=== PATIENT | female | born 1970 | race Caucasian/White ===

== ENCOUNTER 2016-08-03 05:19 | Inpatient (IN) | payer MEDICARE, OTHER ==
[2016-08-03] MEDS ORDERED: HYDROmorphone 1 MG/ML 1 ML SYRINGE IVP STA (06:11)
[2016-08-03] MEDS ORDERED: ONDANSETRON 4 MG/2 ML VIAL IVP STA (06:11)
--- NOTE | 2016-08-03 06:15 | ED ---
Abdominal Pain HPI - General Source: patient Mode of arrival: ambulatory - History of Present Illness Complaint: abdominal pain Onset/Timin -: hour(s) Location: epigastric Radiation: back Migration to: no migration Severity: moderate Quality: aching Consistency: constant Improves With: nothing Worsens With: nothing Associated Symptoms: nausea, vomiting <Ildefonso Templeton - Last Filed: 08/03/16 06:12> <Deyvi Alex - Last Filed: 08/03/16 09:44> - General Chief Complaint: Abdominal Pain Stated Complaint: Abdominal Pain Time Seen by Provider: 08/03/16 05:31 - Related Data Home Medications Medication Instructions Recorded Confirmed Atorvastatin [Lipitor] 20 mg PO HS 08/03/16 08/03/16 Ciprofloxacin HCl [Cipro] 500 mg PO Q12H 08/03/16 08/03/16 Multivitamins, Thera [Multivitamin 1 tab PO DAILY 08/03/16 08/03/16 (formulary)] Omeprazole 20 mg PO DAILY 08/03/16 08/03/16 Ondansetron [Zofran] 4 mg PO BID PRN 08/03/16 08/03/16 Orlistat 60 - 120 mg PO TID 08/03/16 08/03/16 Oxybutynin Chloride [Ditropan] 5 mg PO BID 08/03/16 08/03/16 Sucralfate [Carafate] 1 tab PO Q6HR PRN 08/03/16 08/03/16 clonazePAM [KlonoPIN] 0.5 mg PO BID PRN 08/03/16 08/03/16 metFORMIN HCL [Glucophage] 1,000 mg PO BID 08/03/16 08/03/16 Previous Rx's Medication Instructions Recorded Sertraline [Zoloft] 100 mg PO DAILY #30 tab 11/04/15 clonazePAM [KlonoPIN] 0.5 mg PO QID PRN #60 tab 11/04/15 traZODone HCL [Desyrel] 50 mg PO HS #90 tab 11/04/15 Allergies Allergy/AdvReac Type Severity Reaction Status Date / Time Penicillins Allergy Severe Anaphylaxis Verified 08/03/16 08:31 cephalexin monohydrate Allergy Anaphylaxis Verified 08/03/16 08:31 [From Keflex] iodine Allergy Unknown Verified 08/03/16 08:31 Mushroom AdvReac Unknown Verified 08/03/16 08:31 Review of Systems ROS Other: All systems not noted in ROS Statement are negative. Constitutional: Denies: fever, chills Respiratory: Denies: cough, dyspnea Cardiovascular: Denies: chest pain, palpitations, edema Gastrointestinal: Reports: abdominal pain, nausea, vomiting. Denies: diarrhea, constipation, melena, hematochezia Genitourinary: Denies: dysuria, hematuria Musculoskeletal: Denies: back pain Skin: Denies: rash Neurological: Denies: headache <Ildefonso Templeton - Last Filed: 08/03/16 06:12> ROS Other: All systems not noted in ROS Statement are negative. <Deyvi Alex - Last Filed: 08/03/16 09:44> ROS Statement: Those systems with pertinent positive or pertinent negative responses have been documented in the HPI. Past Medical History Past Medical History: Diabetes Mellitus, GERD/Reflux, Hyperlipidemia History of Any Multi-Drug Resistant Organisms: None Reported Past Surgical History: Adenoidectomy, Hysterectomy, Tonsillectomy Past Anesthesia/Blood Transfusion Reactions: No Reported Reaction Past Psychological History: Anxiety, Depression, Panic Disorder Smoking Status: Never smoker Past Alcohol Use History: None Reported Past Drug Use History: None Reported <Ildefonso Templeton - Last Filed: 08/03/16 06:12> General Exam General appearance: alert, in no apparent distress, obese Head exam: Present: atraumatic, normocephalic Eye exam: Present: normal appearance. Absent: scleral icterus, conjunctival injection Neck exam: Present: normal inspection, full ROM Respiratory exam: Present: normal lung sounds bilaterally. Absent: respiratory distress, wheezes, rales, rhonchi, stridor Cardiovascular Exam: Present: regular rate, normal rhythm, normal heart sounds. Absent: systolic murmur, diastolic murmur, rubs, gallop GI/Abdominal exam: Present: soft, tenderness (Mild right upper quadrant and epigastric tenderness), normal bowel sounds. Absent: distended, guarding, rebound, rigid, mass, pulsatile mass, hernia Extremities exam: Present: normal inspection, normal capillary refill. Absent: pedal edema, calf tenderness Back exam: Present: normal inspection. Absent: CVA tenderness (R), CVA tenderness (L) Neurological exam: Present: alert Skin exam: Present: warm, dry, intact, normal color. Absent: rash <Ildefonso Templeton - Last Filed: 08/03/16 06:12> Medical Decision Making <Ildefonso Templeton - Last Filed: 08/03/16 06:12> - Lab Data Result diagrams: 08/03/16 05:40 08/03/16 05:40 - Radiology Data Radiology results: report reviewed (Ultrasound report reveals thickening of the gallbladder wall multiple gallstones exam consistent with cholecystitis and cholelithiasis.), image reviewed <Deyvi Alex - Last Filed: 08/03/16 09:44> - Medical Decision Making The patient was endorsed to me by Dr. Templeton at our shift change. The patient was pending ultrasound and labs. Ultrasound does show evidence of cholelithiasis and cholecystitis. Reexamination patient reveals right upper quadrant tenderness palpation. I did discuss the case with the patient and with the surgeon on-call Dr. Mendez patient will be admitted for evaluation and cholecystectomy. The patient will be started on antibiotics. (Deyvi Alex) - Lab Data Lab Results 08/03/16 08/03/16 08/03/16 Range/Units 05:40 05:40 06:35 WBC 7.2 (3.8-10.6) k/uL RBC 4.06 (3.80-5.40) m/uL Hgb 10.1 L (11.4-16.0) gm/dL Hct 31.7 L (34.0-46.0) % MCV 78.1 L (80.0-100.0) fL MCH 24.8 L (25.0-35.0) pg MCHC 31.7 (31.0-37.0) g/dL RDW 15.6 H (11.5-15.5) % Plt Count 193 (150-450) k/uL Neutrophils % 72 % Lymphocytes % 21 % Monocytes % 4 % Eosinophils % 1 % Basophils % 0 % Neutrophils # 5.2 (1.3-7.7) k/uL Lymphocytes # 1.5 (1.0-4.8) k/uL Monocytes # 0.3 (0-1.0) k/uL Eosinophils # 0.1 (0-0.7) k/uL Basophils # 0.0 (0-0.2) k/uL Hypochromasia Slight Sodium 141 (137-145) mmol/L Potassium 3.3 L (3.5-5.1) mmol/L Chloride 107 (98-107) mmol/L Carbon Dioxide 20 L (22-30) mmol/L Anion Gap 14 mmol/L BUN 11 (7-17) mg/dL Creatinine 0.64 (0.52-1.04) mg/dL Est GFR (MDRD) Af Amer >60 (>60 ml/min/1.73 sqM) Est GFR (MDRD) Non-Af >60 (>60 ml/min/1.73 sqM) Glucose 128 H (74-99) mg/dL Calcium 9.2 (8.4-10.2) mg/dL Total Bilirubin 0.6 (0.2-1.3) mg/dL AST 17 (14-36) U/L ALT 24 (9-52) U/L Alkaline Phosphatase 108 (38-126) U/L Total Protein 6.7 (6.3-8.2) g/dL Albumin 4.0 (3.5-5.0) g/dL Amylase 55 (30-110) U/L Lipase 171 (23-300) U/L Urine Color Urine Appearance (Clear) Urine pH (5.0-8.0) Ur Specific [place] (1.001-1.035) Urine Protein (Negative) Urine Glucose (UA) (Negative) Urine Ketones (Negative) Urine Blood (Negative) Urine Nitrite (Negative) Urine Bilirubin (Negative) Urine Urobilinogen (<2.0) mg/dL Ur Leukocyte Esterase (Negative) Urine RBC (0-5) /hpf Urine WBC (0-5) /hpf Ur Squamous Epith Cells (0-4) /hpf Amorphous Sediment (None) /hpf Urine Bacteria (None) /hpf Hyaline Casts (0-2) /lpf Urine Mucus (None) /hpf Urine HCG, Qual Not Detected (Not Detectd) 08/03/16 Range/Units 06:35 WBC (3.8-10.6) k/uL RBC (3.80-5.40) m/uL Hgb (11.4-16.0) gm/dL Hct (34.0-46.0) % MCV (80.0-100.0) fL MCH (25.0-35.0) pg MCHC (31.0-37.0) g/dL RDW (11.5-15.5) % Plt Count (150-450) k/uL Neutrophils % % Lymphocytes % % Monocytes % % Eosinophils % % Basophils % % Neutrophils # (1.3-7.7) k/uL Lymphocytes # (1.0-4.8) k/uL Monocytes # (0-1.0) k/uL Eosinophils # (0-0.7) k/uL Basophils # (0-0.2) k/uL Hypochromasia Sodium (137-145) mmol/L Potassium (3.5-5.1) mmol/L Chloride (98-107) mmol/L Carbon Dioxide (22-30) mmol/L Anion Gap mmol/L BUN (7-17) mg/dL Creatinine (0.52-1.04) mg/dL Est GFR (MDRD) Af Amer (>60 ml/min/1.73 sqM) Est GFR (MDRD) Non-Af (>60 ml/min/1.73 sqM) Glucose (74-99) mg/dL Calcium (8.4-10.2) mg/dL Total Bilirubin (0.2-1.3) mg/dL AST (14-36) U/L ALT (9-52) U/L Alkaline Phosphatase (38-126) U/L Total Protein (6.3-8.2) g/dL Albumin (3.5-5.0) g/dL Amylase (30-110) U/L Lipase (23-300) U/L Urine Color Yellow Urine Appearance Cloudy H (Clear) Urine pH 6.5 (5.0-8.0) Ur Specific [place] 1.018 (1.001-1.035) Urine Protein Negative (Negative) Urine Glucose (UA) Negative (Negative) Urine Ketones Negative (Negative) Urine Blood Negative (Negative) Urine Nitrite Negative (Negative) Urine Bilirubin Negative (Negative) Urine Urobilinogen <2.0 (<2.0) mg/dL Ur Leukocyte Esterase Negative (Negative) Urine RBC <1 (0-5) /hpf Urine WBC 2 (0-5) /hpf Ur Squamous Epith Cells 3 (0-4) /hpf Amorphous Sediment Rare H (None) /hpf Urine Bacteria Rare H (None) /hpf Hyaline Casts 3 H (0-2) /lpf Urine Mucus Rare H (None) /hpf Urine HCG, Qual (Not Detectd) Disposition <Ildefonso Templeton - Last Filed: 08/03/16 06:12> <Deyvi Alex - Last Filed: 08/03/16 09:44> Clinical Impression: Cholecystitis with cholelithiasis, Abdominal pain Disposition: ADMITTED IP TO THIS [facility] Condition: Stable Referrals: Ponce Barnes MD [Primary Care Provider] - 1-2 days
[2016-08-03 06:20] LABS: Basophils % (A) 0 %; CH 24.7; CHCM 31.6; Eosinophils # (A) 0.1 k/uL (0-0.7); Eosinophils % (A) 1 %; HCT 31.7 % (34.0-46.0); HDW 3.13; HGB 10.1 gm/dL (11.4-16.0); Hypochromasia Slight; Luc % (Auto) 1; Lymphocytes # (A) 1.5 k/uL (1.0-4.8); Lymphocytes % (A) 21 %; MCH 24.8 pg (25.0-35.0); MCHC 31.7 g/dL (31.0-37.0); MCV 78.1 fL (80.0-100.0); Mean Platelet Volume 7.8; Monocytes # (A) 0.3 k/uL (0-1.0); Monocytes % (A) 4 %; Neutrophils # (A) 5.2 k/uL (1.3-7.7); Neutrophils % (A) 72 %; RBC 4.06 m/uL (3.80-5.40); RDW 15.6 % (11.5-15.5); WBC 7.2 k/uL (3.8-10.6); WBC (Perox) 7.11
[2016-08-03 06:37] LABS: ALT 24 U/L (9-52); AST 17 U/L (14-36); Alkaline Phosphatase 108 U/L (38-126); Amylase 55 U/L (30-110); Anion Gap 14 mmol/L; Blood Urea Nitrogen 11 mg/dL (7-17); Calcium 9.2 mg/dL (8.4-10.2); Carbon Dioxide 20 mmol/L (22-30); Chloride 107 mmol/L (98-107); Glucose 128 mg/dL (74-99); Non-African American GFR(MDRD) >60 (>60 ml/min/1.73 sqM); Potassium 3.3 mmol/L (3.5-5.1); Sodium 141 mmol/L (137-145); Total Bilirubin 0.6 mg/dL (0.2-1.3); Total Protein 6.7 g/dL (6.3-8.2)
[2016-08-03 06:47] LABS: Amorphous Sediment,Urine Rare /hpf; Appearance,Urine Cloudy (Clear); Bacteria,Urine Rare /hpf; Bilirubin,Urine Negative (Negative); Glucose,Urine (UA) Negative (Negative); Ketones,Urine Negative (Negative); Leukocyte Esterase,Urine Negative (Negative); Mucus,Urine Rare /hpf; Nitrite,Urine Negative (Negative); PH, Urine 6.5 (5.0-8.0); Particle Count 2256; Protein,Urine Negative (Negative); RBC,Urine <1 /hpf (0-5); Specific Gravity,Urine 1.018 (1.001-1.035); Squamous Epithelial Cell,Urine 3 /hpf (0-4); UA Billing (MACRO vs. MICRO) MICRO; Urobilinogen,Urine <2.0 mg/dL (<2.0); WBC,Urine 2 /hpf (0-5)
--- NOTE | 2016-08-03 08:26 | US ---
EXAMINATION TYPE: US abdomen limited DATE OF EXAM: 08/03/2016 COMPARISON: CT abdomen and pelvis from October 29, 2015 CLINICAL HISTORY: Pain, attention RUQ. Epigastric pain, nausea/vomiting/diarrhea EXAM MEASUREMENTS: Liver Length: 19.4 cm Gallbladder Wall: 0.6 cm CBD: 0.4 cm Right Kidney: 13.6 x 6.7 x 5.6 cm Pancreas: visualized portions appear wnl Liver: enlarged Gallbladder: multiple stones, thickened edematous wall Evidence for sonographic Desai's sign: patient on pain medication CBD: appears wnl Right Kidney: enlarged with dense echogenic area with no shadowing lower pole IMPRESSION: Multiple small shadowing mobile gallstones with abnormal gallbladder wall thickening in p atient with epigastric and right upper quadrant pain and symptoms of nausea and vomiting, all raise c oncern for acute cholecystitis.
[2016-08-03] MEDS ORDERED: HEPARIN SODIUM,PORCINE 5,000 UNIT/ML 1 ML VIAL SQ ONE (09:41)
[2016-08-03] MEDS ORDERED: LEVOFLOXACIN 750MG-D5W PMX 750 MG in DEXTROSE/WATER 1 150ML.BAG IVPB STA (09:42)
[2016-08-03] MEDS ORDERED: NALOXONE 0.4 MG/ML 1 ML VIAL IV PRN (09:44)
[2016-08-03] MEDS ORDERED: metroNIDAZOLE-NS PMX 500 MG in SALINE 1 100ML.BAG IVPB STA (09:49)
[2016-08-03] MEDS: SODIUM CHLORIDE 0.9% 1,000 ML IV SCH ×2 (10:31→21:00)
[2016-08-03 11:38] LABS: Glucose,Whole Blood 107 mg/dL (75-99)
--- NOTE | 2016-08-03 13:19 | P.GSHP ---
History of Present Illness H&P Date: 08/03/16 Chief Complaint: Epigastric and RUQ pain 45 years old female presents with acute onset of right upper quadrant and epigastric pain starting 3 AM this morning. She prior episodes of similar abdominal pain but not requiring hospital admission. She has some nausea and no vomiting. No fever, chills or rigors. Patient has known factor V Leiden deficiency, she is diabetic. No history of extensive blood loss during menstruation. No rectal bleeding. - Review of Systems Comment: All negative except stated in history of present illness Past Medical History Past Medical History: Diabetes Mellitus, GERD/Reflux, Hyperlipidemia Additional Past Medical History / Comment(s): NIDDM type II, current UTI on ABX , dyslexia. History of Any Multi-Drug Resistant Organisms: None Reported Past Surgical History: Adenoidectomy, Section, Tonsillectomy Additional Past Surgical History / Comment(s): Nasal surgery Past Anesthesia/Blood Transfusion Reactions: Postoperative Nausea & Vomiting ( PONV) Additional Past Anesthesia/Blood Transfusion Reaction / Comment(s): Pt states she has never received blood. Past Psychological History: Anxiety, Depression, Panic Disorder Additional Psychological History / Comment(s): Pt resides with spouse. She is independent. She has dyslexia. She states she has mild comprehension problem. Smoking Status: Never smoker Past Alcohol Use History: None Reported Past Drug Use History: None Reported - Past Family History Mother Family Medical History: Cancer Additional Family Medical History / Comment(s): Mother has lymphoma. Father History Unknown: Yes Additional Family Medical History / Comment(s): Father left when pt was 2 months old. Medications and Allergies Home Medications Medication Instructions Recorded Confirmed Type Atorvastatin [Lipitor] 20 mg PO HS 08/03/16 08/03/16 History Ciprofloxacin HCl [Cipro] 500 mg PO Q12H 08/03/16 08/03/16 History Multivitamins, Thera [Multivitamin 1 tab PO DAILY 08/03/16 08/03/16 History (formulary)] Omeprazole 20 mg PO DAILY 08/03/16 08/03/16 History Ondansetron [Zofran] 4 mg PO BID PRN 08/03/16 08/03/16 History Orlistat 60 - 120 mg PO TID 08/03/16 08/03/16 History Oxybutynin Chloride [Ditropan] 5 mg PO BID 08/03/16 08/03/16 History Sucralfate [Carafate] 1 tab PO Q6HR PRN 08/03/16 08/03/16 History clonazePAM [KlonoPIN] 0.5 mg PO BID PRN 08/03/16 08/03/16 History metFORMIN HCL [Glucophage] 1,000 mg PO BID 08/03/16 08/03/16 History Allergies Allergy/AdvReac Type Severity Reaction Status Date / Time Penicillins Allergy Severe Anaphylaxis Verified 08/03/16 08:31 cephalexin monohydrate Allergy Anaphylaxis Verified 08/03/16 08:31 [From Keflex] iodine Allergy Unknown Verified 08/03/16 08:31 Mushroom AdvReac Unknown Verified 08/03/16 08:31 Surgical - Exam Vital Signs Temp Pulse Resp BP Pulse Ox 98.7 F 58 L 18 158/83 100 08/03/16 05:33 08/03/16 05:33 08/03/16 05:33 08/03/16 05:33 08/03/16 05:33 General: Patient is alert and oriented to time, place and person and cooperative with exam. HEENT: No pallor, no icterus, no thyroid enlargemen Chest: Bilateral equal breath sounds present. No wheezes, no crackles. Cardiovascular: Regular rate and rhythm. Abdomen: Soft, tenderness along the right subcostal area Integumentary: No active ulcers or discharge. Neurologic: Cranial nerves II-XII intact. Strength upper and lower extremities 5/5. No focal neurologic deficits. Gait is normal. Psychiatric: No anxiety or psychosis. No suicidal thoughts. Results - Labs 08/03/16 05:40 08/03/16 05:40 Abnormal Lab Results - Last 24 Hours (Table) 08/03/16 08/03/16 08/03/16 Range/Units 05:40 05:40 06:35 Hgb 10.1 L (11.4-16.0) gm/dL Hct 31.7 L (34.0-46.0) % MCV 78.1 L (80.0-100.0) fL MCH 24.8 L (25.0-35.0) pg RDW 15.6 H (11.5-15.5) % Potassium 3.3 L (3.5-5.1) mmol/L Carbon Dioxide 20 L (22-30) mmol/L Glucose 128 H (74-99) mg/dL POC Glucose (mg/dL) (75-99) mg/dL Urine Appearance Cloudy H (Clear) Amorphous Sediment Rare H (None) /hpf Urine Bacteria Rare H (None) /hpf Hyaline Casts 3 H (0-2) /lpf Urine Mucus Rare H (None) /hpf 08/03/16 Range/Units 11:34 Hgb (11.4-16.0) gm/dL Hct (34.0-46.0) % MCV (80.0-100.0) fL MCH (25.0-35.0) pg RDW (11.5-15.5) % Potassium (3.5-5.1) mmol/L Carbon Dioxide (22-30) mmol/L Glucose (74-99) mg/dL POC Glucose (mg/dL) 107 H (75-99) mg/dL Urine Appearance (Clear) Amorphous Sediment (None) /hpf Urine Bacteria (None) /hpf Hyaline Casts (0-2) /lpf Urine Mucus (None) /hpf Diabetes panel 08/03/16 Range/Units 05:40 Sodium 141 (137-145) mmol/L Potassium 3.3 L (3.5-5.1) mmol/L Chloride 107 (98-107) mmol/L Carbon Dioxide 20 L (22-30) mmol/L BUN 11 (7-17) mg/dL Creatinine 0.64 (0.52-1.04) mg/dL Glucose 128 H (74-99) mg/dL Calcium 9.2 (8.4-10.2) mg/dL AST 17 (14-36) U/L ALT 24 (9-52) U/L Alkaline Phosphatase 108 (38-126) U/L Total Protein 6.7 (6.3-8.2) g/dL Albumin 4.0 (3.5-5.0) g/dL Calcium panel 08/03/16 Range/Units 05:40 Calcium 9.2 (8.4-10.2) mg/dL Albumin 4.0 (3.5-5.0) g/dL Pituitary panel 08/03/16 Range/Units 05:40 Sodium 141 (137-145) mmol/L Potassium 3.3 L (3.5-5.1) mmol/L Chloride 107 (98-107) mmol/L Carbon Dioxide 20 L (22-30) mmol/L BUN 11 (7-17) mg/dL Creatinine 0.64 (0.52-1.04) mg/dL Glucose 128 H (74-99) mg/dL Calcium 9.2 (8.4-10.2) mg/dL Adrenal panel 08/03/16 Range/Units 05:40 Sodium 141 (137-145) mmol/L Potassium 3.3 L (3.5-5.1) mmol/L Chloride 107 (98-107) mmol/L Carbon Dioxide 20 L (22-30) mmol/L BUN 11 (7-17) mg/dL Creatinine 0.64 (0.52-1.04) mg/dL Glucose 128 H (74-99) mg/dL Calcium 9.2 (8.4-10.2) mg/dL Total Bilirubin 0.6 (0.2-1.3) mg/dL AST 17 (14-36) U/L ALT 24 (9-52) U/L Alkaline Phosphatase 108 (38-126) U/L Total Protein 6.7 (6.3-8.2) g/dL Albumin 4.0 (3.5-5.0) g/dL - Imaging US - abdomen: other (Gallstones and gallbladder wall thickening suggestive of acute cholecystitis) Assessment and Plan (1) Chronic anemia Status: Acute (2) Cholecystitis with cholelithiasis Status: Acute Plan: 1. Laparoscopic cholecystectomy possible open. The risks, benefits and potential complications discussed included bleeding, infection, inadvertent bile duct injury and possibility of converting to open. 2. Hypokalemia at presentation. Potassium chloride 40 mEq IV piggyback times one 3. Known factor V Leiden deficiency. No documented episodes of DVTs. Preop heparin and bilateral SCDs. Encourage early ambulation Continue DVT prophylaxis in the postoperative period 4. Anemia at presentation hemoglobin 10. Etiology unknown. Check iron profile in a.m. 5. Diabetes mellitus. Check hemoglobin A1c 6. Preoperative antibiotics including IV Flagyl and Levaquin
[2016-08-03] MEDS: POTASSIUM CHLORIDE 20 MEQ in WATER FOR INJECTION 1 100ML.BAG IVPB SCH ×2 (13:51→18:23)
[2016-08-03] MEDS ORDERED: IV FLUID CONTINUATION 900 ML IV ONE (14:02)
[2016-08-03] MEDS ORDERED: fentaNYL (PF) 50 MCG/ML 2 ML AMP ONE (15:37)
[2016-08-03] MEDS ORDERED: NEOSTIGMINE 1 MG/ML 10 ML VIAL ONE (15:37)
[2016-08-03] MEDS ORDERED: MIDAZOLAM 2 MG/2 ML VIAL ONE (15:37)
[2016-08-03] MEDS ORDERED: PHENYLEPHRINE-0.9% NACL SYG 1 MG/10 ML SYRINGE ONE (15:37)
[2016-08-03] MEDS ORDERED: GLYCOPYRROLATE 0.2 MG/ML 2 ML VIAL ONE (15:37)
[2016-08-03] MEDS ORDERED: ROCURONIUM BROMIDE 10 MG/ML 10 ML VIAL IV ONE (15:37)
[2016-08-03] MEDS ORDERED: LACTATED RINGERS 1,000 ML IV ONE (15:37)
[2016-08-03] MEDS ORDERED: PROPOFOL 10 MG/ML 20 ML VIAL IV ONE (15:37)
[2016-08-03] MEDS ORDERED: LIDOCAINE 1% INJ 10MG/ML (20 ML MDV) ONE (15:37)
[2016-08-03] MEDS ORDERED: KETOROLAC 30 MG/ML 1 ML VIAL ONE (15:37)
[2016-08-03] MEDS ORDERED: SUCCINYLCHOLINE CHLORIDE 100 MG/5 ML SYR IV ONE (15:37)
[2016-08-03] MEDS ORDERED: BUPIVACAIN-EPI 0.25%-1:200,000 30 ML VIAL SQ ONE ×2 (15:49→15:59)
[2016-08-03] MEDS ORDERED: HYDROcodone/APAP 5-325MG 1 EACH TAB PO PRN (17:15)
[2016-08-03] MEDS ORDERED: ONDANSETRON 4 MG/2 ML VIAL IVP ONE (17:16)
--- NOTE | 2016-08-03 17:17 | P.OP ---
Date of Procedure: 08/03/16 Preoperative Diagnosis: Acute calculus cholecystitis Chronic anemia Factor V Leiden deficiency Postoperative Diagnosis: Same Procedure(s) Performed: Laparoscopic cholecystectomy Implants: NA Anesthesia: ZAHRAA, local Surgeon: Noemí Mendez Estimated Blood Loss (ml): 75 Pathology: other Condition: stable Disposition: PACU Indications for Procedure: 45 years old female presents with acute onset of epigastric and right upper quadrant pain. Ultrasound showed acute acalculous cholecystitis. Informed consent obtained and patient elected to undergo laparoscopic cholecystectomy possible open. The risks, benefits and potential complications were explained including bleeding, infection, inadvertent bile duct injury and possibility of converting to open. Patient demonstrated understanding and agreed to proceed with surgery. Operative Findings: Acute calculus cholecystitis with edematous gallbladder wall. The cystic artery was bifurcated had a smaller posterior branch which also clipped. Description of Procedure: The patient was brought to the operating room and placed in supine position with both arms out. General anesthesia with endotracheal intubation was performed as per anesthesia team. Chlorhexidine was used to prep the abdomen followed by application of sterile drapes. A timeout was performed to verify correct patient and correct procedure. Patient was confirmed to receive perioperative IV antibiotics , heparin 5000 units subcutaneous injection and bilateral SCDs were placed. A 5 mm skin incision was made below the left costal margin at the anterior axillary line. A Veress needle was inserted and pneumoperitoneum was established to a pressure of 15 mmHg. A 5 mm Optiview trocar was loaded on a 5 mm 30 laparoscope and the peritoneal cavity was entered under direct vision using the Optiview technique. Additional 5 mm trocar was placed in the supraumbilical location and two 5 mm trocars along the right subcostal margin. The left 5 mm trocar was upsized to 10mm. The patient was placed in reverse Trendelenburg with right side up. The fundus of the gallbladder was grasped with an atraumatic grasper and was retracted over the dome of the liver. The gallbladder was distended with stones and had edematous wall. The gallbladder contents were aspirated using a laparoscopic needle aspirator. The infundibulum was grasped with an atraumatic grasper and retracted towards the pelvis to expose the Calot's triangle. Lateral and medial peritoneal attachment of the gallbladder bladder was dissected. Circumferential dissection was carried out around the cystic artery and the cystic duct to obtain adequate length for clip application. All the surrounding fibrofatty tissue were removed. Critical view was obtained with cystic duct and cystic artery as the only two structures entering the gallbladder. Two clips were applied on the patient's side and one on the specimen side on the cystic duct first followed by the cystic artery. Endoshears were used to divide the cystic duct and the cystic artery. There was brisk bleeding noted from the posterior branch of the cystic artery. This was controlled using pressure and finally 2 clips were applied on this cystic artery stump to control the bleeding. The gallbladder was taken off the liver bed using a L-hook. It was placed in an endocatch specimen bag and removed through the 10mm port. The gallbladder was passed off as a specimen. The abdominal cavity was inspected. The clips on the cystic duct and cystic artery stump were intact and no bleeding noted from the liver bed. All the trocar sites were examined and no evidence of bleeding. The 10mm port site was closed with two transfascial sutures of 0 Vicryl using a Stone Ilsa device. The pneumoperitoneum was evacuated and all the trocars were removed. Local anesthetic was infiltrated along the trocar sites and incisions were closed using 4-0 Monocryl followed by application of Dermabond skin glue. The sponge, instrument and needle count were correct x2. Patient was extubated and taken to post anesthesia care unit in stable condition.
[2016-08-03 17:27] LABS: Glucose,Whole Blood 154 mg/dL (75-99)
[2016-08-03] MEDS ORDERED: METOCLOPRAMIDE 5 MG/ML 2 ML VIAL IVP ONE (17:41)
[2016-08-03 17:49] VITALS: RESP 16
[2016-08-03 18:20] LABS: Glucose,Whole Blood 127 mg/dL (75-99)
[2016-08-03 18:49] LABS: CH 24.4; CHCM 31.2; HCT 30.2 % (34.0-46.0); HDW 3.03; HGB 9.7 gm/dL (11.4-16.0); Hypochromasia Moderate; MCH 25.1 pg (25.0-35.0); MCV 78.3 fL (80.0-100.0); Mean Platelet Volume 8.1; RBC 3.86 m/uL (3.80-5.40); RDW 15.5 % (11.5-15.5); WBC 7.5 k/uL (3.8-10.6)
[2016-08-03 18:52] LABS: Potassium 3.6 mmol/L (3.5-5.1)
[2016-08-04 01:47] LABS: Glucose,Whole Blood 105 mg/dL (75-99)
[2016-08-04] MEDS: SODIUM CHLORIDE 0.9% 1,000 ML IV SCH ×2 (05:37→08:40)
[2016-08-04 05:50] LABS: Glucose,Whole Blood 108 mg/dL (75-99)
[2016-08-04 07:04] LABS: Glucose,Whole Blood 109 mg/dL (75-99)
[2016-08-04 07:45] VITALS: BP 102/65; PULSE 68; TEMP 97.8
[2016-08-04 11:24] LABS: Glucose,Whole Blood 115 mg/dL (75-99)
[2016-08-04 11:27] LABS: % Iron Saturation 14.8 % (20-50)
[2016-08-04 13:25] LABS: Hemoglobin A1C 5.8 % (4.2-6.1)
--- NOTE | 2016-08-04 13:31 | P.DS ---
Providers Date of admission: 08/03/16 09:46 Expected date of discharge: 08/04/16 Attending physician: Noemí Rodriguez Primary care physician: Ponce Barnes [facility] Course: 45-year-old female presented with acute onset of epigastric and right upper quadrant abdominal pain. Ultrasound did show acute acalculous cholecystitis patient elected to proceed with a Laparoscopic cholecystectomy for Acute calculus cholecystitis. Which was done on August 03 Patient does have a history of chronic anemia with factor V leiden deficiency iron studies were drawn on August 04 iron 49, TIBC 331, and the iron sat 14.8 hemoglobin on the 9.7. The admitting hemoglobin 10.1. Patient was placed on iron supplements patient was able to be ambulatory with adequate pain controlled Patient was felt to be clinically stable and appropriate proceed with a discharge to home Impression discharge diagnosis Status post laparoscopic cholecystectomy for Acute calculus cholecystitis done on August 03 Present on admission acute onset epigastric and right upper quadrant abdominal pain suspect due to an acutea calculous cholecystitis. History of Factor V Leiden deficiency Chronic anemia A recent treatment of a UTI in the outpatient setting started on Cipro by the PCP The above dictated assessment and findings were discussed with dr garcía Impression and the plan of care have been dictated as directed. Shaye Howard nurse practitioner acting as a scribe for dr rodriguez Patient Condition at Discharge: Stable Plan - Discharge Summary New Discharge Prescriptions: New Docusate [Colace] 100 mg PO BID #30 capsule Hydrocodone/Acetaminophen [[place] 5-325] 1 each PO Q6HR PRN #20 tab PRN Reason: Pain HYDROcodone/APAP 5-325MG [[place] 5-325] 1 each PO Q4HR PRN #20 tab PRN Reason: Moderate Pain Ferrous Sulfate [Iron (65 MG Elemental)] 325 mg PO BID #60 tab Continue Sertraline [Zoloft] 100 mg PO DAILY #30 tab traZODone HCL [Desyrel] 50 mg PO HS #90 tab clonazePAM [KlonoPIN] 0.5 mg PO QID PRN #60 tab PRN Reason: Agitation Or Acute Anxiety clonazePAM [KlonoPIN] 0.5 mg PO BID PRN PRN Reason: Anxiety Sucralfate [Carafate] 1 tab PO Q6HR PRN PRN Reason: stomach Oxybutynin Chloride [Ditropan] 5 mg PO BID Ondansetron [Zofran] 4 mg PO BID PRN PRN Reason: Nausea Omeprazole 20 mg PO DAILY Ciprofloxacin HCl [Cipro] 500 mg PO Q12H Atorvastatin [Lipitor] 20 mg PO HS Multivitamins, Thera [Multivitamin (formulary)] 1 tab PO DAILY metFORMIN HCL [Glucophage] 1,000 mg PO BID Orlistat 60 - 120 mg PO TID Discharge Medication List Sertraline [Zoloft] 100 mg PO DAILY #30 tab 11/04/15 [Rx] clonazePAM [KlonoPIN] 0.5 mg PO QID PRN #60 tab 11/04/15 [Rx] traZODone HCL [Desyrel] 50 mg PO HS #90 tab 11/04/15 [Rx] Atorvastatin [Lipitor] 20 mg PO HS 08/03/16 [History] Ciprofloxacin HCl [Cipro] 500 mg PO Q12H 08/03/16 [History] Docusate [Colace] 100 mg PO BID #30 capsule 08/03/16 [Rx] Hydrocodone/Acetaminophen [[place] 5-325] 1 each PO Q6HR PRN #20 tab 08/03/16 [Rx] Multivitamins, Thera [Multivitamin (formulary)] 1 tab PO DAILY 08/03/16 [History ] Omeprazole 20 mg PO DAILY 08/03/16 [History] Ondansetron [Zofran] 4 mg PO BID PRN 08/03/16 [History] Orlistat 60 - 120 mg PO TID 08/03/16 [History] Oxybutynin Chloride [Ditropan] 5 mg PO BID 08/03/16 [History] Sucralfate [Carafate] 1 tab PO Q6HR PRN 08/03/16 [History] clonazePAM [KlonoPIN] 0.5 mg PO BID PRN 08/03/16 [History] metFORMIN HCL [Glucophage] 1,000 mg PO BID 08/03/16 [History] Ferrous Sulfate [Iron (65 MG Elemental)] 325 mg PO BID #60 tab 08/04/16 [Rx] HYDROcodone/APAP 5-325MG [[place] 5-325] 1 each PO Q4HR PRN #20 tab 08/04/16 [Rx] Follow up Appointment(s)/Referral(s): Noemí Rodriguez MD [STAFF PHYSICIAN] - 08/09/16 11:00 am Ponce Barnes MD [Primary Care Provider] - 08/09/16 8:40 am Activity/Diet/Wound Care/Special Instructions: OK to shower . No soaking bath. Ambulating in hallways every 2 hours while awake No heavy lifting more than 10 lbs for 6 weeks post surgery. No driving while taking narcotics for pain. May use ice packs for local pain relief Take Motrin 600 mg po TID after meals if pain is not controlled Use incentive spirometry 10 times an hour while awake Discharge Disposition: HOME SELF-CARE
== END 2016-08-04 15:57 | disposition home or self-care (01) | DRG 418 ==
LOC: EC 05:19 → 3SUR 09:46
PROVIDERS: ADMIT Surgery; ATTEND Surgery
PROC: 0FT44ZZ Resection of Gallbladder, Percutaneous Endoscopic Approach (ICD-10-PCS; principal; 2016-08-03 12:30)
DX: K80.00 Calculus of gallbladder with acute cholecystitis without obstruction (principal); N39.0 Urinary tract infection, site not specified; D68.51 Activated protein C resistance; E11.9 Type 2 diabetes mellitus without complications; D64.9 Anemia, unspecified; E87.6 Hypokalemia; F41.9 Anxiety disorder, unspecified; F32.9 Major depressive disorder, single episode, unspecified; E78.5 Hyperlipidemia, unspecified; K21.9 Gastro-esophageal reflux disease without esophagitis; R48.0 Dyslexia and alexia; F41.0 Panic disorder [episodic paroxysmal anxiety]; Z79.899 Other long term (current) drug therapy; Z80.7 Family history of other malignant neoplasms of lymphoid, hematopoietic and related tissues; Z79.84 Long term (current) use of oral hypoglycemic drugs; Z88.1 Allergy status to other antibiotic agents; Z91.041 Radiographic dye allergy status; Z88.0 Allergy status to penicillin; Z91.018 Allergy to other foods; Z90.710 Acquired absence of both cervix and uterus
CPT/HCPCS: 36415; 76705; 80051; 80053; 81001; 81025; 82150; 83036; 83540; 83550; 83690; 85025; 85027; 87086; 88304; 96365; 96372; 96375; 99285

== ENCOUNTER → 2017-05-30 | Outpatient (CLI) | payer MEDICARE, OTHER ==
--- NOTE | 2017-06-08 10:16 | MM ---
Reason for exam: screening (asymptomatic). Last mammogram was performed 9 years and 3 months ago. Physical Findings: A clinical breast exam by your physician is recommended on an annual basis and results should be correlated with mammographic findings. MG Screening Mammo w CAD Bilateral CC and MLO view(s) were taken. Prior study comparison: March 11, 2008, mammogram, performed at [facility]. The breast tissue is heterogeneously dense. This may lower the sensitivity of mammography. There is no discrete abnormality. No significant changes when compared with prior studies. ASSESSMENT: Negative, BI-RAD 1 RECOMMENDATION: Routine screening mammogram of both breasts in 1 year.
== END | disposition home or self-care (01) ==
LOC: RADMAMWWP 11:08
PROVIDERS: ATTEND Family Medicine
DX: Z12.31 Encounter for screening mammogram for malignant neoplasm of breast (principal)
CPT/HCPCS: 77067

== ENCOUNTER 2018-09-15 21:37 | Emergency (ER) | payer MEDICARE, OTHER ==
[2018-09-15 23:05] LABS: Basophils % (A) 1 %; Eosinophils # (A) 0.1 k/uL (0-0.7); Eosinophils % (A) 2 %; HCT 38.3 % (34.0-46.0); HGB 12.4 gm/dL (11.4-16.0); Lymphocytes # (A) 2.3 k/uL (1.0-4.8); Lymphocytes % (A) 30 %; MCH 27.5 pg (25.0-35.0); MCHC 32.5 g/dL (31.0-37.0); MCV 84.5 fL (80.0-100.0); Mean Platelet Volume 8.4; Monocytes # (A) 0.3 k/uL (0-1.0); Monocytes % (A) 4 %; Neutrophils # (A) 4.6 k/uL (1.3-7.7); Neutrophils % (A) 61 %; Platelet Count 246 k/uL (150-450); RBC 4.53 m/uL (3.80-5.40); RDW 15.7 % (11.5-15.5); WBC 7.6 k/uL (3.8-10.6)
[2018-09-15 23:21] LABS: ALT 45 U/L (9-52); AST 34 U/L (14-36); African American GFR (CKD) >90 (>60 ml/min/1.73 sqM); Albumin 4.3 g/dL (3.5-5.0); Alkaline Phosphatase 69 U/L (38-126); Anion Gap 7 mmol/L; Blood Urea Nitrogen 12 mg/dL (7-17); Calcium 9.2 mg/dL (8.4-10.2); Carbon Dioxide 26 mmol/L (22-30); Chloride 107 mmol/L (98-107); Glucose 96 mg/dL (74-99); Magnesium 1.9 mg/dL (1.6-2.3); Potassium 4.5 mmol/L (3.5-5.1); Sodium 140 mmol/L (137-145); Total Bilirubin 0.5 mg/dL (0.2-1.3)
[2018-09-15 23:32] LABS: Appearance,Urine Cloudy (Clear); Bacteria,Urine Few /hpf; Bilirubin,Urine Negative (Negative); Blood,Urine Negative (Negative); Color,Urine Yellow; Glucose,Urine (UA) Negative (Negative); Ketones,Urine Negative (Negative); Leukocyte Esterase,Urine Negative (Negative); Mucus,Urine Rare /hpf; Nitrite,Urine Negative (Negative); Protein,Urine Trace (Negative); RBC,Urine 1 /hpf (0-5); Specific Gravity,Urine 1.026 (1.001-1.035); Squamous Epithelial Cell,Urine 13 /hpf (0-4); Urobilinogen,Urine <2.0 mg/dL (<2.0); WBC,Urine 9 /hpf (0-5)
[2018-09-15 23:33] LABS: HCG,Qualitative Serum Not Detected
--- NOTE | 2018-09-16 00:21 | ED ---
General Adult HPI - General Chief complaint: Dizziness Stated complaint: Dizziness Time Seen by Provider: 09/15/18 21:58 Source: patient, RN notes reviewed, old records reviewed Mode of arrival: ambulatory Limitations: no limitations - History of Present Illness Initial comments: 47-year-old female patient with past history of type 2 diabetes, hyperlipidemia proceeded chief complaint of 2 weeks of waxing and waning malaise. Patient also reports some waxing and waning paresthesias in the tips and toes. Patient also reports some waxing and waning dizziness. Patient is currently asymptomatic, has been asymptomatic all day. Patient also reports that she is being treated for a STD at this time. Denies any pain. Denies any other complaints. Systemic: Pt denies fatigue, fever/chills, rash. Pt denies weakness, night sweats, weight loss. Neuro: Pt denies headache, visual disturbances, syncope or pre-syncope. HEENT: Pt denies ocular discharge or irritation, otalgia, rhinorrhea, pharyngitis or notable lymphadenopathy. Cardiopulmonary: Pt denies chest pain, SOB, heart palpitations, dyspnea on exertion. Abdominal/GI: Pt denies abdominal pain, n/v/d. : Pt denies dysuria, burning w/ urination, frequency/urgency. Denies new onset urinary or bowel incontinence. MSK: Pt denies myalgia, loss of strength or function in extremities. Neuro: Pt denies new onset weakness. - Related Data Home Medications Medication Instructions Recorded Confirmed Atorvastatin [Lipitor] 20 mg PO HS 08/03/16 08/03/16 Ciprofloxacin HCl [Cipro] 500 mg PO Q12H 08/03/16 08/03/16 Multivitamins, Thera [Multivitamin 1 tab PO DAILY 08/03/16 08/03/16 (formulary)] Omeprazole 20 mg PO DAILY 08/03/16 08/03/16 Ondansetron [Zofran] 4 mg PO BID PRN 08/03/16 08/03/16 Orlistat 60 - 120 mg PO TID 08/03/16 08/03/16 Oxybutynin Chloride [Ditropan] 5 mg PO BID 08/03/16 08/03/16 Sucralfate [Carafate] 1 tab PO Q6HR PRN 06/14/17 06/14/17 clonazePAM [KlonoPIN] 0.5 mg PO BID PRN 08/03/16 08/03/16 metFORMIN HCL [Glucophage] 1,000 mg PO BID 08/03/16 08/03/16 Previous Rx's Medication Instructions Recorded Sertraline [Zoloft] 100 mg PO DAILY #30 tab 11/04/15 clonazePAM [KlonoPIN] 0.5 mg PO QID PRN #60 tab 11/04/15 traZODone HCL [Desyrel] 50 mg PO HS #90 tab 11/04/15 Docusate [Colace] 100 mg PO BID #30 capsule 08/03/16 Hydrocodone/Acetaminophen [[place] 1 each PO Q6HR PRN #20 tab 08/03/16 5-325] Ferrous Sulfate [Iron (65 MG 325 mg PO BID #60 tab 08/04/16 Elemental)] HYDROcodone/APAP 5-325MG [[place] 1 each PO Q4HR PRN #20 tab 08/04/16 5-325] Allergies Allergy/AdvReac Type Severity Reaction Status Date / Time Penicillins Allergy Severe Anaphylaxis Verified 09/15/18 21:48 cephalexin monohydrate Allergy Anaphylaxis Verified 09/15/18 21:48 [From Keflex] iodine Allergy Unknown Verified 09/15/18 21:48 Mushroom AdvReac Unknown Verified 09/15/18 21:48 Review of Systems ROS Statement: Those systems with pertinent positive or pertinent negative responses have been documented in the HPI. ROS Other: All systems not noted in ROS Statement are negative. Past Medical History Past Medical History: Diabetes Mellitus, GERD/Reflux, Hyperlipidemia Additional Past Medical History / Comment(s): NIDDM type II, current UTI on ABX, dyslexia. History of Any Multi-Drug Resistant Organisms: None Reported Past Surgical History: Adenoidectomy, Section, Tonsillectomy Additional Past Surgical History / Comment(s): Nasal surgery Past Anesthesia/Blood Transfusion Reactions: Postoperative Nausea & Vomiting (PONV) Additional Past Anesthesia/Blood Transfusion Reaction / Comment(s): Pt states she has never received blood. Past Psychological History: Anxiety, Depression, Panic Disorder Smoking Status: Never smoker Past Alcohol Use History: None Reported Past Drug Use History: None Reported - Past Family History Mother Family Medical History: Cancer Additional Family Medical History / Comment(s): Mother has lymphoma. Father History Unknown: Yes Additional Family Medical History / Comment(s): Father left when pt was 2 months old. General Exam - General Exam Comments Initial Comments: Constitutional: NAD, AOX3, Pt has pleasant affect. HEENT: NC/AT, trachea midline, neck supple, no lymphadenopathy. Posterior pharynx non erythematous, without exudates. External ears appear normal, without discharge. Mucous membranes moist. Eyes PERRLA, EOM intact. There is no scleral icterus. No pallor noted. Cardiopulmonary: RRR, no murmurs, rubs or gallops, no JVD noted. Lungs CTAB in anterior and posterior wharton. No peripheral edema. Abdominal exam: Abdomen soft and non-distended. Abdomen non-tender to palpation in all 4 quadrants. Bowel sounds active in LLQ. No hepatosplenomegaly. No ecchymosis Neuro: CN II-XII intact. No nuchal rigidity. No raccon eyes, no martinez sign, no hemotympanum. No cervical spinal tenderness. NIH 0. MSK: No posterior calf tenderness bilaterally, homans sign negative bilaterally. Posterior tibialis and radial pulse +2 bilaterally. Sensation intact in upper and lower extremities. Full active ROM in upper and lower extremities, 5/5 stregnth. Limitations: no limitations Course Vital Signs 09/15/18 21:46 Temperature 98.2 F Pulse Rate 75 Respiratory 18 Rate Blood Pressure 119/71 O2 Sat by Pulse 99 Oximetry Medical Decision Making - Medical Decision Making 47-year-old female patient with past history of type 2 diabetes, hyperlipidemia proceeded chief complaint of 2 weeks of waxing and waning malaise. Patient also reports some waxing and waning paresthesias in the tips and toes. Patient also reports some waxing and waning dizziness. Patient is currently asymptomatic, has been asymptomatic all day. Patient also reports that she is being treated for a STD at this time. Denies any pain. Denies any other complaints. Patient vital signs stable, afebrile. Physical exam did not display acute pathology. Laboratory investigations noncompressive. General be cultured. EKG not concerning for acute ischemia. Patient discharge, follow up with primary care provider, return to ER condition worsens. - Lab Data Result diagrams: 09/15/18 22:37 09/15/18 22:37 Lab Results 07/27/19 07/27/19 07/27/19 Range/Units 22:37 22:37 22:37 WBC 7.6 (3.8-10.6) k/uL RBC 4.53 (3.80-5.40) m/uL Hgb 12.4 (11.4-16.0) gm/dL Hct 38.3 (34.0-46.0) % MCV 84.5 (80.0-100.0) fL MCH 27.5 (25.0-35.0) pg MCHC 32.5 (31.0-37.0) g/dL RDW 15.7 H (11.5-15.5) % Plt Count 246 (150-450) k/uL Neutrophils % 61 % Lymphocytes % 30 % Monocytes % 4 % Eosinophils % 2 % Basophils % 1 % Neutrophils # 4.6 (1.3-7.7) k/uL Lymphocytes # 2.3 (1.0-4.8) k/uL Monocytes # 0.3 (0-1.0) k/uL Eosinophils # 0.1 (0-0.7) k/uL Basophils # 0.0 (0-0.2) k/uL Sodium 140 (137-145) mmol/L Potassium 4.5 (3.5-5.1) mmol/L Chloride 107 (98-107) mmol/L Carbon Dioxide 26 (22-30) mmol/L Anion Gap 7 mmol/L BUN 12 (7-17) mg/dL Creatinine 0.56 (0.52-1.04) mg/dL Est GFR (CKD-EPI)AfAm >90 (>60 ml/min/1.73 sqM) Est GFR (CKD-EPI)NonAf >90 (>60 ml/min/1.73 sqM) Glucose 96 (74-99) mg/dL Calcium 9.2 (8.4-10.2) mg/dL Magnesium 1.9 (1.6-2.3) mg/dL Total Bilirubin 0.5 (0.2-1.3) mg/dL AST 34 (14-36) U/L ALT 45 (9-52) U/L Alkaline Phosphatase 69 (38-126) U/L Total Protein 7.0 (6.3-8.2) g/dL Albumin 4.3 (3.5-5.0) g/dL HCG, Qual Not Detected Urine Color Yellow Urine Appearance Cloudy H (Clear) Urine pH 6.0 (5.0-8.0) Ur Specific [place] 1.026 (1.001-1.035) Urine Protein Trace H (Negative) Urine Glucose (UA) Negative (Negative) Urine Ketones Negative (Negative) Urine Blood Negative (Negative) Urine Nitrite Negative (Negative) Urine Bilirubin Negative (Negative) Urine Urobilinogen <2.0 (<2.0) mg/dL Ur Leukocyte Esterase Negative (Negative) Urine RBC 1 (0-5) /hpf Urine WBC 9 H (0-5) /hpf Ur Squamous Epith Cells 13 H (0-4) /hpf Urine Bacteria Few H (None) /hpf Urine Mucus Rare H (None) /hpf - EKG Data -: EKG Interpreted by Me (and Dr. Teran) EKG Comments: Ventricular rate 67, plan: 72, care assigned to, QT/QTc 464/490. No sinus rhythm, but that is deviation, anterior infarct age undetermined. No concern for acute ischemia at this time. Disposition Clinical Impression: Paresthesia Disposition: HOME SELF-CARE Condition: Stable Instructions (If sedation given, give patient instructions): Paresthesia (ED) Additional Instructions: Patient to adhere to previously discussed treatment plan and will take medication(s) as directed. Patient to follow up with PCP in 1-2 days. Patient to return to ED if symptoms do not improve. Follow-up with primary care provider tomorrow. Return to ER if condition worsens. Is patient prescribed a controlled substance at d/c from ED?: No Referrals: Ponce Barnes MD [Primary Care Provider] - 1-2 days
[2018-09-16 00:35] VITALS: BP 109/76; PULSE 58; RESP 16; TEMP 97.9
== END 2018-09-16 00:55 | disposition home or self-care (01) ==
LOC: EC 21:37
DX: R20.2 Paresthesia of skin (principal); R53.81 Other malaise; R42 Dizziness and giddiness; E11.9 Type 2 diabetes mellitus without complications; E78.5 Hyperlipidemia, unspecified; K21.9 Gastro-esophageal reflux disease without esophagitis; F32.9 Major depressive disorder, single episode, unspecified; F41.0 Panic disorder [episodic paroxysmal anxiety]; Z79.84 Long term (current) use of oral hypoglycemic drugs; Z79.899 Other long term (current) drug therapy; Z88.0 Allergy status to penicillin; Z88.1 Allergy status to other antibiotic agents; Z88.8 Allergy status to other drugs, medicaments and biological substances; Z91.018 Allergy to other foods
CPT/HCPCS: 36415; 80053; 81001; 83735; 84703; 85025; 93005; 99284

== ENCOUNTER 2020-03-19 06:01 | Day surgery (SDC) | payer MEDICARE, OTHER ==
[2020-03-17 10:04] VITALS: BMI 32.8
--- NOTE | 2020-03-18 06:57 | P.GSHP ---
History of Present Illness H&P Date: 03/15/20 Chief Complaint: Left ureteral calculus The patient is a 49-year-old white female admitted to [facility] 02/22/2020 with acute left pyelonephritis complicated by a 3 mm calculus at the left ureterovesical junction. The CT scan also showed a 3 mm nonobstructing right renal calculus. Her symptoms included left flank pain, headache, and chills. Cultures grew E. coli and enterococcus. She underwent left ureteral stent insertion 02/23/2020. She now comes for removal of her stent and calculus. - Constitutional Constitutional: Denies chills, Denies fever - Genitourinary (Female) Genitourinary: Denies dysuria, Denies flank pain Past Medical History Past Medical History: Diabetes Mellitus, GERD/Reflux, Hyperlipidemia Additional Past Medical History / Comment(s): NIDDM type II, current UTI on ABX, dyslexia. History of Any Multi-Drug Resistant Organisms: None Reported Past Surgical History: Adenoidectomy, Section, Tonsillectomy Additional Past Surgical History / Comment(s): Nasal surgery Past Anesthesia/Blood Transfusion Reactions: Postoperative Nausea & Vomiting (PONV) Additional Past Anesthesia/Blood Transfusion Reaction / Comment(s): Pt states she has never received blood. Past Psychological History: Anxiety, Depression, Panic Disorder Past Alcohol Use History: None Reported Past Drug Use History: None Reported - Past Family History Mother Family Medical History: Cancer Additional Family Medical History / Comment(s): Mother has lymphoma. Father History Unknown: Yes Additional Family Medical History / Comment(s): Father left when pt was 2 months old. Medications and Allergies Home Medications Medication Instructions Recorded Confirmed Type Sertraline [Zoloft] 100 mg PO DAILY #30 tab 11/04/15 03/17/20 Rx Omeprazole 40 mg PO DAILY 08/03/16 03/17/20 History Oxybutynin Chloride [Ditropan] 5 mg PO BID 08/03/16 03/17/20 History metFORMIN HCL [Glucophage] 1,000 mg PO BID 08/03/16 03/17/20 History Ezetimibe [Zetia] 10 mg PO DAILY 03/17/20 03/17/20 History Fenofibrate [Lofibra] 54 mg PO DAILY 03/17/20 03/17/20 History Multivitamin/Iron/Folic Acid 1 each PO DAILY 03/17/20 03/17/20 History [Centrum Adults Tablet] Nitrofurantoin Monohyd/M-Cryst 100 mg PO Q12HR 03/17/20 03/17/20 History [Macrobid] Pravastatin Sodium [Pravachol] 40 mg PO DAILY 03/17/20 03/17/20 History Allergies Allergy/AdvReac Type Severity Reaction Status Date / Time Penicillins Allergy Severe Anaphylaxis Verified 03/17/20 09:41 cephalexin monohydrate Allergy Anaphylaxis Verified 03/17/20 09:41 [From Keflex] iodine Allergy Unknown Verified 03/17/20 09:41 Mushroom AdvReac Unknown Verified 03/17/20 09:41 Surgical - Exam - General well developed, well nourished, no distress - Respiratory normal respiratory effort - Abdomen Abdomen: soft, non tender, no guarding, no rigid, no rebound - Genitourinary normal external genitalia - Psychiatric oriented to time, oriented to person, oriented to place, speech is normal, memory intact Results - Imaging CT scan - abdomen: report reviewed, image reviewed Assessment and Plan (1) Calculus of ureter Status: Acute Code(s): N20.1 - CALCULUS OF URETER SNOMED Code(s): 54132494 Plan: Cystoscopy, left ureteral stent removal, left ureteroscopy with Holmium laser lithotripsy and/or stone basketing. The procedure has been reviewed in detail with the patient. She understands potential risks to include anesthesia, bleeding, infection, and ureteral injury.
[~2020-03-19 06:01] MED LIST: LEVOFLOXACIN 500MG-D5W PMX 500 MG in DEXTROSE/WATER 1 100ML.BAG IVPB PRN
[2020-03-19] MEDS ORDERED: LACTATED RINGERS 1,000 ML IV SCH (06:33)
[2020-03-19] MEDS ORDERED: DEXAMETHASONE SOD PHOSPHATE 4 MG/ML 1 ML VIAL IV ONE (06:33)
[2020-03-19] MEDS ORDERED: ONDANSETRON 4 MG/2 ML VIAL IVP ONE (06:33)
[2020-03-19] MEDS ORDERED: LIDOCAINE 1% (10MG/ML) FOR IV START INTRADERMA PRN (06:33)
[2020-03-19] MEDS ORDERED: SCOPOLAMINE 1.5MG/72HR PATCH TRANSDERM ONE (06:33)
[2020-03-19] MEDS ORDERED: HYDROmorphone 0.5 MG/0.5 ML SYRINGE IVP PRN (07:00)
[2020-03-19 07:24] LABS: Glucose,Whole Blood 134 mg/dL (75-99)
[2020-03-19] MEDS ORDERED: PROPOFOL 10 MG/ML 20 ML VIAL IV ONE (07:31)
[2020-03-19] MEDS ORDERED: fentaNYL (PF) 50 MCG/ML 2 ML AMP ONE (07:31)
[2020-03-19] MEDS ORDERED: LIDOCAINE 1% INJ 10MG/ML (20 ML MDV) ONE (07:31)
[2020-03-19] MEDS ORDERED: ROCURONIUM 10 MG/ML (10 ML VIAL) IV ONE (07:31)
[2020-03-19] MEDS ORDERED: SUCCINYLCHOLINE CHLORIDE 100 MG/5 ML SYR IV ONE (07:31)
[2020-03-19] MEDS ORDERED: NEOSTIGMINE 1 MG/ML 10 ML VIAL ONE (07:31)
[2020-03-19] MEDS ORDERED: GLYCOPYRROLATE 0.2 MG/ML 2 ML VIAL ONE (07:31)
[2020-03-19] MEDS ORDERED: MIDAZOLAM 2 MG/2 ML VIAL ONE (07:31)
--- NOTE | 2020-03-19 08:19 | P.OP ---
Date of Procedure: 03/19/20 Preoperative Diagnosis: Left ureteral calculus Postoperative Diagnosis: Same Procedure(s) Performed: Cystoscopy, left ureteral stent removal, left ureteroscopy Anesthesia: ZAHRAA Surgeon: Sang Lozano Estimated Blood Loss (ml): 0 IV fluids (ml): 300 Pathology: none sent Condition: stable Disposition: PACU Indications for Procedure: The patient is a 49-year-old white female admitted to [facility] 02/22/2020 with acute left pyelonephritis complicated by a 3 mm calculus at the left ureterovesical junction. The CT scan also showed a 3 mm nonobstructing right renal calculus. Her symptoms included left flank pain, headache, and chills. Cultures grew E. coli and enterococcus. She underwent left ureteral stent insertion 02/23/2020. She now comes for removal of her stent and calculus. Operative Findings: No calculus seen. Description of Procedure: The patient was taken to the operating room and placed in the dorsolithotomy position, with legs supported in Ki stirrups. The external genitalia was prepped and draped sterilely. The 30 lens was used to introduce the 21-[place] cystoscopic sheath through the urethra and into the bladder under direct vision. The bladder was examined in its entirety. No tumors or foreign bodies were seen. Mild edema surrounded the left ureteral orifice. Grasping forceps were used to grasp the distal end of the left ureteral stent, which was removed along with the cystoscope. The [place] semirigid ureteroscope was advanced into the bladder, and the left ureteral orifice was cannulated. The ureteroscope was slowly advanced up to the left ureteral pelvic junction. No calculi were seen. The ureteroscope was slowly withdrawn under direct vision. Some edema was noted within the distal ureter, but again no calculi were seen. It is best presumed that the calculus passed. The ureteroscope was withdrawn and the procedure was terminated. The patient tolerated the procedure well and was taken to the recovery room in stable condition.
[2020-03-19 08:25] VITALS: TEMP 97.6
[2020-03-19 08:27] VITALS: RESP 16
[2020-03-19 08:33] LABS: Glucose,Whole Blood 146 mg/dL (75-99)
[2020-03-19] MEDS ORDERED: diphenhydrAMINE 50 MG/ML 1 ML VIAL IVP ONE (08:41)
[2020-03-19] MEDS ORDERED: SODIUM CHLORIDE 0.9% 1,000 ML IV ONE ×2 (08:49)
--- NOTE | 2020-03-19 09:52 | XR ---
KUB HISTORY: Preop right kidney stone Frontal KUB submitted on 2 images and correlated prior exam 10/29/2015 There is a left-sided double-J stent in place. Probable phleboliths present in the right hemipelvis. Bone mineralization is maintained. Surgical clips present right upper quadrant. Bowel gas may obscure underlying detail. IMPRESSION: Indwelling left double-J ureteral stent.
[2020-03-19 09:53] VITALS: BP 124/78; PULSE 76
== END 2020-03-19 10:19 | disposition home or self-care (01) ==
LOC: OR 06:01
PROVIDERS: ATTEND Urology
DX: Z46.6 Encounter for fitting and adjustment of urinary device (principal); E11.9 Type 2 diabetes mellitus without complications; F41.9 Anxiety disorder, unspecified; K21.9 Gastro-esophageal reflux disease without esophagitis; K76.0 Fatty (change of) liver, not elsewhere classified; F41.0 Panic disorder [episodic paroxysmal anxiety]; F32.9 Major depressive disorder, single episode, unspecified; Z88.0 Allergy status to penicillin; Z88.1 Allergy status to other antibiotic agents; Z91.041 Radiographic dye allergy status; Z91.018 Allergy to other foods; Z87.442 Personal history of urinary calculi; Z79.899 Other long term (current) drug therapy; Z79.84 Long term (current) use of oral hypoglycemic drugs; Z98.891 History of uterine scar from previous surgery; Z90.89 Acquired absence of other organs; Z98.890 Other specified postprocedural states; Z80.8 Family history of malignant neoplasm of other organs or systems
CPT/HCPCS: 81025; 74018; 52310; J2250; J1200; J1100; J2710; J2405; J1956; J2001; J3010; J0330; J2704

== ENCOUNTER 2021-01-26 08:14 | Observation (INO) | payer MEDICARE, OTHER ==
--- NOTE | 2021-01-26 08:52 | ED ---
General Adult HPI - General Chief complaint: Skin/Abscess/Foreign Body Stated complaint: abscess in neck Time Seen by Provider: 01/26/21 08:20 Source: patient Mode of arrival: ambulatory Limitations: no limitations - History of Present Illness Initial comments: 50-year-old female presents emergency department with reported swelling to the neck. States it has been going on for the past 2 weeks and was getting progressively worse. She feels fullness to the right side of her neck which has made it difficult to breathe and swallow. [facility] and was evaluated for the symptoms. They told her to take a ALLERGY pill and discharged her home. They called her later that night and informed her that she possibly had an abscess and told her that she going to the hospital. Reports that she did not show up right away as she was attempting to find care for her kids. Admits to hoarseness to her voice. Has not attempted to take any medications for her symptoms. No fevers. No tongue swelling. No other alleviating, precipitating or modifying factors - Related Data Home Medications Medication Instructions Recorded Confirmed metFORMIN HCL [Glucophage] 1,000 mg PO BID 08/03/16 01/26/21 Ezetimibe [Zetia] 10 mg PO DAILY 03/17/20 01/26/21 Fenofibrate [Lofibra] 54 mg PO DAILY 03/17/20 01/26/21 Albuterol Inhaler [Ventolin Hfa 2 puff INHALATION RT-Q4H PRN 01/26/21 01/26/21 Inhaler] Allergy Relief 1 tab PO DAILY 01/26/21 01/26/21 Fesoterodine Fumarate [Toviaz] 4 mg PO DAILY 01/26/21 01/26/21 Insulin Aspart [NovoLOG Flexpen] 10 units SQ AC-TID 01/26/21 01/26/21 Linagliptin [Tradjenta] 5 mg PO DAILY 01/26/21 01/26/21 Losartan [Cozaar] 25 mg PO DAILY 01/26/21 01/26/21 Naproxen 500 mg PO DAILY 01/26/21 01/26/21 Omeprazole 40 mg PO DAILY 01/26/21 01/26/21 Sertraline [Zoloft] 50 mg PO DAILY 01/26/21 01/26/21 Allergies Allergy/AdvReac Type Severity Reaction Status Date / Time Penicillins Allergy Severe Anaphylaxis Verified 01/26/21 09:13 cephalexin monohydrate Allergy Anaphylaxis Verified 01/26/21 09:13 [From Keflex] iodine Allergy Unknown Verified 01/26/21 09:13 Mushroom AdvReac Unknown Verified 01/26/21 09:13 Review of Systems ROS Statement: Those systems with pertinent positive or pertinent negative responses have been documented in the HPI. ROS Other: All systems not noted in ROS Statement are negative. Past Medical History Past Medical History: Diabetes Mellitus, GERD/Reflux, Hyperlipidemia Additional Past Medical History / Comment(s): NIDDM type II, current UTI on ABX, dyslexia. History of Any Multi-Drug Resistant Organisms: None Reported Past Surgical History: Adenoidectomy, Section, Tonsillectomy Additional Past Surgical History / Comment(s): Nasal surgery Past Anesthesia/Blood Transfusion Reactions: Postoperative Nausea & Vomiting (PONV) Additional Past Anesthesia/Blood Transfusion Reaction / Comment(s): Pt states she has never received blood. Past Psychological History: Anxiety, Depression, Panic Disorder Smoking Status: Never smoker Past Alcohol Use History: None Reported Past Drug Use History: None Reported - Past Family History Mother Family Medical History: Cancer Additional Family Medical History / Comment(s): Mother has lymphoma. Father History Unknown: Yes Additional Family Medical History / Comment(s): Father left when pt was 2 months old. General Exam Limitations: no limitations Course Vital Signs 01/26/21 08:20 Temperature 98.2 F Pulse Rate 107 H Respiratory 20 Rate Blood Pressure 137/76 O2 Sat by Pulse 96 Oximetry - Reevaluation(s) Reevaluation #1: CT unable to identify source of infection. Informed patient that contrast for which she agrees to. Pretreatment given. 01/26/21 11:59 Medical Decision Making - Medical Decision Making The patient is placed into room 30. A thorough history and physical exam was performed. IV is established and laboratory studies were conducted. ESR is 97. C-reactive protein 17.1. Blood cultures obtained and patient is initiated on clindamycin. Originally the patient was refusing contrast. Informed her that if we performed the CT we may have inadequate results. Patient is aware of this and states that she does not want pretreatment or contrast. CT of the neck is done which demonstrates mild superficial inflammatory changes with reactive right neck adenopathy. No identifiable abscess. Blurring of the fat and answers appeared mediastinum raising concern for mediastinitis. Patient is inf ormed that the CT findings are incomplete due to lack of contrast. She has agreed to have repeat imaging performed with contrast to better evaluate her findings. It does demonstrate scattered enlarged right cervical adenopathy extending to the supraclavicular region. No discrete abscess. This is discussed with the patient. Did recommend admission due to elevated enzymes and abnormal CT findings were patient did agree to. Will place ENT consult. Patient agreed to the treatment plan and is awaiting a bed on the floor - Lab Data Result diagrams: 01/26/21 09:10 01/26/21 09:10 Lab Results 01/26/21 01/26/21 01/26/21 Range/Units 09:10 09:10 09:10 WBC 10.0 (3.8-10.6) k/uL RBC 4.34 (3.80-5.40) m/uL Hgb 12.8 (11.4-16.0) gm/dL Hct 36.6 (34.0-46.0) % MCV 84.4 (80.0-100.0) fL MCH 29.4 (25.0-35.0) pg MCHC 34.9 (31.0-37.0) g/dL RDW 13.1 (11.5-15.5) % Plt Count 350 (150-450) k/uL MPV 8.0 Neutrophils % 70 % Lymphocytes % 22 % Monocytes % 4 % Eosinophils % 2 % Basophils % 0 % Neutrophils # 7.0 (1.3-7.7) k/uL Lymphocytes # 2.1 (1.0-4.8) k/uL Monocytes # 0.4 (0-1.0) k/uL Eosinophils # 0.2 (0-0.7) k/uL Basophils # 0.0 (0-0.2) k/uL ESR 97 H (0-20) mm/hr Sodium 139 (137-145) mmol/L Potassium 3.9 (3.5-5.1) mmol/L Chloride 101 (98-107) mmol/L Carbon Dioxide 25 (22-30) mmol/L Anion Gap 13 mmol/L BUN 11 (7-17) mg/dL Creatinine 0.55 (0.52-1.04) mg/dL Est GFR (CKD-EPI)AfAm >90 (>60 ml/min/1.73 sqM) Est GFR (CKD-EPI)NonAf >90 (>60 ml/min/1.73 sqM) Glucose 242 H (74-99) mg/dL Plasma Lactic Acid Jono 1.5 (0.7-2.0) mmol/L Calcium 9.7 (8.4-10.2) mg/dL Total Bilirubin 0.6 (0.2-1.3) mg/dL AST 62 H (14-36) U/L ALT 60 H (4-34) U/L Alkaline Phosphatase 173 H (38-126) U/L C-Reactive Protein 17.1 H (<1.0) mg/dL Total Protein 7.9 (6.3-8.2) g/dL Albumin 4.1 (3.5-5.0) g/dL Disposition Clinical Impression: Neck swelling, Cervical adenopathy Disposition: ADMITTED IP TO THIS [facility] Condition: Stable Is patient prescribed a controlled substance at d/c from ED?: No Referrals: Nelly Maldonado MD [Primary Care Provider] - 1-2 days Decision to Admit Reason: Admit from EC Decision Date: 01/26/21 Decision Time: 13:29
[2021-01-26] MEDS ORDERED: SODIUM CHLORIDE 0.9% 1,000 ML IV ONE (08:53)
[2021-01-26 09:51] LABS: ALT 60 U/L (4-34); AST 62 U/L (14-36); African American GFR (CKD) >90 (>60 ml/min/1.73 sqM); Albumin 4.1 g/dL (3.5-5.0); Alkaline Phosphatase 173 U/L (38-126); Anion Gap 13 mmol/L; Blood Urea Nitrogen 11 mg/dL (7-17); Calcium 9.7 mg/dL (8.4-10.2); Carbon Dioxide 25 mmol/L (22-30); Chloride 101 mmol/L (98-107); Glucose 242 mg/dL (74-99); Non-African American GFR(CKD) >90 (>60 ml/min/1.73 sqM); Potassium 3.9 mmol/L (3.5-5.1); Sodium 139 mmol/L (137-145); Total Bilirubin 0.6 mg/dL (0.2-1.3); Total Protein 7.9 g/dL (6.3-8.2)
[2021-01-26 10:04] LABS: C Reactive Protein 17.1 mg/dL (<1.0)
[2021-01-26 10:08] LABS: Basophils % (A) 0 %; Eosinophils # (A) 0.2 k/uL (0-0.7); Eosinophils % (A) 2 %; HCT 36.6 % (34.0-46.0); HGB 12.8 gm/dL (11.4-16.0); Lymphocytes # (A) 2.1 k/uL (1.0-4.8); Lymphocytes % (A) 22 %; MCH 29.4 pg (25.0-35.0); MCHC 34.9 g/dL (31.0-37.0); MCV 84.4 fL (80.0-100.0); Monocytes # (A) 0.4 k/uL (0-1.0); Monocytes % (A) 4 %; Neutrophils % (A) 70 %; Platelet Count 350 k/uL (150-450); RBC 4.34 m/uL (3.80-5.40); RDW 13.1 % (11.5-15.5)
--- NOTE | 2021-01-26 10:51 | CT ---
EXAMINATION TYPE: CT soft tissue neck wo con DATE OF EXAM: 01/26/2021 HISTORY: Abscess in neck; worsening right neck swelling and erythema near COMPARISON: NONE CT DLP: 410 mGycm. Automated Exposure Control for Dose Reduction was Utilized. TECHNIQUE: CT scan of the neck is performed without IV contrast, axial images are obtained, coronal and sagittal reformatted images are reviewed. FINDINGS: Lack of IV contrast is noted to Limited evaluation for mucosal lesions along with neck gilson opathy. Airway: No gross abnormality seen. Parotid/submandibular glands: No gross abnormality seen. Osseous Structures: Moderate disc space narrowing and spurring C5-C6 level. Mild to moderate spurring with mild disc space narrowing C6-C7 level. Other: There are asymmetric prominent but subcentimeter right neck lymph nodes anteriorly and posteri cassius from submandibular region extending past higher bone and vocal cords to the supraclavicular leve l. . For reference there is 1.2 x 0.9 cm lymph node inferior to right thyroid gland axial image 66 at supraclavicular level. There is some blurring of fat in the anterior superior mediastinum raising co ncern for mediastinitis. Slight prominence of the esophagus just below thoracic inlet axial image 80 is noted. Bovine type arch is seen which is normal variant. Mild fat stranding anteriorly lower neck at level of the thyroid gland axial image 58. This extends i nferiorly to level of the clavicles. No well-formed fluid collection or abscess seen. IMPRESSION: Suboptimal study without IV contrast. Mild superficial inflammatory change. Reactive righ t neck adenopathy. Inflammatory change extends into the mediastinum only partially imaged. Patent air way. No well-formed fluid collection or abscess identified.
[2021-01-26] MEDS ORDERED: methylPREDNISolone SOD SUCCI 125 MG/2 ML VIAL IV STA (11:51)
[2021-01-26] MEDS ORDERED: diphenhydrAMINE 50 MG/ML 1 ML VIAL IVP STA (11:51)
[2021-01-26] MEDS ORDERED: FAMOTIDINE 20 MG/2 ML VIAL IV STA (11:51)
[2021-01-26] MEDS ORDERED: RX INFO: IV CONTRAST WAS GIVEN 1 EACH MISC MISCELLANE PRN (11:52)
[2021-01-26] MEDS ORDERED: CLINDAMYCIN 600 MG in DEXTROSE 5% IN WATER 50 ML IVPB STA ×2 (12:09)
[2021-01-26 13:00] LABS: Erythrocyte Sedimentation Rate 97 mm/hr (0-20)
--- NOTE | 2021-01-26 13:13 | CT ---
EXAMINATION TYPE: CT neck chest w con DATE OF EXAM: 01/26/2021 COMPARISON: 01/26/2021 HISTORY: Neck Abscess CT DLP: 944.6 mGycm CONTRAST: Patient injected with 100 mL of Isovue 300. TECHNIQUE: Axial images at 3 mm thick sections. Reconstructed images in the coronal plane and sagitt al plane are reviewed. FINDINGS: Limited CT sections are obtained the lung apices. The lung apices appear clear. CT neck: The torus tubarius and fossa of Rosenmuller are normal. Lead Investigator spaces are normal. Para nasal sinuses and mastoid air cells are clear. Parotid glands appear normal and symmetrical. Submandibular glands, are normal. Parapharyngeal spac es are normal. No suspicious adenopathy is evident. The hypopharynx appears within normal limits. Vocal cord level appear symmetrical. Thyroid as visualized is normal. There is a 1.5 x 0.9 cm right supraclavicular lymph node. This is larger than comparison. Shotty lymp hadenopathy is present within the bilateral neck. Slightly greater on the right than the left. Some e nlarged inferior right neck enlarged adenopathy is present with a transverse dimension of 1.0 cm. The re is a prominent jugulodigastric node on the right measuring 1.5 cm. Normal 1.0 cm. No abscess formation is identified. Osseous structures are normal. IMPRESSIONS: 1. Scattered enlarged right cervical adenopathy extending to the supraclavicular region. Largest node s include a 1.5 cm jugulodigastric node and a 1.0 cm right supraclavicular lymph node. 2. No discrete abscess formation identified. EXAMINATION TYPE: CT neck chest w con DATE OF EXAM: 01/26/2021 COMPARISON: None HISTORY: Neck Abscess CT DLP: 944.6 mGycm, Automated exposure control for dose reduction was used. CONTRAST: Performed injected with 100 mL of Isovue 300. TECHNIQUE: Axial images were obtained at 5 mm thick sections. Reconstructed images are reviewed on av[employer]enta computer in the coronal plane. FINDINGS: Portion of the thyroid visualized is normal. No suspicious lung nodules or focal infiltrates are present. No enlarged mediastinal or hilar adenopathy is evident. The ascending aorta diameter at the level o f the main pulmonary artery is 3.2 cm. The main pulmonary artery diameter at the bifurcation is 2. c m. Limited CT sections are obtained through the upper abdomen. There is moderate fatty infiltration to t he liver. No discrete masses are evident. Renal glands are normal. There may be some splenomegaly. IMPRESSIONS: 1. No acute pulmonary process. 2. Moderate fatty infiltration within the visualized liver. 3. There may be some mild splenomegaly present.
[2021-01-26] MEDS ORDERED: NALOXONE 0.4 MG/ML 1 ML VIAL IV PRN (13:29)
[2021-01-26] MEDS ORDERED: ALBUTEROL NEBULIZED 2.5 MG/3 ML INHALATION PRN (14:32)
[2021-01-26] MEDS: LEVOFLOXACIN 750MG-D5W PMX 750 MG in DEXTROSE/WATER 1 150ML.BAG IVPB SCH (15:04)
[2021-01-26] MEDS: PANTOPRAZOLE 40 MG TABLET PO SCH (15:04)
[2021-01-26 16:12] LABS: Glucose,Whole Blood 271 mg/dL (75-99)
[2021-01-26] MEDS: CLINDAMYCIN 600 MG in DEXTROSE 5% IN WATER 50 ML IVPB SCH ×4 (18:15→22:54)
[2021-01-26] MEDS: INSULIN ASPART (NovoLOG) 100 UNIT/ML VIAL SQ SCH ×2 (18:16→21:27)
[2021-01-26 21:09] LABS: Glucose,Whole Blood 308 mg/dL (75-99)
[2021-01-26] MEDS: SODIUM CHLORIDE 0.9% 1,000 ML IV SCH (21:29)
[2021-01-26] MEDS: HEPARIN SODIUM,PORCINE/PF 5,000 UNIT/0.5 ML SYRINGE SQ SCH (21:29)
[2021-01-27 04:21] LABS: Appearance,Urine Clear (Clear); Bilirubin,Urine Negative (Negative); Blood,Urine Negative (Negative); Color,Urine Light Yellow; Glucose,Urine (UA) 3+ (Negative); Ketones,Urine Negative (Negative); Leukocyte Esterase,Urine Negative (Negative); Nitrite,Urine Negative (Negative); PH, Urine 6.5 (5.0-8.0); Protein,Urine 1+ (Negative); RBC,Urine <1 /hpf (0-5); Specific Gravity,Urine 1.006 (1.001-1.035); Squamous Epithelial Cell,Urine <1 /hpf (0-4); Urobilinogen,Urine <2.0 mg/dL (<2.0); WBC,Urine 1 /hpf (0-5)
[2021-01-27] MEDS: CLINDAMYCIN 600 MG in DEXTROSE 5% IN WATER 50 ML IVPB SCH ×8 (05:40→23:18)
[2021-01-27 07:55] LABS: Glucose,Whole Blood 233 mg/dL (75-99)
[2021-01-27] MEDS: LINAGLIPTIN 5 MG TABLET PO SCH (08:06)
[2021-01-27] MEDS: HEPARIN SODIUM,PORCINE/PF 5,000 UNIT/0.5 ML SYRINGE SQ SCH ×3 (08:06→23:19)
[2021-01-27] MEDS: SERTRALINE 50 MG TAB PO SCH (08:06)
[2021-01-27] MEDS: INSULIN ASPART (NovoLOG) 100 UNIT/ML VIAL SQ SCH ×6 (08:06→20:47)
[2021-01-27] MEDS: PANTOPRAZOLE 40 MG TABLET PO SCH (08:06)
[2021-01-27] MEDS: LOSARTAN 25 MG TAB PO SCH (08:06)
[2021-01-27 08:09] LABS: Hepatitis A Antibody IgM Nonreactive (Nonreactive); Hepatitis B Core IgM Nonreactive (Nonreactive); Hepatitis B Surface Antigen Nonreactive (Nonreactive); Hepatitis C IgG Antibody Nonreactive (Nonreactive)
[2021-01-27 11:00] LABS: Basophils # (A) 0.02 X 10*3/uL (0.00-0.10); Basophils % (A) 0.2 %; Eosinophils # (A) 0 X 10*3/uL (0.04-0.35); Eosinophils % (A) 0 %; HCT 31.8 % (37.2-46.3); HGB 10.2 g/dL (12.0-15.0); Lymphocytes # (A) 1.84 X 10*3/uL (0.90-5.00); Lymphocytes % (A) 20.2 %; MCHC 32.1 g/dL (32.0-37.0); MCV 87.4 fL (80.0-97.0); Mean Platelet Volume 10.4 fL (9.5-12.2); Monocytes # (A) 0.48 X 10*3/uL (0.20-1.00); Monocytes % (A) 5.3 %; Neutrophils # (A) 6.67 X 10*3/uL (1.80-7.70); Neutrophils % (A) 73.3 %; Platelet Count 322 X 10*3/uL (140-440); RBC 3.64 X 10*6/uL (4.10-5.20); RDW 12.7 % (11.5-14.5)
[2021-01-27 12:27] LABS: BUN/Creat Ratio 14.93 Ratio (12.00-20.00); Calcium 9.5 mg/dL (8.7-10.3); Carbon Dioxide 24.1 mmol/L (20.0-27.5); Chloride 103 mmol/L (96-109); Glucose 253 mg/dL (70-110); Non-African American GFR(CKD) 105.3 (60.0-200.0); Potassium 4.6 mmol/L (3.5-5.5); Sodium 140 mmol/L (135-145)
[2021-01-27 12:49] LABS: Glucose,Whole Blood 308 mg/dL (75-99)
[2021-01-27] MEDS: LEVOFLOXACIN 750MG-D5W PMX 750 MG in DEXTROSE/WATER 1 150ML.BAG IVPB SCH (15:59)
[2021-01-27] MEDS: SODIUM CHLORIDE 0.9% 1,000 ML IV SCH (16:02)
[2021-01-27 17:26] LABS: Glucose,Whole Blood 205 mg/dL (75-99)
[2021-01-27] MEDS ORDERED: ACETAMINOPHEN TAB 325 MG TAB PO PRN (20:10)
[2021-01-27 20:20] LABS: Glucose,Whole Blood 255 mg/dL (75-99)
[2021-01-27] MEDS: ONDANSETRON 4 MG/2 ML VIAL IVP PRN (20:46)
--- NOTE | 2021-01-27 21:27 | P.HPIM ---
History of Present Illness H&P Date: 01/26/21 Chief Complaint: Right-sided neck swelling Patient is a 50-year-old female with a known history of hyperlipidemia, diabetes type 2 insulin-dependent, history of UTIs, ADD/ADHD and anxiety/depression panic disorder presents to ER with complaints of swelling on the right side of the neck. Patient states that it developed like a small nodule on the right side of the neck about 2 weeks ago and progressively got worse. Patient felt fullness in the right side of the neck and was having difficulty breathing. Patient patient states that she felt like very hard indurated area below the mouth and was seen in the urgent care facility yesterday. At home patient was using honey and turmeric for the past 2 weeks. Patient was told she had allergic reaction and was recommended to go to ER. Patient went to [facility] urgent care facility last night and was told that she possibly had an abscess and told her to go to the hospital. Patient did not have daycare availability for her kids and patient came to ER today. Patient was also complaining of hoarseness to her voice. Denied any recent medication use. No fever no chills. No cough or sputum production. Currently denied any difficulty in swallowing. No chest pain or shortness of breath. No headache or dizziness or lightheadedness. CT of neck and chest was done with contrast in the ER showed scattered enlarged right cervical adenopathy extending to the supraclavicular region. Largest nodes include 1.5 cm jugulodigastric gastric node and 1.0 cm right supraclavicular lymph node. No discrete abscess formation identified. CT chest showed no acute pulmonary process. Moderate fatty infiltration within the visualized liver. There may be splenomegaly Laboratory data showed WBC 10.0 hemoglobin 12.8 and platelets 350 ESR 97 and CRP 17.1 Blood sugar 242, AST 562 ALT 16 alk phos 173 Review of Systems Constitutional: Patient denies any fever or chills . No generalized weakness or weight loss. Abdomen: Patient denied nausea vomiting and diarrhea and abdominal pain. Cardiovascular: Patient denies any chest pain or short of breath no palpitations. Respiratory: patient denied any cough or sputum production. No shortness of breath Neurologic: Patient denied any numbness or tingling headache. Musculoskeletal: Patient denies any complaints of joint swelling or deformity. Patient does complain of right-sided neck swelling. Skin: Negative Psychiatric: Negative Endocrine: No heat or cold intolerance. No recent weight gain. Genitourinary: No dysuria or hematuria. All other 14 point ROS negative except the above Past Medical History Past Medical History: Diabetes Mellitus, GERD/Reflux, Hyperlipidemia Additional Past Medical History / Comment(s): NIDDM type II, UTIs , dyslexia. History of Any Multi-Drug Resistant Organisms: None Reported Past Surgical History: Adenoidectomy, Section, Cholecystectomy, Tonsillectomy Additional Past Surgical History / Comment(s): Nasal surgery Past Anesthesia/Blood Transfusion Reactions: Postoperative Nausea & Vomiting (PONV) Additional Past Anesthesia/Blood Transfusion Reaction / Comment(s): Pt states she has never received blood. Past Psychological History: ADD/ADHD, Anxiety, Depression, Panic Disorder Additional Psychological History / Comment(s): She is independent. She has dyslexia. She states she has mild comprehension problem. Smoking Status: Never smoker Past Alcohol Use History: None Reported Past Drug Use History: None Reported - Past Family History Mother Family Medical History: Cancer Additional Family Medical History / Comment(s): Mother has lymphoma. Father History Unknown: Yes Additional Family Medical History / Comment(s): Father left when pt was 2 months old. Medications and Allergies Home Medications Medication Instructions Recorded Confirmed Type metFORMIN HCL [Glucophage] 1,000 mg PO BID 08/03/16 01/26/21 History Ezetimibe [Zetia] 10 mg PO DAILY 03/17/20 01/26/21 History Fenofibrate [Lofibra] 54 mg PO DAILY 03/17/20 01/26/21 History Albuterol Inhaler [Ventolin Hfa 2 puff INHALATION RT-Q4H PRN 01/26/21 01/26/21 History Inhaler] Allergy Relief 1 tab PO DAILY 01/26/21 01/26/21 History Fesoterodine Fumarate [Toviaz] 4 mg PO DAILY 01/26/21 01/26/21 History Insulin Aspart [NovoLOG Flexpen] 10 units SQ AC-TID 01/26/21 01/26/21 History Linagliptin [Tradjenta] 5 mg PO DAILY 01/26/21 01/26/21 History Losartan [Cozaar] 25 mg PO DAILY 01/26/21 01/26/21 History Naproxen 500 mg PO DAILY 01/26/21 01/26/21 History Omeprazole 40 mg PO DAILY 01/26/21 01/26/21 History Sertraline [Zoloft] 50 mg PO DAILY 01/26/21 01/26/21 History Allergies Allergy/AdvReac Type Severity Reaction Status Date / Time Penicillins Allergy Severe Anaphylaxis Verified 01/26/21 09:13 cephalexin monohydrate Allergy Anaphylaxis Verified 01/26/21 09:13 [From Keflex] iodine Allergy Unknown Verified 01/26/21 09:13 Mushroom AdvReac Unknown Verified 01/26/21 09:13 Physical Exam Vitals: Vital Signs Temp Pulse Pulse Resp BP BP Pulse Ox 01/26/21 19:32 18 01/26/21 16:18 102 H 18 01/26/21 15:45 98.0 F 102 H 18 152/89 96 01/26/21 15:06 99.0 F 92 16 114/79 95 01/26/21 08:20 98.2 F 107 H 20 137/76 96 Intake and Output 01/26/21 01/26/21 01/26/21 06:59 14:59 22:59 Other: Voiding Method Toilet Weight 97.522 kg 97.522 kg PHYSICAL EXAMINATION: Patient is lying in the bed comfortably, no acute distress, awake alert and oriented.. HEENT: Normocephalic. Neck is supple. Pupils reactive. Nostrils clear. Oral cavity is moist. Neck reveals no JVD, carotid bruits, or thyromegaly. Right-sided cervical mildly enlarged lymph nodes. No induration, redness or soft tissue swelling noted. CHEST EXAMINATION: Trachea is central. Symmetrical expansion. Lung wharton clear to auscultation and percussion. CARDIAC: Normal S1, S2 with no gallops. No murmurs ABDOMEN: Soft. Bowel sounds normal. No organomegaly. No abdominal bruits. Extremities: reveal no edema. No clubbing or cyanosis Neurologically awake, alert, oriented x3 with well-coordinated movements. No focal deficits noted Skin: No rash or skin lesions. Psychiatric: Cooperative. Nonsuicidal, anxious Musculoskeletal: No joint swelling or deformity. Normal range of motion. Results CBC & Chem 7: 01/26/21 09:10 01/26/21 09:10 Labs: Abnormal Lab Results - Last 24 Hours (Table) 01/26/21 01/26/2121 Range/Units 09:10 09:10 16:11 ESR 97 H (0-20) mm/hr Glucose 242 H (74-99) mg/dL POC Glucose (mg/dL) 271 H (75-99) mg/dL AST 62 H (14-36) U/L ALT 60 H (4-34) U/L Alkaline Phosphatase 173 H (38-126) U/L C-Reactive Protein 17.1 H (<1.0) mg/dL Thrombosis Risk Factor Assmnt - DVT/VTE Prophylaxis DVT/VTE Prophylaxis: Pharmacologic Prophylaxis ordered - Choose All That Apply Any of the Below Risk Factors Present?: Yes Each Factor Represents 1 point: Age 41-60 years, Obesity (BMI >25) Other Risk Factors: No Other congenital or acquired thrombophilia - If yes, enter type in comment: No Thrombosis Risk Factor Assessment Total Risk Factor Score: 2 Thrombosis Risk Factor Assessment Level: Low Risk Assessment and Plan Assessment: Right-sided neck swelling with cervical lymphadenopathy. Patient has been having symptoms for the past [address] neck and chest showed no evidence of abscess. Right-sided neck swelling with induration at the base of the mouth and submandibular region. Concerning for Yaneth's angina. Symptoms are resolving at this time. Started 2 weeks ago. Currently patient does not have any fever or chills. No leukocytosis. Currently swallowing is improving. Elevated ESR and CRP levels. Elevated liver enzymes. Fatty infiltration on CT/noted. Hold statins at this time. Hyperglycemia with uncontrolled diabetes type 2 Hyperlipidemia GERD Anxiety/depression panic disorder DVT prophylaxis Heparin subcu Plan: Patient will be continued on gentle IV hydration. CT of the neck and chest was showed cervical lymphadenopathy. ID will be consulted due to elevated ESR and CRP levels. Continue with empiric antibiotics at this time. Continue with home medications and insulin sliding scale. Follow-up A1c level. Follow-up liver enzymes. Hepatitis panel was ordered. Continue to follow closely. Time with Patient: Greater than 30
[2021-01-28] MEDS: CLINDAMYCIN 600 MG in DEXTROSE 5% IN WATER 50 ML IVPB SCH ×2 (05:19)
[2021-01-28 07:44] LABS: Glucose,Whole Blood 218 mg/dL (75-99)
[2021-01-28] MEDS: HEPARIN SODIUM,PORCINE/PF 5,000 UNIT/0.5 ML SYRINGE SQ SCH ×2 (08:00→16:30)
[2021-01-28] MEDS: LOSARTAN 25 MG TAB PO SCH (08:00)
[2021-01-28] MEDS: LINAGLIPTIN 5 MG TABLET PO SCH (08:00)
[2021-01-28] MEDS: ONDANSETRON 4 MG/2 ML VIAL IVP PRN (08:00)
[2021-01-28] MEDS: SERTRALINE 50 MG TAB PO SCH (08:00)
[2021-01-28] MEDS: PANTOPRAZOLE 40 MG TABLET PO SCH (08:00)
[2021-01-28] MEDS: INSULIN ASPART (NovoLOG) 100 UNIT/ML VIAL SQ SCH ×4 (08:00→13:05)
--- NOTE | 2021-01-28 09:01 | P.CONS ---
History of Present Illness - Reason for Consult Consult date: 01/27/21 right neck cellulitis Requesting physician: Denzel Amezquita - Chief Complaint right sided neck swelling x days - History of Present Illness History of present illness : Patient is 50-year-old female presenting to the ER yesterday morning for evaluation of swelling to the right side of the neck and this patient apparently symptom has been going on for 2 weeks and has been progressively getting worse noticed to have tenderness to the right side of the neck and apparently made of complaining of difficult to breathe and swallow patient was evaluated at the rheumatological care last night she was told she more likely has a allergy she was given antinausea medication subsequently patient was called and told to go to the hospital for possible abscess patient did not have any fever on presentation hospital and no fever afterwards patient did have a normal white count repeat is normal as well did have elevated sed rate though creatinine was normal patient did have a mild elevated liver enzymes and a CRP urine is negative orantes PCR was negative hepatitis profile is negative patient did have a CT of the soft tissue of the neck suboptimal study mild superficial inflammatory changes reactive right neck adenopathy inflammatory changes extend into the mediastinum partially imaged subsequently the patient did have a CT of the neck and the chest with evidence of 4 right- sided lymphadenopathy no abscess formation is seen no acute pulmonary process moderate fatty infiltration within the visualized liver mild splenomegaly present patient was started on clindamycin and Levaquin because of her penicillin and cephalexin allergy infectious disease was consulted for further management of antibiotic therapy, patient currently denies any problem with her teeth denies having a problem with the any URI symptoms did mention some discomfort to the right but no drainage or redness Review of system: CONSTITUTIONAL: Positive for weakness denies high-grade fever. EYES: No complaint. ENT: As per history of present illness. RESPIRATORY: No complaint. CARDIOVASCULAR: No complaint. GENITOURINARY: No complaint. GASTROINTESTINAL: No complaint. MUSCULOSKELETAL: No complaint. INTEGUMENTARY: No complaint. PSYCHOLOGIC: No complaint. ENDOCRINE: No complaint. NEUROLOGIC: No complaint. Past medical history : Reviewed, documented below Past surgical history : Reviewed, documented below Social history: Reviewed, documented below Medications: Reviewed, as documented below EXAMINATION: Vital sigans= Reviewed and documented below GENERAL DESCRIPTION: Middle-aged female lying in bed, no distress. No tachypnea or accessory muscle of respiration use. HEENT: Shows Pallor , no scleral icterus. Oral mucous membrane is dry. Mild right-sided lymphadenopathy, no abnormality of the teeth or the right tympanic membrane was noticed NECK: Trachea central, no thyromegaly. LUNGS: Unlabored breathing. Clear to auscultation anteriorly. No wheeze or crackle. HEART: S1, S2, regular rate and rhythm. ABDOMEN: Soft, no tenderness , guarding or rigidity EXTREMITIES: No edema of feet. SKIN: No rash, no masses palpable. NEUROLOGICAL: The patient is awake, alert, oriented x3, mood and affect normal. LABS AND RADIOLOGY: Reviewed results see below Assessment : 1-Patient presented to hospital with right-sided neck swelling in this patient did have evidence of lymphadenopathy more on the right side with discomfort accompanied on the left side of the neck as well on the CT mild infiltration of the liver and mild splenomegaly with mild elevated liver exam on corkscrews viral syndrome with a question of possible CMV versus EBV clinically not behaving as a bacterial infection with no evidence of any abscess 2-patient with multiple antibiotic allergies that would limit the number of antibiotics safe to use Plan: 1-we will obtain EBV and CMV serologies 2-May continue local home discontinue clindamycin We will follow on clinical condition and cultures to further adjust medication if needed Thank you for this consultation we will follow the patient along with you Past Medical History Past Medical History: Diabetes Mellitus, GERD/Reflux, Hyperlipidemia Additional Past Medical History / Comment(s): NIDDM type II, UTIs , dyslexia. History of Any Multi-Drug Resistant Organisms: None Reported Past Surgical History: Adenoidectomy, Section, Cholecystectomy, Tonsillectomy Additional Past Surgical History / Comment(s): Nasal surgery Past Anesthesia/Blood Transfusion Reactions: Postoperative Nausea & Vomiting (PONV) Additional Past Anesthesia/Blood Transfusion Reaction / Comm: Pt states she has never received blood. Past Psychological History: ADD/ADHD, Anxiety, Depression, Panic Disorder Additional Psychological History / Comment(s): She is independent. She has dyslexia. She states she has mild comprehension problem. Smoking Status: Never smoker Past Alcohol Use History: None Reported Past Drug Use History: None Reported - Past Family History Mother Family Medical History: Cancer Additional Family Medical History / Comment(s): Mother has lymphoma. Father History Unknown: Yes Additional Family Medical History / Comment(s): Father left when pt was 2 months old. Medications and Allergies Home Medications Medication Instructions Recorded Confirmed Type metFORMIN HCL [Glucophage] 1,000 mg PO BID 08/03/16 01/26/21 History Ezetimibe [Zetia] 10 mg PO DAILY 03/17/20 01/26/21 History Fenofibrate [Lofibra] 54 mg PO DAILY 03/17/20 01/26/21 History Albuterol Inhaler [Ventolin Hfa 2 puff INHALATION RT-Q4H PRN 01/26/21 01/26/21 History Inhaler] Allergy Relief 1 tab PO DAILY 01/26/21 01/26/21 History Fesoterodine Fumarate [Toviaz] 4 mg PO DAILY 01/26/21 01/26/21 History Insulin Aspart [NovoLOG Flexpen] 10 units SQ AC-TID 01/26/21 01/26/21 History Linagliptin [Tradjenta] 5 mg PO DAILY 01/26/21 01/26/21 History Losartan [Cozaar] 25 mg PO DAILY 01/26/21 01/26/21 History Naproxen 500 mg PO DAILY 01/26/21 01/26/21 History Omeprazole 40 mg PO DAILY 01/26/21 01/26/21 History Sertraline [Zoloft] 50 mg PO DAILY 01/26/21 01/26/21 History Allergies Allergy/AdvReac Type Severity Reaction Status Date / Time Penicillins Allergy Severe Anaphylaxis Verified 01/26/21 09:13 cephalexin monohydrate Allergy Anaphylaxis Verified 01/26/21 09:13 [From Keflex] iodine Allergy Unknown Verified 01/26/21 09:13 Mushroom AdvReac Unknown Verified 01/26/21 09:13 Physical Exam Vitals: Vital Signs Temp Pulse Pulse Resp BP BP Pulse Ox 01/27/21 07:01 97.5 F L 84 17 119/75 96 01/27/21 00:33 98.4 F 84 18 144/79 96 01/26/21 22:27 18 01/26/21 19:32 18 01/26/21 19:05 98.1 F 99 18 142/74 95 01/26/21 16:18 102 H 18 01/26/21 15:45 98.0 F 102 H 18 152/89 96 01/26/21 15:06 99.0 F 92 16 114/79 95 Intake and Output 01/26/21 01/27/21 01/27/21 22:59 06:59 14:59 Other: Voiding Method Toilet Toilet # Voids 2 3 Weight 97.522 kg Results CBC & Chem 7: 01/27/21 06:28 01/27/21 06:28 Labs: Abnormal Lab Results - Last 24 Hours (Table) 01/26/21 01/26/21 01/26/21 Range/Units 09:10 16:11 21:07 ESR 97 H (0-20) mm/hr POC Glucose (mg/dL) 271 H 308 H (75-99) mg/dL Urine Protein (Negative) Urine Glucose (UA) (Negative) 01/26/21 01/27/21 Range/Units 23:35 07:54 ESR (0-20) mm/hr POC Glucose (mg/dL) 233 H (75-99) mg/dL Urine Protein 1+ H (Negative) Urine Glucose (UA) 3+ H (Negative)
--- NOTE | 2021-01-28 11:09 | P.PN ---
Subjective Progress Note Date: 01/27/21 Patient is a 50-year-old female with a known history of hyperlipidemia, diabetes type 2 insulin-dependent, history of UTIs, ADD/ADHD and anxiety/depression panic disorder presents to ER with complaints of swelling on the right side of the neck. Patient states that it developed like a small nodule on the right side of the neck about 2 weeks ago and progressively got worse. Patient felt fullness in the right side of the neck and was having difficulty breathing. Patient patient states that she felt like very hard indurated area below the mouth and was seen in the urgent care facility yesterday. At home patient was using honey and turmeric for the past 2 weeks. Patient was told she had allergic reaction and was recommended to go to ER. Patient went to [facility] urgent care facility last night and was told that she possibly had an abscess and told her to go to the hospital. Patient did not have daycare availability for her kids and patient came to ER today. Patient was also complaining of hoarseness to her voice. Denied any recent medication use. No fever no chills. No cough or sput um production. Currently denied any difficulty in swallowing. No chest pain or shortness of breath. No headache or dizziness or lightheadedness. CT of neck and chest was done with contrast in the ER showed scattered enlarged right cervical adenopathy extending to the supraclavicular region. Largest nodes include 1.5 cm jugulodigastric gastric node and 1.0 cm right supraclavicular lymph node. No discrete abscess formation identified. CT chest showed no acute pulmonary process. Moderate fatty infiltration within the visualized liver. There may be splenomegaly Laboratory data showed WBC 10.0 hemoglobin 12.8 and platelets 350 ESR 97 and CRP 17.1 Blood sugar 242, AST 562 ALT 16 alk phos 173 01/27/2021 Patient is currently requesting that comfortably. Awake alert and oriented 3. States that her left-sided neck swelling is much improved now. Able to tolerate oral diet. Patient has been afebrile. No nausea vomiting or abdominal pain or diarrhea. No complaints of chest pain or shortness of breath. Due to splenomegaly possibility of viral infection is being considered. ID is on board. Clindamycin has been discontinued. Continue with Levaquin at this time. Current medications reviewed. Objective - Vital Signs Vital signs: Vital Signs Temp 97.2 F L 12/08/21 20:00 Pulse 87 01/27/21 20:00 Resp 16 01/27/21 20:00 BP 122/77 01/27/21 20:00 Pulse Ox 96 01/27/21 20:00 Intake & Output 01/27/21 01/27/21 01/28/21 06:59 18:59 06:59 Other: Voiding Method Toilet Toilet # Voids 3 3 - Exam PHYSICAL EXAMINATION: Patient is lying in the bed comfortably, no acute distress, awake alert and oriented.. HEENT: Normocephalic. Neck is supple. Pupils reactive. Nostrils clear. Oral cavity is moist. Neck reveals no JVD, carotid bruits, or thyromegaly. CHEST EXAMINATION: Trachea is central. Symmetrical expansion. Lung wharton clear to auscultation and percussion. CARDIAC: Normal S1, S2 with no gallops. No murmurs ABDOMEN: Soft. Bowel sounds normal. No organomegaly. No abdominal bruits. Extremities: reveal no edema. No clubbing or cyanosis Neurologically awake, alert, oriented x3 with well-coordinated movements. No focal deficits noted Skin: No rash or skin lesions. Psychiatric: Coperative. Nonsuicidal, anxious. Musculoskeletal: No joint swelling or deformity. Normal range of motion. - Labs CBC & Chem 7: 01/27/21 06:28 01/27/21 06:28 Labs: Abnormal Lab Results - Last 24 Hours (Table) 01/26/21 01/27/21 01/27/21 Range/Units 23:35 06:28 06:28 RBC 3.64 L (4.10-5.20) X 10*6/uL Hgb 10.2 L (12.0-15.0) g/dL Hct 31.8 L (37.2-46.3) % Immature Gran # 0.09 H (0.00-0.04) X 10*3/uL Eosinophils # 0 L (0.04-0.35) X 10*3/uL Glucose 253 H (70-110) mg/dL POC Glucose (mg/dL) (75-99) mg/dL Hemoglobin A1c (4.0-6.0) % Urine Protein 1+ H (Negative) Urine Glucose (UA) 3+ H (Negative) 01/27/21 01/27/21 01/27/21 Range/Units 06:28 07:54 12:48 RBC (4.10-5.20) X 10*6/uL Hgb (12.0-15.0) g/dL Hct (37.2-46.3) % Immature Gran # (0.00-0.04) X 10*3/uL Eosinophils # (0.04-0.35) X 10*3/uL Glucose (70-110) mg/dL POC Glucose (mg/dL) 233 H 308 H (75-99) mg/dL Hemoglobin A1c 7.8 H (4.0-6.0) % Urine Protein (Negative) Urine Glucose (UA) (Negative) 01/27/21 01/27/21 Range/Units 17:21 20:18 RBC (4.10-5.20) X 10*6/uL Hgb (12.0-15.0) g/dL Hct (37.2-46.3) % Immature Gran # (0.00-0.04) X 10*3/uL Eosinophils # (0.04-0.35) X 10*3/uL Glucose (70-110) mg/dL POC Glucose (mg/dL) 205 H 255 H (75-99) mg/dL Hemoglobin A1c (4.0-6.0) % Urine Protein (Negative) Urine Glucose (UA) (Negative) Microbiology - Last 24 Hours (Table) 01/26/21 13:16 Blood Culture - Preliminary Blood No Growth after 24 hours Assessment and Plan Assessment: Right-sided neck swelling with cervical lymphadenopathy. Patient has been having symptoms for the past [address] neck and chest showed no evidence of abscess. Possible viral infection is being considered. Right-sided neck swelling with induration at the base of the mouth and submandibular region. Concerning for Yaneth's angina. Symptoms are resolving at this time. Started 2 weeks ago. Currently patient does not have any fever or chills. No leukocytosis. Patient is tolerating oral diet. Elevated ESR and CRP levels. Elevated liver enzymes, splenomegaly. Fatty infiltration on CT/noted. Hold statins at this time. Hyperglycemia with uncontrolled diabetes type 2 Hyperlipidemia GERD Anxiety/depression panic disorder DVT prophylaxis Heparin subcu Plan: Patient will be continued on gentle IV hydration. CT of the neck and chest was showed cervical lymphadenopathy. ID will be consulted due to elevated ESR and CRP levels. EBV and CMV viral titers ordered. Continue with empiric antibiotics at this time. Clindamycin has been discontinued. Continue with home medications and insulin sliding scale. A1c level 7.8 Follo w-up liver enzymes. Hepatitis panel was ordered. Continue to follow closely.
[2021-01-28 11:14] LABS: Basophils # (A) 0.05 X 10*3/uL (0.00-0.10); Basophils % (A) 0.8 %; Eosinophils # (A) 0.06 X 10*3/uL (0.04-0.35); Eosinophils % (A) 0.9 %; HCT 34.9 % (37.2-46.3); HGB 10.9 g/dL (12.0-15.0); Lymphocytes # (A) 2.23 X 10*3/uL (0.90-5.00); Lymphocytes % (A) 34.6 %; MCH 27.8 pg (27.0-32.0); MCHC 31.2 g/dL (32.0-37.0); Mean Platelet Volume 10.2 fL (9.5-12.2); Monocytes # (A) 0.33 X 10*3/uL (0.20-1.00); Monocytes % (A) 5.1 %; Neutrophils # (A) 3.65 X 10*3/uL (1.80-7.70); Neutrophils % (A) 56.7 %; Platelet Count 344 X 10*3/uL (140-440); RBC 3.92 X 10*6/uL (4.10-5.20); RDW 12.9 % (11.5-14.5); WBC 6.44 X 10*3/uL (4.50-10.00)
[2021-01-28 12:24] LABS: African American GFR (CKD) 117.5 (60.0-200.0); Anion Gap 13.2 mmol/L (10.00-18.00); BUN/Creat Ratio 16.96 Ratio (12.00-20.00); Blood Urea Nitrogen 11.5 mg/dL (9.0-27.0); Carbon Dioxide 25.5 mmol/L (20.0-27.5); Non-African American GFR(CKD) 101.4 (60.0-200.0); Potassium 3.9 mmol/L (3.5-5.5)
--- NOTE | 2021-01-28 14:51 | PN ---
PROGRESS NOTE DATE OF SERVICE: 01/28/2021. REASON FOR FOLLOW UP: Cervical with possible viral syndrome. INTERVAL HISTORY: Patient is afebrile. The patient is feeling much better. The patient's right-sided redness and swelling has improved to resolve. She is able to swallow and breathe without difficulty. Denies any chest pain, shortness of breath or cough. No abdominal pain. No diarrhea. EXAMINATION: Blood pressure 126/77, pulse 78, temperature 97.6. She is 93% on room air. General description is a middle-aged female up in the bed in no distress. HEENT examination: No swelling. No redness. Lungs unlabored breathing. Clear to auscultation anteriorly. Heart S1, S2. Regular rate and rhythm. Abdomen soft, no tenderness. LABS: Hemoglobin is 10 with white count 6.44, creatinine 0.7. DIAGNOSTIC IMPRESSION AND PLAN: Patient with right-sided in this patient did have a mild hepatosplenomegaly with concern for possible viral syndrome with concern for either EBV or CMV. bacterial infection. Serology has been requested. The patient has shown overall improvement. May consider a short course of oral Levaquin and close outpatient followup. MMODL / IJN: [id number] /
[2021-01-28 15:03] VITALS: BP 113/65; PULSE 83; RESP 16; TEMP 98
[2021-01-28] MEDS: SODIUM CHLORIDE 0.9% 1,000 ML IV SCH (15:50)
[2021-01-28] MEDS: LEVOFLOXACIN 750MG-D5W PMX 750 MG in DEXTROSE/WATER 1 150ML.BAG IVPB SCH (16:28)
[2021-01-29 00:54] LABS: EBV-EA (IgG) <0.2 AI; EBV-EBNA(IgG) >8.0 AI; EBV-VCA (IgG) 6.2 AI; EBV-VCA (IgM) <0.2 AI
== END 2021-01-28 18:10 | disposition home or self-care (01) ==
LOC: EC 08:14 → 6NMEDSUR 13:30
PROVIDERS: ADMIT Internal Medicine; ATTEND Internal Medicine
DX: R59.0 Localized enlarged lymph nodes (principal); E11.65 Type 2 diabetes mellitus with hyperglycemia; N39.0 Urinary tract infection, site not specified; R70.0 Elevated erythrocyte sedimentation rate; R79.82 Elevated C-reactive protein (CRP); R16.2 Hepatomegaly with splenomegaly, not elsewhere classified; R49.0 Dysphonia; K76.0 Fatty (change of) liver, not elsewhere classified; K21.9 Gastro-esophageal reflux disease without esophagitis; E78.5 Hyperlipidemia, unspecified; R48.0 Dyslexia and alexia; F32.A Depression, unspecified; F90.9 Attention-deficit hyperactivity disorder, unspecified type; F41.0 Panic disorder [episodic paroxysmal anxiety]; E66.9 Obesity, unspecified; Z68.33 Body mass index [BMI] 33.0-33.9, adult; Z20.822 Contact with and (suspected) exposure to COVID-19; Z79.84 Long term (current) use of oral hypoglycemic drugs; Z79.4 Long term (current) use of insulin; Z79.899 Other long term (current) drug therapy; Z79.1 Long term (current) use of non-steroidal anti-inflammatories (NSAID); Z88.0 Allergy status to penicillin; Z88.1 Allergy status to other antibiotic agents; Z91.018 Allergy to other foods; Z91.048 Other nonmedicinal substance allergy status; Z87.440 Personal history of urinary (tract) infections; Z98.891 History of uterine scar from previous surgery; Z90.49 Acquired absence of other specified parts of digestive tract; Z98.890 Other specified postprocedural states; Z80.7 Family history of other malignant neoplasms of lymphoid, hematopoietic and related tissues
CPT/HCPCS: 96376; 96366; 96372 ×3; 96375 ×2; 96361; 96365; 96367; 99284; 36415; 86665 ×2; 80053; 80048 ×2; 80074; 85652; 86663; 84443; 83605; 85025 ×3; 86140 ×2; 86308; 81001; 87040; 86664; 86644; 86645; 83036; 87635; 70490; 70491; 71260; G0378 ×3; J1200; J2930; J2405 ×2; J1956 ×3; Q9967; J1644 ×3

== ENCOUNTER → 2021-03-02 | Outpatient (CLI) | payer MEDICARE, OTHER ==
--- NOTE | 2021-03-04 10:18 | MM ---
Reason for exam: screening (asymptomatic). Last mammogram was performed 3 years and 9 months ago. Physical Findings: A clinical breast exam by your physician is recommended on an annual basis and results should be correlated with mammographic findings. MG 3D Screening Mammo W/Cad Bilateral CC and MLO view(s) were taken. Prior study comparison: May 30, 2017, bilateral MG screening mammo w CAD. March 11, 2008, mammogram, performed at [facility]. There are scattered fibroglandular densities. Benign appearing bilateral calcifications. No significant changes when compared with prior studies. ASSESSMENT: Benign, BI-RAD 2 RECOMMENDATION: Routine screening mammogram of both breasts in 1 year.
== END | disposition home or self-care (01) ==
LOC: RADMAMWWP 09:48
PROVIDERS: ATTEND Family Medicine
DX: Z12.31 Encounter for screening mammogram for malignant neoplasm of breast (principal)
CPT/HCPCS: 77063; 77067

== ENCOUNTER → 2022-05-05 | Outpatient (CLI) | payer MEDICARE, OTHER ==
--- NOTE | 2022-05-05 09:51 | US ---
EXAMINATION TYPE: US groin LT DATE OF EXAM: 05/05/2022 COMPARISON: 10/29/2015 CLINICAL HISTORY: R10.30 LOWER ABD PAIN. Patient has palpable, painful area just above scar in LLQ, patient states area has been around for 8 years TECHNIQUE: Left Groin at palpable FINDINGS: In LLQ, above scar, there appears to be a fat containing hernia that does increa se in size with valsalva. Size is approximately 4.7 x 4.3 x 1.8cm IMPRESSION: Fat-containing hernia in the area of symptomology. This can be confirmed with CT if clini gregg warranted.
== END | disposition home or self-care (01) ==
LOC: RADUSWWP 08:53
PROVIDERS: ATTEND Family Medicine
DX: N20.0 Calculus of kidney (principal); K46.9 Unspecified abdominal hernia without obstruction or gangrene

== ENCOUNTER → 2022-05-05 | Outpatient (CLI) | payer MEDICARE, OTHER ==
--- NOTE | 2022-05-05 09:45 | XR ---
EXAMINATION TYPE: XR KUB DATE OF EXAM: 05/05/2022 COMPARISON: NONE HISTORY: Pain TECHNIQUE: One view abdominal series FINDINGS: The osseous structures are intact. The bowel gas pattern is nonspecific. Extensive retained fecal de bris throughout the colon. Surgical clips are in the right upper quadrant. No definite suspicious venessa cifications. Tiny punctate calcification the right pelvis to small to characterize but likely vascula r. IMPRESSION: 1. No definite suspicious calcifications. 2. Correlate for constipation.
== END | disposition home or self-care (01) ==
LOC: RADXRMAIN 09:23
PROVIDERS: ATTEND Urology
DX: N20.0 Calculus of kidney (principal)
CPT/HCPCS: 74018

== ENCOUNTER 2022-07-19 22:32 | Inpatient (IN) | payer MEDICARE, MEDICAID ==
[2022-07-19 22:58] LABS: Glucose,Whole Blood 337 mg/dL (70-110)
[2022-07-19 23:31] LABS: Basophils # (A) 0.1 k/uL (0-0.2); Basophils % (A) 1 %; Eosinophils # (A) 0.1 k/uL (0-0.7); Eosinophils % (A) 1 %; HCT 46.6 % (34.0-46.0); HGB 15.8 gm/dL (11.4-16.0); Lymphocytes # (A) 2.3 k/uL (1.0-4.8); Lymphocytes % (A) 25 %; MCH 29.1 pg (25.0-35.0); MCHC 33.9 g/dL (31.0-37.0); MCV 85.8 fL (80.0-100.0); Mean Platelet Volume 8.1; Monocytes # (A) 0.5 k/uL (0-1.0); Monocytes % (A) 5 %; Neutrophils # (A) 6.4 k/uL (1.3-7.7); Neutrophils % (A) 68 %; Platelet Count 359 k/uL (150-450); RBC 5.43 m/uL (3.80-5.40); RDW 13.2 % (11.5-15.5); WBC 9.4 k/uL (3.8-10.6)
--- NOTE | 2022-07-19 23:45 | XR ---
EXAMINATION TYPE: XR ankle complete RT DATE OF EXAM: 07/19/2022 COMPARISON: None HISTORY: Twisted ankle, fall, pain TECHNIQUE: 3 view right ankle FINDINGS: Ankle mortise is intact. No acute fracture or dislocation is evident. Soft tissues appear n ormal. Follow up exams can be performed 7-10 days from acute trauma for continued pain. IMPRESSION: 1. No acute osseous abnormality right ankle
[2022-07-19 23:50] LABS: AST 102 U/L (14-36); African American GFR (CKD) >90 (>60 ml/min/1.73 sqM); Albumin 4.8 g/dL (3.5-5.0); Alcohol <10 mg/dL; Alkaline Phosphatase 153 U/L (38-126); Anion Gap 18 mmol/L; Blood Urea Nitrogen 11 mg/dL (7-17); Calcium 10.6 mg/dL (8.4-10.2); Carbon Dioxide 20 mmol/L (22-30); Chloride 100 mmol/L (98-107); Glucose 365 mg/dL (74-99); Non-African American GFR(CKD) >90 (>60 ml/min/1.73 sqM); Potassium 4.1 mmol/L (3.5-5.1); Sodium 138 mmol/L (137-145); Total Bilirubin 0.9 mg/dL (0.2-1.3); Total Protein 7.9 g/dL (6.3-8.2)
[2022-07-19 23:59] LABS: ALT 95 U/L (4-34)
[2022-07-20] MEDS ORDERED: MAG HYDROX/AL HYDROX/SIMETH 30 ML CUP PO PRN (05:30)
[2022-07-20] MEDS ORDERED: hydrOXYzine HCL 50 MG/ML 1 ML VIAL IM PRN (05:30)
[2022-07-20] MEDS ORDERED: OLANZapine 10 MG VIAL IM PRN (05:30)
[2022-07-20] MEDS ORDERED: MAGNESIUM HYDROXIDE 2,400 MG/10 ML CUP PO PRN (05:30)
[2022-07-20] MEDS ORDERED: IBUPROFEN 600 MG TAB PO PRN (05:30)
--- NOTE | 2022-07-20 06:02 | ED ---
General Adult HPI - General Chief complaint: Psychiatric Symptoms Stated complaint: MENTAL HEALTH Time Seen by Provider: 07/20/22 03:10 Source: patient Mode of arrival: ambulatory Limitations: no limitations - History of Present Illness Initial comments: This is a 51-year-old female who presents emergency department for multiple different issues. The patient initially presented secondary to "I think my ankle just broke." The patient was yelling in the triage cruz and did have flight of ideas initially on arrival. The patient was convinced that she felt as though "my ankle just broke itself evaluate and do evening and turned purple." The patient was moving her ankle without any acute distress there is no deformity noted. On my evaluation, the patient had significant flight of ideas as well as fixations on multiple delusions involving her children and dreams. The patient was anxious and had multiple different ideas and concerns. The patient had difficulties answering questions appropriately however was awake and alert. The patient denied any suicidal or homicidal ideations at this time. - Related Data Home Medications Medication Instructions Recorded Confirmed metFORMIN HCL [Glucophage] 1,000 mg PO BID 08/03/16 01/26/21 Ezetimibe [Zetia] 10 mg PO DAILY 03/17/20 01/26/21 Fenofibrate [Lofibra] 54 mg PO DAILY 03/17/20 01/26/21 Albuterol Inhaler [Ventolin Hfa 2 puff INHALATION RT-Q4H PRN 01/26/21 01/26/21 Inhaler] Allergy Relief 1 tab PO DAILY 01/26/21 01/26/21 Fesoterodine Fumarate [Toviaz] 4 mg PO DAILY 01/26/21 01/26/21 Insulin Aspart [NovoLOG Flexpen] 10 units SQ AC-TID 01/26/21 01/26/21 Linagliptin [Tradjenta] 5 mg PO DAILY 01/26/21 01/26/21 Losartan [Cozaar] 25 mg PO DAILY 01/26/21 01/26/21 Naproxen 500 mg PO DAILY 01/26/21 01/26/21 Omeprazole 40 mg PO DAILY 01/26/21 01/26/21 Sertraline [Zoloft] 50 mg PO DAILY 01/26/21 01/26/21 Previous Rx's Medication Instructions Recorded levoFLOXacin [Levaquin] 750 mg PO DAILY 7 Days #7 tab 01/28/21 Allergies Allergy/AdvReac Type Severity Reaction Status Date / Time Penicillins Allergy Severe Anaphylaxis Verified 07/19/22 22:47 cephalexin monohydrate Allergy Anaphylaxis Verified 07/19/22 22:47 [From Keflex] iodine Allergy Unknown Verified 07/19/22 22:47 Mushroom AdvReac Unknown Verified 07/19/22 22:47 Review of Systems ROS Statement: Those systems with pertinent positive or pertinent negative responses have been documented in the HPI. ROS Other: All systems not noted in ROS Statement are negative. Past Medical History Past Medical History: Diabetes Mellitus, GERD/Reflux, Hyperlipidemia Additional Past Medical History / Comment(s): NIDDM type II, dyslexia. History of Any Multi-Drug Resistant Organisms: ESBL Date of last positivie culture/infection: 08/11/21-ESBL MDRO Source:: URINE Past Surgical History: Adenoidectomy, Section, Tonsillectomy Additional Past Surgical History / Comment(s): Nasal surgery Past Anesthesia/Blood Transfusion Reactions: Postoperative Nausea & Vomiting (PONV) Additional Past Anesthesia/Blood Transfusion Reaction / Comment(s): Pt states she has never received blood. Past Psychological History: Anxiety, Depression, Panic Disorder Smoking Status: Never smoker Past Alcohol Use History: None Reported Past Drug Use History: None Reported - Past Family History Mother Family Medical History: Cancer Additional Family Medical History / Comment(s): Mother has lymphoma. Father History Unknown: Yes Additional Family Medical History / Comment(s): Father left when pt was 2 months old. General Exam Limitations: no limitations General appearance: alert, in no apparent distress, anxious Head exam: Present: atraumatic, normocephalic, normal inspection Eye exam: Present: normal appearance, PERRL Pupils: Present: normal accommodation ENT exam: Present: normal exam, normal oropharynx, mucous membranes moist Neck exam: Present: normal inspection, full ROM Respiratory exam: Present: normal lung sounds bilaterally Cardiovascular Exam: Present: normal rhythm, tachycardia, normal heart sounds GI/Abdominal exam: Present: soft, normal bowel sounds Extremities exam: Present: normal inspection, full ROM Back exam: Present: normal inspection, full ROM Neurological exam: Present: alert, oriented X3, CN II-XII intact Psychiatric exam: Present: agitated, manic, other (Flight of ideas with fixations on multiple delusions) Skin exam: Present: warm, dry Course Vital Signs 07/19/22 07/20/22 07/20/22 22:48 02:32 03:26 Temperature 98.6 F Pulse Rate 133 H 121 H 117 H Respiratory 32 H 18 18 Rate Blood Pressure 172/98 122/83 O2 Sat by Pulse 98 99 Oximetry EKG Findings - EKG Comments: EKG Findings:: An EKG was obtained and was interpreted by myself showing a rate of 131, TN interval 133, QRS duration of 88 and QTC of 394. This EKG showed a sinus tachycardia without any ST segment elevation or depression noted. Medical Decision Making - Medical Decision Making Was pt. sent in by a medical professional or institution (, PA, ENGINEERING PROFESSOR, urgent care, hospital, or retirement...) When possible be specific @ -No Did you speak to anyone other than the patient for history (EMS, parent, family, police, friend...)? What history was obtained from this source @ -No Did you review nursing and triage notes (agree or disagree)? Why? @ -I reviewed and agree with nursing and triage notes Were old charts reviewed (outside hosp., previous admission, EMS record, old EKG, old radiological studies, urgent care reports/EKG's, retirement records)? Report findings @ -No old charts were reviewed Differential Diagnosis (chest pain, altered mental status, abdominal pain women, abdominal pain men, vaginal bleeding, weakness, fever, dyspnea, syncope, headache, dizziness, GI bleed, back pain, seizure, CVA, palpatations, mental health)? @ -Acute psychosis, delusions, hallucinations EKG interpreted by me (3pts min.). @ -As above X-rays interpreted by me (1pt min.). @ -X-ray of the right ankle was obtained and was interpreted by myself showing no acute process. CT interpreted by me (1pt min.). @ -None done U/S interpreted by me (1pt. min.). @ -None done What testing was considered but not performed or refused? (CT, X-rays, U/S, labs)? Why? @ -None What meds were considered but not given or refused? Why? @ -None Did you discuss the management of the patient with other professionals (professionals i.e. , PA, ENGINEERING PROFESSOR, lab, RT, psych nurse, oncology social worker, remanufacturing technician, teacher, engineering officer, case fitter)? Give summary @ -Yes, case was discussed with the EPS nurse who did agree to admit the patient Was smoking cessation discussed for >3mins.? @ -No Was critical care preformed (if so, how long)? @ -No Were there social determinants of health that impacted care today? How? (Homelessness, low income, unemployed, alcoholism, drug addiction, transportation, low edu. Level, literacy, decrease access to med. care, nursing home, rehab)? @ -No Was there de-escalation of care discussed even if they declined (Discuss DNR or withdrawal of care, Hospice)? DNR status @ -No What co-morbidities impacted this encounter? (DM, HTN, Smoking, COPD, CAD, Cancer, CVA, ARF, Chemo, Hep., AIDS, mental health diagnosis, sleep apnea, morbid obesity)? @ -None Was patient admitted / discharged? Hospital course, mention meds given and route, prescriptions, significant lab abnormalities, going to OR and other pertinent info. @ -The patient was seen and evaluated in emergency department. Initially, the patient was waiting in the waiting room for significant amount of time and due to the patient's initial complaints, laboratory workup as well as an x-ray was obtained. All laboratory workup as well as x-rays were within normal limits. On my evaluation, the patient continued to have flight of ideas and would perseverate on multiple delusions. The patient could not answer questions appropriately and stated "I just don't know and I can't tell you why." The patient was seen and evaluated by EPS after being medically cleared and EPS nurse did agree to admit the patient for further workup and treatment. The patient was agreeable to this and was admitted in stable condition. Undiagnosed new problem with uncertain prognosis? @ -No Drug Therapy requiring intensive monitoring for toxicity (Heparin, Nitro, Insulin, Cardizem)? @ -No Were any procedures done? @ -No Diagnosis/symptom? @ -Acute psychosis, hallucinations, delusions Acute, or Chronic, or Acute on Chronic? @ -Acute Uncomplicated (without systemic symptoms) or Complicated (systemic symptoms)? @ -Complicated Side effects of treatment? @ -No Exacerbation, Progression, or Severe Exacerbation? @ -No Poses a threat to life or bodily function? How? (Chest pain, [place], [place], pneumonia, PE, COPD, DKA, ARF, appy, cholecystitis, CVA, Diverticulitis, Homicidal, Suicidal, threat to staff... and all critical care pts) @ -No - Lab Data Result diagrams: 07/19/22 23:19 07/19/22 23:19 Lab Results 07/19/22 07/19/22 07/19/22 Range/Units 22:53 23:19 23:19 WBC 9.4 (3.8-10.6) k/uL RBC 5.43 H (3.80-5.40) m/uL Hgb 15.8 (11.4-16.0) gm/dL Hct 46.6 H (34.0-46.0) % MCV 85.8 (80.0-100.0) fL MCH 29.1 (25.0-35.0) pg MCHC 33.9 (31.0-37.0) g/dL RDW 13.2 (11.5-15.5) % Plt Count 359 (150-450) k/uL MPV 8.1 Neutrophils % 68 % Lymphocytes % 25 % Monocytes % 5 % Eosinophils % 1 % Basophils % 1 % Neutrophils # 6.4 (1.3-7.7) k/uL Lymphocytes # 2.3 (1.0-4.8) k/uL Monocytes # 0.5 (0-1.0) k/uL Eosinophils # 0.1 (0-0.7) k/uL Basophils # 0.1 (0-0.2) k/uL Sodium 138 (137-145) mmol/L Potassium 4.1 (3.5-5.1) mmol/L Chloride 100 (98-107) mmol/L Carbon Dioxide 20 L (22-30) mmol/L Anion Gap 18 mmol/L BUN 11 (7-17) mg/dL Creatinine 0.54 (0.52-1.04) mg/dL Est GFR (CKD-EPI)AfAm >90 (>60 ml/min/1.73 sqM) Est GFR (CKD-EPI)NonAf >90 (>60 ml/min/1.73 sqM) Glucose 365 H (74-99) mg/dL POC Glucose (mg/dL) 337 H (70-110) mg/dL POC Glu Repulping Supervisor ID Cedrick Lamas Calcium 10.6 H (8.4-10.2) mg/dL Total Bilirubin 0.9 (0.2-1.3) mg/dL AST 102 H (14-36) U/L ALT 95 H (4-34) U/L Alkaline Phosphatase 153 H (38-126) U/L Total Protein 7.9 (6.3-8.2) g/dL Albumin 4.8 (3.5-5.0) g/dL Serum Alcohol <10 mg/dL Disposition Clinical Impression: Acute psychosis Disposition: ADMITTED IP TO THIS [facility] Condition: Stable Is patient prescribed a controlled substance at d/c from ED?: No Time of Disposition: 05:45 Decision to Admit Reason: Admit from EC Decision Date: 07/20/22 Decision Time: 05:45
[2022-07-20 06:12] LABS: Appearance,Urine Cloudy (Clear); Bilirubin,Urine Negative (Negative); Blood,Urine Moderate (Negative); Calcium Oxalate Crystals,Urine Few /hpf; Color,Urine Yellow; Glucose,Urine (UA) 4+ (Negative); Hyaline Casts,Urine 8 /lpf (0-2); Ketones,Urine Trace (Negative); Leukocyte Esterase,Urine Moderate (Negative); Mucus,Urine Occasional /hpf; Nitrite,Urine Negative (Negative); Protein,Urine 3+ (Negative); RBC,Urine 8 /hpf (0-5); Specific Gravity,Urine 1.028 (1.001-1.035); Squamous Epithelial Cell,Urine 6 /hpf (0-4); Urobilinogen,Urine <2.0 mg/dL (<2.0); WBC,Urine 97 /hpf (0-5)
[2022-07-20 06:17] LABS: Amphetamine Screen,Urine Not Detected (NotDetected); Barbiturate Screen,Urine Not Detected (NotDetected); Benzodiazepines Screen,Urine Not Detected (NotDetected); Cocaine Screen,Urine Not Detected (NotDetected); Methadone Screen, Urine Not Detected (NotDetected); Opiate Screen,Urine Not Detected (NotDetected); Oxycodone Screen, Urine Not Detected (NotDetected); Phencyclidine Screen,Urine Not Detected (NotDetected); Tricyclic Antidepressant,Urine Not Detected (NotDetected); Urn Cannabinoid Scrn Not Detected (NotDetected)
[2022-07-20] MEDS ORDERED: SODIUM CHLORIDE 0.9% 1,000 ML IV ONE (06:30)
[2022-07-20 07:16] LABS: Glucose,Whole Blood 279 mg/dL (70-110)
[2022-07-20] MEDS: INSULIN ASPART (NovoLOG) 100 UNIT/ML VIAL SQ SCH ×3 (07:28→18:00)
[2022-07-20] MEDS ORDERED: LEVOFLOXACIN 750 MG TAB PO SCH (09:00)
[2022-07-20] MEDS ORDERED: SERTRALINE 50 MG TAB PO SCH (09:00)
[2022-07-20 10:27] LABS: Glucose,Whole Blood 278 mg/dL (70-110)
[2022-07-20] MEDS: NAPROXEN 250 MG TAB PO SCH (10:31)
[2022-07-20] MEDS: FENOFIBRATE 54 MG TAB PO SCH (10:31)
[2022-07-20] MEDS: TROSPIUM CHLORIDE 20 MG TABLET PO SCH (10:31)
[2022-07-20] MEDS: PANTOPRAZOLE 40 MG TABLET PO SCH (10:32)
[2022-07-20] MEDS: LINAGLIPTIN 5 MG TABLET PO SCH (10:32)
[2022-07-20] MEDS: metFORMIN 500 MG TAB PO SCH ×2 (10:32→20:15)
[2022-07-20] MEDS: LOSARTAN 25 MG TAB PO SCH (10:33)
[2022-07-20] MEDS: EZETIMIBE 10 MG TAB PO SCH (10:33)
[2022-07-20] MEDS ORDERED: risperiDONE 1 MG TAB PO STA (12:52)
--- NOTE | 2022-07-20 12:53 | P.MDCNMH ---
History of Present Illness H&P Date: 07/20/22 This is a pleasant 51-year-old female who presented to the emergency department with multiple racing thoughts and flight of ideas having delusions and came in with multiple issues thinking she just broke her ankle and patient reports increased stress and depression over the last few days and her medications were not helping. Patient denied suicidal ideation or thoughts of wanting to harm herself. Patient was evaluated in the emergency department and underwent ankle x-ray of the right ankle showing no acute osseous abnormality of the right ankle and soft tissue areas all appear to be normal. Patient was admitted for psychiatric evaluation on 3 W. voluntarily. Patient reports she follows with Dr. Maldonado in the outpatient setting with past medical history of diabetes mellitus, insulin-dependent, GERD, hyperlipidemia, anxiety/depression and panic disorder. Patient denies drug use or illicit drug use. Patient denies smoking and reports she was vaping with her daughter occasionally although hasn't recently. Looking back at her medication reconciliation which has not been verified patient was taking oral along with insulin diabetic agents and reports she has not been taking her medications very well lately. Labs in the ER were within normal limits other than blood sugar slightly elevated at 365 and urinalysis along with drug screen and Covid was negative. Patient has been s tarted on Accu-Cheks before meals and at bedtime along with sliding scale and home medications reviewed and resumed. Patient with a mildly elevated heart rate in the 1 teens an EKG shows sinus tachycardia. Review Of Systems: Constitutional: No fever, no chills, no night sweats. No weight change. No weakness, fatigue or lethargy. No daytime sleepiness. EENT: No headache. No blurred vision or double vision, no loss of vision. No loss of Hearing, no ringing in the ears, no dizziness. No nasal drainage or congestion. No epistaxis. No sore throat. Lungs: No shortness of breath, cough, no sputum production. No wheezing. Cardiovascular: No chest pain, no lower extremity edema. No palpitations. No paroxysmal nocturnal dyspnea. No orthopnea. No lightheadedness or dizziness. No syncopal episodes. Abdominal: No abdominal pain. No nausea, vomiting. No diarrhea. No constipation. No bloody or tarry stools.. No loss of appetite. Genitourinary: No dysuria, increased frequency, urgency. No urinary retention. Musculoskeletal: No myalgias. No muscle weakness, no gait dysfunction, no frequent falls. No back pain. No neck pain. Integumentary: No wounds, no lesions. No rash or pruritus. No unusual bruising. No change in hair or nails. Neurologic: No aphasia. No facial droop. No change in mentation. No head injury. No headache. No paralysis. No paresthesia. Psychiatric:Reports increased anxiety and depression. Reports flight of thoughts and racing thoughts unable to control and denies any suicidal ideation or thoughts of wanting to harm herself or others Endocrine: No abnormal blood sugars. No weight change. No excessive sweating or thirst. No cold intolerance. PHYSICAL EXAMINATION: GENERAL: The patient is alert and oriented x4, somewhat anxious on exam, Well developed, well nourished. Obese HEENT: Pupils are round and equally reacting to light. EOMI. no scleral icterus. No conjunctival pallor. Normocephalic, atraumatic. No pharyngeal erythema. No thyromegaly. CARDIOVASCULAR: S1 and S2 muffled, sinus tachycardia PULMONARY: diminished breath sounds bilaterally with no wheezing or rhonchi noted. ABDOMEN: soft. Nontender on exam. obese. non-distended, normoactive bowel sounds. No palpable organomegaly. MUSCULOSKELETAL: No joint swelling or deformity. EXTREMITIES: No cyanosis, clubbing, or pedal edema. Right ankle and lower extremity with no redness swelling or pain on palpation NEUROLOGICAL: Gross neurological examination did not reveal any focal deficits. SKIN: No rashes. Assessment: Acute psychosis History of anxiety/depression Obesity with a BMI of 33.8 Right ankle pain, negative for acute fracture or dislocation Type 2 diabetes, insulin-dependent, uncontrolled with hyperglycemia Elevated LFTs Gastroesophageal reflux disease Hyperlipidemia Full code Plan: Recommend to continue with current medications and management per psychiatric services. Patient was voluntarily admitted to the psychiatric unit for further evaluation as patient was having multiple flights of ideas and thoughts racing unable to control and reports increasing depression and anxiety over the last few days. Home medications need to be verified and resumed appropriately as patient has not been taking her medications as prescribed and reports she has not followed up with her primary care provider in a few months Patient denies chest pain or shortness of breath on exam and encouraged the patient to follow diabetic diet and continue with Accu-Cheks before meals and at bedtime and use sliding scale along with resuming home medications Patient did have some ankle pain and x-ray revealed no acute fracture. Discussed with the patient about elevating right ankle while at rest Thank you kindly for this consultation. The impression and plan of care has been dictated by Katharina Sorensen, nurse practitioner as directed. Dr. Alexandr MD I have performed a history and examination and MDM of this patient, discussed the same with the dictator, and agree with the dictator's assessment and plan as written ,documented as a scribe. Based on total visit time, I have performed more than 50% of the visit. Any additional findings or plans will be noted. Past Medical History Past Medical History: Diabetes Mellitus, GERD/Reflux, Hyperlipidemia Additional Past Medical History / Comment(s): NIDDM type II, dyslexia. History of Any Multi-Drug Resistant Organisms: ESBL Date of last positivie culture/infection: 08/11/21-ESBL MDRO Source:: URINE Past Surgical History: Adenoidectomy, Section, Tonsillectomy Additional Past Surgical History / Comment(s): Nasal surgery Past Anesthesia/Blood Transfusion Reactions: Postoperative Nausea & Vomiting (PONV) Additional Past Anesthesia/Blood Transfusion Reaction / Comment(s): Pt states she has never received blood. Past Psychological History: Anxiety, Depression, Panic Disorder Smoking Status: Never smoker Past Alcohol Use History: None Reported Past Drug Use History: None Reported - Past Family History Mother Family Medical History: Cancer Additional Family Medical History / Comment(s): Mother has lymphoma. Father History Unknown: Yes Additional Family Medical History / Comment(s): Father left when pt was 2 months old. Medications and Allergies Home Medications Medication Instructions Recorded Confirmed Type metFORMIN HCL [Glucophage] 1,000 mg PO BID 08/03/16 01/26/21 History Ezetimibe [Zetia] 10 mg PO DAILY 03/17/20 01/26/21 History Fenofibrate [Lofibra] 54 mg PO DAILY 03/17/20 01/26/21 History Albuterol Inhaler [Ventolin Hfa 2 puff INHALATION RT-Q4H PRN 01/26/21 01/26/21 History Inhaler] Allergy Relief 1 tab PO DAILY 01/26/21 01/26/21 History Fesoterodine Fumarate [Toviaz] 4 mg PO DAILY 01/26/21 01/26/21 History Insulin Aspart [NovoLOG Flexpen] 10 units SQ AC-TID 01/26/21 01/26/21 History Linagliptin [Tradjenta] 5 mg PO DAILY 01/26/21 01/26/21 History Losartan [Cozaar] 25 mg PO DAILY 01/26/21 01/26/21 History Naproxen 500 mg PO DAILY 01/26/21 01/26/21 History Omeprazole 40 mg PO DAILY 01/26/21 01/26/21 History Sertraline [Zoloft] 50 mg PO DAILY 01/26/21 01/26/21 History levoFLOXacin [Levaquin] 750 mg PO DAILY 7 Days #7 tab 01/28/21 Rx Allergies Allergy/AdvReac Type Severity Reaction Status Date / Time Penicillins Allergy Severe Anaphylaxis Verified 07/20/22 11:55 cephalexin monohydrate Allergy Anaphylaxis Verified 07/20/22 11:55 [From Keflex] iodine Allergy Unknown Verified 07/20/22 11:55 Mushroom AdvReac Unknown Verified 07/20/22 11:55 Physical Exam Vitals: Vital Signs Temp Pulse Resp BP Pulse Ox 07/20/22 08:45 113 H 20 124/80 97 07/20/22 06:12 127 H 17 98 07/20/22 03:26 117 H 18 07/20/22 02:32 121 H 18 122/83 99 07/19/22 22:48 98.6 F 133 H 32 H 172/98 98 Intake and Output 07/19/22 07/20/22 07/20/22 22:59 06:59 14:59 Other: Weight 72.575 kg Cranial Nerve Examination - Cranial Nerves Cranial Nerve I- Olfactory: Intact Cranial Nerve II- Optic: Intact Cranial Nerve III- Oculomotor: Intact Cranial Nerve IV- Trochlear: Intact Cranial Nerve V- Trigeminal: Intact Cranial Nerve - Abducens: Intact Cranial Nerve VII- Facial: Intact Cranial Nerve VIII- Auditory: Intact Cranial Nerve IX- Glossopharyngeal: Intact Cranial Nerve X- Vagus: Intact Cranial Nerve XI- Accessory: Intact Cranial Nerve XII- Hypoglossal: Intact Results CBC & Chem 7: 07/19/22 23:19 07/19/22 23:19 Labs: Abnormal Lab Results - Last 24 Hours (Table) 07/19/22 07/19/22 07/19/22 Range/Units 22:53 23:19 23:19 RBC 5.43 H (3.80-5.40) m/uL Hct 46.6 H (34.0-46.0) % Carbon Dioxide 20 L (22-30) mmol/L Glucose 365 H (74-99) mg/dL POC Glucose (mg/dL) 337 H (70-110) mg/dL Calcium 10.6 H (8.4-10.2) mg/dL AST 102 H (14-36) U/L ALT 95 H (4-34) U/L Alkaline Phosphatase 153 H (38-126) U/L Urine Appearance (Clear) Urine Protein (Negative) Urine Glucose (UA) (Negative) Urine Ketones (Negative) Urine Blood (Negative) Ur Leukocyte Esterase (Negative) Urine RBC (0-5) /hpf Urine WBC (0-5) /hpf Ur Squamous Epith Cells (0-4) /hpf Calcium Oxalate Crystal (None) /hpf Hyaline Casts (0-2) /lpf Urine Mucus (None) /hpf 07/20/22 07/20/22 Range/Units 03:55 07:15 RBC (3.80-5.40) m/uL Hct (34.0-46.0) % Carbon Dioxide (22-30) mmol/L Glucose (74-99) mg/dL POC Glucose (mg/dL) 279 H (70-110) mg/dL Calcium (8.4-10.2) mg/dL AST (14-36) U/L ALT (4-34) U/L Alkaline Phosphatase (38-126) U/L Urine Appearance Cloudy H (Clear) Urine Protein 3+ H (Negative) Urine Glucose (UA) 4+ H (Negative) Urine Ketones Trace H (Negative) Urine Blood Moderate H (Negative) Ur Leukocyte Esterase Moderate H (Negative) Urine RBC 8 H (0-5) /hpf Urine WBC 97 H (0-5) /hpf Ur Squamous Epith Cells 6 H (0-4) /hpf Calcium Oxalate Crystal Few H (None) /hpf Hyaline Casts 8 H (0-2) /lpf Urine Mucus Occasional H (None) /hpf Assessment and Plan Time with Patient: Less than 30
[2022-07-20 13:08] LABS: Glucose,Whole Blood 226 mg/dL (70-110)
--- NOTE | 2022-07-20 13:11 | P.HP ---
Psychiatric H&P - . H&P Date: 07/20/22 History & Physical: Allergies Allergy/AdvReac Type Severity Reaction Status Date / Time Penicillins Allergy Severe Anaphylaxis Verified 07/20/22 11:55 cephalexin monohydrate Allergy Anaphylaxis Verified 07/20/22 11:55 [From Keflex] iodine Allergy Unknown Verified 07/20/22 11:55 Mushroom AdvReac Unknown Verified 07/20/22 11:55 Vital Signs Temp 96.9 F L 07/20/22 08:00 Pulse 113 H 07/20/22 08:45 Resp 20 07/20/22 08:45 BP 124/80 07/20/22 08:45 Pulse Ox 97 07/20/22 08:45 FiO2 Intake & Output 07/19/22 07/20/22 07/20/22 18:59 06:59 18:59 Weight 94.886 kg 94.886 kg Laboratory Last Values WBC 9.4 k/uL (3.8-10.6) 07/19/22 23:19 RBC 5.43 m/uL (3.80-5.40) H 07/19/22 23:19 Hgb 15.8 gm/dL (11.4-16.0) 07/19/22 23:19 Hct 46.6 % (34.0-46.0) H 07/19/22 23:19 MCV 85.8 fL (80.0-100.0) 07/19/22 23:19 MCH 29.1 pg (25.0-35.0) 07/19/22 23:19 MCHC 33.9 g/dL (31.0-37.0) 07/19/22 23:19 RDW 13.2 % (11.5-15.5) 07/19/22 23:19 Plt Count 359 k/uL (150-450) 07/19/22 23:19 MPV 8.1 07/19/22 23:19 Neutrophils % 68 % 07/19/22 23:19 Lymphocytes % 25 % 07/19/22 23:19 Monocytes % 5 % 07/19/22 23:19 Eosinophils % 1 % 07/19/22 23:19 Basophils % 1 % 07/19/22 23:19 Neutrophils # 6.4 k/uL (1.3-7.7) 07/19/22 23:19 Lymphocytes # 2.3 k/uL (1.0-4.8) 07/19/22 23:19 Monocytes # 0.5 k/uL (0-1.0) 07/19/22 23:19 Eosinophils # 0.1 k/uL (0-0.7) 07/19/22 23:19 Basophils # 0.1 k/uL (0-0.2) 07/19/22 23:19 Sodium 138 mmol/L (137-145) 07/19/22 23:19 Potassium 4.1 mmol/L (3.5-5.1) 07/19/22 23:19 Chloride 100 mmol/L (98-107) 07/19/22 23:19 Carbon Dioxide 20 mmol/L (22-30) L 07/19/22 23:19 Anion Gap 18 mmol/L 07/19/22 23:19 BUN 11 mg/dL (7-17) 07/19/22 23:19 Creatinine 0.54 mg/dL (0.52-1.04) 07/19/22 23:19 Est GFR (CKD-EPI)AfAm >90 (>60 ml/min/1.73 sqM) 07/19/22 23:19 Est GFR (CKD-EPI)NonAf >90 (>60 ml/min/1.73 sqM) 07/19/22 23:19 Glucose 365 mg/dL (74-99) H 07/19/22 23:19 POC Glucose (mg/dL) 226 mg/dL (70-110) H 07/20/22 13:06 POC Glu [employer] RICARDO Nay Johnson 07/20/22 13:06 Calcium 10.6 mg/dL (8.4-10.2) H 07/19/22 23:19 Total Bilirubin 0.9 mg/dL (0.2-1.3) 07/19/22 23:19 AST 102 U/L (14-36) H 07/19/22 23:19 ALT 95 U/L (4-34) H 07/19/22 23:19 Alkaline Phosphatase 153 U/L (38-126) H 07/19/22 23:19 Total Protein 7.9 g/dL (6.3-8.2) 07/19/22 23:19 Albumin 4.8 g/dL (3.5-5.0) 07/19/22 23:19 Urine Color Yellow 07/20/22 03:55 Urine Appearance Cloudy (Clear) H 07/20/22 03:55 Urine pH 6.0 (5.0-8.0) 07/20/22 03:55 Ur Specific [place] 1.028 (1.001-1.035) 07/20/22 03:55 Urine Protein 3+ (Negative) H 07/20/22 03:55 Urine Glucose (UA) 4+ (Negative) H 07/20/22 03:55 Urine Ketones Trace (Negative) H 07/20/22 03:55 Urine Blood Moderate (Negative) H 07/20/22 03:55 Urine Nitrite Negative (Negative) 07/20/22 03:55 Urine Bilirubin Negative (Negative) 07/20/22 03:55 Urine Urobilinogen <2.0 mg/dL (<2.0) 07/20/22 03:55 Ur Leukocyte Esterase Moderate (Negative) H 07/20/22 03:55 Urine RBC 8 /hpf (0-5) H 07/20/22 03:55 Urine WBC 97 /hpf (0-5) H 07/20/22 03:55 Ur Squamous Epith Cells 6 /hpf (0-4) H 07/20/22 03:55 Calcium Oxalate Crystal Few /hpf (None) H 07/20/22 03:55 Hyaline Casts 8 /lpf (0-2) H 07/20/22 03:55 Urine Mucus Occasional /hpf (None) H 07/20/22 03:55 Urine HCG, Qual Not Detected (Not Detectd) 07/20/22 03:55 Urine Opiates Screen Not Detected (NotDetected) 07/20/22 03:55 Ur Oxycodone Screen Not Detected (NotDetected) 07/20/22 03:55 Urine Methadone Screen Not Detected (NotDetected) 07/20/22 03:55 Ur Propoxyphene Screen Not Detected (NotDetected) 07/20/22 03:55 Ur Barbiturates Screen Not Detected (NotDetected) 07/20/22 03:55 U Tricyclic Antidepress Not Detected (NotDetected) 07/20/22 03:55 Ur Phencyclidine Scrn Not Detected (NotDetected) 07/20/22 03:55 Ur Amphetamines Screen Not Detected (NotDetected) 07/20/22 03:55 U Methamphetamines Scrn Not Detected (NotDetected) 07/20/22 03:55 U Benzodiazepines Scrn Not Detected (NotDetected) 07/20/22 03:55 Urine Cocaine Screen Not Detected (NotDetected) 07/20/22 03:55 U Marijuana (THC) Screen Not Detected (NotDetected) 07/20/22 03:55 Serum Alcohol <10 mg/dL 07/19/22 23:19 Coronavirus (PCR) Not Detected (Not Detectd) 07/20/22 05:50 07/20/22 13:10 IDENTIFYING DATA: Patient is a 51-year-old , unemployed, female with significant history of depression with psychotic features who presents to our hospital on 07/20/2022 for acute psychosis. HPI: Patient presented to the hospital on 07/20/2022, presenting to the hospital for initial complaints of ankle pain. However, the patient was noted in the emergency department to be yelling, displaying flight of ideas, and endorsing psychotic symptoms. As per EPS report, the patient displayed gross d isorganization, bizarre delusions, paranoia, and to flight of ideas. She was a poor and limited historian and unable to provide the events leading up to the hospitalization. She was subsequently admitted onto the psychiatric unit. On evaluation on the psychiatric unit, the patient continues to be grossly psychotic. The patient reports "I have been thinking about things that took place. I know what I think I saw. I hope somebody took a picture what it was. I saw old lady with an odd eye work for [employer]. Then there was another edmond with also an odd high who was working on an ultra modern hot tub and a computer." The patient reports that she was staying at home and then her foot began to hurt. She reports that she was screaming loudly and police came to check in on her. They informed her to go to the hospital. She states that the police told her that her children will be taken care of. The patient states that for the last 3 days she has not slept until she presente d herself to the hospital. She is currently denying any suicidal or homicidal ideation, intention, and/or plan. She is denying any overt auditory hallucinations however endorses visual hallucinations of bizarre people and bizarre eyes. The patient endorses numerous bizarre delusions and is unable to keep a linear conversation with this provider. She is however agreeable to sign herself voluntarily onto the psychiatric unit in taking medications. Review of the patient's previous inpatient psychiatric admissions reveals that the patient has previously had an episode of depressive disorder with psychotic features. Back in September 2015, the patient endorsed significant delusions and concerns for the safety of her children. At the time, she had a 13-year-old daughter who was removed from the home after a CPS investigation. History is limited by the patient due to her psychosis. PAST PSYCHIATRIC HISTORY: Patient has previous diagnoses of depression, depression with psychotic features, and anxiety. As per chart review, she has been previously prescribed Zoloft, Invega, and Klonopin. The patient's last inpatient psychiatric hospitalization was in 10/2015 on their psychiatric unit. Unable to determine if there were other inpatient psychiatric admissions since then. The patient denies any outpatient psychiatric follow-up. Patient denies any prior attempts at suicide. PMH: Past Medical History: Diabetes Mellitus, GERD/Reflux, Hyperlipidemia Additional Past Medical History / Comment(s): NIDDM type II, dyslexia. History of Any Multi-Drug Resistant Organisms: ESBL Date of last positivie culture/infection: 08/11/21-ESBL MDRO Source:: URINE Past Surgical History: Adenoidectomy, Section, Tonsillectomy Additional Past Surgical History / Comment(s): Nasal surgery Past Anesthesia/Blood Transfusion Reactions: Postoperative Nausea & Vomiting (PONV) Additional Past Anesthesia/Blood Transfusion Reaction / Comment(s): Pt states she has never received blood. Past Psychological History: Anxiety, Depression, Panic Disorder Smoking Status: Never smoker Past Alcohol Use History: None Reported Past Drug Use History: None Reported ALLERGIES: Allergies Allergy/AdvReac Type Severity Reaction Status Date / Time Penicillins Allergy Severe Anaphylaxis Verified 07/20/22 11:55 cephalexin monohydrate Allergy Anaphylaxis Verified 07/20/22 11:55 [From Keflex] iodine Allergy Unknown Verified 07/20/22 11:55 Mushroom AdvReac Unknown Verified 07/20/22 11:55 CHEMICAL DEPENDENCY HISTORY: The patient is denying any tobacco, alcohol, marijuana, or illicit drug use. FAMILY PSYCHIATRIC/SUBSTANCE USE HISTORY: Patient states that her mother has mental illness however is unable to provide any diagnosis. SOCIAL HISTORY: Patient was born and raised in [place]. She reports that she has a twin son and daughter named Munria and Thomas. She reports that police informed her that her children will be taken care of. As per chart review, the patient also has a 20-year-old daughter however this is not confirmed at this time. The patient is unable to identify if she has any gainful employment. MENTAL STATUS EXAM: General Appearance: Patient appears to be stated age is alert, directable, and attempts to cooperate. Patient appears to have disheveled hygiene and grooming. Behavior: Patient displayed psychomotor agitation. Speech: Patient's speech is pressured, hyperverbal, nonlinear. Mood/Affect: Patient reports their mood is "kind of worried," affect is congruent and fearful. Suicidality/Homicidality: Patient is denying any suicidal or homicidal ideation. Perceptions: Patient endorses visual hallucinations. She denies any auditory hallucinations. Though content/process: Patient is grossly paranoid and endorsing many bizarre delusions. She is nonlinear, nonlogical, and displays a flight of ideas. This associations and magical thinking. Memory and concentration: Grossly poor at this time Judgment and insight: Very poor STRENGTHS/WEAKNESSES: Unable to identify patient's strength. Weakness is that the patient is actively psychotic. INTELLECT: average IMPRESSIONS: Acute psychotic episode - rule out schizoaffective disorder, bipolar type versus bipolar 1 disorder with psychosis PLAN: -Patient is admitted under voluntary status to MHU for stabilization of psychiatric symptoms and safety. Patient signed adult voluntary form and medication consent and is placed in patient's chart. Consider petition and certification should the patient be nonadherent with prescribed treatment. -Medications : Will start patient on Risperdal 1 mg by mouth twice a day for psychosis Depakote ER 500 mg by mouth at bedtime for mood stabilization -Zyprexa and Vistaril PRN for agitation/aggression -Patient was counselled on substance abuse and desired to cut back on use -Patient was informed of the risks, benefits and side effects of the medication and patient verbally consented to taking the medications. Patient signed med consent form and was placed in chart. -Internal Medicine consult to perform medical evaluation and physical. -SW on board for discharge planning. Encourage patient to participate in groups to work on coping skills. 07/20/22 13:11
[2022-07-20 17:52] LABS: Glucose,Whole Blood 194 mg/dL (70-110)
[2022-07-20 20:04] LABS: Glucose,Whole Blood 181 mg/dL (70-110)
[2022-07-20] MEDS: risperiDONE 1 MG TAB PO SCH (20:16)
[2022-07-20] MEDS: DIVALPROEX ER 500 MG TAB.ER.24H PO SCH (20:16)
[2022-07-21 07:51] LABS: Glucose,Whole Blood 197 mg/dL (70-110)
[2022-07-21] MEDS: INSULIN ASPART (NovoLOG) 100 UNIT/ML VIAL SQ SCH ×3 (08:05→18:30)
[2022-07-21] MEDS: LOSARTAN 25 MG TAB PO SCH (08:49)
[2022-07-21] MEDS: PANTOPRAZOLE 40 MG TABLET PO SCH (08:49)
[2022-07-21] MEDS: metFORMIN 500 MG TAB PO SCH ×2 (08:49→20:57)
[2022-07-21] MEDS: risperiDONE 1 MG TAB PO SCH ×2 (08:49→20:57)
[2022-07-21] MEDS: LINAGLIPTIN 5 MG TABLET PO SCH (08:50)
[2022-07-21] MEDS: FENOFIBRATE 54 MG TAB PO SCH (08:50)
[2022-07-21] MEDS: NAPROXEN 250 MG TAB PO SCH (08:50)
[2022-07-21] MEDS: EZETIMIBE 10 MG TAB PO SCH (08:51)
[2022-07-21] MEDS: TROSPIUM CHLORIDE 20 MG TABLET PO SCH (08:51)
[2022-07-21 09:27] LABS: Basophils # (A) 0.1 k/uL (0-0.2); Basophils % (A) 1 %; Eosinophils # (A) 0.2 k/uL (0-0.7); Eosinophils % (A) 2 %; HCT 39.9 % (34.0-46.0); HGB 13.3 gm/dL (11.4-16.0); Lymphocytes # (A) 2.7 k/uL (1.0-4.8); Lymphocytes % (A) 29 %; MCH 29.4 pg (25.0-35.0); MCHC 33.3 g/dL (31.0-37.0); MCV 88.2 fL (80.0-100.0); Mean Platelet Volume 8.4; Monocytes # (A) 0.4 k/uL (0-1.0); Monocytes % (A) 4 %; Neutrophils # (A) 5.8 k/uL (1.3-7.7); Neutrophils % (A) 64 %; Platelet Count 261 k/uL (150-450); RBC 4.52 m/uL (3.80-5.40); RDW 13.1 % (11.5-15.5); WBC 9.2 k/uL (3.8-10.6)
[2022-07-21 09:54] LABS: ALT 70 U/L (4-34); AST 90 U/L (14-36); African American GFR (CKD) >90 (>60 ml/min/1.73 sqM); Albumin 3.9 g/dL (3.5-5.0); Alkaline Phosphatase 120 U/L (38-126); Anion Gap 16 mmol/L; Blood Urea Nitrogen 20 mg/dL (7-17); Calcium 8.7 mg/dL (8.4-10.2); Carbon Dioxide 18 mmol/L (22-30); Chloride 103 mmol/L (98-107); Glucose 242 mg/dL (74-99); Non-African American GFR(CKD) 80 (>60 ml/min/1.73 sqM); Potassium 3.9 mmol/L (3.5-5.1); Sodium 137 mmol/L (137-145); Total Bilirubin 1.1 mg/dL (0.2-1.3); Total Protein 6.5 g/dL (6.3-8.2)
[2022-07-21 13:08] LABS: Glucose,Whole Blood 165 mg/dL (70-110)
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
[2022-07-21 16:50] LABS: Chol/HDL Ratio 6.73 Ratio
[2022-07-21 18:29] LABS: Glucose,Whole Blood 211 mg/dL (70-110)
[2022-07-21 20:04] LABS: Glucose,Whole Blood 155 mg/dL (70-110)
[2022-07-21] MEDS: DIVALPROEX ER 500 MG TAB.ER.24H PO SCH (20:57)
[2022-07-22 07:39] LABS: Glucose,Whole Blood 203 mg/dL (70-110)
[2022-07-22] MEDS: INSULIN ASPART (NovoLOG) 100 UNIT/ML VIAL SQ SCH ×3 (07:48→17:44)
[2022-07-22] MEDS: PANTOPRAZOLE 40 MG TABLET PO SCH (07:51)
[2022-07-22] MEDS: NAPROXEN 250 MG TAB PO SCH (07:52)
[2022-07-22] MEDS: risperiDONE 1 MG TAB PO SCH ×2 (07:52→20:53)
[2022-07-22] MEDS: TROSPIUM CHLORIDE 20 MG TABLET PO SCH (07:54)
[2022-07-22] MEDS: FENOFIBRATE 54 MG TAB PO SCH (07:55)
[2022-07-22] MEDS: EZETIMIBE 10 MG TAB PO SCH (07:55)
[2022-07-22] MEDS: LINAGLIPTIN 5 MG TABLET PO SCH (07:55)
[2022-07-22] MEDS: DIVALPROEX ER 500 MG TAB.ER.24H PO SCH ×2 (07:55→20:53)
[2022-07-22] MEDS: LOSARTAN 25 MG TAB PO SCH (07:56)
[2022-07-22] MEDS: metFORMIN 500 MG TAB PO SCH ×2 (07:56→20:53)
[2022-07-22 13:06] LABS: Glucose,Whole Blood 156 mg/dL (70-110)
[2022-07-22 17:40] LABS: Glucose,Whole Blood 176 mg/dL (70-110)
--- NOTE | 2022-07-22 19:25 | P.PN ---
Subjective Progress Note Date: 07/22/22 Principal diagnosis: Progress note She was seen today in person to review her progress. She was quite pleased with her medication and was more open to elaborate on her abnormal peceptual experience. She relaged to sudden spams of her gastronemus (leg abvoe the ankle ) triggered her visual imageries of seeing inidentified peopleShe was unsurs whether she was hearing voices. She failed to identifiy any stressors. However, she may experoence cumulative stressor from joint custdy o rené twin 8-yr old : she did not further elaborate and stated she felt safe her teins are in theri biological fathers. MSE open spontaneous no longer guarded. affect. normal range, euthymic. No delusions or hallucinations No suicidal orhomicidal ideation. cog. oriented. . Diagnosis: Bipolar depressivie wigth psychosis in remission. SHewould be prpared to be discharged on Monday pending Dr. Cortez clinical reassessment Objective - Vital Signs Vital signs: Vital Signs Temp 97.3 F L 07/22/22 06:37 Pulse 131 H 07/22/22 06:37 Resp 16 07/22/22 06:37 BP 135/77 07/22/22 06:37 Pulse Ox 97 07/20/22 08:45 FiO2 - Labs CBC & Chem 7: 07/21/22 09:08 07/21/22 09:08 Labs: Abnormal Lab Results - Last 24 Hours (Table) 07/21/22 07/22/22 07/22/22 Range/Units 20:02 07:37 13:04 POC Glucose (mg/dL) 155 H 203 H 156 H (70-110) mg/dL 07/22/22 Range/Units 17:38 POC Glucose (mg/dL) 176 H (70-110) mg/dL
[2022-07-22] MEDS: ACETAMINOPHEN TAB 325 MG TAB PO PRN (20:55)
[2022-07-22] MEDS: OLANZapine 5 MG TAB PO PRN (22:55)
[2022-07-23 07:48] LABS: Glucose,Whole Blood 154 mg/dL (70-110)
[2022-07-23] MEDS: INSULIN ASPART (NovoLOG) 100 UNIT/ML VIAL SQ SCH ×3 (08:08→18:38)
[2022-07-23] MEDS: NAPROXEN 250 MG TAB PO SCH (08:38)
[2022-07-23] MEDS: TROSPIUM CHLORIDE 20 MG TABLET PO SCH (08:38)
[2022-07-23] MEDS: metFORMIN 500 MG TAB PO SCH ×2 (08:38→19:57)
[2022-07-23] MEDS: PANTOPRAZOLE 40 MG TABLET PO SCH (08:38)
[2022-07-23] MEDS: EZETIMIBE 10 MG TAB PO SCH (08:39)
[2022-07-23] MEDS: FENOFIBRATE 54 MG TAB PO SCH (08:39)
[2022-07-23] MEDS: risperiDONE 1 MG TAB PO SCH (08:39)
[2022-07-23] MEDS: LINAGLIPTIN 5 MG TABLET PO SCH (08:39)
[2022-07-23] MEDS: LOSARTAN 25 MG TAB PO SCH (08:39)
[2022-07-23] MEDS: DIVALPROEX ER 500 MG TAB.ER.24H PO SCH ×2 (08:40→19:56)
[2022-07-23] MEDS: OLANZapine 5 MG TAB PO PRN ×2 (10:14→19:56)
[2022-07-23 11:42] LABS: Glucose,Whole Blood 103 mg/dL (70-110)
[2022-07-23 12:55] LABS: Glucose,Whole Blood 115 mg/dL (70-110)
--- NOTE | 2022-07-23 15:08 | P.PN ---
Subjective Progress Note Date: 07/23/22 Principal diagnosis: IMPRESSIONS: Acute psychotic episode - rule out schizoaffective disorder, bipolar type versus bipolar 1 disorder with psychosis Subjective/objective data: The patient was seen for a follow-up Patient reports that she was pitching about her cat that had some evil in her eyes. She says that the eyes of the cat were glowing was completely as daily She also reports that she is concerned about 2 children and sending them to their father although later she stated that the police had sent them to their father Patient remains circumstantial and tangential and appears to be preoccupied a bizarre story about the feeling persecuted MENTAL STATUS EXAM: General Appearance: Patient appears to be stated age is alert, directable, and attempts to cooperate. Patient appears to have disheveled hygiene and grooming. Behavior: Patient displayed psychomotor agitation. Speech: Patient's speech is pressured, hyperverbal, nonlinear. Mood/Affect: Patient reports their mood is "kind of worried," affect is congruent and fearful. Suicidality/Homicidality: Patient is denying any suicidal or homicidal ideation. Perceptions: Patient endorses visual hallucinations. She denies any auditory hallucinations. Though content/process: Patient is grossly paranoid and endorsing many bizarre delusions. She is nonlinear, nonlogical, and displays a flight of ideas. This associations and magical thinking. Memory and concentration: Grossly poor at this time Judgment and insight: Very poor STRENGTHS/WEAKNESSES: Unable to identify patient's strength. Weakness is that the patient is actively psychotic. INTELLECT: average IMPRESSIONS: Acute psychotic episode - rule out schizoaffective disorder, bipolar type versus bipolar 1 disorder with psychosis PLAN: -Patient is admitted under voluntary status to MHU for stabilization of psychiatric symptoms and safety. Patient signed adult voluntary form and medication consent and is placed in patient's chart. Consider petition and certification should the patient be nonadherent with prescribed treatment. - Increase Risperdal to 2 mg by mouth twice a day for psychosis Depakote ER 500 mg by mouth at bedtime for mood stabilization -Zyprexa and Vistaril PRN for agitation/aggression -Patient was counselled on substance abuse and desired to cut back on use -Patient was informed of the risks, benefits and side effects of the medication and patient verbally consented to taking the medications. Patient signed med con sent form and was placed in chart. -Internal Medicine consult to perform medical evaluation and physical. -SW on board for discharge planning. Encourage patient to participate in groups to work on coping skills. Cristopher Valadez M.D. 07/23/2022 Objective - Vital Signs Vital signs: Vital Signs Temp 97.8 F 07/23/22 06:00 Pulse 89 07/23/22 06:00 Resp 17 07/23/22 06:00 BP 117/64 07/23/22 06:00 Pulse Ox 96 07/23/22 06:00 FiO2 - Labs CBC & Chem 7: 07/21/22 09:08 07/21/22 09:08 Labs: Abnormal Lab Results - Last 24 Hours (Table) 07/22/22 07/23/22 07/23/22 Range/Units 17:38 07:47 12:53 POC Glucose (mg/dL) 176 H 154 H 115 H (70-110) mg/dL
[2022-07-23 18:29] LABS: Glucose,Whole Blood 150 mg/dL (70-110)
[2022-07-23 19:54] LABS: Glucose,Whole Blood 167 mg/dL (70-110)
[2022-07-23] MEDS: hydrOXYzine HCL 25 MG TAB PO PRN (19:56)
[2022-07-23] MEDS: risperiDONE 2 MG TAB PO SCH (19:57)
[2022-07-24 08:01] LABS: Glucose,Whole Blood 169 mg/dL (70-110)
[2022-07-24] MEDS: NAPROXEN 250 MG TAB PO SCH (08:38)
[2022-07-24] MEDS: PANTOPRAZOLE 40 MG TABLET PO SCH (08:39)
[2022-07-24] MEDS: FENOFIBRATE 54 MG TAB PO SCH (08:39)
[2022-07-24] MEDS: metFORMIN 500 MG TAB PO SCH ×2 (08:39→20:33)
[2022-07-24] MEDS: EZETIMIBE 10 MG TAB PO SCH (08:39)
[2022-07-24] MEDS: DIVALPROEX ER 500 MG TAB.ER.24H PO SCH ×2 (08:40→20:33)
[2022-07-24] MEDS: LINAGLIPTIN 5 MG TABLET PO SCH (08:40)
[2022-07-24] MEDS: LOSARTAN 25 MG TAB PO SCH (08:40)
[2022-07-24] MEDS: TROSPIUM CHLORIDE 20 MG TABLET PO SCH (08:40)
[2022-07-24] MEDS: risperiDONE 2 MG TAB PO SCH ×2 (08:40→20:33)
[2022-07-24] MEDS: INSULIN ASPART (NovoLOG) 100 UNIT/ML VIAL SQ SCH ×3 (08:41→18:05)
[2022-07-24] MEDS: hydrOXYzine HCL 25 MG TAB PO PRN (10:14)
--- NOTE | 2022-07-24 11:52 | P.PN ---
Subjective Progress Note Date: 07/24/22 Principal diagnosis: IMPRESSIONS: Acute psychotic episode - rule out schizoaffective disorder, bipolar type versus bipolar 1 disorder with psychosis Subjective/objective data: The patient was seen for a follow-up The patient reports that she is concerned about her feelings and her safety Past about her fears about the cat patient reports that she still worries that the cat was possessed She states that her children are safe with her ex and that the cat will not be able to hurt them Patient remains circumstantial and tangential and appears to be preoccupied Patient remains paranoid and suspicious MENTAL STATUS EXAM: General Appearance: Patient appears to be stated age is alert, directable, and attempts to cooperate. Patient appears to have disheveled hygiene and grooming. Behavior: Patient displayed psychomotor agitation. Speech: Patient's speech is pressured, hyperverbal, nonlinear. Mood/Affect: Patient reports their mood is "kind of worried," affect is congr uent and fearful. Suicidality/Homicidality: Patient is denying any suicidal or homicidal ideation. Perceptions: Patient endorses visual hallucinations. She denies any auditory hallucinations. She remains paranoid and suspicious Though content/process: Patient is grossly paranoid and endorsing many bizarre delusions. She is nonlinear, nonlogical, and displays a flight of ideas. This associations and magical thinking. Memory and concentration: Grossly poor at this time Judgment and insight: Very poor STRENGTHS/WEAKNESSES: Unable to identify patient's strength. Weakness is that the patient is actively psychotic. INTELLECT: average IMPRESSIONS: Acute psychotic episode - rule out schizoaffective disorder, bipolar type versus bipolar 1 disorder with psychosis PLAN: -Patient is admitted under voluntary status to MHU for stabilization of psychiatric symptoms and safety. Patient signed adult voluntary form and medication consent and is placed in patient's chart. Consider petition and certification should the patient be nonadherent with prescribed treatment. - Have increased Risperdal to 2 mg by mouth twice a day for psychosis Depakote ER 500 mg by mouth at bedtime for mood stabilization -Zyprexa and Vistaril PRN for agitation/aggression -Patient was counselled on substance abuse and desired to cut back on use -Patient was informed of the risks, benefits and side effects of the medication and patient verbally consented to taking the medications. Patient signed med consent form and was placed in chart. -Internal Medicine consult to perform medical evaluation and physical. -SW on board for discharge planning. Encourage patient to participate in groups to work on coping skills. Cristopher Valadez M.D. 07/24/2022 Objective - Vital Signs Vital signs: Vital Signs Temp 97 F L 07/24/22 06:29 Pulse 135 H 07/24/22 08:40 Resp 14 07/24/22 06:29 BP 129/79 07/24/22 08:40 Pulse Ox 96 07/23/22 06:00 FiO2 Intake & Output 07/23/22 07/24/22 07/24/22 18:59 06:59 18:59 Weight 95.8 kg - Labs CBC & Chem 7: 07/21/22 09:08 07/21/22 09:08 Labs: Abnormal Lab Results - Last 24 Hours (Table) 07/23/22 07/23/22 07/23/22 Range/Units 12:53 18:26 19:53 POC Glucose (mg/dL) 115 H 150 H 167 H (70-110) mg/dL 07/24/22 Range/Units 07:59 POC Glucose (mg/dL) 169 H (70-110) mg/dL
[2022-07-24] MEDS: ALBUTEROL INHALER 60 PUFF/8 GM INHALER (MHU) INHALATION PRN ×2 (11:53→18:06)
[2022-07-24 12:45] LABS: Glucose,Whole Blood 88 mg/dL (70-110)
[2022-07-24 17:47] LABS: Glucose,Whole Blood 122 mg/dL (70-110)
[2022-07-24 20:03] LABS: Glucose,Whole Blood 195 mg/dL (70-110)
[2022-07-24] MEDS: OLANZapine 5 MG TAB PO PRN (20:37)
[2022-07-25 06:49] VITALS: RESP 20; TEMP 96.7
[2022-07-25 07:50] LABS: Glucose,Whole Blood 156 mg/dL (70-110)
[2022-07-25] MEDS: metFORMIN 500 MG TAB PO SCH (08:09)
[2022-07-25] MEDS: DIVALPROEX ER 500 MG TAB.ER.24H PO SCH (08:10)
[2022-07-25] MEDS: risperiDONE 2 MG TAB PO SCH (08:10)
[2022-07-25] MEDS: ACETAMINOPHEN TAB 325 MG TAB PO PRN (08:10)
[2022-07-25] MEDS: PANTOPRAZOLE 40 MG TABLET PO SCH (08:11)
[2022-07-25] MEDS: INSULIN ASPART (NovoLOG) 100 UNIT/ML VIAL SQ SCH (08:12)
[2022-07-25] MEDS: EZETIMIBE 10 MG TAB PO SCH (08:12)
[2022-07-25] MEDS: TROSPIUM CHLORIDE 20 MG TABLET PO SCH (08:12)
[2022-07-25] MEDS: FENOFIBRATE 54 MG TAB PO SCH (08:12)
[2022-07-25] MEDS: LOSARTAN 25 MG TAB PO SCH (08:13)
[2022-07-25] MEDS: NAPROXEN 250 MG TAB PO SCH (08:13)
[2022-07-25] MEDS: LINAGLIPTIN 5 MG TABLET PO SCH (08:13)
[2022-07-25] MEDS: ALBUTEROL INHALER 60 PUFF/8 GM INHALER (MHU) INHALATION PRN (08:59)
[2022-07-25 11:12] VITALS: BP 130/83; PULSE 151
--- NOTE | 2022-07-25 11:43 | P.DS ---
Providers Date of admission: 07/20/22 05:43 Expected date of discharge: 07/25/22 Attending physician: Isai Cortez MD Consults: 07/20/22 06:32 Consult Physician Routine Consulting Provider: Mirella Cook Consult Reason/Comments: h and p Do you want consulting provider notified?: Yes, Notify in am Primary care physician: Nelly Maldonado - Discharge Diagnosis(es) (1) Severe manic bipolar 1 disorder with psychotic behavior Current Visit: Yes Status: Acute Priority: High Hospital Course: Admission HPI: Patient is a 51-year-old , unemployed, female with significant history of depression with psychotic features who presents to our hospital on 07/20/2022 for acute psychosis. Patient presented to the hospital on 07/20/2022, presenting to the hospital for initial complaints of ankle pain. However, the patient was noted in the em ergency department to be yelling, displaying flight of ideas, and endorsing psychotic symptoms. As per EPS report, the patient displayed gross disorganization, bizarre delusions, paranoia, and to flight of ideas. She was a poor and limited historian and unable to provide the events leading up to the hospitalization. She was subsequently admitted onto the psychiatric unit. On evaluation on the psychiatric unit, the patient continues to be grossly psychotic. The patient reports "I have been thinking about things that took place. I know what I think I saw. I hope somebody took a picture what it was. I saw old lady with an odd eye work for [employer]. Then there was another edmond with also an odd high who was working on an ultra modern hot tub and a computer." The patient reports that she was staying at home and then her foot began to hurt. She reports that she was screaming loudly and police came to check in on her. They informed her to go to the hospital. She states that the police told her that her children will be taken care of. The patient states that for the last 3 days she has not slept until she presented herself to the hospital. She is currently denying any suicidal or homicidal ideation, intention, and/or plan. She is denying any overt auditory hallucinations however endorses visual hallucinations of bizarre people and bizarre eyes. The patient endorses numerous bizarre delusions and is unable to keep a linear conversation with this provider. She is however agreeable to sign herself voluntarily onto the psychiatric unit in taking medications. Review of the patient's previous inpatient psychiatric admissions reveals that the patient has previously had an episode of depressive disorder with psychotic features. Back in September 2015, the patient endorsed significant delusions and concerns for the safety of her children. At the time, she had a 13-year-old daughter who was removed from the home after a CPS investigation. History is limited by the patient due to her psychosis. Patient has previous diagnoses of depression, depression with psychotic features, and anxiety. As per chart review, she has been previously prescribed Zoloft, Invega, and Klonopin. The patient's last inpatient psychiatric hospitalization was in 10/2015 on their psychiatric unit. Unable to determine if there were other inpatient psychiatric admissions since then. The patient denies any outpatient psychiatric follow-up. Patient denies any prior attempts at suicide. Hospital course: Upon admission to the unit patient was initially presented taking as overtly psychotic, disorganized, and paranoid. Patient was however directable and agreeable to commence treatment. Patient got along well with other patients on the unit and followed unit protocol. Patient was compliant with the medications and denied any side effects throughout hospital course. Patient was started on Risperdal and Depakote for mood stabilization and psychosis. Patient spoke of h er stressors and engaged in therapy both group and individual. Patient was also seen by medical team for history and physical exam. Over the course of the hospitalization, her medications were gradually titrated and she tolerated the medications well. She displayed a significant improvement in regards her target symptoms of psychosis and mood stability. She began sleeping better and was much more grounded in reality. On the day of discharge, the patient is not reporting any suicidal or homicidal ideation, intention, and/or plan. He is not reporting any auditory or visual hallucinations. She denies any paranoia or other delusions. She denies any access to firearms or other weapons. She remains future and goal oriented with a strong desire to return to her family and be reunited with her children. She was counseled at length on her diagnosis and the importance of medication adherence and appropriate outpatient follow-up. Furthermore, patient was counseled on abstaining from all substances including alcohol, tobacco, marijuana, and all illicit drugs. The patient is not reporting any medical issues or concerns on the day of discharge and is denying any chest pain, shortness of breath, palpitations, akathisia, or any tardive dyskinesia. Prior to discharge, family meeting will be arranged by the social media marketing specialist to answer any questions and ensure safety. As the patient no longer met criteria for continued inpatient psychiatric hospitalization, she was subsequently discharged. Mental status exam: General Appearance: Patient appears to be stated age is alert, pleasant, and cooperative. Patient is in no acute distress and has fair hygiene and grooming Behavior: Patient is calmly seated without any agitated behavior. Speech: Patient's speech is fluent and nonpressured. Mood/Affect: Patient reports their mood is "doing good", affect is congruent and euthymic to bright. Suicidality/Homicidality: Patient denies having any suicidal or homicidal ideation intent or plan. Perceptions: Patient denies any auditory or visual hallucinations. Though content/process: There is no evidence of any delusional thought content and thought process is linear and goal-directed. Patient is more future and goal oriented. Memory and concentration: AOX3, grossly intact for the purposes of this session. Can spell "WORLD" backwards correctly. Judgment and insight: Improved with guarded prognosis Impression: Bipolar 1 disorder, manic episode with psychosis Plan: -Continue with discharge today as patient has improved and stabilized psychiatrically and is not currently an imminent threat to herself and/or others. Patient will remain at chronically elevated risk due to the severity of her mental illness. -Continue medications: Risperdal 2 mg by mouth twice a day for mood stabilization/psychosis Depakote ER 500 mg by mouth twice a day for mood stabilization -Patient was counseled on the need for medication compliance and appropriate follow-up at mental health and also primary care for medical issues. Patient verbalized understanding and agreed. -Social work to arrange for and conduct family meeting to ensure safety upon discharge and answer any questions/concerns. Social work also to arrange for patients follow up appointments with [facility] for psychiatric care along with follow up with primary care provider. -Patient counseled on abstaining from recreational drugs and marijuana and alcohol. Was informed/educated on the adverse effects on their physical and mental health. Patient verbally agreed and understood. -Patient was instructed to return to the hospital or seek immediate medical care if their psychiatric or medical symptoms do worsen or reoccur. -Psychoeducation and supportive therapy provided to patient. Risks and benefits of pharmacological treatment versus the risks and benefits of nontreatment weighed and discussed. Informed consent discussion held. Common side effects of psychotropics discussed such as, but not limited to headache, GI disturbance, sexual dysfunction, movement disorders, sedation, and orthostatic hypotension. Life threatening and blackbox warnings of prescribed medications also discussed. Potential risks of operating a vehicle or heavy machinery discussed with patient at length. Advised on importance of compliance and a reliable and responsible manner. Patient advised to review FDA consumer labeling of all medications prior to taking. Patient verbalized understanding of potential risks, and agrees with current treatment plan. Patient advised to medically contact physician/emergency personnel if any acute changes in condition occur. Vital Signs Temp 96.7 F L 07/25/22 06:48 Pulse 151 H 07/25/22 10:45 Resp 20 07/25/22 06:48 BP 130/83 07/25/22 10:45 Pulse Ox 96 07/25/22 06:48 FiO2 Intake & Output 07/24/22 07/25/22 07/25/22 18:59 06:59 18:59 Weight 95.8 kg Laboratory Results WBC 9.2 k/uL (3.8-10.6) 07/21/22 09:08 RBC 4.52 m/uL (3.80-5.40) 07/21/22 09:08 Hgb 13.3 gm/dL (11.4-16.0) 07/21/22 09:08 Hct 39.9 % (34.0-46.0) 07/21/22 09:08 MCV 88.2 fL (80.0-100.0) 07/21/22 09:08 MCH 29.4 pg (25.0-35.0) 07/21/22 09:08 MCHC 33.3 g/dL (31.0-37.0) 07/21/22 09:08 RDW 13.1 % (11.5-15.5) 07/21/22 09:08 Plt Count 261 k/uL (150-450) 07/21/22 09:08 MPV 8.4 07/21/22 09:08 Neutrophils % 64 % 07/21/22 09:08 Lymphocytes % 29 % 07/21/22 09:08 Monocytes % 4 % 07/21/22 09:08 Eosinophils % 2 % 07/21/22 09:08 Basophils % 1 % 07/21/22 09:08 Neutrophils # 5.8 k/uL (1.3-7.7) 07/21/22 09:08 Lymphocytes # 2.7 k/uL (1.0-4.8) 07/21/22 09:08 Monocytes # 0.4 k/uL (0-1.0) 07/21/22 09:08 Eosinophils # 0.2 k/uL (0-0.7) 07/21/22 09:08 Basophils # 0.1 k/uL (0-0.2) 07/21/22 09:08 Sodium 137 mmol/L (137-145) 07/21/22 09:08 Potassium 3.9 mmol/L (3.5-5.1) 07/21/22 09:08 Chloride 103 mmol/L (98-107) 07/21/22 09:08 Carbon Dioxide 18 mmol/L (22-30) L 07/21/22 09:08 Anion Gap 16 mmol/L 07/21/22 09:08 BUN 20 mg/dL (7-17) H 07/21/22 09:08 Creatinine 0.84 mg/dL (0.52-1.04) 07/21/22 09:08 Est GFR (CKD-EPI)AfAm >90 (>60 ml/min/1.73 sqM) 07/21/22 09:08 Est GFR (CKD-EPI)NonAf 80 (>60 ml/min/1.73 sqM) 07/21/22 09:08 Glucose 242 mg/dL (74-99) H 07/21/22 09:08 POC Glucose (mg/dL) 156 mg/dL (70-110) H 07/25/22 07:40 POC Glu Law Firm Administrator ID Celia Briscoe 07/25/22 07:[address] Glu mg/dL 197 07/21/22 09:08 Hemoglobin A1c 8.5 % (0.0-6.0) H 07/21/22 09:08 Calcium 8.7 mg/dL (8.4-10.2) 07/21/22 09:08 Total Bilirubin 1.1 mg/dL (0.2-1.3) 07/21/22 09:08 AST 90 U/L (14-36) H 07/21/22 09:08 ALT 70 U/L (4-34) H 07/21/22 09:08 Alkaline Phosphatase 120 U/L (38-126) 07/21/22 09:08 Total Protein 6.5 g/dL (6.3-8.2) 07/21/22 09:08 Albumin 3.9 g/dL (3.5-5.0) 07/21/22 09:08 Triglycerides 496.00 mg/dL (0.00-149.00) H 07/21/22 09:08 Cholesterol 220.00 mg/dL (0.00-200.00) H 07/21/22 09:08 LDL Cholesterol Direct 123.00 mg/dL (0.00-129.00) 07/21/22 09:08 LDL Cholesterol, Calc mg/dL (0.0-131.0) 07/21/22 09:08 VLDL Cholesterol, Calc mg/dL (5.00-40.00) 07/21/22 09:08 HDL Cholesterol 32.70 mg/dL (40.00-60.00) L 07/21/22 09:08 Cholesterol/HDL Ratio 6.73 Ratio 07/21/22 09:08 TSH 1.460 mIU/L (0.465-4.680) 07/21/22 09:08 Urine Color Yellow 07/20/22 03:55 Urine Appearance Cloudy (Clear) H 07/20/22 03:55 Urine pH 6.0 (5.0-8.0) 07/20/22 03:55 Ur Specific [place] 1.028 (1.001-1.035) 07/20/22 03:55 Urine Protein 3+ (Negative) H 07/20/22 03:55 Urine Glucose (UA) 4+ (Negative) H 07/20/22 03:55 Urine Ketones Trace (Negative) H 07/20/22 03:55 Urine Blood Moderate (Negative) H 07/20/22 03:55 Urine Nitrite Negative (Negative) 07/20/22 03:55 Urine Bilirubin Negative (Negative) 07/20/22 03:55 Urine Urobilinogen <2.0 mg/dL (<2.0) 07/20/22 03:55 Ur Leukocyte Esterase Moderate (Negative) H 07/20/22 03:55 Urine RBC 8 /hpf (0-5) H 07/20/22 03:55 Urine WBC 97 /hpf (0-5) H 07/20/22 03:55 Ur Squamous Epith Cells 6 /hpf (0-4) H 07/20/22 03:55 Calcium Oxalate Crystal Few /hpf (None) H 07/20/22 03:55 Hyaline Casts 8 /lpf (0-2) H 07/20/22 03:55 Urine Mucus Occasional /hpf (None) H 07/20/22 03:55 Urine HCG, Qual Not Detected (Not Detectd) 07/20/22 03:55 Urine Opiates Screen Not Detected (NotDetected) 07/20/22 03:55 Ur Oxycodone Screen Not Detected (NotDetected) 07/20/22 03:55 Urine Methadone Screen Not Detected (NotDetected) 07/20/22 03:55 Ur Propoxyphene Screen Not Detected (NotDetected) 07/20/22 03:55 Ur Barbiturates Screen Not Detected (NotDetected) 07/20/22 03:55 U Tricyclic Antidepress Not Detected (NotDetected) 07/20/22 03:55 Ur Phencyclidine Scrn Not Detected (NotDetected) 07/20/22 03:55 Ur Amphetamines Screen Not Detected (NotDetected) 07/20/22 03:55 U Methamphetamines Scrn Not Detected (NotDetected) 07/20/22 03:55 U Benzodiazepines Scrn Not Detected (NotDetected) 07/20/22 03:55 Urine Cocaine Screen Not Detected (NotDetected) 07/20/22 03:55 U Marijuana (THC) Screen Not Detected (NotDetected) 07/20/22 03:55 Serum Alcohol <10 mg/dL 07/19/22 23:19 Coronavirus (PCR) Not Detected (Not Detectd) 07/20/22 05:50 Allergies Allergy/AdvReac Type Severity Reaction Status Date / Time Penicillins Allergy Severe Anaphylaxis Verified 07/20/22 11:55 cephalexin monohydrate Allergy Anaphylaxis Verified 07/20/22 11:55 [From Keflex] iodine Allergy Unknown Verified 07/20/22 11:55 Mushroom AdvReac Unknown Verified 07/20/22 11:55 Patient Condition at Discharge: Stable Plan - Discharge Summary Discharge Rx Participant: No New Discharge Prescriptions: New Divalproex ER [Depakote ER] 500 mg PO BID 30 Days #60 tab risperiDONE [RisperDAL] 2 mg PO BID 30 Days #60 tab Continue metFORMIN HCL [Glucophage] 1,000 mg PO BID Fenofibrate [Lofibra] 54 mg PO DAILY Ezetimibe [Zetia] 10 mg PO DAILY Fesoterodine Fumarate [Toviaz] 4 mg PO DAILY Insulin Aspart [NovoLOG Flexpen] 10 units SQ AC-TID Losartan [Cozaar] 25 mg PO DAILY Albuterol Inhaler [Ventolin Hfa Inhaler] 2 puff INHALATION RT-Q4H PRN PRN Reason: Shortness Of Breath Allergy Relief 1 tab PO DAILY Linagliptin [Tradjenta] 5 mg PO DAILY Naproxen 500 mg PO DAILY Omeprazole 40 mg PO DAILY Discontinued Sertraline [Zoloft] 50 mg PO DAILY levoFLOXacin [Levaquin] 750 mg PO DAILY 7 Days #7 tab Discharge Medication List metFORMIN HCL [Glucophage] 1,000 mg PO BID 08/03/16 [History] Ezetimibe [Zetia] 10 mg PO DAILY 03/17/20 [History] Fenofibrate [Lofibra] 54 mg PO DAILY 03/17/20 [History] Albuterol Inhaler [Ventolin Hfa Inhaler] 2 puff INHALATION RT-Q4H PRN 01/26/21 [History] Allergy Relief 1 tab PO DAILY 01/26/21 [History] Fesoterodine Fumarate [Toviaz] 4 mg PO DAILY 01/26/21 [History] Insulin Aspart [NovoLOG Flexpen] 10 units SQ AC-TID 01/26/21 [History] Linagliptin [Tradjenta] 5 mg PO DAILY 01/26/21 [History] Losartan [Cozaar] 25 mg PO DAILY 01/26/21 [History] Naproxen 500 mg PO DAILY 01/26/21 [History] Omeprazole 40 mg PO DAILY 01/26/21 [History] Divalproex ER [Depakote ER] 500 mg PO BID 30 Days #60 tab 07/25/22 [Rx] risperiDONE [RisperDAL] 2 mg PO BID 30 Days #60 tab 07/25/22 [Rx] Follow up Appointment(s)/Referral(s): [facility] [Outside] - 1 Week Boutt,Nelly, MD [Primary Care Provider] - 1 Week Patient Instructions/Handouts: Depression (DC), Psychotic Disorder (DC) Activity/Diet/Wound Care/Special Instructions: Avoid the use of street drugs and alcohol. Take all medications as prescribed. When you are in need of refills on your medications, please contact your medical provider and/or outpatient psychiatrist to have this done. Please go to scheduled outpatient appointments for aftercare treatment. If symptoms return or become worse, call the crisis line at and/or go to the nearest emergency room for evaluation. Discharge Disposition: HOME SELF-CARE
== END 2022-07-25 12:51 | disposition home or self-care (01) | DRG 885 ==
LOC: EC 22:32 → 3MHU 07-20 05:43
PROVIDERS: ADMIT Psychiatry & Neurology Psychiatry; ATTEND Psychiatry & Neurology Psychiatry
DX: F31.2 Bipolar disorder, current episode manic severe with psychotic features (principal); F41.0 Panic disorder [episodic paroxysmal anxiety]; E11.65 Type 2 diabetes mellitus with hyperglycemia; Z79.4 Long term (current) use of insulin; Z79.84 Long term (current) use of oral hypoglycemic drugs; E78.5 Hyperlipidemia, unspecified; K21.9 Gastro-esophageal reflux disease without esophagitis; Z20.822 Contact with and (suspected) exposure to COVID-19; R45.1 Restlessness and agitation; Z56.0 Unemployment, unspecified; Z63.5 Disruption of family by separation and divorce; Z71.89 Other specified counseling; F17.290 Nicotine dependence, other tobacco product, uncomplicated; E66.9 Obesity, unspecified; Z68.33 Body mass index [BMI] 33.0-33.9, adult; Z28.311 Partially vaccinated for COVID-19; Z79.899 Other long term (current) drug therapy; Z88.1 Allergy status to other antibiotic agents; Z88.0 Allergy status to penicillin; Z88.8 Allergy status to other drugs, medicaments and biological substances; Z87.440 Personal history of urinary (tract) infections
CPT/HCPCS: 36415; 80053; 80061; 80306; 80320; 81001; 81025; 83036; 83721; 84443; 85025; 87635; 93005; 96360; 99285

== ENCOUNTER 2022-07-30 18:28 | Emergency (ER) | payer MEDICARE, MEDICAID ==
[2022-07-30 18:50] VITALS: BP 162/97; TEMP 98
[2022-07-30] MEDS ORDERED: HYDROcodone/APAP 7.5-325MG 1 EACH TAB PO ONE (19:24)
[2022-07-30] MEDS ORDERED: IBUPROFEN 800 MG TAB PO STA (19:24)
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
[2022-07-30 19:47] VITALS: PULSE 109; RESP 18
--- NOTE | 2022-07-30 20:17 | US ---
EXAMINATION TYPE: US venous doppler duplex LE RT DATE OF EXAM: 07/30/2022 7:25 PM COMPARISON: NONE CLINICAL INDICATION: Female, 51 years old with history of Right leg pain and swelling; Right leg pain , history of DVT SIDE PERFORMED: Right TECHNIQUE: The lower extremity deep venous system is examined utilizing real time linear array sonog lizzie with graded compression, doppler sonography and color-flow sonography. VESSELS IMAGED: Common Femoral Vein Deep Femoral Vein Greater Saphenous Vein * Femoral Vein Popliteal Vein Small Saphenous Vein * Proximal Calf Veins (* superficial vessels) Right Leg: Appears negative for DVT IMPRESSION: Grayscale, color doppler, spectral doppler imaging performed of the deep veins of the lo wer extremities. There is normal flow, compressibility, vascular waveforms.
[2022-07-30] MEDS ORDERED: IBUPROFEN 600 MG STARTER PACK 4 TAB BTL PO STA (20:48)
[2022-07-30] MEDS ORDERED: ACET/COD 300 MG/30 MG STARTER PACK 6 TAB BTL PO STA (20:48)
[2022-07-30] MEDS ORDERED: HYDROmorphone 0.5 MG/0.5 ML SYRINGE IM STA (20:49)
[2022-07-30] MEDS ORDERED: ONDANSETRON ODT 4 MG TAB PO STA (21:24)
== END 2022-07-30 21:39 | disposition home or self-care (01) ==
LOC: EC 18:28
DX: S89.91XA Unspecified injury of right lower leg, initial encounter (principal); I25.10 Atherosclerotic heart disease of native coronary artery without angina pectoris; I10 Essential (primary) hypertension; E78.5 Hyperlipidemia, unspecified; K21.9 Gastro-esophageal reflux disease without esophagitis; E11.9 Type 2 diabetes mellitus without complications; F41.9 Anxiety disorder, unspecified; F32.A Depression, unspecified; Z88.0 Allergy status to penicillin; Z88.1 Allergy status to other antibiotic agents; Z91.018 Allergy to other foods; Z88.8 Allergy status to other drugs, medicaments and biological substances; Z79.84 Long term (current) use of oral hypoglycemic drugs; Z79.4 Long term (current) use of insulin; Z79.899 Other long term (current) drug therapy; W50.0XXA Accidental hit or strike by another person, initial encounter
CPT/HCPCS: 93971; 99284; 96372; J1170

== ENCOUNTER 2022-08-04 16:06 | Inpatient (IN) | payer MEDICARE, MEDICAID ==
[2022-08-04 20:04] LABS: Amphetamine Screen,Urine Not Detected (NotDetected); Barbiturate Screen,Urine Not Detected (NotDetected); Benzodiazepines Screen,Urine Not Detected (NotDetected); Cocaine Screen,Urine Not Detected (NotDetected); Methadone Screen, Urine Not Detected (NotDetected); Opiate Screen,Urine Not Detected (NotDetected); Oxycodone Screen, Urine Not Detected (NotDetected); Phencyclidine Screen,Urine Not Detected (NotDetected); Tricyclic Antidepressant,Urine Not Detected (NotDetected); Urn Cannabinoid Scrn Not Detected (NotDetected)
[2022-08-04 20:10] LABS: Appearance,Urine Clear (Clear); Bilirubin,Urine Negative (Negative); Blood,Urine Negative (Negative); Color,Urine Light Yellow; Glucose,Urine (UA) Negative (Negative); Ketones,Urine Negative (Negative); Leukocyte Esterase,Urine Large (Negative); Nitrite,Urine Negative (Negative); PH, Urine 6.5 (5.0-8.0); Protein,Urine Trace (Negative); RBC,Urine 1 /hpf (0-5); Specific Gravity,Urine 1.005 (1.001-1.035); Squamous Epithelial Cell,Urine 2 /hpf (0-4); Urobilinogen,Urine <2.0 mg/dL (<2.0); WBC,Urine 94 /hpf (0-5)
[2022-08-04 20:20] LABS: Basophils % (A) 0 %; Eosinophils # (A) 0.1 k/uL (0-0.7); Eosinophils % (A) 1 %; HCT 43.3 % (34.0-46.0); HGB 14.6 gm/dL (11.4-16.0); Lymphocytes # (A) 2.8 k/uL (1.0-4.8); Lymphocytes % (A) 30 %; MCHC 33.8 g/dL (31.0-37.0); Monocytes # (A) 0.5 k/uL (0-1.0); Monocytes % (A) 6 %; Neutrophils % (A) 63 %; Platelet Count 360 k/uL (150-450); RBC 5.03 m/uL (3.80-5.40); RDW 12.9 % (11.5-15.5); WBC 9.6 k/uL (3.8-10.6)
--- NOTE | 2022-08-04 20:38 | ED ---
General Adult HPI - General Source: patient, RN notes reviewed, old records reviewed Mode of arrival: wheelchair Limitations: no limitations <Andrey Grissom - Last Filed: 08/04/22 20:38> <Rakesh Hoyos - Last Filed: 08/07/22 05:38> - General Chief complaint: Anxiety Stated complaint: panic attack Time Seen by Provider: 08/04/22 18:30 - History of Present Illness Initial comments: This a 51-year-old female presents to the emergency department stating she is very anxious and when I asked her why she is here she says she's having a difficult time coping with Jason kids in life and she is extremely tired like he was sleeping and she thinks she might need to be admitted but she's not sure. Patient states that she's not sure if anybody thereafter but she doesn't think so she doesn't want to hurt anybody that's why she is here but she doesn't think she hurt it without any help. Patient denies wanting to hurt herself. Patient is having a lot of tangential thinking and is difficult to follow and tried to determine the real reason she arrived here today. Patient complains of leg pain which she was here the other day for had an ultrasound showed no DVT. Patient states that she has not injured it recently. Patient denies any other complaints per patient denies any patient denies numbness weakness. Patient's chest pain difficult breathing shortness breath. She denies any recent fever chills or cough. (Andrey Grissom) - Related Data Home Medications Medication Instructions Recorded Confirmed metFORMIN HCL [Glucophage] 1,000 mg PO BID 08/03/16 08/05/22 Ezetimibe [Zetia] 10 mg PO DAILY 03/17/20 08/05/22 Fenofibrate [Lofibra] 54 mg PO DAILY 03/17/20 08/05/22 Albuterol Inhaler [Ventolin Hfa 2 puff INHALATION RT-Q4H PRN 01/26/21 08/05/22 Inhaler] Insulin Aspart [NovoLOG Flexpen] 10 units SQ AC-TID 01/26/21 08/05/22 Linagliptin [Tradjenta] 5 mg PO DAILY 01/26/21 08/05/22 Losartan [Cozaar] 25 mg PO DAILY 01/26/21 08/05/22 Omeprazole 40 mg PO DAILY 01/26/21 08/05/22 Celecoxib [CeleBREX] 100 mg PO DAILY 08/04/22 08/05/22 Cetirizine HCl [Zyrtec] 10 mg PO DAILY 08/04/22 08/05/22 Insulin Aspart [NovoLOG Flexpen] See Protocol SQ AC-TID PRN 08/04/22 08/05/22 Mirabegron [Myrbetriq] 50 mg PO DAILY 08/04/22 08/05/22 guanFACINE HCL [guanFACINE HCL ER] 3 mg PO DAILY 08/04/22 08/05/22 Previous Rx's Medication Instructions Recorded Divalproex ER [Depakote ER] 500 mg PO BID 30 Days #60 tab 07/25/22 risperiDONE [RisperDAL] 2 mg PO BID 30 Days #60 tab 07/25/22 Allergies Allergy/AdvReac Type Severity Reaction Status Date / Time Penicillins Allergy Severe Anaphylaxis Verified 08/05/22 09:46 cephalexin monohydrate Allergy Anaphylaxis Verified 08/05/22 09:46 [From Keflex] iodine Allergy Unknown Verified 08/05/22 09:46 Mushroom AdvReac Unknown Verified 08/05/22 09:46 Review of Systems ROS Other: All systems not noted in ROS Statement are negative. <Andrey Grissom - Last Filed: 08/04/22 20:38> ROS Other: All systems not noted in ROS Statement are negative. <Rakesh Hoyos - Last Filed: 08/07/22 05:38> ROS Statement: Those systems with pertinent positive or pertinent negative responses have been documented in the HPI. Past Medical History Past Medical History: Coronary Artery Disease (CAD), Diabetes Mellitus, GERD/Reflux, Hyperlipidemia, Hypertension Additional Past Medical History / Comment(s): NIDDM type II, dyslexia. History of Any Multi-Drug Resistant Organisms: ESBL Date of last positivie culture/infection: 08/11/21-ESBL MDRO Source:: URINE Past Surgical History: Adenoidectomy, Section, Tonsillectomy Additional Past Surgical History / Comment(s): Nasal surgery Past Anesthesia/Blood Transfusion Reactions: Postoperative Nausea & Vomiting (PONV) Additional Past Anesthesia/Blood Transfusion Reaction / Comment(s): Pt states she has never received blood. Past Psychological History: Anxiety, Depression, Panic Disorder Smoking Status: Never smoker Past Alcohol Use History: None Reported Past Drug Use History: None Reported - Past Family History Mother Family Medical History: Cancer Additional Family Medical History / Comment(s): Mother has lymphoma. Father History Unknown: Yes Additional Family Medical History / Comment(s): Father left when pt was 2 months old. <Andrey Grissom - Last Filed: 08/04/22 20:38> General Exam Limitations: no limitations <Andrey Grissom - Last Filed: 08/04/22 20:38> - General Exam Comments Initial Comments: GENERAL: Patient is well-developed and well-nourished. Patient is nontoxic and well- hydrated and is in mild distress. ENT: Neck is soft and supple. No significant lymphadenopathy is noted. Oropharynx is clear. Moist mucous membranes. Neck has full range of motion without eliciting any pain. EYES: The sclera were anicteric and conjunctiva were pink and moist. Extraocular movements were intact and pupils were equal round and reactive to light. Eyelids were unremarkable. PULMONARY: Unlabored respirations. Good breath sounds bilaterally. No audible rales rhonchi or wheezing was noted. CARDIOVASCULAR: Patient is tachycardic at 110 bpm ABDOMEN: Soft and nontender with normal bowel sounds. SKIN: Skin is clear with no lesions or rashes and otherwise unremarkable. NEUROLOGIC: Patient is alert and oriented x3. Cranial nerves II through XII are grossly intact. Motor and sensory are also intact. Normal speech, volume and content. Symmetrical smile. MUSCULOSKELETAL: Normal extremities with adequate strength and full range of motion. No lower extremity swelling or edema. No calf tenderness. LYMPHATICS: No significant lymphadenopathy is noted PSYCHIATRIC: Patient's not really making a lot of sense states she's anxious she's afraid that if she leaves she might hurt somebody even though she doesn't think she will and states that someone took all of her medicines for anxiety so she is not taking them correctly natural medicines are. Patient seems confused she's not sure if she does or does not have a guardian. Patient does appear to be very anxious (Andrey Grissom) Course Vital Signs 08/04/22 08/05/22 08/05/22 16:39 04:00 07:00 Temperature 97.5 F L 98.2 F Pulse Rate 116 H 88 73 Respiratory 20 16 17 Rate Blood Pressure 168/88 127/74 94/57 O2 Sat by Pulse 99 96 97 Oximetry Medical Decision Making - Lab Data Result diagrams: 08/04/22 20:10 <Andrey Grissom - Last Filed: 08/04/22 20:38> - Lab Data Result diagrams: 08/04/22 20:10 08/04/22 20:10 <Rakesh Hoyos - Last Filed: 08/07/22 05:38> - Medical Decision Making EKG was interpreted by myself. EKG shows a sinus tachycardia at 100 bpm DE interval is 148 QRS is 96 QT interval 360 QTC is 417. Patient's EKG shows no ST segment elevation or depression. Was pt. sent in by a medical professional or institution (JOSLYN Alvarez, STEAM SHOVEL OPERATOR, urgent care, hospital, or senior care...) When possible be specific @ -[No] Did you speak to anyone other than the patient for history (EMS, parent, family, police, friend...)? What history was obtained from this source @ -[No] Did you review nursing and triage notes (agree or disagree)? Why? @ -[I reviewed and agree with nursing and triage notes] Were old charts reviewed (outside hosp., previous admission, EMS record, old EKG, old radiological studies, urgent care reports/EKG's, senior care records)? Report findings @ -2 prior ultrasounds in prior charts on this patient Differential Diagnosis (chest pain, altered mental status, abdominal pain women, abdominal pain men, vaginal bleeding, weakness, fever, dyspnea, syncope, headache, dizziness, GI bleed, back pain, seizure, CVA, palpatations, mental health, musculoskeletal)? @ -Differential Mental Health Depression, anxiety, bipolar, psychosis, schizophrenia, borderline personality, situational depression, adjustment disorder, behavioral disorder, brain tumor, malingering, substance abuse, encephalopathy, medication reaction, dementia, hypothyroidism, degenerative neurologic disorder, lupus.... This is not meant to be all-inclusive list EKG interpreted by me (3pts min.). @ -[As above] X-rays interpreted by me (1pt min.). @ -[None done] CT interpreted by me (1pt min.). @ -[None done] U/S interpreted by me (1pt. min.). @ -[None done] What testing was considered but not performed or refused? (CT, X-rays, U/S, labs)? Why? @ -[None] What meds were considered but not given or refused? Why? @ -[None] Did you discuss the management of the patient with other professionals ( professionals i.e. Dr., PA, STEAM SHOVEL OPERATOR, lab, RT, psych nurse, executive secretary social welfare, millinery designer, teacher, aoc plans intelligence officer chief, field case manager)? Give summary @ -[No] Was smoking cessation discussed for >3mins.? @ -[No] Was critical care preformed (if so, how long)? @ -[No] Were there social determinants of health that impacted care today? How? (Homelessness, low income, unemployed, alcoholism, drug addiction, t ransportation, low edu. Level, literacy, decrease access to med. care, fpc, rehab)? @ -[No] Was there de-escalation of care discussed even if they declined (Discuss DNR or withdrawal of care, Hospice)? DNR status @ -[No] What co-morbidities impacted this encounter? (DM, HTN, Smoking, COPD, CAD, Cancer, CVA, ARF, Chemo, Hep., AIDS, mental health diagnosis, sleep apnea, morbid obesity)? @ -[None] Was patient admitted / discharged? Hospital course, mention meds given and route, prescriptions, significant lab abnormalities, going to OR and other pertinent info. @ -Patient was cooperative while in the emergency department still often not making sense when he speak with her and she is awaiting return of her lab work. Dr. Hoyos will take over the care of this patient at 9 PM (Andrey Grissom) I was notified by EPS that patient be admitted to mental health unit (Rakesh Hoyos) - Lab Data Lab Results 08/04/22 08/04/22 08/04/22 Range/Units 19:00 20:10 20:10 WBC 9.6 (3.8-10.6) k/uL RBC 5.03 (3.80-5.40) m/uL Hgb 14.6 (11.4-16.0) gm/dL Hct 43.3 (34.0-46.0) % MCV 86.0 (80.0-100.0) fL MCH 29.0 (25.0-35.0) pg MCHC 33.8 (31.0-37.0) g/dL RDW 12.9 (11.5-15.5) % Plt Count 360 (150-450) k/uL MPV 8.0 Neutrophils % 63 % Lymphocytes % 30 % Monocytes % 6 % Eosinophils % 1 % Basophils % 0 % Neutrophils # 6.0 (1.3-7.7) k/uL Lymphocytes # 2.8 (1.0-4.8) k/uL Monocytes # 0.5 (0-1.0) k/uL Eosinophils # 0.1 (0-0.7) k/uL Basophils # 0.0 (0-0.2) k/uL Sodium 140 (137-145) mmol/L Potassium 4.0 (3.5-5.1) mmol/L Chloride 104 (98-107) mmol/L Carbon Dioxide 20 L (22-30) mmol/L Anion Gap 16 mmol/L BUN 8 (7-17) mg/dL Creatinine 0.54 (0.52-1.04) mg/dL Est GFR (CKD-EPI)AfAm >90 (>60 ml/min/1.73 sqM) Est GFR (CKD-EPI)NonAf >90 (>60 ml/min/1.73 sqM) Glucose 176 H (74-99) mg/dL Estimated Ave Glu mg/dL mg/dL Hemoglobin A1c (<=6.0) % Calcium 10.9 H (8.4-10.2) mg/dL Magnesium 1.5 L (1.6-2.3) mg/dL Total Bilirubin 0.8 (0.2-1.3) mg/dL AST 47 H (14-36) U/L ALT 71 H (4-34) U/L Alkaline Phosphatase 119 (38-126) U/L Total Protein 7.9 (6.3-8.2) g/dL Albumin 4.9 (3.5-5.0) g/dL Urine Color Light Yellow Urine Appearance Clear (Clear) Urine pH 6.5 (5.0-8.0) Ur Specific Mckenna 1.005 (1.001-1.035) Urine Protein Trace H (Negative) Urine Glucose (UA) Negative (Negative) Urine Ketones Negative (Negative) Urine Blood Negative (Negative) Urine Nitrite Negative (Negative) Urine Bilirubin Negative (Negative) Urine Urobilinogen <2.0 (<2.0) mg/dL Ur Leukocyte Esterase Large H (Negative) Urine RBC 1 (0-5) /hpf Urine WBC 94 H (0-5) /hpf Ur Squamous Epith Cells 2 (0-4) /hpf Urine Opiates Screen Not Detected (NotDetected) Ur Oxycodone Screen Not Detected (NotDetected) Urine Methadone Screen Not Detected (NotDetected) Ur Propoxyphene Screen Not Detected (NotDetected) Ur Barbiturates Screen Not Detected (NotDetected) U Tricyclic Antidepress Not Detected (NotDetected) Ur Phencyclidine Scrn Not Detected (NotDetected) Ur Amphetamines Screen Not Detected (NotDetected) U Methamphetamines Scrn Not Detected (NotDetected) U Benzodiazepines Scrn Not Detected (NotDetected) Urine Cocaine Screen Not Detected (NotDetected) U Marijuana (THC) Screen Not Detected (NotDetected) Coronavirus (PCR) (Not Detectd) 08/04/22 08/05/22 Range/Units 20:10 06:13 WBC (3.8-10.6) k/uL RBC (3.80-5.40) m/uL Hgb (11.4-16.0) gm/dL Hct (34.0-46.0) % MCV (80.0-100.0) fL MCH (25.0-35.0) pg MCHC (31.0-37.0) g/dL RDW (11.5-15.5) % Plt Count (150-450) k/uL MPV Neutrophils % % Lymphocytes % % Monocytes % % Eosinophils % % Basophils % % Neutrophils # (1.3-7.7) k/uL Lymphocytes # (1.0-4.8) k/uL Monocytes # (0-1.0) k/uL Eosinophils # (0-0.7) k/uL Basophils # (0-0.2) k/uL Sodium (137-145) mmol/L Potassium (3.5-5.1) mmol/L Chloride (98-107) mmol/L Carbon Dioxide (22-30) mmol/L Anion Gap mmol/L BUN (7-17) mg/dL Creatinine (0.52-1.04) mg/dL Est GFR (CKD-EPI)AfAm (>60 ml/min/1.73 sqM) Est GFR (CKD-EPI)NonAf (>60 ml/min/1.73 sqM) Glucose (74-99) mg/dL Estimated Ave Glu mg/dL 194 mg/dL Hemoglobin A1c 8.4 H (<=6.0) % Calcium (8.4-10.2) mg/dL Magnesium (1.6-2.3) mg/dL Total Bilirubin (0.2-1.3) mg/dL AST (14-36) U/L ALT (4-34) U/L Alkaline Phosphatase (38-126) U/L Total Protein (6.3-8.2) g/dL Albumin (3.5-5.0) g/dL Urine Color Urine Appearance (Clear) Urine pH (5.0-8.0) Ur Specific Mckenna (1.001-1.035) Urine Protein (Negative) Urine Glucose (UA) (Negative) Urine Ketones (Negative) Urine Blood (Negative) Urine Nitrite (Negative) Urine Bilirubin (Negative) Urine Urobilinogen (<2.0) mg/dL Ur Leukocyte Esterase (Negative) Urine RBC (0-5) /hpf Urine WBC (0-5) /hpf Ur Squamous Epith Cells (0-4) /hpf Urine Opiates Screen (NotDetected) Ur Oxycodone Screen (NotDetected) Urine Methadone Screen (NotDetected) Ur Propoxyphene Screen (NotDetected) Ur Barbiturates Screen (NotDetected) U Tricyclic Antidepress (NotDetected) Ur Phencyclidine Scrn (NotDetected) Ur Amphetamines Screen (NotDetected) U Methamphetamines Scrn (NotDetected) U Benzodiazepines Scrn (NotDetected) Urine Cocaine Screen (NotDetected) U Marijuana (THC) Screen (NotDetected) Coronavirus (PCR) Not Detected (Not Detectd) Disposition <Andrey Grissom - Last Filed: 08/04/22 20:38> <Rakesh Hoyos - Last Filed: 08/07/22 05:38> Clinical Impression: Psychiatric care Disposition: ADMITTED IP TO THIS HOSP
[2022-08-04 20:52] LABS: ALT 71 U/L (4-34); AST 47 U/L (14-36); African American GFR (CKD) >90 (>60 ml/min/1.73 sqM); Albumin 4.9 g/dL (3.5-5.0); Alkaline Phosphatase 119 U/L (38-126); Anion Gap 16 mmol/L; Blood Urea Nitrogen 8 mg/dL (7-17); Calcium 10.9 mg/dL (8.4-10.2); Carbon Dioxide 20 mmol/L (22-30); Chloride 104 mmol/L (98-107); Glucose 176 mg/dL (74-99); Magnesium 1.5 mg/dL (1.6-2.3); Non-African American GFR(CKD) >90 (>60 ml/min/1.73 sqM); Sodium 140 mmol/L (137-145); Total Bilirubin 0.8 mg/dL (0.2-1.3); Total Protein 7.9 g/dL (6.3-8.2)
[2022-08-04] MEDS ORDERED: LEVOFLOXACIN 500MG-D5W PMX 500 MG in DEXTROSE/WATER 1 100ML.BAG IVPB STA (21:26)
[2022-08-04] MEDS ORDERED: SULFAMETHOX-TMP 800-160MG 1 EACH TAB PO STA (21:39)
[2022-08-04] MEDS ORDERED: ALPRAZolam 0.5 MG TAB PO STA (23:24)
[2022-08-05] MEDS ORDERED: MAGNESIUM HYDROXIDE 2,400 MG/10 ML CUP PO PRN (07:18)
[2022-08-05] MEDS ORDERED: hydrOXYzine HCL 50 MG/ML 1 ML VIAL IM PRN (07:22)
[2022-08-05] MEDS ORDERED: OLANZapine 5 MG TAB PO PRN (07:23)
[2022-08-05] MEDS ORDERED: OLANZapine 10 MG VIAL IM PRN (07:23)
[2022-08-05 08:54] LABS: Albumin 4.2 g/dL (3.5-5.0); Bilirubin, Delta 0.2 mg/dL (0.0-0.2); Bilirubin,Unconjugated 0.5 mg/dL (0.0-1.1); Total Bilirubin 0.7 mg/dL (0.2-1.3); Total Protein 6.7 g/dL (6.3-8.2)
[2022-08-05] MEDS: MAGNESIUM OXIDE 400 MG TAB PO STA ×2 (09:35→09:37)
[2022-08-05] MEDS: DIVALPROEX ER 500 MG TAB.ER.24H PO SCH ×3 (09:37→21:16)
[2022-08-05] MEDS: metFORMIN 500 MG TAB PO SCH ×2 (09:39→21:18)
[2022-08-05] MEDS: risperiDONE 2 MG TAB PO SCH ×2 (10:20→21:16)
[2022-08-05] MEDS: hydrOXYzine pamoate 25 MG CAP PO PRN ×2 (10:21→22:24)
--- NOTE | 2022-08-05 12:09 | P.HP ---
Psychiatric H&P - . H&P Date: 08/05/22 History & Physical: Allergies Allergy/AdvReac Type Severity Reaction Status Date / Time Penicillins Allergy Severe Anaphylaxis Verified 08/05/22 09:46 cephalexin monohydrate Allergy Anaphylaxis Verified 08/05/22 09:46 [From Keflex] iodine Allergy Unknown Verified 08/05/22 09:46 Mushroom AdvReac Unknown Verified 08/05/22 09:46 Vital Signs Temp 98.3 F 08/05/22 11:27 Pulse 85 08/05/22 11:27 Resp 17 08/05/22 11:27 BP 111/72 08/05/22 11:27 Pulse Ox 97 08/05/22 07:00 FiO2 Intake & Output 08/04/22 08/05/22 08/05/22 18:59 06:59 18:59 Weight 95.254 kg 95.254 kg Laboratory Last Values WBC 9.6 k/uL (3.8-10.6) 08/04/22 20:10 RBC 5.03 m/uL (3.80-5.40) 08/04/22 20:10 Hgb 14.6 gm/dL (11.4-16.0) 08/04/22 20:10 Hct 43.3 % (34.0-46.0) 08/04/22 20:10 MCV 86.0 fL (80.0-100.0) 08/04/22 20:10 MCH 29.0 pg (25.0-35.0) 08/04/22 20:10 MCHC 33.8 g/dL (31.0-37.0) 08/04/22 20:10 RDW 12.9 % (11.5-15.5) 08/04/22 20:10 Plt Count 360 k/uL (150-450) 08/04/22 20:10 MPV 8.0 08/04/22 20:10 Neutrophils % 63 % 08/04/22 20:10 Lymphocytes % 30 % 08/04/22 20:10 Monocytes % 6 % 08/04/22 20:10 Eosinophils % 1 % 08/04/22 20:10 Basophils % 0 % 08/04/22 20:10 Neutrophils # 6.0 k/uL (1.3-7.7) 08/04/22 20:10 Lymphocytes # 2.8 k/uL (1.0-4.8) 08/04/22 20:10 Monocytes # 0.5 k/uL (0-1.0) 08/04/22 20:10 Eosinophils # 0.1 k/uL (0-0.7) 08/04/22 20:10 Basophils # 0.0 k/uL (0-0.2) 08/04/22 20:10 Sodium 140 mmol/L (137-145) 08/04/22 20:10 Potassium 4.0 mmol/L (3.5-5.1) 08/04/22 20:10 Chloride 104 mmol/L (98-107) 08/04/22 20:10 Carbon Dioxide 20 mmol/L (22-30) L 08/04/22 20:10 Anion Gap 16 mmol/L 08/04/22 20:10 BUN 8 mg/dL (7-17) 08/04/22 20:10 Creatinine 0.54 mg/dL (0.52-1.04) 08/04/22 20:10 Est GFR (CKD-EPI)AfAm >90 (>60 ml/min/1.73 sqM) 08/04/22 20:10 Est GFR (CKD-EPI)NonAf >90 (>60 ml/min/1.73 sqM) 08/04/22 20:10 Glucose 176 mg/dL (74-99) H 08/04/22 20:10 Calcium 10.9 mg/dL (8.4-10.2) H 08/04/22 20:10 Magnesium 1.5 mg/dL (1.6-2.3) L 08/04/22 20:10 Total Bilirubin 0.7 mg/dL (0.2-1.3) 08/05/22 08:00 Conjugated Bilirubin 0.0 mg/dL (0.0-0.3) 08/05/22 08:00 Unconjugated Bilirubin 0.5 mg/dL (0.0-1.1) 08/05/22 08:00 Delta Bilirubin 0.2 mg/dL (0.0-0.2) 08/05/22 08:00 AST 47 U/L (14-36) H 08/05/22 08:00 ALT 66 U/L (4-34) H 08/05/22 08:00 Alkaline Phosphatase 94 U/L (38-126) 08/05/22 08:00 Total Protein 6.7 g/dL (6.3-8.2) 08/05/22 08:00 Albumin 4.2 g/dL (3.5-5.0) 08/05/22 08:00 TSH 2.630 mIU/L (0.465-4.680) 08/05/22 08:00 Urine Color Light Yellow 08/04/22 19:00 Urine Appearance Clear (Clear) 08/04/22 19:00 Urine pH 6.5 (5.0-8.0) 08/04/22 19:00 Ur Specific Mc[place]osh 1.005 (1.001-1.035) 08/04/22 19:00 Urine Protein Trace (Negative) H 08/04/22 19:00 Urine Glucose (UA) Negative (Negative) 08/04/22 19:00 Urine Ketones Negative (Negative) 08/04/22 19:00 Urine Blood Negative (Negative) 08/04/22 19:00 Urine Nitrite Negative (Negative) 08/04/22 19:00 Urine Bilirubin Negative (Negative) 08/04/22 19:00 Urine Urobilinogen <2.0 mg/dL (<2.0) 08/04/22 19:00 Ur Leukocyte Esterase Large (Negative) H 08/04/22 19:00 Urine RBC 1 /hpf (0-5) 08/04/22 19:00 Urine WBC 94 /hpf (0-5) H 08/04/22 19:00 Ur Squamous Epith Cells 2 /hpf (0-4) 08/04/22 19:00 Urine Opiates Screen Not Detected (NotDetected) 08/04/22 19:00 Ur Oxycodone Screen Not Detected (NotDetected) 08/04/22 19:00 Urine Methadone Screen Not Detected (NotDetected) 08/04/22 19:00 Ur Propoxyphene Screen Not Detected (NotDetected) 08/04/22 19:00 Ur Barbiturates Screen Not Detected (NotDetected) 08/04/22 19:00 Valproic Acid <10.0 ug/mL 08/05/22 08:00 U Tricyclic Antidepress Not Detected (NotDetected) 08/04/22 19:00 Ur Phencyclidine Scrn Not Detected (NotDetected) 08/04/22 19:00 Ur Amphetamines Screen Not Detected (NotDetected) 08/04/22 19:00 U Methamphetamines Scrn Not Detected (NotDetected) 08/04/22 19:00 U Benzodiazepines Scrn Not Detected (NotDetected) 08/04/22 19:00 Urine Cocaine Screen Not Detected (NotDetected) 08/04/22 19:00 U Marijuana (THC) Screen Not Detected (NotDetected) 08/04/22 19:00 Coronavirus (PCR) Not Detected (Not Detectd) 08/05/22 06:13 08/05/22 12:09 IDENTIFYING DATA: Patient is a 51-year-old , unemployed, female with significant history of bipolar 1 disorder with psychotic behavior who presented to our hospital on 08/05/2022 after experiencing a panic attack. HPI: Patient presented to the hospital on 08/05/2022 after experiencing a panic attack. However, upon evaluation the emergency department, the patient appeared to be grossly disorganized, responding to internal stimuli, and endorsing both auditory, visual, and tactile hallucinations. The patient reported that "sometimes a ghost and I can feel it." She was unable to clearly answer if she was suicidal. The patient was recently admitted onto our psychiatric unit from 07/20 - 07/25 however the patient did not follow-up with any of her outpatient appointments. The patient also reports this provider that she did not consistently take her medications. Her valproic acid level in the emergency department was 0. She was last discharged from our psychiatric unit on a regimen of Risperdal and Depakote. Upon evaluation on the psychiatric unit, the patient continues to be grossly disorganized. She is unable to provide a clear history of events leading up to this hospitalization however does admit nonadherence with treatment. The patient does report generalized paranoia and concerns for her safety. She states this provider that she is scared of "the burden my bathroom." Upon examination by this provider, there is a small doodle of a bird by her toilet. The patient also reports that she feels like someone is tapping her arm. The patient is agreeable to psychiatric admission and restarting her medications. She is agreeable to transitioning to a long-acting injectable Risperdal perseris or Invega Sustenna. PAST PSYCHIATRIC HISTORY: Patient has previous diagnoses of bipolar disorder with psychotic features and anxiety. She was last admitted onto our psychiatric unit from 07/20 - 07/25. She was discharged in a regimen of Risperdal and Dep akote. On that regimen, the patient displayed significant improvement became more linear and logical in conversation. The patient did not have any outpatient psychiatric follow-up. She reported nonadherence to treatment. She denies any prior attempts at suicide. PMH: Past Medical History: Coronary Artery Disease (CAD), Diabetes Mellitus, GERD/Reflux, Hyperlipidemia, Hypertension Additional Past Medical History / Comment(s): NIDDM type II, dyslexia. History of Any Multi-Drug Resistant Organisms: ESBL Date of last positivie culture/infection: 08/11/21-ESBL MDRO Source:: URINE Past Surgical History: Adenoidectomy, Section, Tonsillectomy Additional Past Surgical History / Comment(s): Nasal surgery Past Anesthesia/Blood Transfusion Reactions: Postoperative Nausea & Vomiting (PONV) Additional Past Anesthesia/Blood Transfusion Reaction / Comment(s): Pt states she has never received blood. Past Psychological History: Anxiety, Depression, Panic Disorder Smoking Status: Never smoker Past Alcohol Use History: None Reported Past Drug Use History: None Reported ALLERGIES: Allergies Allergy/AdvReac Type Severity Reaction Status Date / Time Penicillins Allergy Severe Anaphylaxis Verified 08/05/22 09:46 cephalexin monohydrate Allergy Anaphylaxis Verified 08/05/22 09:46 [From Keflex] iodine Allergy Unknown Verified 08/05/22 09:46 Mushroom AdvReac Unknown Verified 08/05/22 09:46 CHEMICAL DEPENDENCY HISTORY: The patient reports no tobacco, alcohol, marijuana, or illicit drug use. FAMILY PSYCHIATRIC/SUBSTANCE USE HISTORY: As per chart review, her mother has unspecified mental illness as per patient. SOCIAL HISTORY: Unable to clearly assess at this time the patient's acute psychosis. As per chart review: Patient was born and raised in [place]. She reports that she has a twin son and daughter named Munira and Thomas. She reports that police informed her that her children will be taken care of. The patient also has a 20-year-old daughter however this is not confirmed at this time. The patient is unable to identify if she has any gainful employment. MENTAL STATUS EXAM: General Appearance: Patient appears to be stated age is alert, difficult to di rect however cooperates. Patient appears to have fair hygiene and grooming. Behavior: Patient displays elevated psychomotor activity. Speech: Patient's speech is fluent but nonlinear, spontaneous, hyperverbal, slightly pressured. Mood/Affect: Patient reports their mood is "very scared," affect is congruent nervous. Expansive. Suicidality/Homicidality: Unable to clearly assess as the patient does not directly answer this question Perceptions: Patient appears to endorse auditory, visual, and tactile hallucinations. Though content/process: Patient appears to be grossly disorganized and paranoid. Memory and concentration: Grossly poor at this time Judgment and insight: Grossly poor at this time STRENGTHS/WEAKNESSES: Strength is that the patient is seeking help. Weakness that the patient is actively psychotic INTELLECT: average IMPRESSIONS: Bipolar 1 disorder, manic episode, with psychotic behavior PLAN: -Patient is admitted under voluntary status to MHU for stabilization of psychia tric symptoms and safety. Patient signed adult voluntary form and medication consent and is placed in patient's chart. -Medications : The patient stabilized on our psychiatric unit on a regimen of De pakote and Risperdal. We will restart her home medications and transition her to Risperdal perseris prior to discharge. Depakote 500 mg by mouth twice a day for mood stabilization Risperdal 2 mg by mouth twice a day for mood stabilization/psychosis -Zyprexa and Vistaril PRN for agitation/aggression -Patient was informed of the risks, benefits and side effects of the medication and patient verbally consented to taking the medications. -Internal Medicine consult to perform medical evaluation and physical. -SW on board for discharge planning. Encourage patient to participate in groups to work on coping skills. 08/05/22 12:09
[2022-08-05 12:59] LABS: Glucose,Whole Blood 175 mg/dL (70-110)
[2022-08-05] MEDS: INSULIN ASPART (NovoLOG) 100 UNIT/ML VIAL SQ SCH ×3 (13:05→21:19)
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
[2022-08-05] MEDS ORDERED: MAGNESIUM HYDROXIDE 2,400 MG/30 ML CUP PO PRN (15:49)
[2022-08-05 16:12] LABS: Chol/HDL Ratio 5.31 Ratio
[2022-08-05 17:41] LABS: Glucose,Whole Blood 143 mg/dL (70-110)
[2022-08-05 20:14] LABS: Glucose,Whole Blood 167 mg/dL (70-110)
[2022-08-05] MEDS ORDERED: clonazePAM 0.5 MG TAB PO STA (22:57)
[2022-08-06] MEDS: ALBUTEROL INHALER 60 PUFF/8 GM INHALER (MHU) INHALATION PRN ×3 (07:50→20:45)
[2022-08-06] MEDS: metFORMIN 500 MG TAB PO SCH ×2 (07:50→20:40)
[2022-08-06] MEDS: hydrOXYzine pamoate 25 MG CAP PO PRN ×3 (07:51→20:43)
[2022-08-06] MEDS: risperiDONE 2 MG TAB PO SCH ×2 (07:51→20:40)
[2022-08-06 08:01] LABS: Glucose,Whole Blood 180 mg/dL (70-110)
[2022-08-06] MEDS ORDERED: DIVALPROEX ER 250 MG TAB.ER.24H PO SCH (09:00)
--- NOTE | 2022-08-06 09:24 | P.PN ---
Progress Note - Text Progress Note Date: 08/06/22 Interval History: Patient was seen at the nursing window and was directable and agreeable to speak with magnetic tape typewriter operator in the office. Patient states that she is feeling "sick all over "ever since she took Depakote. She is convinced that Depakote must be the problem. Overnight, patient reported having anxiety and was given Klonopin 0.5 mg once. When asked to describe what specific concerns she has, she states that she is noticing "tongue swelling ", "itchiness ", and "pain". However, no rash/hives or angioedema is visualized on exam. She also states that she is not feeling well and repeatedly requests to be taken off of Depakote. She denies having experienced such a reaction in the past but says that she does not feel well on Depakote. She says that her mood is "not good "due to these concerns. Patient reports having slept fairly. She says "once I get on the right type of medication, I will know." When asked about medications she is tried in the past, she mentions that she likes medication for anxiety and Wellbutrin. Patient endorses passive suicidal ideation. At this time patient denies any active suicidal or homicidal ideations, intent or plan. Patient denies any auditory, visual hallucinations and denies any paranoia or delusions. Patient denies any side effects from the medications and has been compliant with meds. Mental Status Exam: General Appearance: Patient appears to be stated age is alert, difficult to direct however cooperates. Patient appears to have fair hygiene and grooming. Behavior: No psychomotor agitation. Speech: Patient's speech is fluent and not pressured Mood/Affect: Patient reports their mood is "anxious," affect is congruent nervous. Suicidality/Homicidality: Passive suicidal ideation. Denies active suicidal ideation and homicidal ideation. Perceptions: Denies perceptual disturbances currently Though content/process: Paranoid Memory and concentration: Fair Judgment and insight: Poor Assessment Bipolar 1 disorder, manic episode, with psychotic behavior R/o somatic symptom disorder Plan: -Patient is admitted under voluntary status to MHU for stabilization of psychiatric symptoms and safety. Patient signed adult voluntary form and medication consent and is placed in patient's chart. - Stable orthostatic vitals. EKG demonstrated sinus tachycardia. VSS except for elevated HR -Medications : Stop Depakote Start [place] 300 mg BID for mood stabilization Risperdal 2 mg by mouth twice a day for mood stabilization/psychosis. We will transition her to Risperdal perseris prior to discharge. -Zyprexa and Vistaril PRN for agitation/aggression -Patient was informed of the risks, benefits and side effects of the medication and patient verbally consented to taking the medications. -Internal Medicine consult to perform medical evaluation and physical. -SW on board for discharge planning. Encourage patient to participate in groups to work on coping skills.
[2022-08-06] MEDS ORDERED: diphenhydrAMINE 50 MG/ML 1 ML VIAL IM STA (09:41)
[2022-08-06] MEDS: INSULIN ASPART (NovoLOG) 100 UNIT/ML VIAL SQ SCH ×5 (09:58→20:40)
[2022-08-06 12:58] LABS: Glucose,Whole Blood 126 mg/dL (70-110)
[2022-08-06] MEDS ORDERED: diphenhydrAMINE 25 MG CAP PO STA (15:30)
[2022-08-06 16:08] LABS: Glucose,Whole Blood 140 mg/dL (70-110)
[2022-08-06 17:43] LABS: Glucose,Whole Blood 173 mg/dL (70-110)
[2022-08-06 20:29] LABS: Glucose,Whole Blood 168 mg/dL (70-110)
[2022-08-06] MEDS: LITHIUM CARBONATE 300 MG CAP PO SCH (20:40)
[2022-08-06] MEDS: MAG HYDROX/AL HYDROX/SIMETH 30 ML CUP PO PRN (20:43)
[2022-08-06] MEDS: BENZTROPINE MESYLATE 0.5 MG TAB PO SCH (23:58)
[2022-08-07 07:52] LABS: Glucose,Whole Blood 148 mg/dL (70-110)
[2022-08-07] MEDS: INSULIN ASPART (NovoLOG) 100 UNIT/ML VIAL SQ SCH ×4 (08:25→20:45)
[2022-08-07] MEDS: BENZTROPINE MESYLATE 0.5 MG TAB PO SCH ×2 (08:29→20:46)
[2022-08-07] MEDS: diphenhydrAMINE 25 MG CAP PO PRN ×3 (08:29→20:46)
[2022-08-07] MEDS: LITHIUM CARBONATE 300 MG CAP PO SCH ×2 (08:29→20:45)
[2022-08-07] MEDS: metFORMIN 500 MG TAB PO SCH ×2 (08:29→20:45)
[2022-08-07] MEDS: risperiDONE 2 MG TAB PO SCH ×2 (08:30→20:45)
[2022-08-07] MEDS: MAG HYDROX/AL HYDROX/SIMETH 30 ML CUP PO PRN ×2 (09:42→17:11)
[2022-08-07 12:39] LABS: Glucose,Whole Blood 110 mg/dL (70-110)
[2022-08-07] MEDS: hydrOXYzine pamoate 25 MG CAP PO PRN (14:45)
--- NOTE | 2022-08-07 16:20 | P.PN ---
Progress Note - Text Progress Note Date: 08/07/22 Interval History: Patient was agreeable to speak with this provider bedside. She states that her tongue is moving on its own but this is not visualized or consistent during exam. However, she was started on Cogentin and reported tolerating this well. She states that she has not experienced any tongue swelling since being taken off of Depakote. She reports tolerating lithium well and was agreeable with dose increased today. Patient reports that her mood is "fine "but appears to be anxious and somatically focused. Patient reports having slept fairly. She denies appetite problems. Patient endorses passive suicidal ideation. At this time patient denies any active suicidal or homicidal ideations, intent or plan. Patient denies any auditory, visual hallucinations and denies any paranoia or delusions. Patient denies any other side effects from the medications and has been compliant with meds. Mental Status Exam: General Appearance: Patient appears to be stated age is alert, difficult to direct however cooperates. Patient appears to have fair hygiene and grooming. No angioedema. No dyskinesia or akathisia Behavior: No psychomotor agitation. Speech: Patient's speech is fluent and not pressured Mood/Affect: Patient reports their mood is "fine," affect is congruent nervous. Suicidality/Homicidality: Passive suicidal ideation. Denies active suicidal ideation and homicidal ideation. Perceptions: Denies perceptual disturbances currently Though content/process: Paranoid, somatically focused Memory and concentration: Fair Judgment and insight: Poor AIMS = 0 Assessment Bipolar 1 disorder, manic episode, with psychotic behavior R/o somatic symptom disorder Plan: -Patient is admitted under voluntary status to MHU for stabilization of psychiatric symptoms and safety. Patient signed adult voluntary form and medication consent and is placed in patient's chart. - Stable orthostatic vitals. EKG demonstrated sinus tachycardia. VSS except for elevated HR -Medications : Stopped Depakote due subjective concern for angioedema although this was not visualized on exam Increase [place] to 300 mg daily and 600 mg qHS for mood stabilization Cogentin 0.5 mg BID for potential EPS Risperdal 2 mg by mouth twice a day for mood stabilization/psychosis. We will transition her to Risperdal perseris prior to discharge. -Zyprexa and Vistaril PRN for agitation/aggression -Patient was informed of the risks, benefits and side effects of the medication and patient verbally consented to taking the medications. -Internal Medicine consult to perform medical evaluation and physical. -SW on board for discharge planning. Encourage patient to participate in groups to work on coping skills.
[2022-08-07] MEDS: ACETAMINOPHEN TAB 325 MG TAB PO PRN (17:12)
[2022-08-07 17:37] LABS: Glucose,Whole Blood 139 mg/dL (70-110)
[2022-08-07 19:48] LABS: Glucose,Whole Blood 201 mg/dL (70-110)
[2022-08-08 07:56] LABS: Glucose,Whole Blood 182 mg/dL (70-110)
[2022-08-08] MEDS: MELOXICAM 7.5 MG TAB PO SCH (08:07)
[2022-08-08] MEDS: risperiDONE 2 MG TAB PO SCH ×2 (08:07→20:39)
[2022-08-08] MEDS: LITHIUM CARBONATE 300 MG CAP PO SCH ×2 (08:08→20:39)
[2022-08-08] MEDS: EZETIMIBE 10 MG TAB PO SCH (08:08)
[2022-08-08] MEDS: metFORMIN 500 MG TAB PO SCH ×2 (08:08→20:39)
[2022-08-08] MEDS: LOSARTAN 25 MG TAB PO SCH (08:09)
[2022-08-08] MEDS: FENOFIBRATE 54 MG TAB PO SCH (08:09)
[2022-08-08] MEDS: LINAGLIPTIN 5 MG TABLET PO SCH (08:09)
[2022-08-08] MEDS: INSULIN ASPART (NovoLOG) 100 UNIT/ML VIAL SQ SCH ×4 (08:10→20:39)
[2022-08-08] MEDS: hydrOXYzine pamoate 25 MG CAP PO PRN (08:11)
[2022-08-08] MEDS: BENZTROPINE MESYLATE 0.5 MG TAB PO SCH ×2 (08:11→20:39)
[2022-08-08] MEDS: MAG HYDROX/AL HYDROX/SIMETH 30 ML CUP PO PRN ×2 (10:10→20:41)
[2022-08-08 13:01] LABS: Glucose,Whole Blood 128 mg/dL (70-110)
--- NOTE | 2022-08-08 14:18 | P.PN ---
Progress Note - Text Progress Note Date: 08/08/22 Interval History: Patient was agreeable to speak with advertising copy writer today in the office as she was seen taking part in group today. Patient was doing activities today quietly. She claims that she was having severe anxiety episodes and also depression however states that medications have been helping her. She claims that she let wants to continue on same dose of medications at this time. She was asking about a potential discharge hopefully tomorrow. She claims that she is participating in groups much a scan. States that she is feeling more optimistic today. She was fairly concrete in her answers. She states that she slept fairly last night, denying any problems with appetite today. She is denying any active suicidal or homicidal ideations, intent or plan. Patient denies any auditory, visual hallucinations and denies any paranoia or delusions. Patient denies any other side effects from the medications and has been compliant with meds. Mental Status Exam: General Appearance: Patient appears to be stated age is alert, difficult to direct however cooperates. Patient appears to have fair hygiene and grooming. No angioedema. No dyskinesia or akathisia Behavior: No psychomotor agitation. Speech: Patient's speech is fluent and not pressured Mood/Affect: Patient reports their mood is "ok" affect is congruent Suicidality/Homicidality: Passive suicidal ideation. Denies active suicidal ideation and homicidal ideation. Perceptions: Denies perceptual disturbances currently Though content/process: less Paranoid, focused on discharge Memory and concentration: Fair Judgment and insight: improving mildly Assessment Bipolar 1 disorder, manic episode, with psychotic behavior R/o somatic symptom disorder Plan: -Patient is admitted under voluntary status to MHU for stabilization of psychiatric symptoms and safety. Patient signed adult voluntary form and medica tion consent and is placed in patient's chart. -Medications : [place] to 300 mg daily and 600 mg qHS for mood stabilization Cogentin 0.5 mg BID for potential EPS Risperdal 2 mg by mouth twice a day for mood stabilization/psychosis. We will transition her to Risperdal perseris prior to discharge. -Zyprexa and Vistaril PRN for agitation/aggression -SW on board for discharge planning. Encourage patient to participate in groups to work on coping skills. possible discharge tomorrow if patient gets transitioned onto [facility] to ensure compliance.
[2022-08-08 17:32] LABS: Glucose,Whole Blood 187 mg/dL (70-110)
[2022-08-08 20:15] LABS: Glucose,Whole Blood 181 mg/dL (70-110)
[2022-08-09] MEDS: INSULIN ASPART (NovoLOG) 100 UNIT/ML VIAL SQ SCH ×4 (07:44→20:42)
[2022-08-09 07:45] LABS: Glucose,Whole Blood 150 mg/dL (70-110)
[2022-08-09] MEDS: LOSARTAN 25 MG TAB PO SCH (08:11)
[2022-08-09] MEDS: LINAGLIPTIN 5 MG TABLET PO SCH (08:12)
[2022-08-09] MEDS: EZETIMIBE 10 MG TAB PO SCH (08:12)
[2022-08-09] MEDS: risperiDONE 2 MG TAB PO SCH (08:12)
[2022-08-09] MEDS: FENOFIBRATE 54 MG TAB PO SCH (08:12)
[2022-08-09] MEDS: MELOXICAM 7.5 MG TAB PO SCH (08:12)
[2022-08-09] MEDS: BENZTROPINE MESYLATE 0.5 MG TAB PO SCH ×2 (08:12→20:41)
[2022-08-09] MEDS: metFORMIN 500 MG TAB PO SCH ×2 (08:12→20:40)
[2022-08-09] MEDS: LITHIUM CARBONATE 300 MG CAP PO SCH ×2 (08:13→20:41)
[2022-08-09] MEDS ORDERED: risperiDONE 120 MG SYR (NO COST) PHARMACY STOCK SQ ONE (11:00)
--- NOTE | 2022-08-09 11:32 | P.PN ---
Progress Note - Text Progress Note Date: 08/09/22 Interval History: Patient was seen in her bedroom and was directable and agreeable to speak with check writer in her room. May, the patient is not reporting any suicidal or homicidal ideation, intention, and/or plan. She is alert and oriented in all spheres. She reports no auditory or visual hallucinations. She is denying any paranoia or other delusions. The patient has been adherent with her medication and is not endorsing any significant side effects at this time. She is agreeable to transitioning to the long-acting injection of Risperdal perseris today. The patient was strongly encouraged to follow-up with her outpatient appointments for mental health. She was also educated on the importance of medication adherence. Mental Status Exam: General Appearance: Patient appears to be stated age is alert, directable, and cooperative. Behavior: Patient is calmly seated without any agitated behavior. Speech: Patient's speech is fluent and nonpressured. Mood/Affect: Mood is improving mildly, affect is congruent and constricted. Suicidality/Homicidality: Patient denies having any suicidal or homicidal ideation intent or plan. Perceptions: Patient denies any visual hallucinations and denies any auditory hallucinations Though content/process: There is no evidence of any delusional thought content and thought process is linear and goal-directed. Memory and concentration: AOX3, grossly intact for the purposes of this session Judgment and insight: Improving mildly Vital Signs Temp 98.3 F 08/09/22 07:00 Pulse 88 08/09/22 07:00 Resp 16 08/09/22 07:00 BP 115/61 08/09/22 07:00 Pulse Ox 97 08/09/22 07:00 FiO2 Laboratory Results - Last 24 Hours 08/08/22 08/08/22 08/08/22 12:57 17:30 20:13 POC Glucose (mg/dL) 128 H 187 H 181 H POC Glu Sponge Diver ID Simi Welch Garrett Young, Nicole [place] 08/09/22 08/09/22 06:31 07:43 POC Glucose (mg/dL) 150 H POC Glu Sponge Diver ID Poncho Ho [place] 0.8 Assessment Bipolar 1 disorder, manic episode, with psychotic behavior Plan: -Patient continues to meet criteria for inpatient psychiatric admission for symptom stabilization and safety. Patient has signed adult voluntary form and medication consent and was placed in patient's chart. -Medications: Risperdal Perseris 120 mg SQ today. Next dose due on 09/06/2022. Cogentin 0.5 mg by mouth twice a day for potential EPS [place] 300 mg by mouth every morning and 600 mg by mouth daily at bedtime for mood stabilization -When necessary Zyprexa and Vistaril for agitation/aggression. -SW on board for discharge planning. Encouraged the patient to participate in milieu.
[2022-08-09 12:40] LABS: Glucose,Whole Blood 97 mg/dL (70-110)
[2022-08-09] MEDS: MAG HYDROX/AL HYDROX/SIMETH 30 ML CUP PO PRN ×2 (12:43→16:42)
[2022-08-09] MEDS ORDERED: CALCIUM CARBONATE 500 MG CHEWABLE PO PRN (14:27)
[2022-08-09] MEDS: ACETAMINOPHEN TAB 325 MG TAB PO PRN (16:43)
[2022-08-09 17:50] LABS: Glucose,Whole Blood 150 mg/dL (70-110)
[2022-08-09 19:54] LABS: Glucose,Whole Blood 159 mg/dL (70-110)
[2022-08-09] MEDS: diphenhydrAMINE 25 MG CAP PO PRN (20:42)
[2022-08-10] MEDS: ACETAMINOPHEN TAB 325 MG TAB PO PRN (06:36)
[2022-08-10 06:38] VITALS: BP 125/66; PULSE 113; RESP 15; TEMP 98
[2022-08-10] MEDS: INSULIN ASPART (NovoLOG) 100 UNIT/ML VIAL SQ SCH ×2 (07:58→12:47)
[2022-08-10 07:59] LABS: Glucose,Whole Blood 134 mg/dL (70-110)
[2022-08-10] MEDS: FENOFIBRATE 54 MG TAB PO SCH (08:22)
[2022-08-10] MEDS: LITHIUM CARBONATE 300 MG CAP PO SCH (08:22)
[2022-08-10] MEDS: LOSARTAN 25 MG TAB PO SCH (08:22)
[2022-08-10] MEDS: BENZTROPINE MESYLATE 0.5 MG TAB PO SCH (08:22)
[2022-08-10] MEDS: LINAGLIPTIN 5 MG TABLET PO SCH (08:22)
[2022-08-10] MEDS: EZETIMIBE 10 MG TAB PO SCH (08:22)
[2022-08-10] MEDS: metFORMIN 500 MG TAB PO SCH (08:23)
[2022-08-10] MEDS: MELOXICAM 7.5 MG TAB PO SCH (08:23)
[2022-08-10] MEDS: hydrOXYzine pamoate 25 MG CAP PO PRN (08:25)
[2022-08-10] MEDS: MAG HYDROX/AL HYDROX/SIMETH 30 ML CUP PO PRN (10:11)
--- NOTE | 2022-08-10 12:17 | P.DS ---
Providers Date of admission: 08/05/22 07:16 Expected date of discharge: 08/10/22 Attending physician: Isai Cortez MD Consults: 08/05/22 07:18 Consult Physician Routine Consulting Provider: Mirella Cook Consult Reason/Comments: For H & P for Medical Follow Up Do you want consulting provider notified?: Yes, Notify in am Primary care physician: Nelly Maldonado - Discharge Diagnosis(es) (1) Nonadherence to medical treatment Current Visit: Yes Status: Acute Priority: High (2) Severe manic bipolar 1 disorder with psychotic behavior Current Visit: Yes Status: Acute Priority: Medium Hospital Course: Admission HPI: Patient is a 51-year-old , unemployed, female with significant history of bipolar 1 disorder with psychotic behavior who presented to our hospital on 08/05/2022 after experiencing a panic attack. Patient presented to the hospital on 08/05/2022 after experiencing a panic attack. However, upon evaluation the emergency department, the patient appeared to be grossly disorganized, responding to internal stimuli, and endorsing both auditory, visual, and tactile hallucinations. The patient reported that "sometimes a ghost and I can feel it." She was unable to clearly answer if she was suicidal. The patient was recently admitted onto our psychiatric unit from 07/20 - 07/25 however the patient did not follow-up with any of her outpatient appointments. The patient also reports this provider that she did not consistently take her medications. Her valproic acid level in the emergency department was 0. She was last discharged from our psychiatric unit on a regimen of Risperdal and Depakote. Upon evaluation on the psychiatric unit, the patient continues to be grossly disorganized. She is unable to provide a clear history of events leading up to this hospitalization however does admit nonadherence with treatment. The patient does report generalized paranoia and concerns for her safety. She states this provider that she is scared of "the burden my bathroom." Upon examination by this provider, there is a small doodle of a bird by her toilet. The patient also reports that she feels like someone is tapping her arm. The patient is agreeable to psychiatric admission and restarting her medications. She is agreeable to transitioning to a long-acting injectable Risperdal perseris or Invega Sustenna. Patient has previous diagnoses of bipolar disorder with psychotic features and anxiety. She was last admitted onto our psychiatric unit from 07/20 - 07/25. She was discharged in a regimen of Risperdal and Depakote. On that regimen, the patient displayed significant improvement became more linear and logical in conversation. The patient did not have any outpatient psychiatric follow-up. She reported nonadherence to treatment. She denies any prior attempts at suicide. Hospital course: Upon admission to the unit patient was initially presenting as paranoid, disorganized, and experiencing tactile hallucinations. Patient was however directable and agreeable to commence treatment. Patient got along well with other patients on the unit and followed unit protocol. Patient was compliant with the medications and denied any side effects throughout hospital course. Patient was started on Depakote and Risperdal. Due to her inability to tolerate depakote, the patient was transitioned to lithium. Patient spoke of her stressors and engaged in therapy both group and individual. Patient was also seen by medical team for history and physical exam. The patient displayed improvement in regards to her target symptoms of psychosis and became more grounded in reality. She was monitored on her medications and tolerated them well. She was transitioned to risperdal perseris due to her history of nonadherence with treatment and follow-up. On the day of discharge patient denied any suicidal or homicidal ideation, intention, and/or plan. She reports no auditory or visual or tactile hallucinations. Patient endorsed wanting to live for her health and family. The patient denied any access to guns or weapons. Patient denied any paranoia and did not endorse any delusions. Patient does not have a significant history of substance abuse however was counseled on abstaining from all substances including tobacco, alcohol and marijuana. Patient was also counseled on the medications and need for regular compliance and was encouraged to follow-up with their outpatient appointment for mental health and also for primary care. Prior to discharge a family meeting will be arranged by social media marketer to answer any questions and ensure safety upon discharge. She reported no medical issues or concerns and denied any chest pain, SOB, palpitations, akasthisia or tardive dyskinesia. Mental status exam: General Appearance: Patient appears to be stated age is alert, pleasant, and cooperative. Patient is in no acute distress and has fair hygiene and grooming Behavior: Patient is calmly seated without any agitated behavior. Speech: Patient's speech is fluent and nonpressured. Mood/Affect: Patient reports their mood is "much better", affect is congruent and euthymic to bright. Suicidality/Homicidality: Patient denies having any suicidal or homicidal ideation intent or plan. Perceptions: Patient denies any auditory or visual hallucinations. Though content/process: There is no evidence of any delusional thought content and thought process is linear and goal-directed. Patient is future oriented. Memory and concentration: AOX3, grossly intact for the purposes of this session. Can spell "WORLD" backwards correctly. Judgment and insight: Improved with guarded prognosis Impression: Bipolar 1 disorder, manic episode, with psychotic behavior Plan: -Continue with discharge today as patient has improved and stabilized psychiatrically and is not currently an imminent threat to herself and/or others. Patient will remain at chronically elevated risk for harm to self and/or others due to her severity of mental illness and history of nonadherence. -Continue medications: Cogentin 0.5 mg twice a day for EPS [place] 300 mg in the morning and 600 mg at bedtime for mood stabilization Risperidone perseris 120 mg SQ qMONTHLY. next due on 07/07/2022 for psychosis/mood stabilization. -Patient was counseled on the need for medication compliance and appropriate follow-up at mental health and also primary care for medical issues. Patient verbalized understanding and agreed. -Social work to arrange for and conduct family meeting to ensure safety upon discharge and answer any questions/concerns. Social work also to arrange for patients follow up appointments with [facility] for psychiatric care along with follow up with primary care provider. -Patient counseled on abstaining from recreational drugs and marijuana and alcohol. Was informed/educated on the adverse effects on their physical and mental health. Patient verbally agreed and understood. -Patient was instructed to return to the hospital or seek immediate medical care if their psychiatric or medical symptoms do worsen or reoccur. -Psychoeducation and supportive therapy provided to patient. Risks and benefits of pharmacological treatment versus the risks and benefits of nontreatment weighed and discussed. Informed consent discussion held. Common side effects of psychotropics discussed such as, but not limited to headache, GI disturbance, sexual dysfunction, movement disorders, sedation, and orthostatic hypotension. Life threatening and blackbox warnings of prescribed medications also discussed. Potential risks of operating a vehicle or heavy machinery discussed with patient at length. Advised on importance of compliance and a reliable and responsible manner. Patient advised to review FDA consumer labeling of all medications prior to taking. Patient verbalized understanding of potential risks, and agrees with current treatment plan. Patient advised to medically contact physician/emergency personnel if any acute changes in condition occur. Vital Signs Temp 98.0 F 08/10/22 06:37 Pulse 113 H 08/10/22 06:37 Resp 15 08/10/22 06:37 BP 125/66 08/10/22 06:37 Pulse Ox 98 08/10/22 06:37 FiO2 Laboratory Results WBC 9.6 k/uL (3.8-10.6) 08/04/22 20:10 RBC 5.03 m/uL (3.80-5.40) 08/04/22 20:10 Hgb 14.6 gm/dL (11.4-16.0) 08/04/22 20:10 Hct 43.3 % (34.0-46.0) 08/04/22 20:10 MCV 86.0 fL (80.0-100.0) 08/04/22 20:10 MCH 29.0 pg (25.0-35.0) 08/04/22 20:10 MCHC 33.8 g/dL (31.0-37.0) 08/04/22 20:10 RDW 12.9 % (11.5-15.5) 08/04/22 20:10 Plt Count 360 k/uL (150-450) 08/04/22 20:10 MPV 8.0 08/04/22 20:10 Neutrophils % 63 % 08/04/22 20:10 Lymphocytes % 30 % 08/04/22 20:10 Monocytes % 6 % 08/04/22 20:10 Eosinophils % 1 % 08/04/22 20:10 Basophils % 0 % 08/04/22 20:10 Neutrophils # 6.0 k/uL (1.3-7.7) 08/04/22 20:10 Lymphocytes # 2.8 k/uL (1.0-4.8) 08/04/22 20:10 Monocytes # 0.5 k/uL (0-1.0) 08/04/22 20:10 Eosinophils # 0.1 k/uL (0-0.7) 08/04/22 20:10 Basophils # 0.0 k/uL (0-0.2) 08/04/22 20:10 Sodium 140 mmol/L (137-145) 08/04/22 20:10 Potassium 4.0 mmol/L (3.5-5.1) 08/04/22 20:10 Chloride 104 mmol/L (98-107) 08/04/22 20:10 Carbon Dioxide 20 mmol/L (22-30) L 08/04/22 20:10 Anion Gap 16 mmol/L 08/04/22 20:10 BUN 8 mg/dL (7-17) 08/04/22 20:10 Creatinine 0.54 mg/dL (0.52-1.04) 08/04/22 20:10 Est GFR (CKD-EPI)AfAm >90 (>60 ml/min/1.73 sqM) 08/04/22 20:10 Est GFR (CKD-EPI)NonAf >90 (>60 ml/min/1.73 sqM) 08/04/22 20:10 Glucose 176 mg/dL (74-99) H 08/04/22 20:10 POC Glucose (mg/dL) 134 mg/dL (70-110) H 08/10/22 07:57 POC Glu Patient Financial Services Manager Wen Stewart 08/10/22 07:[address] Glu mg/dL 194 mg/dL 08/04/22 20:10 Hemoglobin A1c 8.4 % (<=6.0) H 08/04/22 20:10 Calcium 10.9 mg/dL (8.4-10.2) H 08/04/22 20:10 Magnesium 1.9 mg/dL (1.6-2.3) 08/06/22 06:43 Total Bilirubin 0.7 mg/dL (0.2-1.3) 08/05/22 08:00 Conjugated Bilirubin 0.0 mg/dL (0.0-0.3) 08/05/22 08:00 Unconjugated Bilirubin 0.5 mg/dL (0.0-1.1) 08/05/22 08:00 Delta Bilirubin 0.2 mg/dL (0.0-0.2) 08/05/22 08:00 AST 47 U/L (14-36) H 08/05/22 08:00 ALT 66 U/L (4-34) H 08/05/22 08:00 Alkaline Phosphatase 94 U/L (38-126) 08/05/22 08:00 Total Protein 6.7 g/dL (6.3-8.2) 08/05/22 08:00 Albumin 4.2 g/dL (3.5-5.0) 08/05/22 08:00 Triglycerides 164.00 mg/dL (0.00-149.00) H 08/05/22 08:00 Cholesterol 256.00 mg/dL (0.00-200.00) H 08/05/22 08:00 LDL Cholesterol, Calc 175.0 mg/dL (0.0-131.0) H 08/05/22 08:00 VLDL Cholesterol, Calc 32.80 mg/dL (5.00-40.00) 08/05/22 08:00 HDL Cholesterol 48.20 mg/dL (40.00-60.00) 08/05/22 08:00 Cholesterol/HDL Ratio 5.31 Ratio 08/05/22 08:00 TSH 2.630 mIU/L (0.465-4.680) 08/05/22 08:00 Urine Color Light Yellow 08/04/22 19:00 Urine Appearance Clear (Clear) 08/04/22 19:00 Urine pH 6.5 (5.0-8.0) 08/04/22 19:00 Ur Specific [place] 1.005 (1.001-1.035) 08/04/22 19:00 Urine Protein Trace (Negative) H 08/04/22 19:00 Urine Glucose (UA) Negative (Negative) 08/04/22 19:00 Urine Ketones Negative (Negative) 08/04/22 19:00 Urine Blood Negative (Negative) 08/04/22 19:00 Urine Nitrite Negative (Negative) 08/04/22 19:00 Urine Bilirubin Negative (Negative) 08/04/22 19:00 Urine Urobilinogen <2.0 mg/dL (<2.0) 08/04/22 19:00 Ur Leukocyte Esterase Large (Negative) H 08/04/22 19:00 Urine RBC 1 /hpf (0-5) 08/04/22 19:00 Urine WBC 94 /hpf (0-5) H 08/04/22 19:00 Ur Squamous Epith Cells 2 /hpf (0-4) 08/04/22 19:00 Urine Opiates Screen Not Detected (NotDetected) 08/04/22 19:00 Ur Oxycodone Screen Not Detected (NotDetected) 08/04/22 19:00 Urine Methadone Screen Not Detected (NotDetected) 08/04/22 19:00 Ur Propoxyphene Screen Not Detected (NotDetected) 08/04/22 19:00 Ur Barbiturates Screen Not Detected (NotDetected) 08/04/22 19:00 Valproic Acid <10.0 ug/mL 08/05/22 08:00 U Tricyclic Antidepress Not Detected (NotDetected) 08/04/22 19:00 Ur Phencyclidine Scrn Not Detected (NotDetected) 08/04/22 19:00 Ur Amphetamines Screen Not Detected (NotDetected) 08/04/22 19:00 U Methamphetamines Scrn Not Detected (NotDetected) 08/04/22 19:00 U Benzodiazepines Scrn Not Detected (NotDetected) 08/04/22 19:00 [place] 0.8 mmol/L 08/09/22 06:31 Urine Cocaine Screen Not Detected (NotDetected) 08/04/22 19:00 U Marijuana (THC) Screen Not Detected (NotDetected) 08/04/22 19:00 Coronavirus (PCR) Not Detected (Not Detectd) 08/05/22 06:13 Allergies Allergy/AdvReac Type Severity Reaction Status Date / Time Penicillins Allergy Severe Anaphylaxis Verified 08/05/22 09:46 cephalexin monohydrate Allergy Anaphylaxis Verified 08/05/22 09:46 [From Keflex] iodine Allergy Unknown Verified 08/05/22 09:46 Mushroom AdvReac Unknown Verified 08/05/22 09:46 Patient Condition at Discharge: Stable Plan - Discharge Summary Discharge Rx Participant: No New Discharge Prescriptions: New Benztropine Mesylate [Cogentin] 0.5 mg PO BID 30 Days #60 tab [place] Carbonate 300 mg PO QAM 30 Days #30 cap [place] Carbonate 600 mg PO HS 30 Days #60 cap risperiDONE ER inj [Perseris] 120 mg SQ QMONTHLY #1 each Continue metFORMIN HCL [Glucophage] 1,000 mg PO BID Fenofibrate [Lofibra] 54 mg PO DAILY Ezetimibe [Zetia] 10 mg PO DAILY Insulin Aspart [NovoLOG Flexpen] 10 units SQ AC-TID Losartan [Cozaar] 25 mg PO DAILY Albuterol Inhaler [Ventolin Hfa Inhaler] 2 puff INHALATION RT-Q4H PRN PRN Reason: Shortness Of Breath Insulin Aspart [NovoLOG Flexpen] See Protocol SQ AC-TID PRN PRN Reason: high blood sugar Linagliptin [Tradjenta] 5 mg PO DAILY Omeprazole 40 mg PO DAILY Celecoxib [CeleBREX] 100 mg PO DAILY Mirabegron [Myrbetriq] 50 mg PO DAILY Cetirizine HCl [Zyrtec] 10 mg PO DAILY Discontinued Divalproex ER [Depakote ER] 500 mg PO BID 30 Days #60 tab risperiDONE [RisperDAL] 2 mg PO BID 30 Days #60 tab guanFACINE HCL [guanFACINE HCL ER] 3 mg PO DAILY Discharge Medication List metFORMIN HCL [Glucophage] 1,000 mg PO BID 08/03/16 [History] Ezetimibe [Zetia] 10 mg PO DAILY 03/17/20 [History] Fenofibrate [Lofibra] 54 mg PO DAILY 03/17/20 [History] Albuterol Inhaler [Ventolin Hfa Inhaler] 2 puff INHALATION RT-Q4H PRN 01/26/21 [History] Insulin Aspart [NovoLOG Flexpen] 10 units SQ AC-TID 01/26/21 [History] Linagliptin [Tradjenta] 5 mg PO DAILY 01/26/21 [History] Losartan [Cozaar] 25 mg PO DAILY 01/26/21 [History] Omeprazole 40 mg PO DAILY 01/26/21 [History] Celecoxib [CeleBREX] 100 mg PO DAILY 08/04/22 [History] Cetirizine HCl [Zyrtec] 10 mg PO DAILY 08/04/22 [History] Insulin Aspart [NovoLOG Flexpen] See Protocol SQ AC-TID PRN 08/04/22 [History] Mirabegron [Myrbetriq] 50 mg PO DAILY 08/04/22 [History] Benztropine Mesylate [Cogentin] 0.5 mg PO BID 30 Days #60 tab 08/10/22 [Rx] [place] Carbonate 300 mg PO QAM 30 Days #30 cap 08/10/22 [Rx] [place] Carbonate 600 mg PO HS 30 Days #60 cap 08/10/22 [Rx] risperiDONE ER inj [Perseris] 120 mg SQ QMONTHLY #1 each 08/10/22 [Rx] Follow up Appointment(s)/Referral(s): [facility] [Outside] - 08/10/22 12:00 pm (intake with [facility] on the unit) Nelly Maldonado MD [Primary Care Provider] - 1-2 days Patient Instructions/Handouts: Bipolar Disorder (DC), Generalized Anxiety Disorder (ED) Activity/Diet/Wound Care/Special Instructions: Avoid the use of street drugs and alcohol. Take all medications as prescribed. When you are in need of refills on your medications, please contact your medical provider and/or outpatient psychiatrist to have this done. Please go to scheduled outpatient appointments for aftercare treatment. If symptoms return or become worse, call the crisis line at and/or go to the nearest emergency room for evaluation. Discharge Disposition: HOME SELF-CARE
[2022-08-10 12:47] LABS: Glucose,Whole Blood 119 mg/dL (70-110)
== END 2022-08-10 14:03 | disposition home or self-care (01) | DRG 885 ==
LOC: EC 16:06 → 3MHU 08-05 07:16
PROVIDERS: ADMIT Psychiatry & Neurology Psychiatry; ATTEND Psychiatry & Neurology Psychiatry
DX: F31.2 Bipolar disorder, current episode manic severe with psychotic features (principal); R45.851 Suicidal ideations; E11.9 Type 2 diabetes mellitus without complications; E78.5 Hyperlipidemia, unspecified; I10 Essential (primary) hypertension; I25.10 Atherosclerotic heart disease of native coronary artery without angina pectoris; R48.0 Dyslexia and alexia; Z79.1 Long term (current) use of non-steroidal anti-inflammatories (NSAID); Z79.4 Long term (current) use of insulin; Z79.84 Long term (current) use of oral hypoglycemic drugs; Z79.899 Other long term (current) drug therapy; Z28.21 Immunization not carried out because of patient refusal; Z20.822 Contact with and (suspected) exposure to COVID-19; Z71.89 Other specified counseling; Z88.0 Allergy status to penicillin; Z88.8 Allergy status to other drugs, medicaments and biological substances
CPT/HCPCS: 36415; 80053; 80061; 80076; 80164; 80178; 80306; 81001; 82075; 83036; 83735; 84443; 85025; 87086; 87635; 93005; 99285

== ENCOUNTER 2022-08-15 20:38 | Inpatient (IN) | payer MEDICARE, MEDICAID ==
[2022-08-15] MEDS ORDERED: SODIUM CHLORIDE 0.9% 1,000 ML IV STA (20:50)
[2022-08-15] MEDS ORDERED: ONDANSETRON 4 MG/2 ML VIAL IVP STA (20:50)
[2022-08-15] MEDS ORDERED: NYSTATIN 100,000 UNIT/GM POWD 15 GM TOPICAL ONE (21:10)
[2022-08-15 21:39] LABS: Basophils % (A) 1 %; Eosinophils # (A) 0.2 k/uL (0-0.7); Eosinophils % (A) 3 %; HCT 38.3 % (34.0-46.0); HGB 12.8 gm/dL (11.4-16.0); Lymphocytes # (A) 1.6 k/uL (1.0-4.8); Lymphocytes % (A) 25 %; MCH 29.3 pg (25.0-35.0); MCHC 33.5 g/dL (31.0-37.0); MCV 87.5 fL (80.0-100.0); Mean Platelet Volume 8.7; Monocytes # (A) 0.3 k/uL (0-1.0); Monocytes % (A) 5 %; Neutrophils % (A) 65 %; Platelet Count 229 k/uL (150-450); RBC 4.37 m/uL (3.80-5.40); RDW 12.6 % (11.5-15.5); WBC 6.2 k/uL (3.8-10.6)
[2022-08-15 21:55] LABS: ALT 59 U/L (4-34); AST 50 U/L (14-36); African American GFR (CKD) >90 (>60 ml/min/1.73 sqM); Albumin 4.1 g/dL (3.5-5.0); Alkaline Phosphatase 131 U/L (38-126); Anion Gap 9 mmol/L; Blood Urea Nitrogen 8 mg/dL (7-17); Calcium 9.3 mg/dL (8.4-10.2); Carbon Dioxide 21 mmol/L (22-30); Chloride 108 mmol/L (98-107); Lithium 0.3 mmol/L; Non-African American GFR(CKD) >90 (>60 ml/min/1.73 sqM); Potassium 4.2 mmol/L (3.5-5.1); Sodium 138 mmol/L (137-145); Total Bilirubin 0.8 mg/dL (0.2-1.3); Total Protein 6.8 g/dL (6.3-8.2)
[2022-08-15] MEDS ORDERED: LORazepam 1 MG TAB PO STA (22:14)
[2022-08-15] MEDS ORDERED: ONDANSETRON ODT 4 MG TAB PO STA (22:14)
[2022-08-15 22:22] LABS: Glucose 176 mg/dL (74-99)
--- NOTE | 2022-08-15 22:31 | ED ---
Anxiety HPI - General Chief Complaint: Dizziness Stated Complaint: Mental health Time Seen by Provider: 08/15/22 20:40 Source: patient, EMS, RN notes reviewed Mode of arrival: EMS Limitations: no limitations - History of Present Illness Initial Comments: This is a 51-year-old female who presents to the emergency department for psychiatric evaluation. She was discharged from this facility about 5 days ago after being treated on the mental health floor. States that she was started on lithium. Since starting the lithium, she has had dizziness and nausea. Also believes that her anxiety is starting to worsen. She has had intermittent suicidal thoughts, but denies any plans. Also denies any homicidal ideations, auditory/visual hallucinations. Additionally, she is complaining of a rash under her abdominal fold. She's used [id number] A+D Ointment with some relief. States that she only noticed this rash last night. Denies any fevers, chills, sore throat, cough, dyspnea, chest pain, palpitations, abdominal pain, vomiting, diarrhea, back pain, or headaches. MD Complaint: anxiety - Related Data Home Medications: Home Medications Medication Instructions Recorded Confirmed metFORMIN HCL [Glucophage] 1,000 mg PO BID 08/03/16 08/16/22 Ezetimibe [Zetia] 10 mg PO DAILY 03/17/20 08/16/22 Fenofibrate [Lofibra] 54 mg PO DAILY 03/17/20 08/16/22 Albuterol Inhaler [Ventolin Hfa 2 puff INHALATION RT-Q4H PRN 01/26/21 08/16/22 Inhaler] Insulin Aspart [NovoLOG Flexpen] 10 units SQ AC-TID 01/26/21 08/16/22 Linagliptin [Tradjenta] 5 mg PO DAILY 01/26/21 08/16/22 Losartan [Cozaar] 25 mg PO DAILY 01/26/21 08/16/22 Omeprazole 40 mg PO DAILY 01/26/21 08/16/22 Celecoxib [CeleBREX] 100 mg PO DAILY 08/04/22 08/16/22 Cetirizine HCl [Zyrtec] 10 mg PO DAILY 08/04/22 08/16/22 Insulin Aspart [NovoLOG Flexpen] See Protocol SQ AC-TID PRN 08/04/22 08/16/22 Mirabegron [Myrbetriq] 50 mg PO DAILY 08/04/22 08/16/22 Previous Rx's Medication Instructions Recorded Benztropine Mesylate [Cogentin] 0.5 mg PO BID 30 Days #60 tab 08/10/22 S[place]y Carbonate 300 mg PO QAM 30 Days #30 cap 08/10/22 [place] Carbonate 600 mg PO HS 30 Days #60 cap 08/10/22 risperiDONE ER inj [Perseris] 120 mg SQ QMONTHLY #1 each 08/10/22 Allergies/Adverse Reactions: Allergies Allergy/AdvReac Type Severity Reaction Status Date / Time Penicillins Allergy Severe Anaphylaxis Verified 08/16/22 05:29 cephalexin monohydrate Allergy Anaphylaxis Verified 08/16/22 05:29 [From Keflex] iodine Allergy Unknown Verified 08/16/22 05:29 Mushroom AdvReac Unknown Verified 08/16/22 05:29 Review of Systems ROS Statement: Those systems with pertinent positive or pertinent negative responses have been documented in the HPI. ROS Other: All systems not noted in ROS Statement are negative. Past Medical History Past Medical History: Coronary Artery Disease (CAD), Diabetes Mellitus, GERD/Reflux, Hyperlipidemia, Hypertension Additional Past Medical History / Comment(s): NIDDM type II, dyslexia. History of Any Multi-Drug Resistant Organisms: ESBL Date of last positivie culture/infection: 08/11/21-ESBL MDRO Source:: URINE Past Surgical History: Adenoidectomy, Section, Tonsillectomy Additional Past Surgical History / Comment(s): Nasal surgery Past Anesthesia/Blood Transfusion Reactions: Postoperative Nausea & Vomiting (PONV) Additional Past Anesthesia/Blood Transfusion Reaction / Comment(s): Pt states she has never received blood. Past Psychological History: Anxiety, Depression, Panic Disorder Smoking Status: Never smoker Past Alcohol Use History: None Reported Past Drug Use History: None Reported - Past Family History Mother Family Medical History: Cancer Additional Family Medical History / Comment(s): Mother has lymphoma. Father History Unknown: Yes Additional Family Medical History / Comment(s): Father left when pt was 2 months old. General Exam Limitations: no limitations General appearance: alert, anxious Head exam: Present: atraumatic, normocephalic, normal inspection Respiratory exam: Present: normal lung sounds bilaterally. Absent: respiratory distress, wheezes, rales, rhonchi, stridor Cardiovascular Exam: Present: regular rate, normal rhythm, normal heart sounds. Absent: systolic murmur, diastolic murmur, rubs, gallop, clicks GI/Abdominal exam: Present: other (Erythematous satellite lesions in the abdominal pannus consistent with cutaneous candidiasis) Neurological exam: Present: alert, oriented X3, CN II-XII intact Psychiatric exam: Present: anxious Course Vital Signs 08/15/22 08/16/22 20:49 01:31 Temperature 97.5 F L Pulse Rate 82 Respiratory 15 16 Rate Blood Pressure 156/86 O2 Sat by Pulse 99 Oximetry Medical Decision Making - Medical Decision Making This is a 51-year-old female who presents to the emergency department for psychiatric evaluation. Was pt. sent in by a medical professional or institution? @ -No Did you speak to anyone other than the patient for history? @ -No Did you review nursing and triage notes? @ -Yes, and I agree, it is accurate with regards to the patient's symptoms. Were old charts reviewed? @ -No Differential Diagnosis? @ -Differential Mental Health: Depression, anxiety, bipolar, psychosis, schizophrenia, borderline personality, situational depression, adjustment disorder, behavioral disorder, brain tumor, m alingering, substance abuse, encephalopathy, medication reaction, dementia, hypothyroidism, degenerative neurologic disorder, lupus.... This is not meant to be all-inclusive list EKG interpreted by me (3pts min.)? @ -EKG interpreted by me demonstrating the following: Sinus rhythm. Ventricular rate 73 beats per minute, RI interval 194 ms, QRS duration 118 ms, QTC 441 ms. X-rays interpreted by me (1pt min.)? @ -Not obtained CT interpreted by me (1pt min.)? @ -Not obtained U/S interpreted by me (1pt. min.)? @ -Not obtained What testing was considered but not performed? (CT, X-rays, U/S, labs)? Why? @ -None What meds were considered but not given? Why? @ -None Did you discuss the management of the patient with other professionals? @ -Yes, EPS, who advised that the patient meets inpatient psychiatric admission criteria. Did you reconcile home meds? @ -No Was smoking cessation discussed for >3mins.? @ -No Was critical care preformed (if so, how long)? @ -No Were there social determinants of health that impacted care today? How? (Homelessness, low income, unemployed, alcoholism, drug addiction, transportation, low edu. Level, literacy, decrease access to med. care, correction, rehab)? @ -No Was there de-escalation of care discussed even if they declined? (Discuss DNR or withdrawal of care, Hospice)? @ -No What co-morbidities impacted this encounter? (DM, HTN, Smoking, COPD, CAD, Cancer, CVA, Hep., AIDS, mental health diagnosis, sleep apnea, morbid obesity)? @ -Bipolar disorder, anxiety Was patient admitted / discharged? @ -Admitted. Given her complaints of dizziness and nausea, we did obtain baseline blood work including cardiac workup, which was found to be negative. Sibley level is subtherapeutic. Physical examination of the rash in her abdominal pannus is consistent with cutaneous candidiasis. Nystatin powder was subsequently ordered. BAT and urine drug screen are negative. After the blood work had returned, she was cleared for EPS evaluation. EPS determined her to meet criteria for inpatient psychiatric management. Patient admitted to [facility] on a voluntary basis for further care. Undiagnosed new problem with uncertain prognosis? @ -None Drug Therapy requiring intensive monitoring for toxicity (Heparin, Nitro, Insulin, Cardizem)? @ -None Were any procedures done? @ -None Diagnosis/symptom? @ -Anxiety, Bipolar disorder Acute, or Chronic, or Acute on Chronic? @ -Acute on chronic Uncomplicated (without systemic symptoms) or Complicated (systemic symptoms)? @ -Complicated Side effects of treatment? @ -None Exacerbation, Progression, or Severe Exacerbation] @ -Severe exacerbation Poses a threat to life or bodily function? @ -Yes Diagnosis/symptom? @ -Suicidal ideations Acute, or Chronic, or Acute on Chronic? @ -Acute Uncomplicated (without systemic symptoms) or Complicated (systemic symptoms)? @ -Complicated Side effects of treatment? @ -None Exacerbation, Progression, or Severe Exacerbation] @ -Not applicable Poses a threat to life or bodily function? @ -Yes This case was discussed in detail with the attending ED physician, Dr. Teran. Presentation, findings, and treatment plan discussed in detail as well. - Lab Data Result diagrams: 08/15/22 21:23 08/15/22 21:23 Lab Results 08/15/22 08/15/22 08/15/22 Range/Units :23 21:23 21:23 WBC 6.2 (3.8-10.6) k/uL RBC 4.37 (3.80-5.40) m/uL Hgb 12.8 (11.4-16.0) gm/dL Hct 38.3 (34.0-46.0) % MCV 87.5 (80.0-100.0) fL MCH 29.3 (25.0-35.0) pg MCHC 33.5 (31.0-37.0) g/dL RDW 12.6 (11.5-15.5) % Plt Count 229 (150-450) k/uL MPV 8.7 Neutrophils % 65 % Lymphocytes % 25 % Monocytes % 5 % Eosinophils % 3 % Basophils % 1 % Neutrophils # 4.0 (1.3-7.7) k/uL Lymphocytes # 1.6 (1.0-4.8) k/uL Monocytes # 0.3 (0-1.0) k/uL Eosinophils # 0.2 (0-0.7) k/uL Basophils # 0.0 (0-0.2) k/uL Sodium 138 (137-145) mmol/L Potassium 4.2 (3.5-5.1) mmol/L Chloride 108 H (98-107) mmol/L Carbon Dioxide 21 L (22-30) mmol/L Anion Gap 9 mmol/L BUN 8 (7-17) mg/dL Creatinine 0.49 L (0.52-1.04) mg/dL Est GFR (CKD-EPI)AfAm >90 (>60 ml/min/1.73 sqM) Est GFR (CKD-EPI)NonAf >90 (>60 ml/min/1.73 sqM) Glucose 176 H (74-99) mg/dL Calcium 9.3 (8.4-10.2) mg/dL Total Bilirubin 0.8 (0.2-1.3) mg/dL AST 50 H (14-36) U/L ALT 59 H (4-34) U/L Alkaline Phosphatase 131 H (38-126) U/L Troponin I (0.000-0.034) ng/mL Total Protein 6.8 (6.3-8.2) g/dL Albumin 4.1 (3.5-5.0) g/dL Urine Opiates Screen Not Detected (NotDetected) Ur Oxycodone Screen Not Detected (NotDetected) Urine Methadone Screen Not Detected (NotDetected) Ur Propoxyphene Screen Not Detected (NotDetected) Ur Barbiturates Screen Not Detected (NotDetected) U Tricyclic Antidepress Not Detected (NotDetected) Ur Phencyclidine Scrn Not Detected (NotDetected) Ur Amphetamines Screen Not Detected (NotDetected) U Methamphetamines Scrn Not Detected (NotDetected) U Benzodiazepines Scrn Not Detected (NotDetected) [place] 0.3 mmol/L Urine Cocaine Screen Not Detected (NotDetected) U Marijuana (THC) Screen Not Detected (NotDetected) Coronavirus (PCR) (Not Detectd) 08/15/22 08/16/22 Range/Units 21:23 04:37 WBC (3.8-10.6) k/uL RBC (3.80-5.40) m/uL Hgb (11.4-16.0) gm/dL Hct (34.0-46.0) % MCV (80.0-100.0) fL MCH (25.0-35.0) pg MCHC (31.0-37.0) g/dL RDW (11.5-15.5) % Plt Count (150-450) k/uL MPV Neutrophils % % Lymphocytes % % Monocytes % % Eosinophils % % Basophils % % Neutrophils # (1.3-7.7) k/uL Lymphocytes # (1.0-4.8) k/uL Monocytes # (0-1.0) k/uL Eosinophils # (0-0.7) k/uL Basophils # (0-0.2) k/uL Sodium (137-145) mmol/L Potassium (3.5-5.1) mmol/L Chloride (98-107) mmol/L Carbon Dioxide (22-30) mmol/L Anion Gap mmol/L BUN (7-17) mg/dL Creatinine (0.52-1.04) mg/dL Est GFR (CKD-EPI)AfAm (>60 ml/min/1.73 sqM) Est GFR (CKD-EPI)NonAf (>60 ml/min/1.73 sqM) Glucose (74-99) mg/dL Calcium (8.4-10.2) mg/dL Total Bilirubin (0.2-1.3) mg/dL AST (14-36) U/L ALT (4-34) U/L Alkaline Phosphatase (38-126) U/L Troponin I <0.012 (0.000-0.034) ng/mL Total Protein (6.3-8.2) g/dL Albumin (3.5-5.0) g/dL Urine Opiates Screen (NotDetected) Ur Oxycodone Screen (NotDetected) Urine Methadone Screen (NotDetected) Ur Propoxyphene Screen (NotDetected) Ur Barbiturates Screen (NotDetected) U Tricyclic Antidepress (NotDetected) Ur Phencyclidine Scrn (NotDetected) Ur Amphetamines Screen (NotDetected) U Methamphetamines Scrn (NotDetected) U Benzodiazepines Scrn (NotDetected) [place] mmol/L Urine Cocaine Screen (NotDetected) U Marijuana (THC) Screen (NotDetected) Coronavirus (PCR) Not Detected (Not Detectd) Disposition Clinical Impression: Suicidal ideations, Anxiety, Bipolar 1 disorder Disposition: ADMITTED IP TO THIS HOSP
[2022-08-15 22:36] LABS: Amphetamine Screen,Urine Not Detected (NotDetected); Barbiturate Screen,Urine Not Detected (NotDetected); Benzodiazepines Screen,Urine Not Detected (NotDetected); Cocaine Screen,Urine Not Detected (NotDetected); Methadone Screen, Urine Not Detected (NotDetected); Opiate Screen,Urine Not Detected (NotDetected); Oxycodone Screen, Urine Not Detected (NotDetected); Phencyclidine Screen,Urine Not Detected (NotDetected); Tricyclic Antidepressant,Urine Not Detected (NotDetected); Urn Cannabinoid Scrn Not Detected (NotDetected)
[2022-08-16] MEDS ORDERED: hydrOXYzine pamoate 25 MG CAP PO STA (01:25)
[2022-08-16] MEDS ORDERED: MAGNESIUM HYDROXIDE 2,400 MG/30 ML CUP PO PRN (05:10)
[2022-08-16] MEDS ORDERED: ACETAMINOPHEN TAB 325 MG TAB PO PRN (05:10)
[2022-08-16] MEDS ORDERED: hydrOXYzine HCL 50 MG/ML 1 ML VIAL IM PRN (05:10)
[2022-08-16] MEDS ORDERED: ALBUTEROL INHALER 60 PUFF/8 GM INHALER (MHU) INHALATION PRN (05:14)
[2022-08-16 07:53] LABS: Glucose,Whole Blood 172 mg/dL (70-110)
[2022-08-16] MEDS: BENZTROPINE MESYLATE 0.5 MG TAB PO SCH ×2 (08:59→21:08)
[2022-08-16] MEDS ORDERED: LITHIUM CARBONATE 300 MG CAP PO SCH ×2 (09:00→21:00)
[2022-08-16] MEDS ORDERED: DEXTROSE 50% SYRINGE 50 ML IVP PRN ×2 (09:23)
[2022-08-16] MEDS: LINAGLIPTIN 5 MG TABLET PO SCH (09:28)
[2022-08-16] MEDS ORDERED: ESCITALOPRAM 10 MG TAB PO STA (09:54)
[2022-08-16] MEDS ORDERED: diphenhydrAMINE 25 MG CAP PO STA (09:55)
[2022-08-16] MEDS: NON FORMULARY DRUG (Mirabegron [Myrbetriq] 50 MG Tab.Er.24h) PO SCH (10:19)
--- NOTE | 2022-08-16 11:57 | P.HP ---
Psychiatric H&P - . H&P Date: 08/16/22 History & Physical: Allergies Allergy/AdvReac Type Severity Reaction Status Date / Time Penicillins Allergy Severe Anaphylaxis Verified 08/16/22 05:29 cephalexin monohydrate Allergy Anaphylaxis Verified 08/16/22 05:29 [From Keflex] iodine Allergy Unknown Verified 08/16/22 05:29 Mushroom AdvReac Unknown Verified 08/16/22 05:29 Vital Signs Temp 97.3 F L 08/16/22 05:50 Pulse 64 08/16/22 05:50 Resp 15 08/16/22 05:50 BP 131/77 08/16/22 05:50 Pulse Ox 97 08/16/22 05:50 FiO2 Intake & Output 08/15/22 08/16/22 08/16/22 18:59 06:59 18:59 Weight 94.035 kg Laboratory Last Values WBC 6.2 k/uL (3.8-10.6) 08/15/22 21: RBC 4.37 m/uL (3.80-5.40) 08/15/22 21: Hgb 12.8 gm/dL (11.4-16.0) 08/15/22 21: Hct 38.3 % (34.0-46.0) 08/15/22 21: MCV 87.5 fL (80.0-100.0) 08/15/22 21: MCH 29.3 pg (25.0-35.0) 08/15/22 21: MCHC 33.5 g/dL (31.0-37.0) 08/15/22 21: RDW 12.6 % (11.5-15.5) 08/15/22 21: Plt Count 229 k/uL (150-450) 08/15/22 21: MPV 8.7 08/15/22 21: Neutrophils % 65 % 08/15/22 21: Lymphocytes % 25 % 08/15/22 21: Monocytes % 5 % 08/15/22 21: Eosinophils % 3 % 08/15/22 21: Basophils % 1 % 08/15/22 21: Neutrophils # 4.0 k/uL (1.3-7.7) 08/15/22 21: Lymphocytes # 1.6 k/uL (1.0-4.8) 08/15/22 21: Monocytes # 0.3 k/uL (0-1.0) 08/15/22 21: Eosinophils # 0.2 k/uL (0-0.7) 08/15/22 21: Basophils # 0.0 k/uL (0-0.2) 08/15/22 21: Sodium 138 mmol/L (137-145) 08/15/22 21: Potassium 4.2 mmol/L (3.5-5.1) 08/15/22 21: Chloride 108 mmol/L (98-107) H 08/15/22 21: Carbon Dioxide 21 mmol/L (22-30) L 08/15/22 21: Anion Gap 9 mmol/L 08/15/22 21: BUN 8 mg/dL (7-17) 08/15/22 21: Creatinine 0.49 mg/dL (0.52-1.04) L 08/15/22 21: Est GFR (CKD-EPI)AfAm >90 (>60 ml/min/1.73 sqM) 08/15/22 21: Est GFR (CKD-EPI)NonAf >90 (>60 ml/min/1.73 sqM) 08/15/22 21: Glucose 176 mg/dL (74-99) H 08/15/22 21: POC Glucose (mg/dL) 172 mg/dL (70-110) H 08/16/22 07:51 POC Glu [employer] RICARDO Poncho Ho 08/16/22 07:51 Calcium 9.3 mg/dL (8.4-10.2) 08/15/22 21: Total Bilirubin 0.8 mg/dL (0.2-1.3) 08/15/22 21: AST 50 U/L (14-36) H 08/15/22 21: ALT 59 U/L (4-34) H 08/15/22 21: Alkaline Phosphatase 131 U/L (38-126) H 08/15/22 21: Troponin I <0.012 ng/mL (0.000-0.034) 08/15/22 21: Total Protein 6.8 g/dL (6.3-8.2) 08/15/22 21:23 Albumin 4.1 g/dL (3.5-5.0) 08/15/22 21:23 Urine Opiates Screen Not Detected (NotDetected) 08/15/22 21:23 Ur Oxycodone Screen Not Detected (NotDetected) 08/15/22 21:23 Urine Methadone Screen Not Detected (NotDetected) 08/15/22 21:23 Ur Propoxyphene Screen Not Detected (NotDetected) 08/15/22 21:23 Ur Barbiturates Screen Not Detected (NotDetected) 08/15/22 21:23 U Tricyclic Antidepress Not Detected (NotDetected) 08/15/22 21:23 Ur Phencyclidine Scrn Not Detected (NotDetected) 08/15/22 21:23 Ur Amphetamines Screen Not Detected (NotDetected) 08/15/22 21:23 U Methamphetamines Scrn Not Detected (NotDetected) 08/15/22 21:23 U Benzodiazepines Scrn Not Detected (NotDetected) 08/15/22 21:23 [place] 0.3 mmol/L 08/15/22 21:23 Urine Cocaine Screen Not Detected (NotDetected) 08/15/22 21:23 U Marijuana (THC) Screen Not Detected (NotDetected) 08/15/22 21:23 Coronavirus (PCR) Not Detected (Not Detectd) 08/16/22 04:37 08/16/22 11:57 IDENTIFYING DATA: Patient is a 51-year-old , unemployed, female with significant history of bipolar 1 disorder with psychotic behavior who presented to our hospital on 08/15/2022 for depression and suicidal ideation shortly after being discharged from our psychiatric unit on 08/10/2022. HPI: Patient presented to the hospital on 08/15/2022 with complaints of suicidal ideation. The patient was most recently discharged from our psychiatric unit on 08/15/2022. However, the patient reports that since coming home, she has been increasingly depressed. She reports that she has been having nonstop suicidal thoughts however is not reporting any plan and denies any attempts. The patient reports that as soon as she started feeling this way, she informed her rework machine operator Zhen to take her to the hospital. The patient was recently discharged from our psychiatric unit and maintains that she has been adherent with medications. She does report that the medications "are not working." She reports that she would prefer to take liquid Depakote than lithium. She states the lithium appears to be causing her to feel nauseous. During this admission, the patient is alert and oriented in all spheres compared to her previous admission less than 2 weeks ago when she wasn't overtly manic state. The patient is able to identify person, place, and time. The patient does have a significant history of bipolar disorder and most recently has had numerous psychiatric admissions after being nonadherent with her psychiatric medications last year. The patient did receive Risperidone perseris on 120 mg SQ qMonthly with her next door 09/06/2022. PAST PSYCHIATRIC HISTORY: Patient has previous diagnoses of bipolar disorder with psychotic features and anxiety. She was last admitted onto our psychiatric unit from 08/04/2022 - 08/10/2022 on a regimen of risperidone perseris and lithium. She also has previously trialed Depakote. She reports no prior attempts at suicide. She states that she has been adherent with her current medication regimen. PMH: Past Medical History: Coronary Artery Disease (CAD), Diabetes Mellitus, GERD/Reflux, Hyperlipidemia, Hypertension Additional Past Medical History / Comment(s): NIDDM type II, dyslexia. History of Any Multi-Drug Resistant Organisms: ESBL Date of last positivie culture/infection: 08/11/21-ESBL MDRO Source:: URINE Past Surgical History: Adenoidectomy, Section, Tonsillectomy Additional Past Surgical History / Comment(s): Nasal surgery Past Anesthesia/Blood Transfusion Reactions: Postoperative Nausea & Vomiting (PONV) Additional Past Anesthesia/Blood Transfusion Reaction / Comment(s): Pt states she has never received blood. Past Psychological History: Anxiety, Depression, Panic Disorder Smoking Status: Never smoker Past Alcohol Use History: None Reported Past Drug Use History: None Reported ALLERGIES: Allergies Allergy/AdvReac Type Severity Reaction Status Date / Time Penicillins Allergy Severe Anaphylaxis Verified 08/16/22 05:29 cephalexin monohydrate Allergy Anaphylaxis Verified 08/16/22 05:29 [From Keflex] iodine Allergy Unknown Verified 08/16/22 05:29 Mushroom AdvReac Unknown Verified 08/16/22 05:29 CHEMICAL DEPENDENCY HISTORY: The patient reports no tobacco, alcohol, marijuana, or illicit drug use. FAMILY PSYCHIATRIC/SUBSTANCE USE HISTORY: As per chart review, her mother has unspecified mental illness as per patient. SOCIAL HISTORY: Unable to clearly assess at this time the patient's acute psychosis. As per chart review: Patient was born and raised in [place]. She reports that she has a twin son and daughter named Munira and Thomas. She reports that police informed her that her children will be taken care of. The patient also has a 20-year-old daughter however this is not confirmed at this time. The patient is unable to identify if she has any gainful employment. MENTAL STATUS EXAM: General Appearance: Patient appears to be stated age is alert, directable, and attempts to cooperate. Patient appears to have fair hygiene and grooming. Patient is wearing makeup. Her nails are done. Behavior: Patient is seated without any agitated behavior. Eye contact is appro priate. Slightly elevated psychomotor activity. Speech: Patient's speech is fluent and nonpressured. Mood/Affect: Patient reports their mood is depressed, affect is nervous and anxious. Suicidality/Homicidality: Patient reports suicidal ideation. She denies any homicidal ideation. Perceptions: Patient reports vague shadow like visual hallucinations. She reports no auditory hallucinations. Though content/process: There is no evidence of any delusional thought content and thought process is linear and goal-directed. Memory and concentration: AOX3, grossly intact for the purposes of this session. Can spell "WORLD" backwards Judgment and insight: Fair STRENGTHS/WEAKNESSES: Strength is that the patient has a duty to her children and is future and goal oriented. Weakness is that the patient has severe treatment resistant mental illness. INTELLECT: average IMPRESSIONS: Bipolar 1 disorder, depressive episode, rapid cycling PLAN: -Patient is admitted under voluntary status to [facility] for stabilization of psychiatric symptoms and safety. Patient signed adult voluntary form and medication consent and is placed in patient's chart. -Medications : Will start patient on Lexapro 10 mg by mouth daily for bipolar depression Risperidone perseris 120 mg SQ is due on 09/06/2022. Discontinue lithium and start Depakote oral solution 500 mg by mouth twice a day for mood stabilization Continue Cogentin 0.5 mg by mouth twice a day for EPS side effects -Vistaril PRN for agitation/aggression -Patient was informed of the risks, benefits and side effects of the medication and patient verbally consented to taking the medications. -Internal Medicine consult to perform medical evaluation and physical. -SW on board for discharge planning. Encourage patient to participate in groups to work on coping skills. 08/16/22 11:57
[2022-08-16 12:49] LABS: Glucose,Whole Blood 151 mg/dL (70-110)
[2022-08-16] MEDS: INSULIN ASPART (NovoLOG) 100 UNIT/ML VIAL SQ SCH ×3 (12:50→21:10)
--- NOTE | 2022-08-16 15:20 | P.MDCNMH ---
History of Present Illness H&P Date: 08/16/22 History of present illness; patient is a 51-year-old lady with past medical history significant for coronary artery disease, diabetes mellitus, GERD, hyperlipidemia, hypertension, anxiety/depression, panic disorder who was recently discharged from inpatient psych after being treated for severe manic bipolar disorder with psychotic behavior, patient was discharged on lithium. Patient stated ever since she has been discharged from the hospital she has been feeling more anxious. Patient is having thoughts of hurting herself. Denies any auditory or visual hallucinations. Because her worsening anxiety and suicidal thoughts, patient came to the ER initial lab work in the ER showed WBC 6.2, hemoglobin 12.8, platelet count 229, sodium 138, potassium 4.2, BUN 8, creatinine 0.49 Urine drug screen negative. Patient admitted to inpatient psych REVIEW OF SYSTEMS: CONSTITUTIONAL: No fever, no malaise, no fatigue. HEENT: No recent visual problems or hearing problems. Denied any sore throat. CARDIOVASCULAR: No chest pain, orthopnea, PND, no palpitations, no syncope. PULMONARY: No shortness of breath, no cough, no hemoptysis. GASTROINTESTINAL: No diarrhea, no nausea, no vomiting, no abdominal pain. NEUROLOGICAL: No headaches, no weakness, no numbness. HEMATOLOGICAL: Denies any bleeding or petechiae. GENITOURINARY: Denies any burning micturition, frequency, or urgency. MUSCULOSKELETAL/RHEUMATOLOGICAL: Denies any joint pain, swelling, or any muscle pain. ENDOCRINE: Denies any polyuria or polydipsia. The rest of the 14-point review of systems is negative. PHYSICAL EXAMINATION: GENERAL: The patient is alert and oriented x3, not in any acute distress. Well developed, well nourished. HEENT: Pupils are round and equally reacting to light. EOMI. No scleral icterus. No conjunctival pallor. Normocephalic, atraumatic. No pharyngeal erythema. No thyromegaly. CARDIOVASCULAR: S1 and S2 present. No murmurs, rubs, or gallops. PULMONARY: Chest is clear to auscultation, no wheezing or crackles. ABDOMEN: Soft, nontender, nondistended, normoactive bowel sounds. No palpable organomegaly. MUSCULOSKELETAL: No joint swelling or deformity. EXTREMITIES: No cyanosis, clubbing, or pedal edema. NEUROLOGICAL: Gross neurological examination did not reveal any focal deficits. SKIN: rash under abdominal folds Assessment and plan Bipolar disorder Hypertension Insulin-dependent diabetes mellitus Cutaneous candidiasis Monitor vital signs Monitor CBC Monitor blood sugar levels Continue sliding scale insulin Resume Zetia and fenofibrate Resume losartan continue nystatin continue psych meds per psychiatry team DVT prophylaxis: Past Medical History Past Medical History: Coronary Artery Disease (CAD), Diabetes Mellitus, GERD/Reflux, Hyperlipidemia, Hypertension Additional Past Medical History / Comment(s): NIDDM type II, dyslexia. History of Any Multi-Drug Resistant Organisms: None Reported, ESBL Date of last positivie culture/infection: 08/11/21-ESBL MDRO Source:: URINE Past Surgical History: Adenoidectomy, Section, Tonsillectomy Additional Past Surgical History / Comment(s): Nasal surgery Past Anesthesia/Blood Transfusion Reactions: Postoperative Nausea & Vomiting (PONV) Additional Past Anesthesia/Blood Transfusion Reaction / Comment(s): Pt states she has never received blood. Past Psychological History: Anxiety, Depression, Panic Disorder Additional Psychological History / Comment(s): She is independent. She has dyslexia. She states she has mild comprehension problem. Smoking Status: Never smoker Past Alcohol Use History: None Reported Past Drug Use History: None Reported - Past Family History Mother Family Medical History: Cancer Additional Family Medical History / Comment(s): Mother has lymphoma. Father History Unknown: Yes Additional Family Medical History / Comment(s): Father left when pt was 2 months old. Medications and Allergies Home Medications Medication Instructions Recorded Confirmed Type metFORMIN HCL [Glucophage] 1,000 mg PO BID 08/03/16 08/16/22 History Ezetimibe [Zetia] 10 mg PO DAILY 03/17/20 08/16/22 History Fenofibrate [Lofibra] 54 mg PO DAILY 03/17/20 08/16/22 History Albuterol Inhaler [Ventolin Hfa 2 puff INHALATION RT-Q4H PRN 01/26/21 08/16/22 History Inhaler] Insulin Aspart [NovoLOG Flexpen] 10 units SQ AC-TID 01/26/21 08/16/22 History Linagliptin [Tradjenta] 5 mg PO DAILY 01/26/21 08/16/22 History Losartan [Cozaar] 25 mg PO DAILY 01/26/21 08/16/22 History Omeprazole 40 mg PO DAILY 01/26/21 08/16/22 History Celecoxib [CeleBREX] 100 mg PO DAILY 08/04/22 08/16/22 History Cetirizine HCl [Zyrtec] 10 mg PO DAILY 08/04/22 08/16/22 History Insulin Aspart [NovoLOG Flexpen] See Protocol SQ AC-TID PRN 08/04/22 08/16/22 History Mirabegron [Myrbetriq] 50 mg PO DAILY 08/04/22 08/16/22 History Benztropine Mesylate [Cogentin] 0.5 mg PO BID 30 Days #60 tab 08/10/22 08/16/22 Rx Ryan Carbonate 300 mg PO QAM 30 Days #30 cap 08/10/22 08/16/22 Rx Ryan Carbonate 600 mg PO HS 30 Days #60 cap 08/10/22 08/16/22 Rx risperiDONE ER inj [Perseris] 120 mg SQ QMONTHLY #1 each 08/10/22 08/16/22 Rx Allergies Allergy/AdvReac Type Severity Reaction Status Date / Time Penicillins Allergy Severe Anaphylaxis Verified 08/16/22 05:29 cephalexin monohydrate Allergy Anaphylaxis Verified 08/16/22 05:29 [From Keflex] iodine Allergy Unknown Verified 08/16/22 05:29 Mushroom AdvReac Unknown Verified 08/16/22 05:29 Physical Exam Vitals: Vital Signs Temp Pulse Pulse Resp BP BP Pulse Ox 08/16/22 05:50 97.3 F L 64 15 131/77 97 08/16/22 01:31 16 08/15/22 20:49 97.5 F L 82 15 156/86 99 Intake and Output 08/15/22 08/16/22 08/16/22 22:59 06:59 14:59 Other: Weight 95.254 kg 94.035 kg Cranial Nerve Examination - Cranial Nerves Cranial Nerve II- Optic: Intact (Cranial nerves II-12) Cranial Nerve III- Oculomotor: Intact Cranial Nerve IV- Trochlear: Intact Cranial Nerve V- Trigeminal: Intact Cranial Nerve - Abducens: Intact Cranial Nerve VII- Facial: Intact Cranial Nerve VIII- Auditory: Intact Cranial Nerve IX- Glossopharyngeal: Intact Cranial Nerve X- Vagus: Intact Cranial Nerve XI- Accessory: Intact Cranial Nerve XII- Hypoglossal: Intact Results CBC & Chem 7: 08/15/22 21:23 08/15/22 21:23 Labs: Abnormal Lab Results - Last 24 Hours (Table) 08/15/22 08/16/22 Range/Units 21:23 07:51 Chloride 108 H (98-107) mmol/L Carbon Dioxide 21 L (22-30) mmol/L Creatinine 0.49 L (0.52-1.04) mg/dL Glucose 176 H (74-99) mg/dL POC Glucose (mg/dL) 172 H (70-110) mg/dL AST 50 H (14-36) U/L ALT 59 H (4-34) U/L Alkaline Phosphatase 131 H (38-126) U/L
[2022-08-16 17:45] LABS: Glucose,Whole Blood 128 mg/dL (70-110)
[2022-08-16 20:09] LABS: Glucose,Whole Blood 156 mg/dL (70-110)
[2022-08-16] MEDS: VALPROIC ACID ORAL SOLN 250 MG/5 ML CUP PO SCH (21:08)
[2022-08-16] MEDS: hydrOXYzine HCL 25 MG TAB PO PRN (21:12)
[2022-08-17 07:50] LABS: Glucose,Whole Blood 136 mg/dL (70-110)
[2022-08-17] MEDS: INSULIN ASPART (NovoLOG) 100 UNIT/ML VIAL SQ SCH ×4 (08:06→20:41)
[2022-08-17] MEDS: LOSARTAN 25 MG TAB PO SCH (08:06)
[2022-08-17] MEDS: LINAGLIPTIN 5 MG TABLET PO SCH (08:06)
[2022-08-17] MEDS: EZETIMIBE 10 MG TAB PO SCH (08:07)
[2022-08-17] MEDS: FENOFIBRATE 54 MG TAB PO SCH (08:07)
[2022-08-17] MEDS: VALPROIC ACID ORAL SOLN 250 MG/5 ML CUP PO SCH ×2 (08:07→20:42)
[2022-08-17] MEDS: BENZTROPINE MESYLATE 0.5 MG TAB PO SCH (08:07)
[2022-08-17] MEDS: NON FORMULARY DRUG (Mirabegron [Myrbetriq] 50 MG Tab.Er.24h) PO SCH (08:09)
[2022-08-17] MEDS: hydrOXYzine HCL 25 MG TAB PO PRN ×2 (09:00→16:43)
[2022-08-17] MEDS ORDERED: ESCITALOPRAM 10 MG TAB PO SCH (09:00)
[2022-08-17 12:48] LABS: Glucose,Whole Blood 110 mg/dL (70-110)
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
[2022-08-17 17:39] LABS: Glucose,Whole Blood 130 mg/dL (70-110)
[2022-08-17 20:11] LABS: Glucose,Whole Blood 148 mg/dL (70-110)
[2022-08-18 07:48] LABS: Glucose,Whole Blood 149 mg/dL (70-110)
[2022-08-18] MEDS: VALPROIC ACID ORAL SOLN 250 MG/5 ML CUP PO SCH ×2 (08:25→20:05)
[2022-08-18] MEDS: FENOFIBRATE 54 MG TAB PO SCH (08:26)
[2022-08-18] MEDS: ESCITALOPRAM 20 MG TAB PO SCH (08:26)
[2022-08-18] MEDS: LINAGLIPTIN 5 MG TABLET PO SCH (08:26)
[2022-08-18] MEDS: LOSARTAN 25 MG TAB PO SCH (08:26)
[2022-08-18] MEDS: EZETIMIBE 10 MG TAB PO SCH (08:26)
[2022-08-18] MEDS: NON FORMULARY DRUG (Mirabegron [Myrbetriq] 50 MG Tab.Er.24h) PO SCH (08:26)
[2022-08-18] MEDS: INSULIN ASPART (NovoLOG) 100 UNIT/ML VIAL SQ SCH ×4 (08:28→20:53)
[2022-08-18] MEDS: MYRBETRIQ 50 MG PO SCH (10:22)
[2022-08-18] MEDS: hydrOXYzine HCL 25 MG TAB PO PRN ×2 (10:38→19:05)
[2022-08-18 12:27] LABS: Glucose,Whole Blood 130 mg/dL (70-110)
--- NOTE | 2022-08-18 13:37 | P.PN ---
Subjective Progress Note Date: 08/18/22 Principal diagnosis: progress note She was seen in person today and clinical progress was reviewed with the staff at team meeting. Her care was transfered to ct today and tomorrow. She appeared to be more stable and less anxious comapred to her admission presentation. She was aware that whever she was trapped in the panicky state, she would develop "thick tongue" as if she had pseuro-dysarthria. Today she was talking freening abotu her concerns over her children (8-yr twin children) under her joint care home care. She failed to understand how her custodya arrangment would be jeopardized if she continued to be severe in her mood symptoms: "feeling depressed" with start of feeling uable to cope any longer. I reviewed Her Rx: She was re-started on SSRI for managing her anxiety and depressive symptoms: citaloprim 20 mg in addition to her Depakote 750 mg po bi fo rher bipolar disorder complicated b her comorbid General anxiety disorder and Panic disorder. MSE: pleasant ciioeratuve highly lucid, non distractible. Affect; full range of affect. no irritability, moderatly anxious re: Rx help and readjustment. She was reminded that her Rx regimen was only started yesterday . Congruent with her thought content. Preoccupied with her access to her children ; however, no i ntrusive thoughts. No hallucinations or No delusions of guilt . slgiht paranoid ideas of reference. Cognition: oriented articulate with fair insight judgmene in her family dynamics and her oarental role. Management Plan: contnue on current Rx. discharge on Monday: pt commened she was going better and required no addtional inpatient days. Objective - Vital Signs Vital signs: Vital Signs Temp 97.6 F 08/18/22 06:42 Pulse 63 08/18/22 06:42 Resp 16 08/18/22 06:42 BP 101/50 08/18/22 06:42 Pulse Ox 97 08/16/22 05:50 FiO2 - Labs CBC & Chem 7: 08/15/22 21:23 08/15/22 21:23 Labs: Abnormal Lab Results - Last 24 Hours (Table) 08/17/22 08/17/22 08/18/22 Range/Units 17:37 20:10 07:45 POC Glucose (mg/dL) 130 H 148 H 149 H (70-110) mg/dL 08/18/22 Range/Units 12:24 POC Glucose (mg/dL) 130 H (70-110) mg/dL
[2022-08-18] MEDS: MAG HYDROX/AL HYDROX/SIMETH 30 ML CUP PO PRN (18:10)
[2022-08-18 20:04] LABS: Glucose,Whole Blood 151 mg/dL (70-110)
[2022-08-19 07:10] LABS: ALT 42 U/L (4-34); AST 23 U/L (14-36); African American GFR (CKD) >90 (>60 ml/min/1.73 sqM); Albumin 3.9 g/dL (3.5-5.0); Alkaline Phosphatase 98 U/L (38-126); Anion Gap 6 mmol/L; Blood Urea Nitrogen 10 mg/dL (7-17); Carbon Dioxide 25 mmol/L (22-30); Chloride 109 mmol/L (98-107); Glucose 144 mg/dL (74-99); Non-African American GFR(CKD) >90 (>60 ml/min/1.73 sqM); Potassium 4.2 mmol/L (3.5-5.1); Sodium 140 mmol/L (137-145); Total Bilirubin 0.5 mg/dL (0.2-1.3); Total Protein 6.4 g/dL (6.3-8.2)
[2022-08-19 07:15] LABS: Valproic Acid (Depakene) 81.7 ug/mL
[2022-08-19 07:49] LABS: Glucose,Whole Blood 164 mg/dL (70-110)
[2022-08-19] MEDS: VALPROIC ACID ORAL SOLN 250 MG/5 ML CUP PO SCH ×2 (08:24→20:27)
[2022-08-19] MEDS: LOSARTAN 25 MG TAB PO SCH (08:24)
[2022-08-19] MEDS: ESCITALOPRAM 20 MG TAB PO SCH (08:24)
[2022-08-19] MEDS: FENOFIBRATE 54 MG TAB PO SCH (08:25)
[2022-08-19] MEDS: MYRBETRIQ 50 MG PO SCH (08:25)
[2022-08-19] MEDS: LINAGLIPTIN 5 MG TABLET PO SCH (08:25)
[2022-08-19] MEDS: EZETIMIBE 10 MG TAB PO SCH (08:25)
[2022-08-19] MEDS: INSULIN ASPART (NovoLOG) 100 UNIT/ML VIAL SQ SCH ×4 (08:57→20:50)
[2022-08-19] MEDS: hydrOXYzine HCL 25 MG TAB PO PRN ×2 (09:30→17:06)
[2022-08-19 13:04] LABS: Glucose,Whole Blood 121 mg/dL (70-110)
[2022-08-19] MEDS: MAG HYDROX/AL HYDROX/SIMETH 30 ML CUP PO PRN (16:32)
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
[2022-08-19 17:32] LABS: Glucose,Whole Blood 161 mg/dL (70-110)
[2022-08-19 20:02] LABS: Glucose,Whole Blood 127 mg/dL (70-110)
[2022-08-20 07:51] LABS: Glucose,Whole Blood 161 mg/dL (70-110)
[2022-08-20] MEDS: INSULIN ASPART (NovoLOG) 100 UNIT/ML VIAL SQ SCH ×4 (08:00→20:24)
[2022-08-20] MEDS: ESCITALOPRAM 20 MG TAB PO SCH (08:01)
[2022-08-20] MEDS: EZETIMIBE 10 MG TAB PO SCH (08:01)
[2022-08-20] MEDS: FENOFIBRATE 54 MG TAB PO SCH (08:01)
[2022-08-20] MEDS: LOSARTAN 25 MG TAB PO SCH (08:01)
[2022-08-20] MEDS: LINAGLIPTIN 5 MG TABLET PO SCH (08:01)
[2022-08-20] MEDS: VALPROIC ACID ORAL SOLN 250 MG/5 ML CUP PO SCH ×2 (08:01→20:25)
[2022-08-20] MEDS: MYRBETRIQ 50 MG PO SCH (08:02)
[2022-08-20] MEDS: hydrOXYzine HCL 25 MG TAB PO PRN ×3 (09:02→19:23)
--- NOTE | 2022-08-20 12:28 | P.PN ---
Subjective Progress Note Date: 08/20/22 Principal diagnosis: PTSD, general anxiety disrode with panic eipsides, depressive disorder NOS. Subjective/objective data: The patient reports that she came to the hospital because she was having an anxiety attack She states that she had some home issues She did not elaborate on the home issues but states that she currently lives with her director safety council She says that she is currently on disability She states that she does get the panic attacks quite frequently She denies that she is hearing any voices or seeing things She denies any alcohol or substance use MENTAL STATUS EXAM: General Appearance: Patient appears to be her stated age Patient was sleeping in her room with loud snoring that was audible outside in the corridor Patient states that she was feeling somewhat anxious and had excused herself from the group Behavior: Patient is laying down without any agitated behavior. Speech: Patient's speech is [fluent and nonpressured.] Mood/Affect: Patient reports their mood is "okay", affect is congruent and constricted. Suicidality/Homicidality: Patient denies having any homicidal ideation intent or plan. [Denies any suicidal ideations intent or plan] Perceptions: Patient denies any visual hallucinations [and denies any auditory hallucinations] Though content/process: Goal-directed sequential Thinking is concrete Speech is into backing details Memory and concentration: AOX to, does not know today's current date. Concentration and attention span fair Judgment and insight: [poor] Diagnosis: Anxiety disorder with panic attacks Depressive disorder unspecified Rule out schizoaffective disorder management: She fulfilled the criteria of inpatient stay . 2. Explore couping strategies regarding PTSD preventive strategies; distracting, physical actvitiy , CBT outpatient therapeutic sessions. She may benefit from slgihtly increase dosage of escitaloprim 30 mg po for reducing her flashbacks of traumatic stress memories -Ativan and Haldol and Vistaril PRN for agitation/aggression -SW on board for discharge planning. Encourage patient to participate in groups to work on coping skills. likely discharge early next week monday vs monday if patient improves over the weekend back home. Cristopher Valadez M.D. 08/20/2022 Objective - Vital Signs Vital signs: Vital Signs Temp 98.3 F 08/20/22 07:00 Pulse 97 08/20/22 08:07 Resp 17 08/20/22 07:00 BP 120/69 08/20/22 08:07 Pulse Ox 97 08/20/22 07:00 FiO2 - Labs CBC & Chem 7: 08/15/22 21:23 08/19/22 06:35 Labs: Abnormal Lab Results - Last 24 Hours (Table) 08/19/22 08/19/22 08/19/22 Range/Units 13:02 17:28 20:00 POC Glucose (mg/dL) 121 H 161 H 127 H (70-110) mg/dL 08/20/22 Range/Units 07:50 POC Glucose (mg/dL) 161 H (70-110) mg/dL
[2022-08-20 12:41] LABS: Glucose,Whole Blood 158 mg/dL (70-110)
[2022-08-20] MEDS: MAG HYDROX/AL HYDROX/SIMETH 30 ML CUP PO PRN ×2 (15:03→19:23)
[2022-08-20 17:37] LABS: Glucose,Whole Blood 130 mg/dL (70-110)
[2022-08-20 19:57] LABS: Glucose,Whole Blood 170 mg/dL (70-110)
[2022-08-21 07:15] VITALS: RESP 14
[2022-08-21 07:47] LABS: Glucose,Whole Blood 130 mg/dL (70-110)
[2022-08-21] MEDS: INSULIN ASPART (NovoLOG) 100 UNIT/ML VIAL SQ SCH ×4 (08:47→20:45)
[2022-08-21] MEDS: VALPROIC ACID ORAL SOLN 250 MG/5 ML CUP PO SCH ×2 (08:49→20:46)
[2022-08-21] MEDS: ESCITALOPRAM 20 MG TAB PO SCH (08:49)
[2022-08-21] MEDS: EZETIMIBE 10 MG TAB PO SCH (08:50)
[2022-08-21] MEDS: FENOFIBRATE 54 MG TAB PO SCH (08:50)
[2022-08-21] MEDS: MYRBETRIQ 50 MG PO SCH (08:50)
[2022-08-21] MEDS: LINAGLIPTIN 5 MG TABLET PO SCH (08:50)
[2022-08-21] MEDS: LOSARTAN 25 MG TAB PO SCH (08:50)
[2022-08-21] MEDS: hydrOXYzine HCL 25 MG TAB PO PRN ×2 (10:16→16:48)
[2022-08-21] MEDS: MAG HYDROX/AL HYDROX/SIMETH 30 ML CUP PO PRN ×2 (10:16→14:50)
--- NOTE | 2022-08-21 10:52 | P.PN ---
Subjective Progress Note Date: 08/21/22 Principal diagnosis: PTSD, general anxiety disrode with panic eipsides, depressive disorder NOS. Subjective/objective data: The patient reports that her anxiety is slightly better She says that it can come on at any time and that even now she worries about just happening She states that the staying on the unit has helped her She stated that she doesn't enjoy the activities She denies that she is having any suicidal thoughts or plans MENTAL STATUS EXAM: General Appearance: Patient appears to be her stated age Patient was sleeping in her room with loud snoring that was audible outside in the corridor Patient states that she was feeling somewhat anxious and had excused herself from the group Behavior: Patient is laying down without any agitated behavior. Speech: Patient's speech is [fluent and nonpressured.] Mood/Affect: Patient reports their mood is "okay", affect is congruent and constricted. Suicidality/Homicidality: Patient denies having any homicidal ideation intent or plan. [Denies any suicidal ideations intent or plan] Perceptions: Patient denies any visual hallucinations [and denies any auditory hallucinations] Though content/process: Goal-directed sequential Thinking is concrete Speech is into backing details Memory and concentration: AOX to, does not know today's current date. Concentration and attention span fair Judgment and insight: [poor] Diagnosis: Anxiety disorder with panic attacks Depressive disorder unspecified Rule out schizoaffective disorder management: She fulfilled the criteria of inpatient stay . 2. Explore couping strategies regarding PTSD preventive strategies; distracting, physical actvitiy , CBT outpatient therapeutic sessions. She may benefit from slgihtly increase dosage of escitaloprim 30 mg po for reducing her flashbacks of traumatic stress memories -Ativan and Haldol and Vistaril PRN for agitation/aggression -SW on board for discharge planning. Encourage patient to participate in groups to work on coping skills. likely discharge early next week monday vs monday if patient improves over the weekend back home. Cristopher Valadez M.D. 08/21/2022 Objective - Vital Signs Vital signs: Vital Signs Temp 98 F 08/21/22 06:51 Pulse 98 08/21/22 08:53 Resp 14 08/21/22 06:51 BP 117/74 08/21/22 08:53 Pulse Ox 97 08/20/22 07:00 FiO2 Intake & Output 08/20/22 08/21/22 08/21/22 18:59 06:59 18:59 Weight 91.4 kg - Labs CBC & Chem 7: 08/15/22 21:23 08/19/22 06:35 Labs: Abnormal Lab Results - Last 24 Hours (Table) 08/20/22 08/20/22 08/20/22 Range/Units 12:39 17:34 19:53 POC Glucose (mg/dL) 158 H 130 H 170 H (70-110) mg/dL 08/21/22 Range/Units 07:45 POC Glucose (mg/dL) 130 H (70-110) mg/dL
[2022-08-21 12:55] LABS: Glucose,Whole Blood 126 mg/dL (70-110)
[2022-08-21 17:41] LABS: Glucose,Whole Blood 136 mg/dL (70-110)
[2022-08-21 20:06] LABS: Glucose,Whole Blood 149 mg/dL (70-110)
[2022-08-22 07:07] VITALS: TEMP 98.3
[2022-08-22 07:49] LABS: Glucose,Whole Blood 124 mg/dL (70-110)
[2022-08-22] MEDS: INSULIN ASPART (NovoLOG) 100 UNIT/ML VIAL SQ SCH ×2 (07:49→13:01)
[2022-08-22] MEDS: LOSARTAN 25 MG TAB PO SCH (08:54)
[2022-08-22] MEDS: EZETIMIBE 10 MG TAB PO SCH (08:54)
[2022-08-22] MEDS: LINAGLIPTIN 5 MG TABLET PO SCH (08:54)
[2022-08-22] MEDS: FENOFIBRATE 54 MG TAB PO SCH (08:54)
[2022-08-22] MEDS: MYRBETRIQ 50 MG PO SCH (08:55)
[2022-08-22] MEDS: ESCITALOPRAM 20 MG TAB PO SCH (08:55)
[2022-08-22] MEDS: VALPROIC ACID ORAL SOLN 250 MG/5 ML CUP PO SCH (08:56)
[2022-08-22 09:01] VITALS: BP 125/81; PULSE 103
[2022-08-22] MEDS: MAG HYDROX/AL HYDROX/SIMETH 30 ML CUP PO PRN (09:53)
[2022-08-22] MEDS: hydrOXYzine HCL 25 MG TAB PO PRN (11:38)
--- NOTE | 2022-08-22 13:32 | P.DS ---
Providers Date of admission: 08/16/22 05:09 Expected date of discharge: 08/22/22 Attending physician: Isai Cortez MD Consults: 08/16/22 05:10 Consult Physician Routine Consulting Provider: Mirella Cook Consult Reason/Comments: For H & P for Medical Follow Up Do you want consulting provider notified?: Yes, Notify in am Primary care physician: Nelly Maldonado - Discharge Diagnosis(es) (1) Bipolar I disorder with rapid cycling Status: Acute Priority: High Hospital Course: Admission HPI: Patient is a 51-year-old , unemployed, female with significant history of bipolar 1 disorder with psychotic behavior who presented to our hospital on 08/15/2022 for depression and suicidal ideation shortly after being discharged from our psychiatric unit on 08/10/2022. Patient presented to the hospital on 08/15/2022 with complaints of suicidal ideation. The patient was most recently discharged from our psychiatric unit on 08/15/2022. However, the patient reports that since coming home, she has been increasingly depressed. She reports that she has been having nonstop suicidal thoughts however is not reporting any plan and denies any attempts. The patient reports that as soon as she started feeling this way, she informed her retail assistant manager Zhen to take her to the hospital. The patient was recently discharged from our psychiatric unit and maintains that she has been adherent with medications. She does report that the medications "are not working." She reports that she would prefer to take liquid Depakote than lithium. She states the lithium appears to be causing her to feel nauseous. During this admission, the patient is alert and oriented in all spheres compared to her previous admission less than 2 weeks ago when she wasn't overtly manic state. The patient is able to identify person, place, and time. The patient does have a significant history of bipolar disorder and most recently has had numerous psychiatric admissions after being nonadherent with her psychiatric medications last year. The patient did receive Risperidone perseris on 120 mg SQ qMonthly with her next door 09/06/2022. Patient has previous diagnoses of bipolar disorder with psychotic features and anxiety. She was last admitted onto our psychiatric unit from 08/04/2022 - 08/10/2022 on a regimen of risperidone perseris and lithium. She also has previously trialed Depakote. She reports no prior attempts at suicide. She states that she has been adherent with her current medication regimen. Hospital course: Upon admission to the unit patient was initially presenting as alert and oriented however endorsing depression and suicidal ideation in the context of th e concern of losing her children. Patient was however directable and agreeable to commence treatment. Patient got along well with other patients on the unit and followed unit protocol. Patient was compliant with the medications and denied any side effects throughout hospital course. Patient was started on a regimen of Lexapro for bipolar depression, and Depakote oral solution for mood stabilization. The patient was already on Risperdal perseris 120 mg SQ from her previous admission and her next dose is due on 09/06/2022. Patient spoke of her stressors and engaged in therapy both group and individual. Patient was also seen by medical team for history and physical exam. Over the course of the hospital physician, the patient despite significant improvement in regards to her depression, anxiety, and suicidal thoughts. She has been adherent with medications and only reports mild sedation as a side effect. She reports no other medical issues or concerns and denies any chest pain, short of breath, palpitations, akathisia, or tardive dyskinesia. She reports no auditory or visual hallucinations. She denies any paranoia or other delusions. The patient was counseled on the importance of medication adherence appropriate outpatient follow-up. The patient does not have any history of significant substance abuse however was counseled on abstaining from all substances including alcohol, tobacco, marijuana, and all illicit drugs. As the patient no longer met criteria for continued inpatient psychiatric hospital physician, she was subsequently discharged after appropriate safety plan. Mental status exam: General Appearance: Patient appears to be stated age is alert, pleasant, and cooperative. Patient is in no acute distress and has fair hygiene and grooming Behavior: Patient is calmly seated without any agitated behavior. Speech: Patient's speech is fluent and nonpressured. Mood/Affect: Patient reports their mood is "much better", affect is congruent and euthymic to bright. Suicidality/Homicidality: Patient denies having any suicidal or homicidal ideation intent or plan. Perceptions: Patient denies any auditory or visual hallucinations. Though content/process: There is no evidence of any delusional thought content and thought process is linear and goal-directed. Patient is future oriented. Memory and concentration: AOX3, grossly intact for the purposes of this session. Can spell "WORLD" backwards correctly. Judgment and insight: Improved with guarded prognosis Impression: Bipolar 1 disorder, depressive episode, rapid cycling Plan: -Continue with discharge today as patient has improved and stabilized psychiatrically and is not currently an imminent threat to herself and/or others. Patient will remain at chronically elevated risk for harm to self and/or others due to the severity of her mental illness and history of nonadherence with treatment and follow-up. -Continue medications: Depakene syrup 750 mg by mouth twice a day for mood stabilization Lexapro 20 mg by mouth daily for depression/anxiety/bipolar depression Risperidone Perseris 120 mg SQ next due on 09/06/2022. -Patient was counseled on the need for medication compliance and appropriate follow-up at mental health and also primary care for medical issues. Patient verbalized understanding and agreed. -Social work to arrange for and conduct family meeting to ensure safety upon discharge and answer any questions/concerns. Social work also to arrange for patients follow up appointments with [facility] for psychiatric care along with follow up with primary care provider. -Patient counseled on abstaining from recreational drugs and marijuana and alcohol. Was informed/educated on the adverse effects on their physical and mental health. Patient verbally agreed and understood. -Patient was instructed to return to the hospital or seek immediate medical care if their psychiatric or medical symptoms do worsen or reoccur. -Psychoeducation and supportive therapy provided to patient. Risks and benefits of pharmacological treatment versus the risks and benefits of nontreatment weighed and discussed. Informed consent discussion held. Common side effects of psychotropics discussed such as, but not limited to headache, GI disturbance, sexual dysfunction, movement disorders, sedation, and orthostatic hypotension. Life threatening and blackbox warnings of prescribed medications also discussed. Potential risks of operating a vehicle or heavy machinery discussed with patient at length. Advised on importance of compliance and a reliable and responsible manner. Patient advised to review FDA consumer labeling of all medications prior to taking. Patient verbalized understanding of potential risks, and agrees with current treatment plan. Patient advised to medically contact physician/emergency personnel if any acute changes in condition occur. Vital Signs Temp 98.3 F 08/22/22 06:48 Pulse 103 H 08/22/22 09:00 Resp 14 08/22/22 06:48 BP 125/81 08/22/22 09:00 Pulse Ox 97 07/01/23 07:00 FiO2 Intake & Output 08/21/22 08/22/22 08/22/22 18:59 06:59 18:59 Weight 91.4 kg Laboratory Results WBC 6.2 k/uL (3.8-10.6) 08/15/22 21: RBC 4.37 m/uL (3.80-5.40) 08/15/22: Hgb 12.8 gm/dL (11.4-16.0) 08/15/22: Hct 38.3 % (34.0-46.0) 08/15/22: MCV 87.5 fL (80.0-100.0) 08/15/22: MCH 29.3 pg (25.0-35.0) 08/15/22: MCHC 33.5 g/dL (31.0-37.0) 08/15/22: RDW 12.6 % (11.5-15.5) 08/15/22: Plt Count 229 k/uL (150-450) 08/15/22 21: MPV 8.7 08/15/22 21: Neutrophils % 65 % 08/15/22 21: Lymphocytes % 25 % 08/15/22: Monocytes % 5 % 08/15/22: Eosinophils % 3 % 08/15/22: Basophils % 1 % 08/15/22: Neutrophils # 4.0 k/uL (1.3-7.7) 08/15/22: Lymphocytes # 1.6 k/uL (1.0-4.8) 08/15/22: Monocytes # 0.3 k/uL (0-1.0) 08/15/22: Eosinophils # 0.2 k/uL (0-0.7) 08/15/22: Basophils # 0.0 k/uL (0-0.2) 08/15/22 21: Sodium 140 mmol/L (137-145) 08/19/22 06:35 Potassium 4.2 mmol/L (3.5-5.1) 08/19/22 06:35 Chloride 109 mmol/L (98-107) H 08/19/22 06:35 Carbon Dioxide 25 mmol/L (22-30) 08/19/22 06:35 Anion Gap 6 mmol/L 08/19/22 06:35 BUN 10 mg/dL (7-17) 08/19/22 06:35 Creatinine 0.67 mg/dL (0.52-1.04) 08/19/22 06:35 Est GFR (CKD-EPI)AfAm >90 (>60 ml/min/1.73 sqM) 08/19/22 06:35 Est GFR (CKD-EPI)NonAf >90 (>60 ml/min/1.73 sqM) 08/19/22 06:35 Glucose 144 mg/dL (74-99) H 08/19/22 06:35 POC Glucose (mg/dL) 124 mg/dL (70-110) H 08/22/22 07:48 POC Glu Podiatric Technician ID Simi Welch 08/22/22 07:[address] Glu mg/dL 186 mg/dL 08/15/22 21:23 Hemoglobin A1c 8.1 % (<=6.0) H 08/15/22 21:23 Calcium 9.0 mg/dL (8.4-10.2) 08/19/22 06:35 Total Bilirubin 0.5 mg/dL (0.2-1.3) 08/19/22 06:35 AST 23 U/L (14-36) 08/19/22 06:35 ALT 42 U/L (4-34) H 08/19/22 06:35 Alkaline Phosphatase 98 U/L (38-126) 08/19/22 06:35 Troponin I <0.012 ng/mL (0.000-0.034) 08/15/22 21:23 Total Protein 6.4 g/dL (6.3-8.2) 08/19/22 06:35 Albumin 3.9 g/dL (3.5-5.0) 08/19/22 06:35 Urine Opiates Screen Not Detected (NotDetected) 08/15/22 21:23 Ur Oxycodone Screen Not Detected (NotDetected) 08/15/22 21:23 Urine Methadone Screen Not Detected (NotDetected) 08/15/22 21:23 Ur Propoxyphene Screen Not Detected (NotDetected) 08/15/22 21:23 Ur Barbiturates Screen Not Detected (NotDetected) 08/15/22 21:23 Valproic Acid 81.7 ug/mL 08/19/22 06:35 U Tricyclic Antidepress Not Detected (NotDetected) 08/15/22 21:23 Ur Phencyclidine Scrn Not Detected (NotDetected) 08/15/22 21:23 Ur Amphetamines Screen Not Detected (NotDetected) 08/15/22 21:23 U Methamphetamines Scrn Not Detected (NotDetected) 08/15/22 21:23 U Benzodiazepines Scrn Not Detected (NotDetected) 08/15/22 21:23 [place] 0.3 mmol/L 08/15/22 21:23 Urine Cocaine Screen Not Detected (NotDetected) 08/15/22 21:23 U Marijuana (THC) Screen Not Detected (NotDetected) 08/15/22 21:23 Coronavirus (PCR) Not Detected (Not Detectd) 08/16/22 04:37 Allergies Allergy/AdvReac Type Severity Reaction Status Date / Time Penicillins Allergy Severe Anaphylaxis Verified 08/16/22 05:29 cephalexin monohydrate Allergy Anaphylaxis Verified 08/16/22 05:29 [From Keflex] iodine Allergy Unknown Verified 08/16/22 05:29 Mushroom AdvReac Unknown Verified 08/16/22 05:29 Patient Condition at Discharge: Stable Plan - Discharge Summary Discharge Rx Participant: Yes New Discharge Prescriptions: New Valproic Acid Oral Soln [Depakene Syrup] 750 mg PO BID 30 Days #900 ml Escitalopram [Lexapro] 20 mg PO DAILY 30 Days #30 tab Continue metFORMIN HCL [Glucophage] 1,000 mg PO BID Fenofibrate [Lofibra] 54 mg PO DAILY Ezetimibe [Zetia] 10 mg PO DAILY Insulin Aspart [NovoLOG Flexpen] 10 units SQ AC-TID Losartan [Cozaar] 25 mg PO DAILY Albuterol Inhaler [Ventolin Hfa Inhaler] 2 puff INHALATION RT-Q4H PRN PRN Reason: Shortness Of Breath Insulin Aspart [NovoLOG Flexpen] See Protocol SQ AC-TID PRN PRN Reason: high blood sugar Linagliptin [Tradjenta] 5 mg PO DAILY Omeprazole 40 mg PO DAILY Celecoxib [CeleBREX] 100 mg PO DAILY Mirabegron [Myrbetriq] 50 mg PO DAILY Cetirizine HCl [Zyrtec] 10 mg PO DAILY risperiDONE ER inj [Perseris] 120 mg SQ QMONTHLY #1 each Discontinued Benztropine Mesylate [Cogentin] 0.5 mg PO BID 30 Days #60 tab [place] Carbonate 300 mg PO QAM 30 Days #30 cap [place] Carbonate 600 mg PO HS 30 Days #60 cap Discharge Medication List metFORMIN HCL [Glucophage] 1,000 mg PO BID 08/03/16 [History] Ezetimibe [Zetia] 10 mg PO DAILY 03/17/20 [History] Fenofibrate [Lofibra] 54 mg PO DAILY 03/17/20 [History] Albuterol Inhaler [Ventolin Hfa Inhaler] 2 puff INHALATION RT-Q4H PRN 01/26/21 [History] Insulin Aspart [NovoLOG Flexpen] 10 units SQ AC-TID 01/26/21 [History] Linagliptin [Tradjenta] 5 mg PO DAILY 01/26/21 [History] Losartan [Cozaar] 25 mg PO DAILY 01/26/21 [History] Omeprazole 40 mg PO DAILY 01/26/21 [History] Celecoxib [CeleBREX] 100 mg PO DAILY 08/04/22 [History] Cetirizine HCl [Zyrtec] 10 mg PO DAILY 08/04/22 [History] Insulin Aspart [NovoLOG Flexpen] See Protocol SQ AC-TID PRN 08/04/22 [History] Mirabegron [Myrbetriq] 50 mg PO DAILY 08/04/22 [History] Escitalopram [Lexapro] 20 mg PO DAILY 30 Days #30 tab 08/22/22 [Rx] Valproic Acid Oral Soln [Depakene Syrup] 750 mg PO BID 30 Days #900 ml 08/22/22 [Rx] risperiDONE ER inj [Perseris] 120 mg SQ QMONTHLY #1 each 08/22/22 [Rx] Follow up Appointment(s)/Referral(s): [facility] [Outside] - 08/22/22 2:30 pm (08/22/2022 2:30PM - 3:30PM KE TORRES 08/24/2022 2:00PM - 3:00PM Nelly Trejo MD [Primary Care Provider] - 1-2 days Patient Instructions/Handouts: Mood Disorders (DC), Bipolar Disorder (DC) Activity/Diet/Wound Care/Special Instructions: Avoid the use of street drugs and alcohol. Take all medications as prescribed. When you are in need of refills on your medications, please contact your medical provider and/or outpatient psychiatrist to have this done. Please go to scheduled outpatient appointments for aftercare treatment. If symptoms return or become worse, call the crisis line at and/or go to the nearest emergency room for evaluation. Discharge Disposition: HOME SELF-CARE
== END 2022-08-22 12:47 | disposition home or self-care (01) | DRG 885 ==
LOC: EC 20:38 → 3MHU 08-16 05:09
PROVIDERS: ADMIT Psychiatry & Neurology Psychiatry; ATTEND Psychiatry & Neurology Psychiatry
DX: F31.60 Bipolar disorder, current episode mixed, unspecified (principal); R45.851 Suicidal ideations; F23 Brief psychotic disorder; F43.10 Post-traumatic stress disorder, unspecified; F31.5 Bipolar disorder, current episode depressed, severe, with psychotic features; F41.1 Generalized anxiety disorder; F41.0 Panic disorder [episodic paroxysmal anxiety]; B37.2 Candidiasis of skin and nail; I25.10 Atherosclerotic heart disease of native coronary artery without angina pectoris; E11.9 Type 2 diabetes mellitus without complications; K21.9 Gastro-esophageal reflux disease without esophagitis; R48.0 Dyslexia and alexia; I10 Essential (primary) hypertension; E78.5 Hyperlipidemia, unspecified; T43.8X5A Adverse effect of other psychotropic drugs, initial encounter; Z20.822 Contact with and (suspected) exposure to COVID-19; Z79.4 Long term (current) use of insulin; Z79.84 Long term (current) use of oral hypoglycemic drugs; Z56.0 Unemployment, unspecified; Z88.0 Allergy status to penicillin; Z91.041 Radiographic dye allergy status; Z88.1 Allergy status to other antibiotic agents; Z79.1 Long term (current) use of non-steroidal anti-inflammatories (NSAID)
CPT/HCPCS: 36415; 80053; 80164; 80178; 80306; 83036; 84484; 85025; 87635; 93005; 99285

== ENCOUNTER 2022-09-15 15:23 | Emergency (ER) | payer MEDICARE, OTHER ==
--- NOTE | 2022-09-15 17:17 | ED ---
Psych HPI - General Chief Complaint: Psychiatric Symptoms Stated Complaint: mental health Time Seen by Provider: 09/15/22 16:11 Source: patient Mode of arrival: ambulatory - History of Present Illness Initial Comments: Patient is a 51-year-old female with extensive psychiatric history she follows closely with [facility] she is on multiple medications including injections last injection was last week. Patient is brought in today because she's been seen by her primary care and advised to have a CT and MRI of her brain because she is developed pretty significant but a little bit the past 5 years. Interestingly though patient CT and MRI and family is concerned that there may be an organic cause of her depression. Patient also states that she is feeling more depressed despite her medications. Patient states that she just feels a deep dark lonely sadness all the time. Denies active suicidal or homicidal ideations. She is compliant with her home medications and her monthly injections. - Related Data Home Medications Medication Instructions Recorded Confirmed metFORMIN HCL [Glucophage] 1,000 mg PO BID 08/03/16 09/15/22 Ezetimibe [Zetia] 10 mg PO DAILY 03/17/20 09/15/22 Fenofibrate [Lofibra] 54 mg PO DAILY 03/17/20 09/15/22 Albuterol Inhaler [Ventolin Hfa 2 puff INHALATION RT-Q4H PRN 01/26/21 09/15/22 Inhaler] Insulin Aspart [NovoLOG Flexpen] 10 units SQ AC-TID 01/26/21 09/15/22 Linagliptin [Tradjenta] 5 mg PO DAILY 01/26/21 09/15/22 Losartan [Cozaar] 25 mg PO DAILY 01/26/21 09/15/22 Omeprazole 40 mg PO DAILY 01/26/21 09/15/22 Celecoxib [CeleBREX] 100 mg PO DAILY 08/04/22 09/15/22 Cetirizine HCl [Zyrtec] 10 mg PO DAILY 08/04/22 09/15/22 Insulin Aspart [NovoLOG Flexpen] See Protocol SQ AC-TID PRN 08/04/22 09/15/22 Mirabegron [Myrbetriq] 50 mg PO DAILY 08/04/22 09/15/22 risperiDONE ER inj [Perseris] 120 mg SQ Q28D 09/15/22 09/15/22 Previous Rx's Medication Instructions Recorded Escitalopram [Lexapro] 20 mg PO DAILY 30 Days #30 tab 08/22/22 Valproic Acid Oral Soln [Depakene 750 mg PO BID 30 Days #900 ml 08/22/22 Syrup] Nitrofurantoin Monohyd/M-Cryst 100 mg PO Q12HR #14 cap 09/15/22 [Macrobid] Allergies Allergy/AdvReac Type Severity Reaction Status Date / Time Penicillins Allergy Severe Anaphylaxis Verified 09/15/22 17:16 cephalexin monohydrate Allergy Anaphylaxis Verified 09/15/22 17:16 [From Keflex] iodine Allergy Unknown Verified 09/15/22 17:16 Mushroom AdvReac Unknown Verified 09/15/22 17:16 Review of Systems ROS Statement: Those systems with pertinent positive or pertinent negative responses have been documented in the HPI. ROS Other: All systems not noted in ROS Statement are negative. Past Medical History Past Medical History: Coronary Artery Disease (CAD), Diabetes Mellitus, GERD/Reflux, Hyperlipidemia, Hypertension Additional Past Medical History / Comment(s): NIDDM type II, dyslexia. History of Any Multi-Drug Resistant Organisms: ESBL Date of last positivie culture/infection: 08/11/21-ESBL MDRO Source:: URINE Past Surgical History: Adenoidectomy, Section, Tonsillectomy Additional Past Surgical History / Comment(s): Nasal surgery Past Anesthesia/Blood Transfusion Reactions: Postoperative Nausea & Vomiting (PONV) Additional Past Anesthesia/Blood Transfusion Reaction / Comment(s): Pt states she has never received blood. Past Psychological History: Anxiety, Depression, Panic Disorder Smoking Status: Never smoker Past Alcohol Use History: None Reported Past Drug Use History: None Reported - Past Family History Mother Family Medical History: Cancer Additional Family Medical History / Comment(s): Mother has lymphoma. Father History Unknown: Yes Additional Family Medical History / Comment(s): Father left when pt was 2 months old. General Exam - General Exam Comments Initial Comments: Physical Exam GENERAL: Patient is well-developed and well-nourished. Patient is nontoxic and well-hydrated and is in no distress. HENT: Normocephalic, Atraumatic. EYES: PERRL, EOMI PULMONARY: Unlabored respirations. CARDIOVASCULAR: RRR Warm and well perfused extremities ABDOMEN: Non-distended SKIN: No rashes or bruising : Deferred NEUROLOGIC: Alert and oriented Normal speech Normal gait MUSCULOSKELETAL: Moving all extremities with no apparent injury PSYCHIATRIC: Depressed but without suicidal or homicidal ideation Course Vital Signs 09/15/22 09/15/22 15:51 21:23 Temperature 98.6 F 98.3 F Pulse Rate 86 76 Respiratory 20 16 Rate Blood Pressure 115/81 120/83 O2 Sat by Pulse 96 97 Oximetry Medical Decision Making - Medical Decision Making The patient was seen and evaluated, history is obtained from patient and guardian at bedside Guardian reports a significant change in personality with associated depression, concern for organic cause has not been ruled out. Computed tomography scan of the head was obtained and there are no acute findings Labs results only evidence of urinary tract infection. Patient was seen by the EPS nurse, patient has a very good close outpatient follow-up plan, she will see her physician tomorrow for medication reveal Was pt. sent in by a medical professional or institution (, JOSLYN, SCRAP WORKER, urgent care, hospital, or assisted...) When possible be specific @ -No Did you speak to anyone other than the patient for history (EMS, parent, family, police, friend...)? What history was obtained from this source @ -Guardian Did you review nursing and triage notes (agree or disagree)? Why? @ -I reviewed and agree with nursing and triage notes Were old charts reviewed (outside hosp., previous admission, EMS record, old EKG, old radiological studies, urgent care reports/EKG's, assisted records)? Report findings @ -Previous admissions were reviewed Differential Diagnosis (chest pain, altered mental status, abdominal pain women, abdominal pain men, vaginal bleeding, weakness, fever, dyspnea, syncope, headache, dizziness, GI bleed, back pain, seizure, CVA, palpatations, mental health, musculoskeletal)? Differential includes major depression, psychosis, organic brain disease EKG interpreted by me (3pts min.). @ -As above X-rays interpreted by me (1pt min.). @ -None done CT interpreted by me (1pt min.). @ -No masses, bleeding or midline shift U/S interpreted by me (1pt. min.). @ -None done What testing was considered but not performed or refused? (CT, X-rays, U/S, labs)? Why? @ -None What meds were considered but not given or refused? Why? @ -None Did you discuss the management of the patient with other professionals (professionals i.e. , PA, SCRAP WORKER, lab, RT, psych nurse, psychotherapist social worker, supplier manager, teacher, tactical debriefer officer, case briefer)? Give summary @ - EPS nurse Was smoking cessation discussed for >3mins.? @ -No Was critical care preformed (if so, how long)? @ -No Were there social determinants of health that impacted care today? How? (Homele ssness, low income, unemployed, alcoholism, drug addiction, transportation, low edu. Level, literacy, decrease access to med. care, detention, rehab)? @ -Mental illness, low income, unemployed, no education level, low literacy Was there de-escalation of care discussed even if they declined (Discuss DNR or withdrawal of care, Hospice)? DNR status @ -No What co-morbidities impacted this encounter? (DM, HTN, Smoking, COPD, CAD, Cancer, CVA, ARF, Chemo, Hep., AIDS, mental health diagnosis, sleep apnea, morbid obesity)? @ -None Was patient admitted / discharged? Hospital course, mention meds given and route, prescriptions, significant lab abnormalities, going to OR and other pertinent info. @ -Discharge Undiagnosed new problem with uncertain prognosis? @ -No Drug Therapy requiring intensive monitoring for toxicity (Heparin, Nitro, Insulin, Cardizem)? @ -No Were any procedures done? @ -No Diagnosis/symptom? @ -Depression Acute, or Chronic, or Acute on Chronic? @ -Chronic Uncomplicated (without systemic symptoms) or Complicated (systemic symptoms)? @ -default Side effects of treatment? @ -No Exacerbation, Progression, or Severe Exacerbation? @ -No Poses a threat to life or bodily function? How? (Chest pain, [place], [place], pneumonia, PE, COPD, DKA, ARF, appy, cholecystitis, CVA, Diverticulitis, Homicidal, Suicidal, threat to staff... and all critical care pts) @ -No - Lab Data Result diagrams: 09/15/22 17:14 Lab Results 09/15/22 09/15/22 09/15/22 Range/Units 17:14 17:14 18:31 WBC 5.0 (3.8-10.6) k/uL RBC 4.54 (3.80-5.40) m/uL Hgb 13.4 (11.4-16.0) gm/dL Hct 39.7 (34.0-46.0) % MCV 87.5 (80.0-100.0) fL MCH 29.5 (25.0-35.0) pg MCHC 33.7 (31.0-37.0) g/dL RDW 13.1 (11.5-15.5) % Plt Count 136 L (150-450) k/uL MPV 8.4 Neutrophils % 58 % Lymphocytes % 29 % Monocytes % 8 % Eosinophils % 4 % Basophils % 0 % Neutrophils # 2.9 (1.3-7.7) k/uL Lymphocytes # 1.4 (1.0-4.8) k/uL Monocytes # 0.4 (0-1.0) k/uL Eosinophils # 0.2 (0-0.7) k/uL Basophils # 0.0 (0-0.2) k/uL Urine Color Yellow Urine Appearance Slightly Cloudy H (Clear) Urine pH 6.5 (5.0-8.0) Ur Specific [place] 1.025 (1.001-1.035) Urine Protein 2+ (Negative) Urine Glucose (UA) Trace (Negative) Urine Ketones Negative (Negative) Urine Blood Small (Negative) Urine Nitrite Negative (Negative) Urine Bilirubin Negative (Negative) Urine Urobilinogen 2.0 (<2.0) mg/dL Ur Leukocyte Esterase Large (Negative) Urine RBC 63 H (0-5) /hpf Urine WBC >182 H (0-5) /hpf Ur Squamous Epith Cells 20 H (0-4) /hpf Urine Bacteria Rare H (None) /hpf Urine Mucus Rare H (None) /hpf Urine HCG, Qual (Not Detectd) Salicylates <1.0 mg/dL Urine Opiates Screen Not Detected (NotDetected) Ur Oxycodone Screen Not Detected (NotDetected) Urine Methadone Screen Not Detected (NotDetected) Ur Propoxyphene Screen Not Detected (NotDetected) Acetaminophen <10.0 ug/mL Ur Barbiturates Screen Not Detected (NotDetected) Valproic Acid 61.7 ug/mL U Tricyclic Antidepress Not Detected (NotDetected) Ur Phencyclidine Scrn Not Detected (NotDetected) Ur Amphetamines Screen Not Detected (NotDetected) U Methamphetamines Scrn Not Detected (NotDetected) U Benzodiazepines Scrn Not Detected (NotDetected) Urine Cocaine Screen Not Detected (NotDetected) U Marijuana (THC) Screen Not Detected (NotDetected) Serum Alcohol <10 mg/dL 09/15/22 Range/Units 18:31 WBC (3.8-10.6) k/uL RBC (3.80-5.40) m/uL Hgb (11.4-16.0) gm/dL Hct (34.0-46.0) % MCV (80.0-100.0) fL MCH (25.0-35.0) pg MCHC (31.0-37.0) g/dL RDW (11.5-15.5) % Plt Count (150-450) k/uL MPV Neutrophils % % Lymphocytes % % Monocytes % % Eosinophils % % Basophils % % Neutrophils # (1.3-7.7) k/uL Lymphocytes # (1.0-4.8) k/uL Monocytes # (0-1.0) k/uL Eosinophils # (0-0.7) k/uL Basophils # (0-0.2) k/uL Urine Color Urine Appearance (Clear) Urine pH (5.0-8.0) Ur Specific [place] (1.001-1.035) Urine Protein (Negative) Urine Glucose (UA) (Negative) Urine Ketones (Negative) Urine Blood (Negative) Urine Nitrite (Negative) Urine Bilirubin (Negative) Urine Urobilinogen (<2.0) mg/dL Ur Leukocyte Esterase (Negative) Urine RBC (0-5) /hpf Urine WBC (0-5) /hpf Ur Squamous Epith Cells (0-4) /hpf Urine Bacteria (None) /hpf Urine Mucus (None) /hpf Urine HCG, Qual Not Detected (Not Detectd) Salicylates mg/dL Urine Opiates Screen (NotDetected) Ur Oxycodone Screen (NotDetected) Urine Methadone Screen (NotDetected) Ur Propoxyphene Screen (NotDetected) Acetaminophen ug/mL Ur Barbiturates Screen (NotDetected) Valproic Acid ug/mL U Tricyclic Antidepress (NotDetected) Ur Phencyclidine Scrn (NotDetected) Ur Amphetamines Screen (NotDetected) U Methamphetamines Scrn (NotDetected) U Benzodiazepines Scrn (NotDetected) Urine Cocaine Screen (NotDetected) U Marijuana (THC) Screen (NotDetected) Serum Alcohol mg/dL Disposition Clinical Impression: Depression, UTI (urinary tract infection) Disposition: HOME SELF-CARE Condition: Stable Additional Instructions: Follow up with your doctor for medication review as planned tomorrow Prescriptions: Nitrofurantoin Monohyd/M-Cryst [Macrobid] 100 mg PO Q12HR #14 cap Is patient prescribed a controlled substance at d/c from ED?: No Referrals: None,Stated [Primary Care Provider] - 1-2 days
[2022-09-15 18:00] LABS: Basophils % (A) 0 %; Eosinophils # (A) 0.2 k/uL (0-0.7); Eosinophils % (A) 4 %; HCT 39.7 % (34.0-46.0); HGB 13.4 gm/dL (11.4-16.0); Lymphocytes # (A) 1.4 k/uL (1.0-4.8); Lymphocytes % (A) 29 %; MCH 29.5 pg (25.0-35.0); MCHC 33.7 g/dL (31.0-37.0); MCV 87.5 fL (80.0-100.0); Mean Platelet Volume 8.4; Monocytes # (A) 0.4 k/uL (0-1.0); Monocytes % (A) 8 %; Neutrophils # (A) 2.9 k/uL (1.3-7.7); Neutrophils % (A) 58 %; Platelet Count 136 k/uL (150-450); RBC 4.54 m/uL (3.80-5.40); RDW 13.1 % (11.5-15.5)
[2022-09-15 18:11] LABS: Acetaminophen <10.0 ug/mL; Alcohol <10 mg/dL; Salicylate <1.0 mg/dL
[2022-09-15 18:16] LABS: Valproic Acid (Depakene) 61.7 ug/mL
--- NOTE | 2022-09-15 18:49 | CT ---
EXAMINATION TYPE: CT brain wo con DATE OF EXAM: 09/15/2022 HISTORY: AMS CT DLP: 1157.4 mGycm. Automated Exposure Control for Dose Reduction was Utilized. TECHNIQUE: CT scan of the head is performed without contrast. COMPARISON: 07/25/2015 FINDINGS: There is no skull fracture or acute intracranial hemorrhage or midline shift. No definite a cute attenuation defect. No extra-axial findings. The globes are intact and the visualized sinuses ar e clear. IMPRESSION: No acute process.
[2022-09-15 19:06] LABS: Bacteria,Urine Rare /hpf; Mucus,Urine Rare /hpf; RBC,Urine 63 /hpf (0-5); Squamous Epithelial Cell,Urine 20 /hpf (0-4); WBC,Urine >182 /hpf (0-5)
[2022-09-15 19:08] LABS: Appearance,Urine Slightly Cloudy (Clear); Color,Urine Yellow; Specific Gravity,Urine 1.025 (1.001-1.035)
[2022-09-15 19:09] LABS: Bilirubin,Urine Negative (Negative); Blood,Urine Small (Negative); Glucose,Urine (UA) Trace (Negative); Ketones,Urine Negative (Negative); Leukocyte Esterase,Urine Large (Negative); Nitrite,Urine Negative (Negative); PH, Urine 6.5 (5.0-8.0); Protein,Urine 2+ (Negative)
[2022-09-15 19:14] LABS: Amphetamine Screen,Urine Not Detected (NotDetected); Barbiturate Screen,Urine Not Detected (NotDetected); Benzodiazepines Screen,Urine Not Detected (NotDetected); Cocaine Screen,Urine Not Detected (NotDetected); Methadone Screen, Urine Not Detected (NotDetected); Opiate Screen,Urine Not Detected (NotDetected); Oxycodone Screen, Urine Not Detected (NotDetected); Phencyclidine Screen,Urine Not Detected (NotDetected); Tricyclic Antidepressant,Urine Not Detected (NotDetected); Urn Cannabinoid Scrn Not Detected (NotDetected)
[2022-09-15 21:24] VITALS: BP 120/83; PULSE 76; RESP 16; TEMP 98.3
[2022-09-15] MEDS ORDERED: NITROFURANTOIN MONOHYD/M-CRYST 100 MG CAP PO STA (21:46)
== END 2022-09-15 22:05 | disposition home or self-care (01) ==
LOC: EC 15:23
DX: F32.A Depression, unspecified (principal); N39.0 Urinary tract infection, site not specified; E11.9 Type 2 diabetes mellitus without complications; E78.5 Hyperlipidemia, unspecified; I10 Essential (primary) hypertension; K21.9 Gastro-esophageal reflux disease without esophagitis; F41.9 Anxiety disorder, unspecified; I25.10 Atherosclerotic heart disease of native coronary artery without angina pectoris; Z79.1 Long term (current) use of non-steroidal anti-inflammatories (NSAID); Z79.4 Long term (current) use of insulin; Z79.84 Long term (current) use of oral hypoglycemic drugs; Z79.899 Other long term (current) drug therapy; Z88.0 Allergy status to penicillin; Z88.1 Allergy status to other antibiotic agents; Z88.8 Allergy status to other drugs, medicaments and biological substances; Z91.018 Allergy to other foods
CPT/HCPCS: 82075; 36415; 80164; 85025; 81001; 81025; 80306; 80143; 80179; 70450; 99285; G0480; 80320

== ENCOUNTER 2022-09-22 15:52 | Emergency (ER) | payer MEDICARE, OTHER ==
[2022-09-22 17:03] VITALS: BP 116/75; PULSE 118; RESP 18; TEMP 98.9
[2022-09-22 18:09] LABS: Amphetamine Screen,Urine Not Detected (NotDetected); Barbiturate Screen,Urine Not Detected (NotDetected); Benzodiazepines Screen,Urine Not Detected (NotDetected); Cocaine Screen,Urine Not Detected (NotDetected); Methadone Screen, Urine Not Detected (NotDetected); Opiate Screen,Urine Not Detected (NotDetected); Oxycodone Screen, Urine Not Detected (NotDetected); Phencyclidine Screen,Urine Not Detected (NotDetected); Tricyclic Antidepressant,Urine Not Detected (NotDetected); Urn Cannabinoid Scrn Not Detected (NotDetected)
[2022-09-22] MEDS ORDERED: ONDANSETRON ODT 4 MG TAB PO STA (18:10)
--- NOTE | 2022-09-22 18:10 | ED ---
General Adult HPI - General Chief complaint: Psychiatric Symptoms Stated complaint: mental health Time Seen by Provider: 09/22/22 17:23 Source: patient, RN notes reviewed Mode of arrival: ambulatory - History of Present Illness Initial comments: 51 year old female presents to the emergency department for increased anxiety that started yesterday. She admits to "hoping I don't wake up." She denies suicidal intent or plan. Denies self harm. Denies hallucinations, delusions. She reports history of mental health issues and takes medications but she is unsure of the names. She has been hospitalized 3 times in the past for her mental health. She admits to urinary frequency. Otherwise she feels well physically. Denies fever, chills. - Related Data Home Medications Medication Instructions Recorded Confirmed metFORMIN HCL [Glucophage] 1,000 mg PO BID 08/03/16 09/15/22 Ezetimibe [Zetia] 10 mg PO DAILY 03/17/20 09/15/22 Fenofibrate [Lofibra] 54 mg PO DAILY 03/17/20 09/15/22 Albuterol Inhaler [Ventolin Hfa 2 puff INHALATION RT-Q4H PRN 01/26/21 09/15/22 Inhaler] Insulin Aspart [NovoLOG Flexpen] 10 units SQ AC-TID 01/26/21 09/15/22 Linagliptin [Tradjenta] 5 mg PO DAILY 01/26/21 09/15/22 Losartan [Cozaar] 25 mg PO DAILY 01/26/21 09/15/22 Omeprazole 40 mg PO DAILY 01/26/21 09/15/22 Celecoxib [CeleBREX] 100 mg PO DAILY 08/04/22 09/15/22 Cetirizine HCl [Zyrtec] 10 mg PO DAILY 08/04/22 09/15/22 Insulin Aspart [NovoLOG Flexpen] See Protocol SQ AC-TID PRN 08/04/22 09/15/22 Mirabegron [Myrbetriq] 50 mg PO DAILY 08/04/22 09/15/22 risperiDONE ER inj [Perseris] 120 mg SQ Q28D 09/15/22 09/15/22 Previous Rx's Medication Instructions Recorded Escitalopram [Lexapro] 20 mg PO DAILY 30 Days #30 tab 08/22/22 Valproic Acid Oral Soln [Depakene 750 mg PO BID 30 Days #900 ml 08/22/22 Syrup] Nitrofurantoin Monohyd/M-Cryst 100 mg PO Q12HR #14 cap 09/15/22 [Macrobid] Nitrofurantoin Monohyd/M-Cryst 100 mg PO Q12HR #10 cap 09/22/22 [Macrobid] Allergies Allergy/AdvReac Type Severity Reaction Status Date / Time Penicillins Allergy Severe Anaphylaxis Verified 09/22/22 17:03 cephalexin monohydrate Allergy Anaphylaxis Verified 09/22/22 17:03 [From Keflex] iodine Allergy Unknown Verified 09/22/22 17:03 Mushroom AdvReac Unknown Verified 09/22/22 17:03 Review of Systems ROS Statement: Those systems with pertinent positive or pertinent negative responses have been documented in the HPI. ROS Other: All systems not noted in ROS Statement are negative. Past Medical History Past Medical History: Coronary Artery Disease (CAD), Diabetes Mellitus, GERD/Reflux, Hyperlipidemia, Hypertension Additional Past Medical History / Comment(s): NIDDM type II, dyslexia. History of Any Multi-Drug Resistant Organisms: ESBL Date of last positivie culture/infection: 08/11/21-ESBL MDRO Source:: URINE Past Surgical History: Adenoidectomy, Section, Tonsillectomy Additional Past Surgical History / Comment(s): Nasal surgery Past Anesthesia/Blood Transfusion Reactions: Postoperative Nausea & Vomiting (PONV) Additional Past Anesthesia/Blood Transfusion Reaction / Comment(s): Pt states she has never received blood. Past Psychological History: Anxiety, Depression, Panic Disorder Smoking Status: Never smoker Past Alcohol Use History: None Reported Past Drug Use History: None Reported - Past Family History Mother Family Medical History: Cancer Additional Family Medical History / Comment(s): Mother has lymphoma. Father History Unknown: Yes Additional Family Medical History / Comment(s): Father left when pt was 2 months old. General Exam Limitations: no limitations (r) General appearance: alert, in no apparent distress, anxious Head exam: Present: atraumatic, normocephalic, normal inspection Eye exam: Present: normal appearance, PERRL, EOMI. Absent: scleral icterus, conjunctival injection, periorbital swelling ENT exam: Present: normal exam, mucous membranes moist Neck exam: Present: normal inspection. Absent: tenderness, meningismus, lymphadenopathy Respiratory exam: Present: normal lung sounds bilaterally. Absent: respiratory distress, wheezes, rales, rhonchi, stridor Cardiovascular Exam: Present: regular rate, normal rhythm, normal heart sounds. Absent: systolic murmur, diastolic murmur, rubs, gallop, clicks GI/Abdominal exam: Present: soft, normal bowel sounds. Absent: distended, tenderness, guarding, rebound, rigid Extremities exam: Present: normal inspection, full ROM, normal capillary refill. Absent: tenderness, pedal edema, joint swelling, calf tenderness Back exam: Present: normal inspection Neurological exam: Present: alert, oriented X3 Psychiatric exam: Present: depressed, anxious Skin exam: Present: warm, dry, intact, normal color. Absent: rash Course Vital Signs 09/22/22 16:56 Temperature 98.9 F Pulse Rate 118 H Respiratory 18 Rate Blood Pressure 116/75 O2 Sat by Pulse 95 Oximetry Medical Decision Making - Medical Decision Making Was pt. sent in by a medical professional or institution (, PA, MOSAIC TECHNICIAN, urgent care, hospital, or group home...) When possible be specific @ -No Did you speak to anyone other than the patient for history (EMS, parent, family, police, friend...)? What history was obtained from this source @ -No Did you review nursing and triage notes (agree or disagree)? Why? @ -I reviewed and agree with nursing and triage notes Were old charts reviewed (outside hosp., previous admission, EMS record, old EKG, old radiological studies, urgent care reports/EKG's, group home records)? Report findings @ -No old charts were reviewed Differential Diagnosis (chest pain, altered mental status, abdominal pain women, abdominal pain men, vaginal bleeding, weakness, fever, dyspnea, syncope, headache, dizziness, GI bleed, back pain, seizure, CVA, palpatations, mental health, musculoskeletal)? @ -Differential Mental Health Depression, anxiety, bipolar, psychosis, schizophrenia, borderline personality, situational depression, adjustment disorder, behavioral disorder, brain tumor, malingering, substance abuse, encephalopathy, medication reaction, dementia, hypothyroidism, degenerative neurologic disorder, lupus.... This is not meant to be all-inclusive list EKG interpreted by me (3pts min.). @ -None X-rays interpreted by me (1pt min.). @ -None done CT interpreted by me (1pt min.). @ -None done U/S interpreted by me (1pt. min.). @ -None done What testing was considered but not performed or refused? (CT, X-rays, U/S, labs)? Why? @ -None What meds were considered but not given or refused? Why? @ -None Did you discuss the management of the patient with other professionals (professionals i.e. DrHeber, PA, MOSAIC TECHNICIAN, lab, RT, psych nurse, social service worker, textile machine maintenance mechanic, teacher, aviation ordnance officer, director case management)? Give summary @ -Management was discussed with the EPS nurse who states in collaboration with psychiatrist outpatient treatment is recommended with a care plan. Was smoking cessation discussed for >3mins.? @ -No Was critical care preformed (if so, how long)? @ -No Were there social determinants of health that impacted care today? How? (Homelessness, low income, unemployed, alcoholism, drug addiction, transportation, low edu. Level, literacy, decrease access to med. care, long term, rehab)? @ -No Was there de-escalation of care discussed even if they declined (Discuss DNR or withdrawal of care, Hospice)? DNR status @ -No What co-morbidities impacted this encounter? (DM, HTN, Smoking, COPD, CAD, C[place] r, CVA, ARF, Chemo, Hep., AIDS, mental health diagnosis, sleep apnea, morbid obesity)? @ -None Was patient admitted / discharged? Hospital course, mention meds given and route, prescriptions, significant lab abnormalities, going to OR and other pertinent info. @ -Discharge. Patient presented to emergency department chief complaint of increased anxiety and depression today. Patient admits to urinary frequency but denies any other physical symptoms. She states that she has a history of mental health issues and takes medications but she is unsure of the names of these. UA obtained which showed 1+ protein, trace blood, positive nitrite, large leukocyte esterase this would be treated as a urinary tract infection with Macrobid. She was advised to take these medications up from the pharmacy and take them as instructed. Patient was evaluated by the EPS nurse and outpatient treatment was recommended. Patient was given a care plan which she is agreeable to. Case discussed with my attending, Dr. Ambrosio. Undiagnosed new problem with uncertain prognosis? @ -No Drug Therapy requiring intensive monitoring for toxicity (Heparin, Nitro, Insulin, Cardizem)? @ -No Were any procedures done? @ -No Diagnosis/symptom? @ -UTI Acute, or Chronic, or Acute on Chronic? @ -Acute Uncomplicated (without systemic symptoms) or Complicated (systemic symptoms)? @ -uncomplicated Side effects of treatment? @ -No Exacerbation, Progression, or Severe Exacerbation? @ -No Poses a threat to life or bodily function? How? (Chest pain, [place], [place], pneumonia, PE, COPD, DKA, ARF, appy, cholecystitis, CVA, Diverticulitis, Homicidal, Suicidal, threat to staff... and all critical care pts) @ -No - Lab Data Lab Results 09/22/22 09/22/22 Range/Units 17:43 18:28 Urine Color Yellow Urine Appearance Cloudy H (Clear) Urine pH 5.5 (5.0-8.0) Ur Specific [place] 1.023 (1.001-1.035) Urine Protein 1+ H (Negative) Urine Glucose (UA) Negative (Negative) Urine Ketones Negative (Negative) Urine Blood Trace H (Negative) Urine Nitrite Positive H (Negative) Urine Bilirubin Negative (Negative) Urine Urobilinogen <2.0 (<2.0) mg/dL Ur Leukocyte Esterase Large H (Negative) Urine RBC 19 H (0-5) /hpf Urine WBC >182 H (0-5) /hpf Ur Squamous Epith Cells 4 (0-4) /hpf Urine Bacteria Rare H (None) /hpf Urine Mucus Moderate H (None) /hpf Urine Opiates Screen Not Detected (NotDetected) Ur Oxycodone Screen Not Detected (NotDetected) Urine Methadone Screen Not Detected (NotDetected) Ur Propoxyphene Screen Not Detected (NotDetected) Ur Barbiturates Screen Not Detected (NotDetected) U Tricyclic Antidepress Not Detected (NotDetected) Ur Phencyclidine Scrn Not Detected (NotDetected) Ur Amphetamines Screen Not Detected (NotDetected) U Methamphetamines Scrn Not Detected (NotDetected) U Benzodiazepines Scrn Not Detected (NotDetected) Urine Cocaine Screen Not Detected (NotDetected) U Marijuana (THC) Screen Not Detected (NotDetected) Disposition Clinical Impression: UTI (urinary tract infection), Anxiety Disposition: HOME SELF-CARE Condition: Stable Additional Instructions: Please return to the emergency department for new or worsening symptoms. Prescriptions: Nitrofurantoin Monohyd/M-Cryst [Macrobid] 100 mg PO Q12HR #10 cap Is patient prescribed a controlled substance at d/c from ED?: No Referrals: None,Stated [REFERRING] - 1-2 days Time of Disposition: 20:13
[2022-09-22 18:39] LABS: Appearance,Urine Cloudy (Clear); Bacteria,Urine Rare /hpf; Bilirubin,Urine Negative (Negative); Blood,Urine Trace (Negative); Color,Urine Yellow; Glucose,Urine (UA) Negative (Negative); Ketones,Urine Negative (Negative); Leukocyte Esterase,Urine Large (Negative); Mucus,Urine Moderate /hpf; Nitrite,Urine Positive (Negative); PH, Urine 5.5 (5.0-8.0); Protein,Urine 1+ (Negative); RBC,Urine 19 /hpf (0-5); Specific Gravity,Urine 1.023 (1.001-1.035); Squamous Epithelial Cell,Urine 4 /hpf (0-4); Urobilinogen,Urine <2.0 mg/dL (<2.0); WBC,Urine >182 /hpf (0-5)
[2022-09-22] MEDS ORDERED: LORazepam 1 MG TAB PO STA (19:32)
[2022-09-22] MEDS ORDERED: NITROFURANTOIN MONOHYD/M-CRYST 100 MG CAP PO SCH (20:00)
== END 2022-09-22 20:33 | disposition home or self-care (01) ==
LOC: EC 15:52
DX: N39.0 Urinary tract infection, site not specified (principal); F41.9 Anxiety disorder, unspecified; I25.10 Atherosclerotic heart disease of native coronary artery without angina pectoris; E11.9 Type 2 diabetes mellitus without complications; E78.5 Hyperlipidemia, unspecified; I10 Essential (primary) hypertension; K21.9 Gastro-esophageal reflux disease without esophagitis; F32.A Depression, unspecified; Z88.0 Allergy status to penicillin; Z91.018 Allergy to other foods; Z88.8 Allergy status to other drugs, medicaments and biological substances; Z79.4 Long term (current) use of insulin; Z79.84 Long term (current) use of oral hypoglycemic drugs; Z79.899 Other long term (current) drug therapy
CPT/HCPCS: 80306; 81001; 82075; 87086; 99283

== ENCOUNTER 2022-11-03 10:11 | Inpatient (IN) | payer MEDICARE, OTHER ==
--- NOTE | 2022-11-03 10:29 | ED ---
General Adult HPI - General Source: patient, RN notes reviewed Mode of arrival: ambulatory Limitations: no limitations <Paul Pineda - Last Filed: 11/03/22 10:28> <Lisa Sims - Last Filed: 11/06/22 23:09> - General Stated complaint: Bladder Pain Time Seen by Provider: 11/03/22 10:28 - History of Present Illness Initial comments: 51-year-old female presents emergency dept with chief complaint of UTI. Patient's been having worsening symptom she's been treated several times. It was recommended by urology to have her cultures done. Patient states she's been having accidents worsening hot and cold flashes. (Paul Pineda) 51 year old female presents with uti failing outpatient treatment. States she has been on 2 courses of macrobid for a uti but continues to have symptoms. admits dysuria and increased frequency of voiding. also admits diarrhea. She has chills with no fevers. no nausea or vomiting. was suggested the patient be admitted for iv antibiotics. (Lisa Sims) - Related Data Home Medications Medication Instructions Recorded Confirmed metFORMIN HCL [Glucophage] 1,000 mg PO BID 08/03/16 11/03/22 Ezetimibe [Zetia] 10 mg PO DAILY 03/17/20 11/03/22 Albuterol Inhaler [Ventolin Hfa 2 puff INHALATION RT-Q4H PRN 01/26/21 11/03/22 Inhaler] Linagliptin [Tradjenta] 5 mg PO DAILY 01/26/21 11/03/22 Losartan [Cozaar] 25 mg PO DAILY 01/26/21 11/03/22 Omeprazole 40 mg PO DAILY 01/26/21 11/03/22 Cetirizine HCl [Zyrtec] 10 mg PO DAILY 08/04/22 11/03/22 Mirabegron [Myrbetriq] 50 mg PO DAILY 08/04/22 11/03/22 risperiDONE ER inj [Perseris] 120 mg SQ DIRECTED 09/15/22 11/03/22 Cholecalciferol [Vitamin D3 (125 125 mcg PO DAILY 11/03/22 11/03/22 Mcg = 5000 Iu)] Fenofibrate [Lofibra] 160 mg PO DAILY 11/03/22 11/03/22 Paliperidone IM [Invega Sustenna] 156 mg IM DIRECTED 11/03/22 11/03/22 Paliperidone IM [Invega Sustenna] 234 mg IM DIRECTED 11/03/22 11/03/22 Valproic Acid Oral Soln [Depakene 1,000 mg PO BID 11/03/22 11/03/22 Syrup] Previous Rx's Medication Instructions Recorded Escitalopram [Lexapro] 20 mg PO DAILY 30 Days #30 tab 08/22/22 Allergies Allergy/AdvReac Type Severity Reaction Status Date / Time Penicillins Allergy Severe Anaphylaxis Verified 11/03/22 15:01 cephalexin monohydrate Allergy Anaphylaxis Verified 11/03/22 15:01 [From Keflex] iodine Allergy Unknown Verified 11/03/22 15:01 Mushroom AdvReac Unknown Verified 11/03/22 15:01 Review of Systems ROS Other: All systems not noted in ROS Statement are negative. <Paul Pineda - Last Filed: 11/03/22 10:28> ROS Other: All systems not noted in ROS Statement are negative. <Lisa Sims - Last Filed: 11/06/22 23:09> ROS Statement: Those systems with pertinent positive or pertinent negative responses have been documented in the HPI. Past Medical History Past Medical History: Coronary Artery Disease (CAD), Diabetes Mellitus, GERD/Reflux, Hyperlipidemia, Hypertension Additional Past Medical History / Comment(s): NIDDM type II, dyslexia. History of Any Multi-Drug Resistant Organisms: ESBL Date of last positivie culture/infection: 08/11/21-ESBL MDRO Source:: URINE Past Surgical History: Adenoidectomy, Section, Tonsillectomy Additional Past Surgical History / Comment(s): Nasal surgery Past Anesthesia/Blood Transfusion Reactions: Postoperative Nausea & Vomiting (PONV) Additional Past Anesthesia/Blood Transfusion Reaction / Comment(s): Pt states she has never received blood. Past Psychological History: Anxiety, Depression, Panic Disorder Smoking Status: Never smoker Past Alcohol Use History: None Reported Past Drug Use History: None Reported - Past Family History Mother Family Medical History: Cancer Additional Family Medical History / Comment(s): Mother has lymphoma. Father History Unknown: Yes Additional Family Medical History / Comment(s): Father left when pt was 2 months old. <Paul Pineda - Last Filed: 11/03/22 10:28> General Exam <Paul Pineda - Last Filed: 11/03/22 10:28> General appearance: alert, in no apparent distress Head exam: Present: atraumatic, normocephalic, normal inspection Eye exam: Present: normal appearance, PERRL, EOMI. Absent: scleral icterus, conjunctival injection, periorbital swelling ENT exam: Present: normal exam, mucous membranes moist Neck exam: Present: normal inspection. Absent: tenderness, meningismus, lymphadenopathy Respiratory exam: Present: normal lung sounds bilaterally. Absent: respiratory distress, wheezes, rales, rhonchi, stridor Cardiovascular Exam: Present: regular rate, normal rhythm, normal heart sounds. Absent: systolic murmur, diastolic murmur, rubs, gallop, clicks GI/Abdominal exam: Present: soft, normal bowel sounds. Absent: distended, tenderness, guarding, rebound, rigid Extremities exam: Present: normal inspection, full ROM, normal capillary refill. Absent: tenderness, pedal edema, joint swelling, calf tenderness Back exam: Present: normal inspection Neurological exam: Present: alert, oriented X3, CN II-XII intact Psychiatric exam: Present: normal affect, normal mood Skin exam: Present: warm, dry, intact, normal color. Absent: rash <Lisa Sims - Last Filed: 11/06/22 23:09> - General Exam Comments Initial Comments: Visual Physical Exam Vital signs reviewed General: Well-appearing, nontoxic, no acute distress. Head: Normocephalic, atraumatic Eyes: PERRLA, EOMI ENT: Airway patent Chest: Nonlabored breathing Skin: No visual rash, normal skin tone Neuro: Alert and oriented 3 Musculoskeletal: No gross abnormalities (Paul Pineda) Course Vital Signs 11/03/22 11/03/22 11/03/22 10:35 14:03 18:13 Temperature 98 F Pulse Rate 93 97 96 Respiratory 16 18 18 Rate Blood Pressure 104/73 101/70 110/78 O2 Sat by Pulse 96 96 99 Oximetry Medical Decision Making <Paul Pineda - Last Filed: 11/03/22 10:28> - Lab Data Result diagrams: 11/05/22 05:49 11/06/22 04:25 <Lisa Sims - Last Filed: 11/06/22 23:09> - Medical Decision Making I performed a quick note portion of this chart signed Paul Pineda PA-C (Paul Pineda) Was pt. sent in by a medical professional or institution ([facility] Alvarez, [employer]ORBOAT RIGGER, urgent care, hospital, or penitentiary...) When possible be specific @ -Patient states she was sent by urology office Did you speak to anyone other than the patient for history (EMS, parent, family, police, friend...)? What history was obtained from this source @ -Spoke with the patients guardian for history Did you review nursing and triage notes (agree or disagree)? Why? @ -I reviewed and agree with nursing and triage notes Were old charts reviewed (outside hosp., previous admission, EMS record, old EKG, old radiological studies, urgent care reports/EKG's, penitentiary records)? Report findings @ -I reviewed old urine cultures on chart Differential Diagnosis (chest pain, altered mental status, abdominal pain women, abdominal pain men, vaginal bleeding, weakness, fever, dyspnea, syncope, headache, dizziness, GI bleed, back pain, seizure, CVA, palpatations, mental health, musculoskeletal)? @ -uti, ureteral reflux, nephrolithiaisis, bladder fistula EKG interpreted by me (3pts min.). @ -Not done X-rays interpreted by me (1pt min.). @ -None done CT interpreted by me (1pt min.). @ -None done U/S interpreted by me (1pt. min.). @ -yes and demonstrates renal calculus What testing was considered but not performed or refused? (CT, X-rays, U/S, labs)? Why? @ -None What meds were considered but not given or refused? Why? @ -None Did you discuss the management of the patient with other professionals (professionals i.e. JOSLYN Alvarez, [employer]BOARD [employer]ORBOAT RIGGER, lab, RT, psych nurse, licensed clinical social worker, cloth weigher, teacher, data officer, casework supervisor)? Give summary @ -Spoke with Dr. Amezquita for admission Was smoking cessation discussed for >3mins.? @ -No Was critical care preformed (if so, how long)? @ -No Were there social determinants of health that impacted care today? How? (Homelessness, low income, unemployed, alcoholism, drug addiction, transportation, low edu. Level, literacy, decrease access to med. care, retirement, rehab)? @ -mental health history with guardian Was there de-escalation of care discussed even if they declined (Discuss DNR or withdrawal of care, Hospice)? DNR status @ -No What co-morbidities impacted this encounter? (DM, HTN, Smoking, COPD, CAD, Cancer, CVA, ARF, Chemo, Hep., AIDS, mental health diagnosis, sleep apnea, morbid obesity)? @ -None Was patient admitted / discharged? Hospital course, mention meds given and route, prescriptions, significant lab abnormalities, going to OR and other pertinent info. @ -Patient placed in room 17. Labs conducted. US performed of renals and bladder. previous cultures only show sensitivity to IV medications. Patient started on Levaquin and Vanco. Patient admitted to Dr. Amezquita Undiagnosed new problem with uncertain prognosis? @ -No Drug Therapy requiring intensive monitoring for toxicity (Heparin, Nitro, Insulin, Cardizem)? @ -No Were any procedures done? @ -No Diagnosis/symptom? @ -acute uti failed outpatient treatment Acute, or Chronic, or Acute on Chronic? @ -acute Uncomplicated (without systemic symptoms) or Complicated (systemic symptoms)? @ -complicated Side effects of treatment? @ -No Exacerbation, Progression, or Severe Exacerbation? @ -no Poses a threat to life or bodily function? How? (Chest pain, [place], [place], pneumonia, PE, COPD, DKA, ARF, appy, cholecystitis, CVA, Diverticulitis, Homicidal, Suicidal, threat to staff... and all critical care pts) @ -No (Lisa Sims) - Lab Data Lab Results 11/03/22 11/03/22 11/03/22 Range/Units 11:16 11:30 11:30 WBC 6.4 (3.8-10.6) k/uL RBC 4.56 (3.80-5.40) m/uL Hgb 13.5 (11.4-16.0) gm/dL Hct 40.1 (34.0-46.0) % MCV 88.1 (80.0-100.0) fL MCH 29.6 (25.0-35.0) pg MCHC 33.6 (31.0-37.0) g/dL RDW 13.7 (11.5-15.5) % Plt Count 155 (150-450) k/uL MPV 8.5 Neutrophils % 61 % Lymphocytes % 23 % Monocytes % 11 % Eosinophils % 1 % Basophils % 0 % Neutrophils # 3.9 (1.3-7.7) k/uL Lymphocytes # 1.5 (1.0-4.8) k/uL Monocytes # 0.7 (0-1.0) k/uL Eosinophils # 0.1 (0-0.7) k/uL Basophils # 0.0 (0-0.2) k/uL Sodium 139 (137-145) mmol/L Potassium 3.9 (3.5-5.1) mmol/L Chloride 101 (98-107) mmol/L Carbon Dioxide 29 (22-30) mmol/L Anion Gap 9 mmol/L BUN 10 (7-17) mg/dL Creatinine 0.63 (0.52-1.04) mg/dL Est GFR (CKD-EPI)AfAm >90 (>60 ml/min/1.73 sqM) Est GFR (CKD-EPI)NonAf >90 (>60 ml/min/1.73 sqM) Glucose 137 H (74-99) mg/dL Plasma Lactic Acid Jono (0.7-2.0) mmol/L Calcium 9.7 (8.4-10.2) mg/dL Total Bilirubin 1.4 H (0.2-1.3) mg/dL AST 20 (14-36) U/L ALT 25 (4-34) U/L Alkaline Phosphatase 83 (38-126) U/L Total Protein 6.9 (6.3-8.2) g/dL Albumin 4.2 (3.5-5.0) g/dL Urine Color Yellow Urine Appearance Turbid H (Clear) Urine pH 6.0 (5.0-8.0) Ur Specific [place] 1.020 (1.001-1.035) Urine Protein 2+ H (Negative) Urine Glucose (UA) Negative (Negative) Urine Ketones 1+ H (Negative) Urine Blood Moderate H (Negative) Urine Nitrite Negative (Negative) Urine Bilirubin Negative (Negative) Urine Urobilinogen <2.0 (<2.0) mg/dL Ur Leukocyte Esterase Large H (Negative) Urine RBC 102 H (0-5) /hpf Urine WBC >182 H (0-5) /hpf Urine WBC Clumps Many H (None) /hpf Ur Squamous Epith Cells 6 H (0-4) /hpf Urine Bacteria Many H (None) /hpf Urine Mucus Many H (None) /hpf 11/03/22 Range/Units 11:30 WBC (3.8-10.6) k/uL RBC (3.80-5.40) m/uL Hgb (11.4-16.0) gm/dL Hct (34.0-46.0) % MCV (80.0-100.0) fL MCH (25.0-35.0) pg MCHC (31.0-37.0) g/dL RDW (11.5-15.5) % Plt Count (150-450) k/uL MPV Neutrophils % % Lymphocytes % % Monocytes % % Eosinophils % % Basophils % % Neutrophils # (1.3-7.7) k/uL Lymphocytes # (1.0-4.8) k/uL Monocytes # (0-1.0) k/uL Eosinophils # (0-0.7) k/uL Basophils # (0-0.2) k/uL Sodium (137-145) mmol/L Potassium (3.5-5.1) mmol/L Chloride (98-107) mmol/L Carbon Dioxide (22-30) mmol/L Anion Gap mmol/L BUN (7-17) mg/dL Creatinine (0.52-1.04) mg/dL Est GFR (CKD-EPI)AfAm (>60 ml/min/1.73 sqM) Est GFR (CKD-EPI)NonAf (>60 ml/min/1.73 sqM) Glucose (74-99) mg/dL Plasma Lactic Acid Jono 1.3 (0.7-2.0) mmol/L Calcium (8.4-10.2) mg/dL Total Bilirubin (0.2-1.3) mg/dL AST (14-36) U/L ALT (4-34) U/L Alkaline Phosphatase (38-126) U/L Total Protein (6.3-8.2) g/dL Albumin (3.5-5.0) g/dL Urine Color Urine Appearance (Clear) Urine pH (5.0-8.0) Ur Specific [place] (1.001-1.035) Urine Protein (Negative) Urine Glucose (UA) (Negative) Urine Ketones (Negative) Urine Blood (Negative) Urine Nitrite (Negative) Urine Bilirubin (Negative) Urine Urobilinogen (<2.0) mg/dL Ur Leukocyte Esterase (Negative) Urine RBC (0-5) /hpf Urine WBC (0-5) /hpf Urine WBC Clumps (None) /hpf Ur Squamous Epith Cells (0-4) /hpf Urine Bacteria (None) /hpf Urine Mucus (None) /hpf Disposition <Paul Pineda - Last Filed: 11/03/22 10:28> Is patient prescribed a controlled substance at d/c from ED?: No Time of Disposition: 14:53 Decision to Admit Reason: Admit from EC Decision Date: 11/03/22 Decision Time: 14:53 <Lisa Sims - Last Filed: 11/06/22 23:09> Clinical Impression: UTI (urinary tract infection) Disposition: ADMITTED IP TO THIS HOSP Condition: Stable
[2022-11-03 11:26] LABS: Appearance,Urine Turbid (Clear); Bacteria,Urine Many /hpf; Bilirubin,Urine Negative (Negative); Blood,Urine Moderate (Negative); Color,Urine Yellow; Glucose,Urine (UA) Negative (Negative); Ketones,Urine 1+ (Negative); Leukocyte Esterase,Urine Large (Negative); Mucus,Urine Many /hpf; Nitrite,Urine Negative (Negative); Protein,Urine 2+ (Negative); RBC,Urine 102 /hpf (0-5); Squamous Epithelial Cell,Urine 6 /hpf (0-4); Urobilinogen,Urine <2.0 mg/dL (<2.0); WBC,Urine >182 /hpf (0-5)
[2022-11-03 11:52] LABS: Basophils % (A) 0 %; Eosinophils # (A) 0.1 k/uL (0-0.7); Eosinophils % (A) 1 %; HCT 40.1 % (34.0-46.0); HGB 13.5 gm/dL (11.4-16.0); Lymphocytes # (A) 1.5 k/uL (1.0-4.8); Lymphocytes % (A) 23 %; MCH 29.6 pg (25.0-35.0); MCHC 33.6 g/dL (31.0-37.0); MCV 88.1 fL (80.0-100.0); Mean Platelet Volume 8.5; Monocytes # (A) 0.7 k/uL (0-1.0); Monocytes % (A) 11 %; Neutrophils # (A) 3.9 k/uL (1.3-7.7); Neutrophils % (A) 61 %; Platelet Count 155 k/uL (150-450); RBC 4.56 m/uL (3.80-5.40); RDW 13.7 % (11.5-15.5); WBC 6.4 k/uL (3.8-10.6)
[2022-11-03 12:10] LABS: ALT 25 U/L (4-34); AST 20 U/L (14-36); African American GFR (CKD) >90 (>60 ml/min/1.73 sqM); Albumin 4.2 g/dL (3.5-5.0); Alkaline Phosphatase 83 U/L (38-126); Anion Gap 9 mmol/L; Blood Urea Nitrogen 10 mg/dL (7-17); Calcium 9.7 mg/dL (8.4-10.2); Carbon Dioxide 29 mmol/L (22-30); Chloride 101 mmol/L (98-107); Glucose 137 mg/dL (74-99); Non-African American GFR(CKD) >90 (>60 ml/min/1.73 sqM); Sodium 139 mmol/L (137-145); Total Bilirubin 1.4 mg/dL (0.2-1.3); Total Protein 6.9 g/dL (6.3-8.2)
[2022-11-03 12:11] LABS: Potassium 3.9 mmol/L (3.5-5.1)
[2022-11-03] MEDS ORDERED: LEVOFLOXACIN 750MG-D5W PMX 750 MG in DEXTROSE/WATER 1 150ML.BAG IVPB STA (14:54)
[2022-11-03] MEDS ORDERED: VANCOMYCIN IV PER PHARMACY 1 EACH MISC MISCELLANE PRN (14:54)
[2022-11-03] MEDS ORDERED: ACETAMINOPHEN TAB 325 MG TAB PO PRN (15:15)
[2022-11-03] MEDS ORDERED: NALOXONE 0.4 MG/ML 1 ML VIAL IV PRN (15:15)
[2022-11-03] MEDS ORDERED: VANCOMYCIN 2,000 MG in SODIUM CHLORIDE 0.9% 500 ML 500 ML IVPB ONE (15:30)
--- NOTE | 2022-11-03 16:05 | US ---
EXAMINATION TYPE: US renals and bladder DATE OF EXAM: 11/03/2022 COMPARISON: None CLINICAL INDICATION: Female, 51 years old with history of recurrent uti; On going bladder leakage. H x renal stones. Portable EC exam EXAM MEASUREMENTS: Right Kidney: 14.1 x 6.7 x 6.3 cm Left Kidney: 11.5 x 5.5 x 5.4 cm Right Kidney: Mid echogenic focus with shadowing = 1.1 cm. Left Kidney: Cortical lobularity seen Bladder: slightly distended, anechoic Bilateral Jets not seen No hydronephrosis. Renal cortex maintained on the right. Cortical loss involving the left kidney. IMPRESSION: 1. Nonobstructing 1.1 cm right renal calculus. 2. A cortical lobulation and cortical loss left kidney correlate for chronic medical renal disease.
[2022-11-03] MEDS ORDERED: ALBUTEROL NEBULIZED 2.5 MG/3 ML INHALATION PRN (19:46)
[2022-11-03] MEDS ORDERED: DEXTROSE 50% SYRINGE 50 ML IVP PRN ×2 (19:47)
[2022-11-03 20:03] LABS: Glucose,Whole Blood 133 mg/dL (70-110)
[2022-11-03] MEDS: INSULIN ASPART (NovoLOG) 100 UNIT/ML VIAL SQ SCH (20:33)
[2022-11-03] MEDS: VALPROIC ACID ORAL SOLN 250 MG/5 ML CUP PO SCH (20:38)
--- NOTE | 2022-11-03 21:42 | P.CONS ---
History of Present Illness - Reason for Consult Consult date: 11/03/22 - History of Present Illness Patient is a 51-year-old female with a past medical history significant for diabetes mellitus hypertension hyperlipidemia reflux coronary disease history of recurrent UTI patient presenting to the hospital for worsening urinary symptoms currently the patient has been complaining of burning of urine did have a urgency and decreased urine output but no hematuria denies any suprapubic or flank pain did have nausea but no vomiting did have some chills and cold flashes but denies high-grade fever with the symptoms the patient was evaluated on presentation to hospital patient was afebrile did have mild tachycardia white count was normal kidney function was normal patient did have a UA that was positive with large leukocyte esterase more than 182 WBC patient did receive a dose of Levaquin in the ER has been continued on vancomycin as the patient recent urine culture positive for Enterococcus faecalis and Klebsiella and patient to have penicillin and cephalosporin allergy describing it to be large hives infectious disease was consulted for further management of antibiotic therapy Past Medical History Past Medical History: Coronary Artery Disease (CAD), Diabetes Mellitus, GERD/Reflux, Hyperlipidemia, Hypertension Additional Past Medical History / Comment(s): NIDDM type II, dyslexia. History of Any Multi-Drug Resistant Organisms: ESBL Year Discovered:: 08/11/21-ESBL MDRO Source:: URINE Past Surgical History: Adenoidectomy, Section, Tonsillectomy Additional Past Surgical History / Comment(s): Nasal surgery Past Anesthesia/Blood Transfusion Reactions: Postoperative Nausea & Vomiting (PONV) Additional Past Anesthesia/Blood Transfusion Reaction / Comm: Pt states she has never received blood. Past Psychological History: Anxiety, Depression, Panic Disorder Smoking Status: Never smoker Past Alcohol Use History: None Reported Past Drug Use History: None Reported - Past Family History Mother Family Medical History: Cancer Additional Family Medical History / Comment(s): Mother has lymphoma. Father History Unknown: Yes Additional Family Medical History / Comment(s): Father left when pt was 2 months old. Medications and Allergies Home Medications Medication Instructions Recorded Confirmed Type metFORMIN HCL [Glucophage] 1,000 mg PO BID 08/03/16 11/03/22 History Ezetimibe [Zetia] 10 mg PO DAILY 03/17/20 11/03/22 History Albuterol Inhaler [Ventolin Hfa 2 puff INHALATION RT-Q4H PRN 01/26/21 11/03/22 History Inhaler] Linagliptin [Tradjenta] 5 mg PO DAILY 01/26/21 11/03/22 History Losartan [Cozaar] 25 mg PO DAILY 01/26/21 11/03/22 History Omeprazole 40 mg PO DAILY 01/26/21 11/03/22 History Cetirizine HCl [Zyrtec] 10 mg PO DAILY 08/04/22 11/03/22 History Mirabegron [Myrbetriq] 50 mg PO DAILY 08/04/22 11/03/22 History Escitalopram [Lexapro] 20 mg PO DAILY 30 Days #30 tab 08/22/22 11/03/22 Rx risperiDONE ER inj [Perseris] 120 mg SQ DIRECTED 09/15/22 11/03/22 History Cholecalciferol [Vitamin D3 (125 125 mcg PO DAILY 11/03/22 11/03/22 History Mcg = 5000 Iu)] Fenofibrate [Lofibra] 160 mg PO DAILY 11/03/22 11/03/22 History Paliperidone IM [Invega Sustenna] 156 mg IM DIRECTED 11/03/22 11/03/22 History Paliperidone IM [Invega Sustenna] 234 mg IM DIRECTED 11/03/22 11/03/22 History Valproic Acid Oral Soln [Depakene 1,000 mg PO BID 11/03/22 11/03/22 History Syrup] Allergies Allergy/AdvReac Type Severity Reaction Status Date / Time Penicillins Allergy Severe Anaphylaxis Verified 11/03/22 15:01 cephalexin monohydrate Allergy Anaphylaxis Verified 11/03/22 15:01 [From Keflex] iodine Allergy Unknown Verified 11/03/22 15:01 Mushroom AdvReac Unknown Verified 11/03/22 15:01 Physical Exam Vitals: Vital Signs Temp Pulse Resp BP Pulse Ox 11/03/22 14:03 97 18 101/70 96 11/03/22 10:35 98 F 93 16 104/73 96 Intake and Output 11/03/22 11/03/22 11/03/22 06:59 14:59 22:59 Other: Voiding Method Toilet Weight 99.79 kg Results CBC & Chem 7: 11/03/22 11:30 11/03/22 11:30 Labs: Abnormal Lab Results - Last 24 Hours (Table) 11/03/22 11/03/22 Range/Units 11:16 11:30 Glucose 137 H (74-99) mg/dL Total Bilirubin 1.4 H (0.2-1.3) mg/dL Urine Appearance Turbid H (Clear) Urine Protein 2+ H (Negative) Urine Ketones 1+ H (Negative) Urine Blood Moderate H (Negative) Ur Leukocyte Esterase Large H (Negative) Urine RBC 102 H (0-5) /hpf Urine WBC >182 H (0-5) /hpf Urine WBC Clumps Many H (None) /hpf Ur Squamous Epith Cells 6 H (0-4) /hpf Urine Bacteria Many H (None) /hpf Urine Mucus Many H (None) /hpf Assessment and Plan Plan: 1patient presented to hospital with a urinary burning urgency frequency concerning for symptomatic urinary tract infection in this patient who do have a history of recurrent UTIs last urine culture positive for Klebsiella and Enterococcus faecalis. 2patient with multiple antibiotic allergies that would limit the number of antibiotics safe to use. 3we will check ultrasound of the kidney bladder area because of her recurrent UTIs. 3the patient is on Lexapro and we are not able to add oral Cipro to cover for the gram-negative. 4we will continue the patient on vancomycin while watching her kidney function closely and add Azactam to cover for the gram-negative's while waiting for the culture to finalized. We will follow on clinical condition and cultures to further adjust medication if needed Thank you for this consultation we will follow the patient along with you Dictation was produced using [employer] dictation software. please excuse any grammatical, word or spelling errors. Time with Patient: Greater than 30
--- NOTE | 2022-11-03 23:17 | P.HPIM ---
History of Present Illness H&P Date: 11/03/22 Chief Complaint: Increasing frequency of urine Patient is a 51-year-old female with a past medical history of diabetes type 2 [id number], hypertension, hyperlipidemia, GERD and history of ESBL UTI, anxiety/depression and panic disorder presents to ER with complaints of increased frequency of urine and also lower abdominal discomfort. Patient has been having symptoms for the past few days. Patient had prior infections in the urine. She is also having accidents worsening hot and cold flashes. Denies any chest pain or shortness of breath. Patient was on multiple antibiotics previously. Patient is allergic to penicillins and cephalexin. Urine culture on 10/10/2022 showed Klebsiella oxytocin and Enterococcus faecalis. Renal ultrasound showed nonobstructing 1.1 cm right renal calculus. A cortical lobulation and cortical loss of left kidney correlate for chronic medical renal disease. Laboratory data showed WBC 6.4 hemoglobin 13.5 and platelets 155 Total bilirubin 1.4 liver enzymes not elevated Urinalysis showed turbid with 2+ protein, 1+ ketones, large leukocyte esterase with elevated RBCs and WBCs. Review of Systems Constitutional: Patient denies any fever or chills . no Generalized weakness. Abdomen: Patient denied any nausea or vomiting or abd. pain Cardiovascular: Patient denies any chest pain or short of breath no palpitations. Respiratory: patient denied any cough . no sputum production. No shortness of b reath Neurologic: Patient denied any numbness or tingling headache. Musculoskeletal: Patient denies any complaints of joint swelling or deformity. Skin: Negative Psychiatric: Negative Endocrine: No heat or cold intolerance. No recent weight gain. Genitourinary: Complains of dysuria. Denies blood in the urine Increased urine frequency.. All other 14 point ROS negative except the above Past Medical History Past Medical History: Coronary Artery Disease (CAD), Diabetes Mellitus, GERD/Reflux, Hyperlipidemia, Hypertension Additional Past Medical History / Comment(s): NIDDM type II, dyslexia. History of Any Multi-Drug Resistant Organisms: ESBL Date of last positivie culture/infection: 08/11/21-ESBL MDRO Source:: URINE Past Surgical History: Adenoidectomy, Section, Tonsillectomy Additional Past Surgical History / Comment(s): Nasal surgery Past Anesthesia/Blood Transfusion Reactions: Postoperative Nausea & Vomiting (PONV) Additional Past Anesthesia/Blood Transfusion Reaction / Comment(s): Pt states she has never received blood. Past Psychological History: Anxiety, Depression, Panic Disorder Additional Psychological History / Comment(s): She is independent. She has dyslexia. She states she has mild comprehension problem. Smoking Status: Never smoker Past Alcohol Use History: None Reported Past Drug Use History: None Reported - Past Family History Mother Family Medical History: Cancer Additional Family Medical History / Comment(s): Mother has lymphoma. Father History Unknown: Yes Additional Family Medical History / Comment(s): Father left when pt was 2 months old. Medications and Allergies Home Medications Medication Instructions Recorded Confirmed Type metFORMIN HCL [Glucophage] 1,000 mg PO BID 08/03/16 11/03/22 History Ezetimibe [Zetia] 10 mg PO DAILY 03/17/20 11/03/22 History Albuterol Inhaler [Ventolin Hfa 2 puff INHALATION RT-Q4H PRN 01/26/21 11/03/22 History Inhaler] Linagliptin [Tradjenta] 5 mg PO DAILY 01/26/21 11/03/22 History Losartan [Cozaar] 25 mg PO DAILY 01/26/21 11/03/22 History Omeprazole 40 mg PO DAILY 01/26/21 11/03/22 History Cetirizine HCl [Zyrtec] 10 mg PO DAILY 08/04/22 11/03/22 History Mirabegron [Myrbetriq] 50 mg PO DAILY 08/04/22 11/03/22 History Escitalopram [Lexapro] 20 mg PO DAILY 30 Days #30 tab 08/22/22 11/03/22 Rx risperiDONE ER inj [Perseris] 120 mg SQ DIRECTED 09/15/22 11/03/22 History Cholecalciferol [Vitamin D3 (125 125 mcg PO DAILY 11/03/22 11/03/22 History Mcg = 5000 Iu)] Fenofibrate [Lofibra] 160 mg PO DAILY 11/03/22 11/03/22 History Paliperidone IM [Invega Sustenna] 156 mg IM DIRECTED 11/03/22 11/03/22 History Paliperidone IM [Invega Sustenna] 234 mg IM DIRECTED 11/03/22 11/03/22 History Valproic Acid Oral Soln [Depakene 1,000 mg PO BID 11/03/22 11/03/22 History Syrup] Allergies Allergy/AdvReac Type Severity Reaction Status Date / Time Penicillins Allergy Severe Anaphylaxis Verified 11/03/22 15:01 cephalexin monohydrate Allergy Anaphylaxis Verified 11/03/22 15:01 [From Keflex] iodine Allergy Unknown Verified 11/03/22 15:01 Mushroom AdvReac Unknown Verified 11/03/22 15:01 Physical Exam Vitals: Vital Signs Temp Pulse Pulse Resp BP BP Pulse Ox 11/03/22 18:42 98.7 F 101 H 18 118/81 94 L 11/03/22 18:13 96 18 110/78 99 11/03/22 14:03 97 18 101/70 96 11/03/22 10:35 98 F 93 16 104/73 96 Intake and Output 11/03/22 11/03/22 11/03/22 06:59 14:59 22:59 Other: Voiding Method Toilet # Voids 1 # Bowel Movements 1 Weight 99.79 kg 99.79 kg PHYSICAL EXAMINATION: Patient is lying in the bed comfortably, no acute distress, awake alert and oriented.. HEENT: Normocephalic. Neck is supple. Pupils reactive. Nostrils clear. Oral cavity is moist. Neck reveals no JVD, carotid bruits, or thyromegaly. CHEST EXAMINATION: Trachea is central. Symmetrical expansion. Lung wharton clear to auscultation and percussion. CARDIAC: Normal S1, S2 with no gallops. No murmurs ABDOMEN: Soft. Bowel sounds present. Nontender. No organomegaly. No abdominal bruits. Extremities: reveal no edema. No clubbing or cyanosis Neurologically awake, alert, oriented x3 with well-coordinated movements. No focal deficits noted Skin: No rash or skin lesions. Psychiatric: Coperative. Nonsuicidal, anxious. Musculoskeletal: No joint swelling or deformity. Normal range of motion. Results CBC & Chem 7: 11/03/22 11:30 11/03/22 11:30 Labs: Abnormal Lab Results - Last 24 Hours (Table) 11/03/22 11/03/22 Range/Units 11:16 11:30 Glucose 137 H (74-99) mg/dL Total Bilirubin 1.4 H (0.2-1.3) mg/dL Urine Appearance Turbid H (Clear) Urine Protein 2+ H (Negative) Urine Ketones 1+ H (Negative) Urine Blood Moderate H (Negative) Ur Leukocyte Esterase Large H (Negative) Urine RBC 102 H (0-5) /hpf Urine WBC >182 H (0-5) /hpf Urine WBC Clumps Many H (None) /hpf Ur Squamous Epith Cells 6 H (0-4) /hpf Urine Bacteria Many H (None) /hpf Urine Mucus Many H (None) /hpf Thrombosis Risk Factor Assmnt - DVT/VTE Prophylaxis DVT/VTE Prophylaxis: Pharmacologic Prophylaxis ordered Assessment and Plan Assessment: Acute urinary tract infection failed outpatient antibiotic therapy. Recent history of UTI showing Klebsiella and Enterococcus. Nonobstructing 1.1 cm right renal calculus. Diabetes type 2 [id number] Hypertension Hyperlipidemia GERD Bipolar type I disorder depressive episode recently. DVT prophylax with heparin subcu Plan: Patient will be continued on IV hydration with normal saline and was given Levaquin and vancomycin in the ER. ID consult due to resistence with multiple antibiotics and penicillin allergy. Continue with insulin sliding scale Follow-up urine culture report. Follow blood cultures and continue with psychiatric medications. Follow-up closely. Time with Patient: Greater than 30
[2022-11-03] MEDS: AZTREONAM 2 GM in SODIUM CHLORIDE 0.9% 100 ML IVPB SCH (23:20)
[2022-11-03] MEDS: IBUPROFEN 400 MG TAB PO PRN (23:20)
[2022-11-03] MEDS: HEPARIN SODIUM,PORCINE 5,000 UNIT/ML 1 ML VIAL SQ SCH (23:21)
[2022-11-03] MEDS: SODIUM CHLORIDE 0.9% 1,000 ML IV SCH (23:27)
[2022-11-04] MEDS: VANCOMYCIN 1,750 MG in SODIUM CHLORIDE 0.9% 500 ML 500 ML IVPB SCH ×2 (05:40→19:28)
[2022-11-04 05:56] LABS: Glucose,Whole Blood 162 mg/dL (70-110)
[2022-11-04] MEDS: INSULIN ASPART (NovoLOG) 100 UNIT/ML VIAL SQ SCH ×4 (06:19→20:47)
[2022-11-04] MEDS: PANTOPRAZOLE 40 MG TABLET PO SCH (06:19)
[2022-11-04 07:02] LABS: African American GFR (CKD) >90 (>60 ml/min/1.73 sqM); Anion Gap 6 mmol/L; Blood Urea Nitrogen 10 mg/dL (7-17); Carbon Dioxide 29 mmol/L (22-30); Chloride 104 mmol/L (98-107); Glucose 167 mg/dL (74-99); Non-African American GFR(CKD) >90 (>60 ml/min/1.73 sqM); Potassium 3.4 mmol/L (3.5-5.1); Sodium 139 mmol/L (137-145)
[2022-11-04] MEDS: FENOFIBRATE 160 MG TAB PO SCH (09:37)
[2022-11-04] MEDS: HEPARIN SODIUM,PORCINE 5,000 UNIT/ML 1 ML VIAL SQ SCH ×3 (09:38→22:51)
[2022-11-04] MEDS: EZETIMIBE 10 MG TAB PO SCH (09:38)
[2022-11-04] MEDS: ESCITALOPRAM 20 MG TAB PO SCH (09:38)
[2022-11-04] MEDS: AZTREONAM 2 GM in SODIUM CHLORIDE 0.9% 100 ML IVPB SCH ×3 (09:39→22:51)
[2022-11-04] MEDS: Mirabegron [Myrbetriq] 50 MG Tab.Er.24h PO SCH (09:48)
[2022-11-04] MEDS: VALPROIC ACID ORAL SOLN 250 MG/5 ML CUP PO SCH ×2 (09:52→19:38)
[2022-11-04] MEDS: IBUPROFEN 400 MG TAB PO PRN ×2 (10:20→19:37)
[2022-11-04 10:50] LABS: Basophils # (A) 0.02 X 10*3/uL (0.00-0.10); Basophils % (A) 0.5 %; Eosinophils # (A) 0.17 X 10*3/uL (0.04-0.35); Eosinophils % (A) 4.4 %; HCT 35.8 % (37.2-46.3); HGB 11.7 d/dL (12.0-15.0); Lymphocytes # (A) 1.23 X 10*3/uL (0.90-5.00); Lymphocytes % (A) 31.9 %; MCHC 32.7 d/dL (32.0-37.0); MCV 88.6 FL (80.0-97.0); Mean Platelet Volume 10.6 FL (9.5-12.2); Monocytes # (A) 0.66 X 10*3/uL (0.20-1.00); Monocytes % (A) 17.1 %; NRBC Per 100 WBC 0 X 10*3/uL (0.00-0.01); Neutrophils # (A) 1.77 X 10*3/uL (1.80-7.70); Neutrophils % (A) 45.8 %; Platelet Count 128 X 10*3/uL (140-440); RBC 4.04 X 10*6/uL (4.10-5.20); RDW 13.5 % (11.5-14.5); WBC 3.86 X 10*3/uL (4.50-10.00)
[2022-11-04 11:24] LABS: Glucose,Whole Blood 184 mg/dL (70-110)
[2022-11-04] MEDS ORDERED: POTASSIUM CHLORIDE ER 20 MEQ TAB.ER PO STA (11:35)
[2022-11-04] MEDS: SODIUM CHLORIDE 0.9% 1,000 ML IV SCH (12:42)
--- NOTE | 2022-11-04 16:02 | P.PN ---
Subjective Progress Note Date: 11/04/22 Principal diagnosis: UTI and multiple antibiotic ALLERGIES Patient is a 51-year-old female with a past medical history significant for diabetes mellitus hypertension hyperlipidemia reflux coronary disease history of recurrent UTI patient presenting to the hospital for w orsening urinary symptoms concerning for symptomatic urinary tract infection with a recent culture positive for Klebsiella and enterococcus patient did have multiple antibiotic ALLERGIES. on today's evaluation that is 11/04/2022, the patient remains to be afebrile, the patient is breathing comfortably , the patient denies chest pain and no significant cough, the patient denies nausea and vomiting no abdominal pain and no diarrhea, Patient white count of 3.86, creatinine 0.55 urine cultures pending Objective - Vital Signs Vital signs: Vital Signs Temp 97.6 F 11/04/22 08:00 Pulse 68 11/04/22 08:00 Resp 17 11/04/22 08:00 BP 105/69 11/04/22 08:00 Pulse Ox 96 11/04/22 08:00 FiO2 Intake & Output 11/03/22 11/04/22 11/04/22 18:59 06:59 18:59 Intake Total 1695 Balance 1695 Weight 99.79 kg Intake: Intake, IV Titration 975 Amount Aztreonam 2 gm In Sodium 100 Chloride 0.9% 100 ml @ 33 .3 mls/hr IVPB Q8H [facility] Rx #:[id number] Sodium Chloride 0.9% 1, 375 000 ml @ 75 mls/hr IV . [id number] [facility] Rx#:[id number] Vancomycin 1,750 mg In 500 Sodium Chloride 0.9% 500 ml 500 ml @ 167 mls/hr IVPB Q12H [facility] Rx#: [id number] Oral 720 Other: Voiding Method Toilet # Voids 1 2 # Bowel Movements 1 1 - Exam GENERAL DESCRIPTION: Middle-aged female lying in bed in no distress RESPIRATORY SYSTEM: Unlabored breathing , decreased breath sounds at bases HEART: S1 S2 regular rate and rhythm , ABDOMEN: Soft , no tenderness EXTREMITIES: No edema feet - Labs CBC & Chem 7: 11/04/22 06:15 11/04/22 06:15 Labs: Abnormal Lab Results - Last 24 Hours (Table) 11/03/22 11/04/22 11/04/22 Range/Units 20:01 05:54 06:15 WBC (4.50-10.00) X 10*3/uL RBC (4.10-5.20) X 10*6/uL Hgb (12.0-15.0) d/dL Hct (37.2-46.3) % Plt Count (140-440) X 10*3/uL Neutrophils # (1.80-7.70) X 10*3/uL Potassium (3.5-5.1) mmol/L Glucose (74-99) mg/dL POC Glucose (mg/dL) 133 H 162 H (70-110) mg/dL Hemoglobin A1c 7.0 H (<=6.0) % 11/04/22 11/04/22 11/04/22 Range/Units 06:15 06:15 11:23 WBC 3.86 L (4.50-10.00) X 10*3/uL RBC 4.04 L (4.10-5.20) X 10*6/uL Hgb 11.7 L (12.0-15.0) d/dL Hct 35.8 L (37.2-46.3) % Plt Count 128 L (140-440) X 10*3/uL Neutrophils # 1.77 L (1.80-7.70) X 10*3/uL Potassium 3.4 L (3.5-5.1) mmol/L Glucose 167 H (74-99) mg/dL POC Glucose (mg/dL) 184 H (70-110) mg/dL Hemoglobin A1c (<=6.0) % Assessment and Plan (1) Allergy to multiple antibiotics Current Visit: Yes Status: Acute Code(s): Z88.1 - ALLERGY STATUS TO OTHER ANTIBIOTIC AGENTS SNOMED Code(s): 782886124 (2) UTI (urinary tract infection) Current Visit: Yes Status: Acute Code(s): N39.0 - URINARY TRACT INFECTION, SITE NOT SPECIFIED SNOMED Code(s): 28627707 Plan: 1patient presented to hospital with a urinary burning urgency frequency concerning for symptomatic urinary tract infection in this patient who do have a history of recurrent UTIs last urine culture positive for Klebsiella and Enterococcus faecalis. 2patient with multiple antibiotic allergies that would limit the number of antibiotics safe to use. 3 ultrasound of the kidney bladder area did show nonobstructive to 1.1 cm right renal calculus and a chronic medical renal disease features 3the patient is on Lexapro and we are not able to add oral Cipro to cover for the gram-negative. 4patient to continue with vancomycin and Azactam while waiting for the culture to finalized. Dictation was produced using [employer] dictation software. please excuse any grammatical, word or spelling errors. Time with Patient: Less than 30
[2022-11-04 16:27] LABS: Glucose,Whole Blood 131 mg/dL (70-110)
[2022-11-04 20:28] LABS: Glucose,Whole Blood 175 mg/dL (70-110)
--- NOTE | 2022-11-04 22:33 | P.PN ---
Subjective Progress Note Date: 11/04/22 Patient is a 51-year-old female with a past medical history of diabetes type 2 [id number]-bambtefgc, hypertension, hyperlipidemia, GERD and history of ESBL UTI, anxiety/depression and panic disorder presents to ER with complaints of increased frequency of urine and also lower abdominal discomfort. Patient has been having symptoms for the past few days. Patient had prior infections in the urine. She is also having accidents worsening hot and cold flashes. Denies any chest pain or shortness of breath. Patient was on multiple antibiotics previously. Patient is allergic to penicillins and cephalexin. Urine culture on 10/10/2022 showed Klebsiella oxytocin and Enterococcus faecalis. Renal ultrasound showed nonobstructing 1.1 cm right renal calculus. A cortical lobulation and cortical loss of left kidney correlate for chronic medical renal disease. Laboratory data showed WBC 6.4 hemoglobin 13.5 and platelets 155 Total bilirubin 1.4 liver enzymes not elevated Urinalysis showed turbid with 2+ protein, 1+ ketones, large leukocyte esterase with elevated RBCs and WBCs. 11/04/2022 Patient is currently lying in the bed. Awake alert and oriented. Frequency of urination is improving. No complaints of chest pain. No abdominal pain. No nausea vomiting. Tolerating oral diet. Patient is being continued on antibiotics in the home with history of now. ID is on board. Patient is also on IV hydration. Urine culture showed gram-negative bacilli. Laboratory data showed WBC 3.8 hemoglobin 11.7 and platelets 128 Sodium 139 potassium 3.4 chloride 104 bicarb is 29 BUN 10 and creatinine 0.5. Blood sugar is 167. A1c 7.0. Current medications reviewed. Objective - Vital Signs Vital signs: Vital Signs Temp 98.3 F 11/04/22 20:00 Pulse 81 11/04/22 20:00 Resp 17 11/04/22 20:00 BP 132/84 11/04/22 20:00 Pulse Ox 95 11/04/22 20:00 FiO2 Intake & Output 11/04/22 11/04/22 11/05/22 06:59 18:59 06:59 Intake Total 1695 Balance 1695 Intake: Intake, IV Titration 975 Amount Aztreonam 2 gm In Sodium 100 Chloride 0.9% 100 ml @ 33 .3 mls/hr IVPB Q8H [facility] Rx #:[id number] Sodium Chloride 0.9% 1, 375 000 ml @ 75 mls/hr IV . [id number] [facility] Rx#:[id number] Vancomycin 1,750 mg In 500 Sodium Chloride 0.9% 500 ml 500 ml @ 167 mls/hr IVPB Q12H [facility] Rx#: [id number] Oral 720 Other: Voiding Method Diaper # Voids 2 2 # Bowel Movements 1 - Exam PHYSICAL EXAMINATION: Patient is lying in the bed comfortably, no acute distress, awake alert and oriented.. HEENT: Normocephalic. Neck is supple. Pupils reactive. Nostrils clear. Oral cavity is moist. Neck reveals no JVD, carotid bruits, or thyromegaly. CHEST EXAMINATION: Trachea is central. Symmetrical expansion. Lung wharton clear to auscultation and percussion. CARDIAC: Normal S1, S2 with no gallops. No murmurs ABDOMEN: Soft. Bowel sounds present. Nontender. No organomegaly. No abdominal bruits. Extremities: reveal no edema. No clubbing or cyanosis Neurologically awake, alert, oriented x3 with well-coordinated movements. No focal deficits noted Skin: No rash or skin lesions. Psychiatric: Coperative. Nonsuicidal, anxious. Musculoskeletal: No joint swelling or deformity. Normal range of motion. - Labs CBC & Chem 7: 11/04/22 06:15 11/04/22 06:15 Labs: Abnormal Lab Results - Last 24 Hours (Table) 11/04/22 11/04/22 11/04/22 Range/Units 05:54 06:15 06:15 WBC (4.50-10.00) X 10*3/uL RBC (4.10-5.20) X 10*6/uL Hgb (12.0-15.0) d/dL Hct (37.2-46.3) % Plt Count (140-440) X 10*3/uL Neutrophils # (1.80-7.70) X 10*3/uL Potassium 3.4 L (3.5-5.1) mmol/L Glucose 167 H (74-99) mg/dL POC Glucose (mg/dL) 162 H (70-110) mg/dL Hemoglobin A1c 7.0 H (<=6.0) % 11/04/22 11/04/22 11/04/22 Range/Units 06:15 11:23 16:26 WBC 3.86 L (4.50-10.00) X 10*3/uL RBC 4.04 L (4.10-5.20) X 10*6/uL Hgb 11.7 L (12.0-15.0) d/dL Hct 35.8 L (37.2-46.3) % Plt Count 128 L (140-440) X 10*3/uL Neutrophils # 1.77 L (1.80-7.70) X 10*3/uL Potassium (3.5-5.1) mmol/L Glucose (74-99) mg/dL POC Glucose (mg/dL) 184 H 131 H (70-110) mg/dL Hemoglobin A1c (<=6.0) % 11/04/22 Range/Units 20:26 WBC (4.50-10.00) X 10*3/uL RBC (4.10-5.20) X 10*6/uL Hgb (12.0-15.0) d/dL Hct (37.2-46.3) % Plt Count (140-440) X 10*3/uL Neutrophils # (1.80-7.70) X 10*3/uL Potassium (3.5-5.1) mmol/L Glucose (74-99) mg/dL POC Glucose (mg/dL) 175 H (70-110) mg/dL Hemoglobin A1c (<=6.0) % Microbiology - Last 24 Hours (Table) 11/03/22 11:45 Blood Culture - Preliminary Blood 11/03/22 11:30 Blood Culture - Preliminary Blood Assessment and Plan Assessment: Acute urinary tract infection failed outpatient antibiotic therapy. Urine culture showed gram-negative bacilli. Recent history of UTI showing Klebsiella and Enterococcus. Nonobstructing 1.1 cm right renal calculus. Diabetes type 2 ejp-psgmfsa-hjzizjlun, a1c 7.0 Hypertension Hyperlipidemia GERD Bipolar type I disorder depressive episode recently. DVT prophylax with heparin subcu Plan: Patient will be continued on IV hydration with normal saline and was given Levaquin and vancomycin in the ER. ID consult due to resistence with multiple antibiotics and penicillin allergy. Patient is being continued on vancomycin and aztreonam. ID is on board. Continue with insulin sliding scale Follow-up urine culture report. Follow blood cultures and continue with psychiatric medications. Follow-up closely. Time with Patient: Greater than 30
[2022-11-05] MEDS: VANCOMYCIN 1,750 MG in SODIUM CHLORIDE 0.9% 500 ML 500 ML IVPB SCH ×2 (05:26→18:52)
[2022-11-05 06:46] LABS: Glucose,Whole Blood 128 mg/dL (70-110)
[2022-11-05] MEDS: INSULIN ASPART (NovoLOG) 100 UNIT/ML VIAL SQ SCH ×4 (06:47→20:27)
[2022-11-05] MEDS: PANTOPRAZOLE 40 MG TABLET PO SCH (06:52)
[2022-11-05 06:55] LABS: African American GFR (CKD) >90 (>60 ml/min/1.73 sqM); Anion Gap 6 mmol/L; Blood Urea Nitrogen 7 mg/dL (7-17); Calcium 8.8 mg/dL (8.4-10.2); Carbon Dioxide 27 mmol/L (22-30); Chloride 110 mmol/L (98-107); Glucose 121 mg/dL (74-99); Non-African American GFR(CKD) >90 (>60 ml/min/1.73 sqM); Potassium 4.1 mmol/L (3.5-5.1); Sodium 143 mmol/L (137-145)
[2022-11-05] MEDS: AZTREONAM 2 GM in SODIUM CHLORIDE 0.9% 100 ML IVPB SCH ×3 (08:49→23:47)
[2022-11-05] MEDS: FENOFIBRATE 160 MG TAB PO SCH (08:49)
[2022-11-05] MEDS: HEPARIN SODIUM,PORCINE 5,000 UNIT/ML 1 ML VIAL SQ SCH ×3 (08:49→23:47)
[2022-11-05] MEDS: ESCITALOPRAM 20 MG TAB PO SCH (08:49)
[2022-11-05] MEDS: EZETIMIBE 10 MG TAB PO SCH (08:50)
[2022-11-05] MEDS: Mirabegron [Myrbetriq] 50 MG Tab.Er.24h PO SCH (08:50)
[2022-11-05] MEDS: VALPROIC ACID ORAL SOLN 250 MG/5 ML CUP PO SCH ×2 (08:54→20:32)
[2022-11-05 10:57] LABS: Glucose,Whole Blood 159 mg/dL (70-110)
[2022-11-05 11:25] LABS: Basophils # (A) 0.03 X 10*3/uL (0.00-0.10); Basophils % (A) 0.8 %; Eosinophils # (A) 0.15 X 10*3/uL (0.04-0.35); Eosinophils % (A) 3.9 %; HCT 34.7 % (37.2-46.3); HGB 11.1 d/dL (12.0-15.0); Lymphocytes # (A) 1.35 X 10*3/uL (0.90-5.00); Lymphocytes % (A) 35.5 %; MCH 28.4 pg (27.0-32.0); MCV 88.7 FL (80.0-97.0); Monocytes % (A) 13.2 %; NRBC Per 100 WBC 0 X 10*3/uL (0.00-0.01); Neutrophils # (A) 1.76 X 10*3/uL (1.80-7.70); Neutrophils % (A) 46.3 %; Platelet Count 146 X 10*3/uL (140-440); RBC 3.91 X 10*6/uL (4.10-5.20); RDW 13.3 % (11.5-14.5)
--- NOTE | 2022-11-05 12:24 | P.PN ---
Subjective Progress Note Date: 11/05/22 Principal diagnosis: UTI and multiple antibiotic ALLERGIES Patient is a 51-year-old female with a past medical history significant for diabetes mellitus hypertension hyperlipidemia reflux coronary disease history of recurrent UTI patient presenting to the hospital for w orsening urinary symptoms concerning for symptomatic urinary tract infection with a recent culture positive for Klebsiella and enterococcus patient did have multiple antibiotic ALLERGIES. on today's evaluation that is 11/05/2022, the patient denies any fever or any chills, the patient is breathing comfortably , the patient denies chest pain and no significant cough, the patient denies nausea and vomiting no abdominal pain and no diarrhea,: The patient on the some urinary frequency and burning has improved Patient white count of 3.80, creatinine 0.46, urine cultures currently pending Objective - Vital Signs Vital signs: Vital Signs Temp 97.5 F L 11/05/22 08:22 Pulse 74 11/05/22 08:22 Resp 18 11/05/22 08:22 BP 97/62 11/05/22 08:22 Pulse Ox 97 11/05/22 08:25 FiO2 Intake & Output 11/04/22 11/05/22 11/05/22 18:59 06:59 18:59 Intake Total 1187 Balance 1187 Intake: Intake, IV Titration 950 Amount Sodium Chloride 0.9% 1, 450 000 ml @ 75 mls/hr IV . [id number] [facility] Rx#:[id number] Vancomycin 1,750 mg In 500 Sodium Chloride 0.9% 500 ml 500 ml @ 167 mls/hr IVPB Q12H [facility] Rx#: [id number] Oral 237 Other: Voiding Method Diaper # Voids 2 2 # Bowel Movements 1 - Exam GENERAL DESCRIPTION: Middle-aged female lying in bed in no distress RESPIRATORY SYSTEM: Unlabored breathing , decreased breath sounds at bases HEART: S1 S2 regular rate and rhythm , ABDOMEN: Soft , no tenderness EXTREMITIES: No edema feet - Labs CBC & Chem 7: 11/05/22 05:49 11/05/22 05:49 Labs: Abnormal Lab Results - Last 24 Hours (Table) 11/04/22 11/04/22 11/05/22 Range/Units 16:26 20:26 05:49 WBC (4.50-10.00) X 10*3/uL RBC (4.10-5.20) X 10*6/uL Hgb (12.0-15.0) d/dL Hct (37.2-46.3) % Neutrophils # (1.80-7.70) X 10*3/uL Chloride 110 H (98-107) mmol/L Creatinine 0.46 L (0.52-1.04) mg/dL Glucose 121 H (74-99) mg/dL POC Glucose (mg/dL) 131 H 175 H (70-110) mg/dL 11/05/22 11/05/22 11/05/22 Range/Units 05:49 06:35 10:50 WBC 3.80 L (4.50-10.00) X 10*3/uL RBC 3.91 L (4.10-5.20) X 10*6/uL Hgb 11.1 L (12.0-15.0) d/dL Hct 34.7 L (37.2-46.3) % Neutrophils # 1.76 L (1.80-7.70) X 10*3/uL Chloride (98-107) mmol/L Creatinine (0.52-1.04) mg/dL Glucose (74-99) mg/dL POC Glucose (mg/dL) 128 H 159 H (70-110) mg/dL Microbiology - Last 24 Hours (Table) 11/03/22 11:33 Urine Culture - Preliminary Urine,Voided Gram Neg Bacilli 11/03/22 11:45 Blood Culture - Preliminary Blood 11/03/22 11:30 Blood Culture - Preliminary Blood Assessment and Plan (1) Allergy to multiple antibiotics Current Visit: Yes Status: Acute Code(s): Z88.1 - ALLERGY STATUS TO OTHER ANTIBIOTIC AGENTS SNOMED Code(s): 581493226 (2) UTI (urinary tract infection) Current Visit: Yes Status: Acute Code(s): N39.0 - URINARY TRACT INFECTION, SITE NOT SPECIFIED SNOMED Code(s): 85161678 Plan: 1patient presented to hospital with a urinary burning urgency frequency concerning for symptomatic urinary tract infection in this patient who do have a history of recurrent UTIs last urine culture positive for Klebsiella and Enterococcus faecalis. 2patient with multiple antibiotic allergies that would limit the number of antibiotics safe to use. 3 ultrasound of the kidney bladder area did show nonobstructive to 1.1 cm right renal calculus and a chronic medical renal disease features 3the patient is on Lexapro and we are not able to add oral Cipro to cover for the gram-negative. 4patient seemed to have show some clinical improvement and will continue with vancomycin and Azactam while waiting for the culture to finalized. Dictation was produced using [employer] dictation software. please excuse any grammatical, word or spelling errors. Time with Patient: Less than 30
[2022-11-05] MEDS: oxyBUTYnin chloride 5 MG TAB PO SCH ×2 (14:21→20:37)
[2022-11-05] MEDS: PANTOPRAZOLE 40 MG/10 ML VIAL IVP SCH ×2 (16:44→20:31)
[2022-11-05 16:46] LABS: Glucose,Whole Blood 120 mg/dL (70-110)
[2022-11-05 20:25] LABS: Glucose,Whole Blood 148 mg/dL (70-110)
[2022-11-06] MEDS ORDERED: VANCOMYCIN TROUGH DUE 1 EACH MISC MISCELLANE ONE (05:00)
[2022-11-06] MEDS: VANCOMYCIN 1,750 MG in SODIUM CHLORIDE 0.9% 500 ML 500 ML IVPB SCH (05:45)
[2022-11-06 05:57] LABS: African American GFR (CKD) >90 (>60 ml/min/1.73 sqM); Non-African American GFR(CKD) >90 (>60 ml/min/1.73 sqM)
[2022-11-06 06:25] LABS: Glucose,Whole Blood 118 mg/dL (70-110)
[2022-11-06] MEDS: INSULIN ASPART (NovoLOG) 100 UNIT/ML VIAL SQ SCH ×4 (06:28→20:40)
[2022-11-06] MEDS: Mirabegron [Myrbetriq] 50 MG Tab.Er.24h PO SCH (08:33)
[2022-11-06] MEDS: HEPARIN SODIUM,PORCINE 5,000 UNIT/ML 1 ML VIAL SQ SCH ×3 (08:34→23:06)
[2022-11-06] MEDS: ESCITALOPRAM 20 MG TAB PO SCH (08:34)
[2022-11-06] MEDS: EZETIMIBE 10 MG TAB PO SCH (08:34)
[2022-11-06] MEDS: FENOFIBRATE 160 MG TAB PO SCH (08:34)
[2022-11-06] MEDS: PANTOPRAZOLE 40 MG/10 ML VIAL IVP SCH ×2 (08:34→20:44)
[2022-11-06] MEDS: oxyBUTYnin chloride 5 MG TAB PO SCH ×2 (08:34→20:42)
[2022-11-06] MEDS: AZTREONAM 2 GM in SODIUM CHLORIDE 0.9% 100 ML IVPB SCH ×3 (08:34→23:04)
[2022-11-06] MEDS: VALPROIC ACID ORAL SOLN 250 MG/5 ML CUP PO SCH ×2 (08:34→20:42)
--- NOTE | 2022-11-06 11:05 | P.PN ---
Subjective Progress Note Date: 11/06/22 Principal diagnosis: UTI and multiple antibiotic ALLERGIES Patient is a 51-year-old female with a past medical history significant for diabetes mellitus hypertension hyperlipidemia reflux coronary disease history of recurrent UTI patient presenting to the hospital for w orsening urinary symptoms concerning for symptomatic urinary tract infection with a recent culture positive for Klebsiella and enterococcus patient did have multiple antibiotic ALLERGIES. on today's evaluation that is 11/06/2022, the patient remains to be afebrile, the patient is breathing comfortably on room air , the patient denies chest pain or cough , the patient denies nausea or vomiting , patient denies abdominal pain and no diarrhea has been reported,: The patient on the some urinary frequency and burning has improved Patient white count of 3.80, creatinine 0.51, Vanco trough was low at 9.4 urinary showing Klebsiella that is a sensitive pathogen Objective - Vital Signs Vital signs: Vital Signs Temp 98.2 F 11/06/22 07:10 Pulse 62 11/06/22 07:10 Resp 17 11/06/22 07:10 BP 117/80 11/06/22 07:10 Pulse Ox 92 L 11/06/22 07:10 FiO2 Intake & Output 11/05/22 11/06/22 11/06/22 18:59 06:59 18:59 Intake Total 1500 Balance 1500 Intake: Intake, IV Titration 1500 Amount Aztreonam 2 gm In Sodium 1000 Chloride 0.9% 100 ml @ 33 .3 mls/hr IVPB Q8H [facility] Rx #:[id number] Vancomycin 1,750 mg In 500 Sodium Chloride 0.9% 500 ml 500 ml @ 167 mls/hr IVPB Q12H [facility] Rx#: [id number] Other: Voiding Method Diaper Diaper # Voids 2 - Exam GENERAL DESCRIPTION: Middle-aged female lying in bed in no distress RESPIRATORY SYSTEM: Unlabored breathing , decreased breath sounds at bases HEART: S1 S2 regular rate and rhythm , ABDOMEN: Soft , no tenderness EXTREMITIES: No edema feet - Labs CBC & Chem 7: 11/05/22 05:49 11/06/22 04:25 Labs: Abnormal Lab Results - Last 24 Hours (Table) 11/05/22 11/05/22 11/05/22 Range/Units 05:49 16:44 20:21 WBC 3.80 L (4.50-10.00) X 10*3/uL RBC 3.91 L (4.10-5.20) X 10*6/uL Hgb 11.1 L (12.0-15.0) d/dL Hct 34.7 L (37.2-46.3) % Neutrophils # 1.76 L (1.80-7.70) X 10*3/uL Creatinine (0.52-1.04) mg/dL POC Glucose (mg/dL) 120 H 148 H (70-110) mg/dL 11/06/22 11/06/22 Range/Units 04:25 06:23 WBC (4.50-10.00) X 10*3/uL RBC (4.10-5.20) X 10*6/uL Hgb (12.0-15.0) d/dL Hct (37.2-46.3) % Neutrophils # (1.80-7.70) X 10*3/uL Creatinine 0.51 L (0.52-1.04) mg/dL POC Glucose (mg/dL) 118 H (70-110) mg/dL Microbiology - Last 24 Hours (Table) 11/03/22 11:33 Urine Culture - Final Urine,Voided Klebsiella pneumoniae 11/03/22 11:45 Blood Culture - Preliminary Blood 11/03/22 11:30 Blood Culture - Preliminary Blood Assessment and Plan (1) Allergy to multiple antibiotics Current Visit: Yes Status: Acute Code(s): Z88.1 - ALLERGY STATUS TO OTHER ANTIBIOTIC AGENTS SNOMED Code(s): 737140389 (2) UTI (urinary tract infection) Current Visit: Yes Status: Acute Code(s): N39.0 - URINARY TRACT INFECTION, SITE NOT SPECIFIED SNOMED Code(s): 75368486 Plan: 1patient presented to hospital with a urinary burning urgency frequency concerning for symptomatic urinary tract infection in this patient who do have a history of recurrent UTIs last urine culture positive for Klebsiella and Enterococcus faecalis. 2patient with multiple antibiotic allergies that would limit the number of antibiotics safe to use. 3 ultrasound of the kidney bladder area did show nonobstructive to 1.1 cm right renal calculus and a chronic medical renal disease features 3the patient is on Lexapro and we are not able to add oral Cipro to cover for the gram-negative. 4patient seemed to have show some clinical improvement and urine culture haley wing Klebsiella that is a sensitive pathogen we will continue the patient on Azactam because of ALLERGIES and drug interaction discontinue vancomycin however patient will be able to finish therapy with oral Bactrim DS Dictation was produced using [employer] dictation software. please excuse any gramma tical, word or spelling errors.
[2022-11-06 11:30] LABS: Glucose,Whole Blood 211 mg/dL (70-110)
[2022-11-06] MEDS ORDERED: VANCOMYCIN 1,500 MG in SODIUM CHLORIDE 0.9% 500 ML 500 ML IVPB SCH (14:00)
[2022-11-06 16:39] LABS: Glucose,Whole Blood 123 mg/dL (70-110)
[2022-11-06 20:33] LABS: Glucose,Whole Blood 150 mg/dL (70-110)
[2022-11-06] MEDS: IBUPROFEN 400 MG TAB PO PRN (20:44)
--- NOTE | 2022-11-07 00:21 | P.PN ---
Subjective Progress Note Date: 11/05/22 Patient is a 51-year-old female with a past medical history of diabetes type 2 zut-lnqayea-[id number], hypertension, hyperlipidemia, GERD and history of ESBL UTI, anxiety/depression and panic disorder presents to ER with complaints of increased frequency of urine and also lower abdominal discomfort. Patient has been having symptoms for the past few days. Patient had prior infections in the urine. She is also having accidents worsening hot and cold flashes. Denies any chest pain or shortness of breath. Patient was on multiple antibiotics previously. Patient is allergic to penicillins and cephalexin. Urine culture on 10/10/2022 showed Klebsiella oxytocin and Enterococcus faecalis. Renal ultrasound showed nonobstructing 1.1 cm right renal calculus. A cortical lobulation and cortical loss of left kidney correlate for chronic medical renal disease. Laboratory data showed WBC 6.4 hemoglobin 13.5 and platelets 155 Total bilirubin 1.4 liver enzymes not elevated Urinalysis showed turbid with 2+ protein, 1+ ketones, large leukocyte esterase with elevated RBCs and WBCs. 11/04/2022 Patient is currently lying in the bed. Awake alert and oriented. Frequency of urination is improving. No complaints of chest pain. No abdominal pain. No nausea vomiting. Tolerating oral diet. Patient is being continued on antibiotics in the home with history of now. ID is on board. Patient is also on IV hydration. Urine culture showed gram-negative bacilli. Laboratory data showed WBC 3.8 hemoglobin 11.7 and platelets 128 Sodium 139 potassium 3.4 chloride 104 bicarb is 29 BUN 10 and creatinine 0.5. Blood sugar is 167. A1c 7.0. 11/05/2022 Patient is currently resting in bed. Awake alert and oriented x3. No fever no chills. No cough or sputum production. Still complains of urinary frequency a nd also burning with urination. Which is also improving. No cough or sputum production. No chest pain or shortness of breath. Laboratory data showed WBC 3.8 hemoglobin 11.1 and platelets 146 Sodium 143 potassium 4.1 chloride 110 bicarb is 27 BUN 7 and creatinine 0.46 and blood sugar is 121. Patient was started on oxybutynin 5 mg p.o. twice daily. Patient is on antibiotics, aztreonam. ID is on board. Current medications reviewed. Objective - Vital Signs Vital signs: Vital Signs Temp 97.8 F 11/05/22 13:44 Pulse 70 11/05/22 13:44 Resp 17 11/05/22 13:44 BP 99/64 11/05/22 13:44 Pulse Ox 91 L 11/05/22 13:44 FiO2 Intake & Output 11/05/22 11/05/22 11/06/22 06:59 18:59 06:59 Intake Total 1187 Balance 1187 Intake: Intake, IV Titration 950 Amount Sodium Chloride 0.9% 1, 450 000 ml @ 75 mls/hr IV . [id number] [facility] Rx#:[id number] Vancomycin 1,750 mg In 500 Sodium Chloride 0.9% 500 ml 500 ml @ 167 mls/hr IVPB Q12H [facility] Rx#: [id number] Oral 237 Other: Voiding Method Diaper Diaper # Voids 2 2 # Bowel Movements 1 - Exam PHYSICAL EXAMINATION: Patient is lying in the bed comfortably, no acute distress, awake alert and oriented.. HEENT: Normocephalic. Neck is supple. Pupils reactive. Nostrils clear. Oral cavity is moist. Neck reveals no JVD, carotid bruits, or thyromegaly. CHEST EXAMINATION: Trachea is central. Symmetrical expansion. Lung wharton clear to auscultation and percussion. CARDIAC: Normal S1, S2 with no gallops. No murmurs ABDOMEN: Soft. Bowel sounds present. Nontender. No organomegaly. No abdominal bruits. Extremities: reveal no edema. No clubbing or cyanosis Neurologically awake, alert, oriented x3 with well-coordinated movements. No focal deficits noted Skin: No rash or skin lesions. Psychiatric: Coperative. Nonsuicidal, anxious. Musculoskeletal: No joint swelling or deformity. Normal range of motion. - Labs CBC & Chem 7: 11/05/22 05:49 11/06/22 04:25 Labs: Abnormal Lab Results - Last 24 Hours (Table) 11/04/22 11/05/22 11/05/22 Range/Units 20:26 05:49 05:49 WBC 3.80 L (4.50-10.00) X 10*3/uL RBC 3.91 L (4.10-5.20) X 10*6/uL Hgb 11.1 L (12.0-15.0) d/dL Hct 34.7 L (37.2-46.3) % Neutrophils # 1.76 L (1.80-7.70) X 10*3/uL Chloride 110 H (98-107) mmol/L Creatinine 0.46 L (0.52-1.04) mg/dL Glucose 121 H (74-99) mg/dL POC Glucose (mg/dL) 175 H (70-110) mg/dL 11/05/22 11/05/22 11/05/22 Range/Units 06:35 10:50 16:44 WBC (4.50-10.00) X 10*3/uL RBC (4.10-5.20) X 10*6/uL Hgb (12.0-15.0) d/dL Hct (37.2-46.3) % Neutrophils # (1.80-7.70) X 10*3/uL Chloride (98-107) mmol/L Creatinine (0.52-1.04) mg/dL Glucose (74-99) mg/dL POC Glucose (mg/dL) 128 H 159 H 120 H (70-110) mg/dL Microbiology - Last 24 Hours (Table) 11/03/22 11:45 Blood Culture - Preliminary Blood 11/03/22 11:30 Blood Culture - Preliminary Blood 11/03/22 11:33 Urine Culture - Preliminary Urine,Voided Gram Neg Bacilli Assessment and Plan Assessment: Acute urinary tract infection failed outpatient antibiotic therapy. Urine culture showed gram-negative bacilli. Recent history of UTI showing Klebsiella and Enterococcus. Nonobstructing 1.1 cm right renal calculus. Diabetes type 2 tjj-sydoohe-jaesucjve, a1c 7.0 Hypertension Hyperlipidemia GERD Bipolar type I disorder depressive episode recently. DVT prophylax with heparin subcu Plan: Patient will be continued on IV hydration with normal saline and was given Levaquin and vancomycin in the ER. ID consult due to resistence with multiple antibiotics and penicillin allergy. Patient is being continued on aztreonam. ID is on board. Continue with insulin sliding scale Follow-up urine culture report. Follow blood cultures and continue with psychiatric medications. Follow-up closely.
--- NOTE | 2022-11-07 00:27 | P.PN ---
Subjective Progress Note Date: 11/06/22 Patient is a 51-year-old female with a past medical history of diabetes type 2 usp-pdnwzon-vlndboqqv, hypertension, hyperlipidemia, GERD and history of ESBL UTI, anxiety/depression and panic disorder presents to ER with complaints of increased frequency of urine and also lower abdominal discomfort. Patient has been having symptoms for the past few days. Patient had prior infections in the urine. She is also having accidents worsening hot and cold flashes. Denies any chest pain or shortness of breath. Patient was on multiple antibiotics previously. Patient is allergic to penicillins and cephalexin. Urine culture on 10/10/2022 showed Klebsiella oxytocin and Enterococcus faecalis. Renal ultrasound showed nonobstructing 1.1 cm right renal calculus. A cortical lobulation and cortical loss of left kidney correlate for chronic medical renal disease. Laboratory data showed WBC 6.4 hemoglobin 13.5 and platelets 155 Total bilirubin 1.4 liver enzymes not elevated Urinalysis showed turbid with 2+ protein, 1+ ketones, large leukocyte esterase with elevated RBCs and WBCs. 11/04/2022 Patient is currently lying in the bed. Awake alert and oriented. Frequency of urination is improving. No complaints of chest pain. No abdominal pain. No nausea vomiting. Tolerating oral diet. Patient is being continued on antibiotics in the home with history of now. ID is on board. Patient is also on IV hydration. Urine culture showed gram-negative bacilli. Laboratory data showed WBC 3.8 hemoglobin 11.7 and platelets 128 Sodium 139 potassium 3.4 chloride 104 bicarb is 29 BUN 10 and creatinine 0.5. Blood sugar is 167. A1c 7.0. 11/05/2022 Patient is currently resting in bed. Awake alert and oriented x3. No fever no chills. No cough or sputum production. Still complains of urinary frequency a nd also burning with urination. Which is also improving. No cough or sputum production. No chest pain or shortness of breath. Laboratory data showed WBC 3.8 hemoglobin 11.1 and platelets 146 Sodium 143 potassium 4.1 chloride 110 bicarb is 27 BUN 7 and creatinine 0.46 and blood sugar is 121. Patient was started on oxybutynin 5 mg p.o. twice daily. Patient is on antibiotics, aztreonam. ID is on board. 11/06/2022 Patient is currently resting in the bed. Awake alert oriented x3. Currently on room air. No complaints of chest pain or shortness of breath. Urinary symptoms are much improved. Patient is on aztreonam. ID is on board. Anticipate discharge with final culture report. Otherwise patient has been afebrile. Tolerating oral diet. No headache or dizziness or lightheadedness. Current medications reviewed. Objective - Vital Signs Vital signs: Vital Signs Temp 98.3 F 11/06/22 19:40 Pulse 58 L 11/06/22 19:40 Resp 17 11/06/22 19:40 BP 134/82 11/06/22 19:40 Pulse Ox 94 L 11/06/22 19:40 FiO2 Intake & Output 11/06/22 11/06/22 11/07/22 06:59 18:59 06:59 Intake Total 1500 Balance 1500 Intake: Intake, IV Titration 1500 Amount Aztreonam 2 gm In Sodium 1000 Chloride 0.9% 100 ml @ 33 .3 mls/hr IVPB Q8H [facility] Rx #:[id number] Vancomycin 1,750 mg In 500 Sodium Chloride 0.9% 500 ml 500 ml @ 167 mls/hr IVPB Q12H [facility] Rx#: [id number] Other: Voiding Method Diaper Toilet # Voids 4 - Exam PHYSICAL EXAMINATION: Patient is lying in the bed comfortably, no acute distress, awake alert and oriented.. HEENT: Normocephalic. Neck is supple. Pupils reactive. Nostrils clear. Oral cavity is moist. Neck reveals no JVD, carotid bruits, or thyromegaly. CHEST EXAMINATION: Trachea is central. Symmetrical expansion. Lung wharton clear to auscultation and percussion. CARDIAC: Normal S1, S2 with no gallops. No murmurs ABDOMEN: Soft. Bowel sounds present. Nontender. No organomegaly. No abdominal bruits. Extremities: reveal no edema. No clubbing or cyanosis Neurologically awake, alert, oriented x3 with well-coordinated movements. No focal deficits noted Skin: No rash or skin lesions. Psychiatric: Coperative. Nonsuicidal, anxious. Musculoskeletal: No joint swelling or deformity. Normal range of motion. - Labs CBC & Chem 7: 11/05/22 05:49 11/06/22 04:25 Labs: Abnormal Lab Results - Last 24 Hours (Table) 11/06/22 11/06/22 11/06/22 Range/Units 04:25 06:23 11:28 Creatinine 0.51 L (0.52-1.04) mg/dL POC Glucose (mg/dL) 118 H 211 H (70-110) mg/dL 11/06/22 11/06/22 Range/Units 16:36 20:32 Creatinine (0.52-1.04) mg/dL POC Glucose (mg/dL) 123 H 150 H (70-110) mg/dL Microbiology - Last 24 Hours (Table) 11/03/22 11:45 Blood Culture - Preliminary Blood 11/03/22 11:30 Blood Culture - Preliminary Blood 11/03/22 11:33 Urine Culture - Final Urine,Voided Klebsiella pneumoniae Assessment and Plan Assessment: Acute urinary tract infection failed outpatient antibiotic therapy. Urine culture showed gram-negative bacilli. Recent history of UTI showing Klebsiella and Enterococcus. Nonobstructing 1.1 cm right renal calculus. Diabetes type 2 goy-amhocfr-srszuativ, a1c 7.0 Hypertension Hyperlipidemia GERD Bipolar type I disorder depressive episode recently. DVT prophylax with heparin subcu Plan: Patient will be continued on IV hydration with normal saline and was given Levaquin and vancomycin in the ER. ID consult due to resistence with multiple antibiotics and penicillin allergy. Patient is being continued on aztreonam. ID is on board. Continue with insulin sliding scale Follow-up urine culture report. Follow blood cultures and continue with psychiatric medications. Follow-up closely.
[2022-11-07 06:21] LABS: Glucose,Whole Blood 115 mg/dL (70-110)
[2022-11-07] MEDS: INSULIN ASPART (NovoLOG) 100 UNIT/ML VIAL SQ SCH ×2 (06:24→12:16)
[2022-11-07] MEDS: AZTREONAM 2 GM in SODIUM CHLORIDE 0.9% 100 ML IVPB SCH (06:35)
[2022-11-07] MEDS: Mirabegron [Myrbetriq] 50 MG Tab.Er.24h PO SCH (07:25)
[2022-11-07] MEDS: VALPROIC ACID ORAL SOLN 250 MG/5 ML CUP PO SCH (07:36)
[2022-11-07] MEDS: ESCITALOPRAM 20 MG TAB PO SCH (07:36)
[2022-11-07] MEDS: FENOFIBRATE 160 MG TAB PO SCH (07:36)
[2022-11-07] MEDS: HEPARIN SODIUM,PORCINE 5,000 UNIT/ML 1 ML VIAL SQ SCH (07:36)
[2022-11-07] MEDS: EZETIMIBE 10 MG TAB PO SCH (07:36)
[2022-11-07] MEDS: oxyBUTYnin chloride 5 MG TAB PO SCH (07:36)
[2022-11-07 07:41] LABS: African American GFR (CKD) >90 (>60 ml/min/1.73 sqM); Non-African American GFR(CKD) >90 (>60 ml/min/1.73 sqM)
[2022-11-07] MEDS: PANTOPRAZOLE 40 MG/10 ML VIAL IVP SCH (08:11)
--- NOTE | 2022-11-07 12:13 | P.PN ---
Subjective Progress Note Date: 11/07/22 Principal diagnosis: UTI and multiple antibiotic ALLERGIES Patient is a 51-year-old female with a past medical history significant for diabetes mellitus hypertension hyperlipidemia reflux coronary disease history of recurrent UTI patient presenting to the hospital for w orsening urinary symptoms concerning for symptomatic urinary tract infection with a recent culture positive for Klebsiella and enterococcus patient did have multiple antibiotic ALLERGIES. on today's evaluation that is 11/07/2022, the patient continues to be afebrile, the patient is breathing comfortably , the patient denies chest pain or cough , the patient denies having any nausea or vomiting , no abdominal pain or diarrhea The patient urinary symptoms have improved Patient creatinine 0.48 and no CBC was done today, urine culture grew Klebsiella that is a sensitive pathogen Objective - Vital Signs Vital signs: Vital Signs Temp 97.4 F L 11/07/22 08:00 Pulse 52 L 11/07/22 08:00 Resp 16 11/07/22 08:00 BP 114/74 11/07/22 08:00 Pulse Ox 92 L 11/07/22 08:00 FiO2 Intake & Output 11/06/22 11/07/22 11/07/22 18:59 06:59 18:59 Other: Voiding Method Toilet Toilet Toilet # Voids 4 1 - Exam GENERAL DESCRIPTION: Middle-aged female lying in bed in no distress RESPIRATORY SYSTEM: Unlabored breathing , decreased breath sounds at bases HEART: S1 S2 regular rate and rhythm , ABDOMEN: Soft , no tenderness EXTREMITIES: No edema feet - Labs CBC & Chem 7: 11/05/22 05:49 11/07/22 07:17 Labs: Abnormal Lab Results - Last 24 Hours (Table) 11/06/22 11/06/22 11/07/22 Range/Units 16:36 20:32 06:19 Creatinine (0.52-1.04) mg/dL POC Glucose (mg/dL) 123 H 150 H 115 H (70-110) mg/dL 11/07/22 Range/Units 07:17 Creatinine 0.48 L (0.52-1.04) mg/dL POC Glucose (mg/dL) (70-110) mg/dL Microbiology - Last 24 Hours (Table) 11/03/22 11:45 Blood Culture - Preliminary Blood 11/03/22 11:30 Blood Culture - Preliminary Blood Assessment and Plan (1) Allergy to multiple antibiotics Current Visit: Yes Status: Acute Code(s): Z88.1 - ALLERGY STATUS TO OTHER ANTIBIOTIC AGENTS SNOMED Code(s): 334026379 (2) UTI (urinary tract infection) Current Visit: Yes Status: Acute Code(s): N39.0 - URINARY TRACT INFECTION, SITE NOT SPECIFIED SNOMED Code(s): 97221999 Plan: 1patient presented to hospital with a urinary burning urgency frequency concerning for symptomatic urinary tract infection in this patient who do have a history of recurrent UTIs last urine culture positive for Klebsiella and Enterococcus faecalis. 2patient with multiple antibiotic allergies that would limit the number of antibiotics safe to use. 3 ultrasound of the kidney bladder area did show nonobstructive to 1.1 cm right renal calculus and a chronic medical renal disease features 3the patient is on Lexapro and we are not able to add oral Cipro to cover for the gram-negative. 4patient seemed to have show some clinical improvement and urine culture grew Klebsiella that is a sensitive pathogen 5-we will continue the patient on Azactam because of ALLERGIES and drug interaction , however patient will be able to finish therapy with oral Bactrim DS 7 days Dictation was produced using [employer] dictation software. please excuse any grammatical, word or spelling errors. Time with Patient: Less than 30
[2022-11-07 12:17] LABS: Glucose,Whole Blood 118 mg/dL (70-110)
[2022-11-07 14:10] VITALS: BP 120/74; PULSE 68; RESP 18; TEMP 97.7
--- NOTE | 2022-11-09 06:52 | P.DS ---
Providers Date of admission: 11/03/22 15:19 Expected date of discharge: 11/07/22 Attending physician: Denzel Amezquita Consults: 11/03/22 15:15 Consult Physician Urgent Consulting Provider: Lefty Cespedes Consult Reason/Comments: uti, failed outpatient treatment Do you want consulting provider notified?: Yes Primary care physician: Nelly Medellin Hospital Course: Final diagnosis Acute urinary tract infection, present on admission failed outpatient antibiotic therapy. Urine culture showed Klebsiella pneumonia Recent history of UTI showing Klebsiella and Enterococcus. Nonobstructing 1.1 cm right renal calculus. Diabetes type 2 [id number], a1c 7.0 Hypertension Hyperlipidemia GERD Bipolar type I disorder depressive episode recently. DVT prophylax Discharge disposition Patient is being discharged in a stable condition with guarded prognosis to home. Patient will follow-up with Dr. Nelly medellin in the outpatient setting upon discharge. Patient is to continue with oral Bactrim per ID recommendations and close outpatient follow-up with urology as scheduled. Total time taken is greater than 35 minutes. Hospital course This is a 51-year-old female who was recently admitted with lower abdominal pain with concerns of acute urinary tract infection, present on admission. Patient had been having increased frequency with pain and incontinence with significant past medical history of urinary tract infection showing her colchicine Klebsiella with resistance. Patient also noted to have a nonobstructing right renal calculus and will need outpatient follow-up with urology. Patient has been cleared consultations for discharge today and reports would like to go home. Patient reports to feeling improved and will be continued on Bactrim to complete the course. Please refer to other consultation notes for further HPI Currently no reports of chest pain, shortness of breath, or palpitations. Patient is afebrile. No reports of nausea or vomiting and patient is tolerating diet. Patient will be discharged home today. Guarded prognosis given patient's significant comorbidities Physical exam: Gen: This is a 51-year-old female who is awake, alert and oriented 3, well- developed, well-nourished, obese HEENT: Head is atraumatic, normocephalic. Pupils equal, round. Sclerae is anicteric. NECK: Supple. No JVD. No lymphadenopathy. No thyromegaly. LUNGS: Clear to auscultation. No wheezes or rhonchi. No intercostal retractions. HEART: Regular rate and rhythm. No murmur. ABDOMEN: Soft. Obese. Bowel sounds are present. No masses. No tenderness. EXTREMITIES: No pedal edema. No calf tenderness. NEUROLOGICAL: Patient is awake, alert and oriented x3. Cranial nerves 2 through 12 are grossly intact. Please refer to medication reconciliation sheet for a list of medications. The impression and plan of care has been dictated by Katharina Sorensen, Nurse Practitioner as directed. Dr. Joey MD I have performed a history and examination and MDM of this patient, discussed the same with the dictator, and agree with the dictator's assessment and plan as written ,documented as a scribe. Based on total visit time, I have performed more than 50% of the visit. Patient Condition at Discharge: Stable Plan - Discharge Summary Discharge Rx Participant: Yes New Discharge Prescriptions: New Sulfamethox-Tmp 800-160Mg [Bactrim DS 800-160 mg] 1 tab PO Q12HR 7 Days #14 tab oxyBUTYnin chloride [Ditropan] 5 mg PO BID #60 tab Ibuprofen [Motrin] 400 mg PO Q6HR PRN tab PRN Reason: Mild Pain Or Fever > 100.5 Acetaminophen Tab [Tylenol] 650 mg PO Q6HR PRN tab PRN Reason: Mild Pain Or Fever > 100.5 Continue metFORMIN HCL [Glucophage] 1,000 mg PO BID Ezetimibe [Zetia] 10 mg PO DAILY Albuterol Inhaler [Ventolin Hfa Inhaler] 2 puff INHALATION RT-Q4H PRN PRN Reason: Shortness Of Breath risperiDONE ER inj [Perseris] 120 mg SQ DIRECTED Paliperidone IM [Invega Sustenna] 234 mg IM DIRECTED Valproic Acid Oral Soln [Depakene Syrup] 1,000 mg PO BID Cholecalciferol [Vitamin D3 (125 Mcg = 5000 Iu)] 125 mcg PO DAILY Linagliptin [Tradjenta] 5 mg PO DAILY Omeprazole 40 mg PO DAILY Mirabegron [Myrbetriq] 50 mg PO DAILY Cetirizine HCl [Zyrtec] 10 mg PO DAILY Escitalopram [Lexapro] 20 mg PO DAILY 30 Days #30 tab Paliperidone IM [Invega Sustenna] 156 mg IM DIRECTED Fenofibrate [Lofibra] 160 mg PO DAILY Discontinued Losartan [Cozaar] 25 mg PO DAILY Discharge Medication List metFORMIN HCL [Glucophage] 1,000 mg PO BID 08/03/16 [History] Ezetimibe [Zetia] 10 mg PO DAILY 03/17/20 [History] Albuterol Inhaler [Ventolin Hfa Inhaler] 2 puff INHALATION RT-Q4H PRN 01/26/21 [History] Linagliptin [Tradjenta] 5 mg PO DAILY 01/26/21 [History] Omeprazole 40 mg PO DAILY 01/26/21 [History] Cetirizine HCl [Zyrtec] 10 mg PO DAILY 08/04/22 [History] Mirabegron [Myrbetriq] 50 mg PO DAILY 08/04/22 [History] Escitalopram [Lexapro] 20 mg PO DAILY 30 Days #30 tab 08/22/22 [Rx] risperiDONE ER inj [Perseris] 120 mg SQ DIRECTED 09/15/22 [History] Cholecalciferol [Vitamin D3 (125 Mcg = 5000 Iu)] 125 mcg PO DAILY 11/03/22 [History] Fenofibrate [Lofibra] 160 mg PO DAILY 11/03/22 [History] Paliperidone IM [Invega Sustenna] 156 mg IM DIRECTED 11/03/22 [History] Paliperidone IM [Invega Sustenna] 234 mg IM DIRECTED 11/03/22 [History] Valproic Acid Oral Soln [Depakene Syrup] 1,000 mg PO BID 11/03/22 [History] Acetaminophen Tab [Tylenol] 650 mg PO Q6HR PRN tab 11/07/22 [Rx] Ibuprofen [Motrin] 400 mg PO Q6HR PRN tab 11/07/22 [Rx] Sulfamethox-Tmp 800-160Mg [Bactrim DS 800-160 mg] 1 tab PO Q12HR 7 Days #14 tab 11/07/22 [Rx] oxyBUTYnin chloride [Ditropan] 5 mg PO BID #60 tab 11/07/22 [Rx] Follow up Appointment(s)/Referral(s): Sang Lozano MD [STAFF PHYSICIAN] - 1-2 days (Office stated they will call patient for follow-up appiontment date and time.) Nelly Medellin MD [Primary Care Provider] - 11/09/22 8:30 am Activity/Diet/Wound Care/Special Instructions: activity limited until follow-up Follow-up primary care provider to establish on discharge Continue with antibiotics in the form of Bactrim DS twice daily for 7 days until finished Discharge Disposition: HOME SELF-CARE
== END 2022-11-07 15:14 | disposition home or self-care (01) | DRG 690 ==
LOC: EC 10:11 → EEVIPCON 15:19 → 4SSUR 15:19
PROVIDERS: ADMIT Internal Medicine; ATTEND Internal Medicine
DX: N39.0 Urinary tract infection, site not specified (principal); N20.0 Calculus of kidney; E11.9 Type 2 diabetes mellitus without complications; B96.1 Klebsiella pneumoniae [K. pneumoniae] as the cause of diseases classified elsewhere; B95.2 Enterococcus as the cause of diseases classified elsewhere; R39.15 Urgency of urination; R35.0 Frequency of micturition; I10 Essential (primary) hypertension; E78.5 Hyperlipidemia, unspecified; F31.9 Bipolar disorder, unspecified; K21.9 Gastro-esophageal reflux disease without esophagitis; F41.0 Panic disorder [episodic paroxysmal anxiety]; I25.10 Atherosclerotic heart disease of native coronary artery without angina pectoris; R48.0 Dyslexia and alexia; Z79.84 Long term (current) use of oral hypoglycemic drugs; Z79.899 Other long term (current) drug therapy; Z88.0 Allergy status to penicillin; Z87.440 Personal history of urinary (tract) infections; Z88.1 Allergy status to other antibiotic agents; Z91.041 Radiographic dye allergy status; Z91.018 Allergy to other foods
CPT/HCPCS: 36415; 76770; 80048; 80053; 80202; 81001; 82565; 83036; 83605; 85025; 87040; 87077; 87086; 87186; 94760; 96365; 96366; 96368; 99285

== ENCOUNTER 2023-03-29 17:03 | Observation (INO) | payer MEDICARE, OTHER ==
--- NOTE | 2023-03-29 17:26 | ED ---
Recheck HPI - General Chief Complaint: Recheck/Abnormal Lab/Rx Stated Complaint: Hyperglycemia Time Seen by Provider: 03/29/23 17:10 Source: patient, EMS, RN notes reviewed, old records reviewed Mode of arrival: EMS Limitations: no limitations - History of Present Illness Initial Comments: This is a 52-year-old female to the ER for evaluation today. Patient is today for evaluation of elevated blood sugar. Patient has history of diabetes has had significant altered her blood sugar running high today. Patient has no headache chest pain shortness of breath abdominal pain mild nausea no vomiting. MD Complaint: abnormal lab (Elevated blood sugar) -: unknown Returns Today for: Called Because of Abnormal Lab/Test, persistent/worsening pain related to initial visit Symptoms Since Prior Visit: no new symptoms Context: planned re-check, called for abnormal lab result Associated Symptoms: none - Related Data Home Medications Medication Instructions Recorded Confirmed Ezetimibe [Zetia] 10 mg PO DAILY 03/17/20 03/29/23 Albuterol Inhaler [Ventolin Hfa 2 puff INHALATION RT-Q4H PRN 01/26/21 03/29/23 Inhaler] Omeprazole 40 mg PO DAILY 01/26/21 03/29/23 Cetirizine HCl [Zyrtec] 10 mg PO DAILY 08/04/22 03/29/23 Mirabegron [Myrbetriq] 50 mg PO DAILY 08/04/22 03/29/23 Cholecalciferol [Vitamin D3 (125 125 mcg PO DAILY 11/03/22 03/29/23 Mcg = 5000 Iu)] Fenofibrate [Lofibra] 160 mg PO DAILY 11/03/22 03/29/23 Paliperidone IM [Invega Sustenna] 156 mg IM Q28D 11/03/22 03/29/23 Valproic Acid Oral Soln [Depakene 1,000 mg PO BID 11/03/22 03/29/23 Syrup] Insulin Aspart [NovoLOG Flexpen] 10 units SQ TID-W/MEALS 03/29/23 03/29/23 Insulin Aspart [NovoLOG Flexpen] See Protocol SQ TID-W/MEALS PRN 03/29/23 03/29/23 Previous Rx's Medication Instructions Recorded Escitalopram [Lexapro] 20 mg PO DAILY 30 Days #30 tab 08/22/22 Acetaminophen Tab [Tylenol] 650 mg PO Q6HR PRN tab 11/07/22 Ibuprofen [Motrin] 400 mg PO Q6HR PRN tab 11/07/22 Insulin Detemir (Levemir) [Levemir] 15 unit SQ BID@0700,2100 30 Days 03/31/23 #5 each Allergies Allergy/AdvReac Type Severity Reaction Status Date / Time Penicillins Allergy Severe Anaphylaxis Verified 03/29/23 18:54 cephalexin monohydrate Allergy Anaphylaxis Verified 03/29/23 18:54 [From Keflex] iodine Allergy Unknown Verified 03/29/23 18:54 Mushroom AdvReac Unknown Verified 03/29/23 18:54 Review of Systems ROS Statement: Those systems with pertinent positive or pertinent negative responses have been documented in the HPI. ROS Other: All systems not noted in ROS Statement are negative. Past Medical History Past Medical History: Coronary Artery Disease (CAD), Diabetes Mellitus, GERD/Reflux, Hyperlipidemia, Hypertension Additional Past Medical History / Comment(s): NIDDM type II, dyslexia. History of Any Multi-Drug Resistant Organisms: ESBL Date of last positivie culture/infection: 08/11/21-ESBL MDRO Source:: URINE Past Surgical History: Adenoidectomy, Section, Tonsillectomy Additional Past Surgical History / Comment(s): Nasal surgery Past Anesthesia/Blood Transfusion Reactions: Postoperative Nausea & Vomiting (PONV) Additional Past Anesthesia/Blood Transfusion Reaction / Comment(s): Pt states she has never received blood. Past Psychological History: Anxiety, Depression, Panic Disorder Smoking Status: Never smoker, Light tobacco smoker Past Alcohol Use History: None Reported Past Drug Use History: None Reported - Past Family History Mother Family Medical History: Cancer Additional Family Medical History / Comment(s): Mother has lymphoma. Father History Unknown: Yes Additional Family Medical History / Comment(s): Father left when pt was 2 months old. General Exam Limitations: no limitations General appearance: alert, in no apparent distress, anxious, in distress Head exam: Present: atraumatic, normocephalic, normal inspection Eye exam: Present: normal appearance, PERRL, EOMI. Absent: scleral icterus, conjunctival injection, periorbital swelling ENT exam: Present: normal exam, mucous membranes moist Neck exam: Present: normal inspection. Absent: tenderness, meningismus, lymphadenopathy Respiratory exam: Present: normal lung sounds bilaterally. Absent: respiratory distress, wheezes, rales, rhonchi, stridor Cardiovascular Exam: Present: regular rate, normal rhythm, normal heart sounds. Absent: systolic murmur, diastolic murmur, rubs, gallop, clicks GI/Abdominal exam: Present: soft, normal bowel sounds. Absent: distended, tenderness, guarding, rebound, rigid Extremities exam: Present: normal inspection, full ROM, normal capillary refill. Absent: tenderness, pedal edema, joint swelling, calf tenderness Back exam: Present: normal inspection Neurological exam: Present: alert, oriented X3, CN II-XII intact Psychiatric exam: Present: normal affect, normal mood Skin exam: Present: warm, dry, intact, normal color. Absent: rash Course Vital Signs 03/29/23 03/29/23 17:08 22:12 Temperature 97.8 F 97.9 F Pulse Rate 92 90 Respiratory 16 16 Rate Blood Pressure 118/80 140/86 O2 Sat by Pulse 94 L 95 Oximetry - Reevaluation(s) Reevaluation #1: 03/29/23 17:59 Medical records reviewed Reevaluation #2: 03/29/23 17:59 Patient symptoms unchanged Reevaluation #3: 03/29/23 17:59 Patient informed of results questions answered Reevaluation #4: 03/29/23 17:59 Was pt. sent in by a medical professional or institution (Dr. PA, PAINTLESS DENT REPAIR TECHNICIAN, urgent care, hospital, or prison...) When possible be specific @ -no Did you speak to anyone other than the patient for history (EMS, parent, family, police, friend...)? What history was obtained from this source @ -no Did you review nursing and triage notes (agree or disagree)? Why? @ -agree Are old charts reviewed (outside hosp., previous admission, EMS record, old EKG, old radiological studies, urgent care reports/EKG's, prison records)? Report findings @ -yes Differential Diagnosis (chest pain, altered mental status, abdominal pain women, abdominal pain men, vaginal bleeding, weakness, fever, dyspnea, syncope, headache, dizziness, GI bleed, back pain, seizure, CVA, palpatations, mental health, musculoskeletal)? @ -prior EKG interpreted by me (3pts min.). @ -yes X-rays interpreted by me (1pt min.). @ -no CT interpreted by me (1pt min.). @ -no U/S interpreted by me (1pt. min.). @ -no What testing was considered but not performed or refused? (CT, X-rays, U/S, labs)? Why? @ -none What meds were considered but not given or refused? Why? @ -none Did you discuss the management of the patient with other professionals (professionals i.e. Dr., PA, PAINTLESS DENT REPAIR TECHNICIAN, lab, RT, psych nurse, executive secretary social welfare, dietary clerk, teacher, sewage reticulation drafting officer, vocational case manager)? Give summary @ -no Was smoking cessation discussed for >3mins.? @ -no Was critical care preformed (if so, how long)? @ -no Were there social determinants of health that impacted care today? How? (Homelessness, low income, unemployed, alcoholism, drug addiction, transportation, low edu. Level, literacy, decrease access to med. care, shelter, rehab)? @ -none Was there de-escalation of care discussed even if they declined (Discuss DNR or withdrawal of care, Hospice)? DNR status @ -no What co-morbidities impacted this encounter? (DM, HTN, Smoking, COPD, CAD, Cancer, CVA, ARF, Chemo, Hep., AIDS, mental health diagnosis, sleep apnea, morbid obesity)? @ -none Was patient admitted / discharged? Hospital course, mention meds given and route, prescriptions, significant lab abnormalities, going to OR and other pertinent info. @ - 52 female relatively poor historian presenting with weakness not feeling well altered mental status and elevated blood sugar. Patient does appear to be medically noncompliant with elevated blood sugar here in the ER and patient will be admitted for IV hydration and correction of blood sugar Admitted Undiagnosed new problem with uncertain prognosis? @ -no Drug Therapy requiring intensive monitoring for toxicity (Heparin, Nitro, Insulin, Cardizem)? @ -no Were any procedures done? @ -no Diagnosis/symptom? @ -Hyper glycemia Acute, or Chronic, or Acute on Chronic? @ -Acute Uncomplicated (without systemic symptoms) or Complicated (systemic symptoms)? @ -Complicated Side effects of treatment? @ -no Exacerbation, Progression, or Severe Exacerbation? @ -exacerbation Poses a threat to life or bodily function? How? (Chest pain, USA, MS, pneumonia, PE, COPD, DKA, ARF, appy, cholecystitis, CVA, Diverticulitis, Homicidal, Suicidal, threat to staff... and all critical care pts) @ -yes altered mental status with uncontrolled blood sugar Reevaluation #5: 03/29/23 17:59 Differential Weakness: Hypoglycemia, shock, sepsis, hyponatremia, anemia, infection, MS, ETOH, adverse medicine reaction, overdose, stroke, this is not meant to be an all-inclusive list. - Consultations Consultation #1: Spoke with admitting physicians who agreed to admit this patient Medical Decision Making - Medical Decision Making 52 female relatively poor historian presenting with weakness not feeling well altered mental status and elevated blood sugar. Patient does appear to be medically noncompliant with elevated blood sugar here in the ER and patient will be admitted for IV hydration and correction of blood sugar - Lab Data Result diagrams: 03/31/23 05:59 03/31/23 05:59 Lab Results 03/29/23 03/29/23 03/29/23 Range/Units 17:27 17:36 17:36 WBC 4.3 (3.8-10.6) k/uL RBC 4.47 (3.80-5.40) m/uL Hgb 13.1 (11.4-16.0) gm/dL Hct 39.8 (34.0-46.0) % MCV 89.2 (80.0-100.0) fL MCH 29.4 (25.0-35.0) pg MCHC 33.0 (31.0-37.0) g/dL RDW 13.2 (11.5-15.5) % Plt Count 196 (150-450) k/uL MPV 8.9 Neutrophils % 48 % Lymphocytes % 41 % Monocytes % 8 % Eosinophils % 2 % Basophils % 1 % Neutrophils # 2.0 (1.3-7.7) k/uL Lymphocytes # 1.8 (1.0-4.8) k/uL Monocytes # 0.3 (0-1.0) k/uL Eosinophils # 0.1 (0-0.7) k/uL Basophils # 0.0 (0-0.2) k/uL PT 11.0 (10.0-12.5) sec INR 1.0 (<1.2) APTT 20.8 L (22.0-30.0) sec Sodium (137-145) mmol/L Potassium (3.5-5.1) mmol/L Chloride (98-107) mmol/L Carbon Dioxide (22-30) mmol/L Anion Gap mmol/L BUN (7-17) mg/dL Creatinine (0.52-1.04) mg/dL Est GFR (CKD-EPI)AfAm (>60 ml/min/1.73 sqM) Est GFR (CKD-EPI)NonAf (>60 ml/min/1.73 sqM) Glucose (74-99) mg/dL POC Glucose (mg/dL) 387 H (70-110) mg/dL POC Glu Investigations Consultant ID Tess Mohr Plasma Lactic Acid Jono (0.7-2.0) mmol/L Calcium (8.4-10.2) mg/dL Phosphorus (2.5-4.5) mg/dL Magnesium (1.6-2.3) mg/dL Total Bilirubin (0.2-1.3) mg/dL AST (14-36) U/L ALT (4-34) U/L Alkaline Phosphatase (38-126) U/L Troponin I (0.000-0.034) ng/mL Total Protein (6.3-8.2) g/dL Albumin (3.5-5.0) g/dL Urine Color Urine Appearance (Clear) Urine pH (5.0-8.0) Ur Specific [place] (1.001-1.035) Urine Protein (Negative) Urine Glucose (UA) (Negative) Urine Ketones (Negative) Urine Blood (Negative) Urine Nitrite (Negative) Urine Bilirubin (Negative) Urine Urobilinogen (<2.0) mg/dL Ur Leukocyte Esterase (Negative) Acetone, Qual (Negative) 03/29/23 03/29/23 03/29/23 Range/Units 17:36 17:36 17:36 WBC (3.8-10.6) k/uL RBC (3.80-5.40) m/uL Hgb (11.4-16.0) gm/dL Hct (34.0-46.0) % MCV (80.0-100.0) fL MCH (25.0-35.0) pg MCHC (31.0-37.0) g/dL RDW (11.5-15.5) % Plt Count (150-450) k/uL MPV Neutrophils % % Lymphocytes % % Monocytes % % Eosinophils % % Basophils % % Neutrophils # (1.3-7.7) k/uL Lymphocytes # (1.0-4.8) k/uL Monocytes # (0-1.0) k/uL Eosinophils # (0-0.7) k/uL Basophils # (0-0.2) k/uL PT (10.0-12.5) sec INR (<1.2) APTT (22.0-30.0) sec Sodium 136 L (137-145) mmol/L Potassium 4.3 (3.5-5.1) mmol/L Chloride 103 (98-107) mmol/L Carbon Dioxide 25 (22-30) mmol/L Anion Gap 8 mmol/L BUN 10 (7-17) mg/dL Creatinine 0.47 L (0.52-1.04) mg/dL Est GFR (CKD-EPI)AfAm >90 (>60 ml/min/1.73 sqM) Est GFR (CKD-EPI)NonAf >90 (>60 ml/min/1.73 sqM) Glucose 359 H (74-99) mg/dL POC Glucose (mg/dL) (70-110) mg/dL POC Glu Investigations Consultant ID Plasma Lactic Acid Jono 2.0 (0.7-2.0) mmol/L Calcium 9.5 (8.4-10.2) mg/dL Phosphorus 3.5 (2.5-4.5) mg/dL Magnesium 1.4 L (1.6-2.3) mg/dL Total Bilirubin 0.4 (0.2-1.3) mg/dL AST 61 H (14-36) U/L ALT 49 H (4-34) U/L Alkaline Phosphatase 79 (38-126) U/L Troponin I <0.012 (0.000-0.034) ng/mL Total Protein 6.4 (6.3-8.2) g/dL Albumin 4.0 (3.5-5.0) g/dL Urine Color Urine Appearance (Clear) Urine pH (5.0-8.0) Ur Specific [place] (1.001-1.035) Urine Protein (Negative) Urine Glucose (UA) (Negative) Urine Ketones (Negative) Urine Blood (Negative) Urine Nitrite (Negative) Urine Bilirubin (Negative) Urine Urobilinogen (<2.0) mg/dL Ur Leukocyte Esterase (Negative) Acetone, Qual Negative (Negative) 03/29/23 Range/Units 17:47 WBC (3.8-10.6) k/uL RBC (3.80-5.40) m/uL Hgb (11.4-16.0) gm/dL Hct (34.0-46.0) % MCV (80.0-100.0) fL MCH (25.0-35.0) pg MCHC (31.0-37.0) g/dL RDW (11.5-15.5) % Plt Count (150-450) k/uL MPV Neutrophils % % Lymphocytes % % Monocytes % % Eosinophils % % Basophils % % Neutrophils # (1.3-7.7) k/uL Lymphocytes # (1.0-4.8) k/uL Monocytes # (0-1.0) k/uL Eosinophils # (0-0.7) k/uL Basophils # (0-0.2) k/uL PT (10.0-12.5) sec INR (<1.2) APTT (22.0-30.0) sec Sodium (137-145) mmol/L Potassium (3.5-5.1) mmol/L Chloride (98-107) mmol/L Carbon Dioxide (22-30) mmol/L Anion Gap mmol/L BUN (7-17) mg/dL Creatinine (0.52-1.04) mg/dL Est GFR (CKD-EPI)AfAm (>60 ml/min/1.73 sqM) Est GFR (CKD-EPI)NonAf (>60 ml/min/1.73 sqM) Glucose (74-99) mg/dL POC Glucose (mg/dL) (70-110) mg/dL POC Glu Investigations Consultant ID Plasma Lactic Acid Jono (0.7-2.0) mmol/L Calcium (8.4-10.2) mg/dL Phosphorus (2.5-4.5) mg/dL Magnesium (1.6-2.3) mg/dL Total Bilirubin (0.2-1.3) mg/dL AST (14-36) U/L ALT (4-34) U/L Alkaline Phosphatase (38-126) U/L Troponin I (0.000-0.034) ng/mL Total Protein (6.3-8.2) g/dL Albumin (3.5-5.0) g/dL Urine Color Colorless Urine Appearance Clear (Clear) Urine pH 6.0 (5.0-8.0) Ur Specific [place] 1.025 (1.001-1.035) Urine Protein Negative (Negative) Urine Glucose (UA) 4+ H (Negative) Urine Ketones Negative (Negative) Urine Blood Negative (Negative) Urine Nitrite Negative (Negative) Urine Bilirubin Negative (Negative) Urine Urobilinogen <2.0 (<2.0) mg/dL Ur Leukocyte Esterase Negative (Negative) Acetone, Qual (Negative) - EKG Data -: EKG Interpreted by Me (EKG is sinus 82 AL 179 QRS 94 QTc 443) Disposition Clinical Impression: Nonadherence to medical treatment, Hyperglycemia, Weakness, Hypomagnesemia Disposition: ADMITTED IP TO THIS HOSP Condition: Fair Is patient prescribed a controlled substance at d/c from ED?: No Time of Disposition: 19:00
[2023-03-29 17:29] LABS: Glucose,Whole Blood 387 mg/dL (70-110)
[2023-03-29] MEDS: SODIUM CHLORIDE 0.9% 1,000 ML IV STA ×2 (18:01→19:26)
[2023-03-29 18:12] LABS: Basophils % (A) 1 %; Eosinophils # (A) 0.1 k/uL (0-0.7); Eosinophils % (A) 2 %; HCT 39.8 % (34.0-46.0); HGB 13.1 gm/dL (11.4-16.0); Lymphocytes # (A) 1.8 k/uL (1.0-4.8); Lymphocytes % (A) 41 %; MCH 29.4 pg (25.0-35.0); MCV 89.2 fL (80.0-100.0); Mean Platelet Volume 8.9; Monocytes # (A) 0.3 k/uL (0-1.0); Monocytes % (A) 8 %; Neutrophils % (A) 48 %; Platelet Count 196 k/uL (150-450); RBC 4.47 m/uL (3.80-5.40); RDW 13.2 % (11.5-15.5); WBC 4.3 k/uL (3.8-10.6)
[2023-03-29 18:27] LABS: ALT 49 U/L (4-34); AST 61 U/L (14-36); African American GFR (CKD) >90 (>60 ml/min/1.73 sqM); Alkaline Phosphatase 79 U/L (38-126); Anion Gap 8 mmol/L; Blood Urea Nitrogen 10 mg/dL (7-17); Calcium 9.5 mg/dL (8.4-10.2); Carbon Dioxide 25 mmol/L (22-30); Chloride 103 mmol/L (98-107); Glucose 359 mg/dL (74-99); Magnesium 1.4 mg/dL (1.6-2.3); Non-African American GFR(CKD) >90 (>60 ml/min/1.73 sqM); Phosphorus 3.5 mg/dL (2.5-4.5); Potassium 4.3 mmol/L (3.5-5.1); Sodium 136 mmol/L (137-145); Total Bilirubin 0.4 mg/dL (0.2-1.3); Total Protein 6.4 g/dL (6.3-8.2)
[2023-03-29 18:38] LABS: Appearance,Urine Clear (Clear); Bilirubin,Urine Negative (Negative); Blood,Urine Negative (Negative); Color,Urine Colorless; Glucose,Urine (UA) 4+ (Negative); Ketones,Urine Negative (Negative); Leukocyte Esterase,Urine Negative (Negative); Nitrite,Urine Negative (Negative); Protein,Urine Negative (Negative); Specific Gravity,Urine 1.025 (1.001-1.035); Urobilinogen,Urine <2.0 mg/dL (<2.0)
[2023-03-29 18:38] LABS: Partial Thromboplastin Time 20.8 sec (22.0-30.0)
[2023-03-29] MEDS ORDERED: ACETAMINOPHEN TAB 325 MG TAB PO PRN (19:09)
[2023-03-29] MEDS ORDERED: MORPHINE SULFATE 4 MG/ML SYRINGE IV PRN (19:09)
[2023-03-29] MEDS ORDERED: NALOXONE 0.4 MG/ML 1 ML VIAL IV PRN (19:09)
[2023-03-29] MEDS: SODIUM CHLORIDE 0.9% 500 ML 500 ML IV STA (19:26)
[2023-03-29] MEDS: MAGNESIUM OXIDE 400 MG TAB PO STA ×2 (19:26)
[2023-03-30] MEDS: SODIUM CHLORIDE 0.9% 1,000 ML IV SCH (00:16)
[2023-03-30] MEDS: ONDANSETRON 4 MG/2 ML VIAL IVP PRN (00:18)
[2023-03-30 00:21] LABS: Glucose,Whole Blood 236 mg/dL (70-110)
[2023-03-30] MEDS ORDERED: ACETAMINOPHEN TAB 325 MG TAB PO PRN (05:27)
[2023-03-30] MEDS ORDERED: IBUPROFEN 400 MG TAB PO PRN (05:27)
[2023-03-30] MEDS ORDERED: ALBUTEROL NEBULIZED 2.5 MG/3 ML INHALATION PRN (05:27)
[2023-03-30] MEDS ORDERED: DEXTROSE 50% SYRINGE 50 ML IVP PRN ×2 (05:29)
[2023-03-30 07:35] LABS: Glucose,Whole Blood 292 mg/dL (70-110)
[2023-03-30] MEDS: INSULIN ASPART (NovoLOG) 100 UNIT/ML VIAL SQ SCH ×2 (08:26→13:17)
[2023-03-30] MEDS: EZETIMIBE 10 MG TAB PO SCH (08:27)
[2023-03-30] MEDS: LORATADINE 10 MG TAB PO SCH (08:27)
[2023-03-30] MEDS: FENOFIBRATE 160 MG TAB PO SCH (08:27)
[2023-03-30] MEDS: CHOLECALCIFEROL 125 MCG (5000 IU) TABLET PO SCH (08:27)
[2023-03-30] MEDS: ESCITALOPRAM 20 MG TAB PO SCH (08:28)
[2023-03-30] MEDS: VALPROIC ACID ORAL SOLN 250 MG/5 ML CUP PO SCH (08:28)
[2023-03-30] MEDS: NON FORMULARY DRUG (Mirabegron [Myrbetriq] 50 MG Tab.Er.24h) PO SCH (08:33)
[2023-03-30] MEDS: INSULIN DETEMIR (LEVEMIR) 100 UNIT/ML SYR SQ SCH ×2 (09:16→20:44)
[2023-03-30] MEDS: PANTOPRAZOLE 40 MG TABLET PO SCH (09:16)
[2023-03-30 11:01] VITALS: BMI 31.4
--- NOTE | 2023-03-30 11:28 | HP ---
HISTORY AND PHYSICAL CHIEF COMPLAINT: Hyperglycemia and change in mental status. HISTORY OF PRESENT ILLNESS: This is a 52-year-old woman with a past medical history of multiple medical problems including diabetes mellitus who was admitted with elevated blood sugars. The patient was confused. The blood sugar has been running high acute. CT scan is not available. There is no history of any fever, rigors, chills at this time. PAST MEDICAL HISTORY: Reviewed include diabetes mellitus, hypertension, hyperlipidemia, ESBL, rest of the history as per chart was also reviewed. HOME MEDICATIONS: Reviewed, which include insulin dose and rest of medications reviewed. ALLERGIES: Penicillin. FAMILY HISTORY: History of lymphoma. SOCIAL HISTORY: History of smoking. No history of alcohol intake. REVIEW OF SYSTEMS: 14-point review is negative as mentioned. PHYSICAL EXAMINATION: VITAL SIGNS: Pulse 80, blood pressure 120/82, respirations 16. HEENT: Conjunctivae normal. NECK: No jugular venous distention. CARDIOVASCULAR: S1, S2 muffled. RESPIRATIONS: Breath sounds diminished in the bases. Scattered rhonchi. ABDOMEN: Soft and nontender. LEGS: No edema. No swelling. NERVOUS SYSTEM: Diffusely weak, otherwise no focal deficits appreciated. SKIN: No ulcer, rash, bleeding. JOINTS: No active deforming arthropathy. LABS: At this time shows CBC within normal. Sodium 136. ASSESSMENT: 1. Change in mental status, possibly metabolic encephalopathy secondary to hyperglycemia. 2. Hypomagnesemia. 3. Elevated AST and ALT. 4. Coronary artery disease. 5. Diabetes mellitus, type 2. 6. Hypertension. 7. Hyperlipidemia. 8. ESBL. 9. Multiple complex medical issues. RECOMMENDATIONS AND DISCUSSION: This 52-year-old woman presented with multiple complex medical issues, we will monitor the patient closely. The patient is hyperglycemic. I would recommend better diabetes control. Continue to monitor. Supplement magnesium, otherwise neurology consultation. Obtain a CT of the brain to rule out the possibility of any acute abnormality. Otherwise, we will monitor the patient closely. Guarded prognosis. Further recommendations to follow. MMODL / IJN: [id number] /
[2023-03-30 11:41] LABS: Basophils # (A) 0.02 X 10*3/uL (0.00-0.10); Basophils % (A) 0.6 %; Eosinophils # (A) 0.06 X 10*3/uL (0.04-0.35); Eosinophils % (A) 1.7 %; HCT 35.7 % (37.2-46.3); HGB 11.7 g/dL (12.0-15.0); Lymphocytes % (A) 41.7 %; MCHC 32.8 g/dL (32.0-37.0); MCV 88.6 FL (80.0-97.0); Mean Platelet Volume 10.8 FL (9.5-12.2); Monocytes # (A) 0.33 X 10*3/uL (0.20-1.00); Monocytes % (A) 9.2 %; NRBC Per 100 WBC 0 X 10*3/uL (0.00-0.01); Neutrophils # (A) 1.67 X 10*3/uL (1.80-7.70); Neutrophils % (A) 46.2 %; Platelet Count 181 X 10*3/uL (140-440); RBC 4.03 X 10*6/uL (4.10-5.20)
[2023-03-30] MEDS: HEPARIN SODIUM,PORCINE 5,000 UNIT/ML 1 ML VIAL SQ SCH (11:49)
--- NOTE | 2023-03-30 11:53 | CT ---
EXAMINATION TYPE: CT brain wo con CT DLP: 1077.8 mGycm, Automated exposure control for dose reduction was used. DATE OF EXAM: 03/30/2023 11:41 AM COMPARISON: 09/15/2022. CLINICAL INDICATION:Female, 52 years old with history of stroke, stroke TECHNIQUE: Brain: Axial CT images of the brain were obtained with coronal and sagittal reformats created and rev iewed. Contrast used: None. Oral contrast used: None. FINDINGS: Brain: Extra-axial spaces: No abnormal extra-axial fluid collections. Ventricular system: Within normal limits Cerebral parenchyma: No acute intraparenchymal hemorrhage or mass effect. The salgado-white junction is well differentiated. Cerebellum: Unremarkable. Mass effect: No evidence of midline shift. Intracranial vasculature: unremarkable Soft tissues: Normal. Calvarium/osseous structures: No depressed skull fracture. Paranasal sinuses and mastoid air cells: Mild scattered paranasal sinus disease. Visualized orbits: Orbital contents are intact. IMPRESSION: No acute intracranial process.
[2023-03-30 12:02] LABS: ALT 45 U/L (8-44); AST 47 U/L (13-35); Albumin 3.7 g/dL (3.8-4.9); Albumin/Globulin Ratio 2.06 Ratio (1.60-3.17); Alkaline Phosphatase 58 U/L (41-126); Blood Urea Nitrogen 5.7 mg/dL (9.0-27.0); Carbon Dioxide 25.9 mmol/L (21.6-31.8); Chloride 106 mmol/L (96-109); Globulin 1.8 g/dL (1.6-3.3); Glucose 277 mg/dL (70-110); Magnesium 1.6 mg/dL (1.5-2.4); Phosphorus 3.8 mg/dL (2.4-5.1); Potassium 3.8 mmol/L (3.5-5.5); Sodium 142 mmol/L (135-145); Total Bilirubin 0.3 mg/dL (0.3-1.2); Total Protein 5.5 g/dL (6.2-8.2)
[2023-03-30 12:02] LABS: Glucose,Whole Blood 334 mg/dL (70-110)
--- NOTE | 2023-03-30 14:23 | P.CNNES ---
History of Present Illness Consult date: 03/30/23 Requesting physician: Mirella Cook Reason for Consult: Change in mentation History of Present Illness: Patient is a 52-year-old female with history of psychiatric disorder, diabetes, came to the hospital because her blood sugars were very high, over 400. She was very shaky. Neurology was consulted for altered mental status. Patient at present offers no complaints, denies any mentation problem. Denies any headache. Please refer to review of systems. Patient states she has history of diabetes type 2 since age 26. She smokes 3 cigarettes/day for the last 6 months, never been a heavy smoker. Denies any alcohol use. She lives with her 2 children, and a caregiver. Patient claims she has history of depression, schizophrenia, dyslexia, learning disorder. Review of Systems Constitutional: Reports weight loss, Denies chills, Denies fever Eyes: denies blurred vision, denies diplopia, denies pain, denies loss of peripheral vision Ears: deny: decreased hearing, ear discharge Ears, nose, mouth and throat: Denies headache, Denies sore throat, Denies vertigo Cardiovascular: Denies chest pain, Denies lightheadedness, Denies shortness of breath Respiratory: Denies cough, Denies excessive sputum Gastrointestinal: Reports nausea, Denies abdominal pain, Denies diarrhea, Denies vomiting Genitourinary: Reports urge incontinence, Reports urgency Musculoskeletal: Reports low back pain, Reports neck pain, Denies myalgias Integumentary: Denies pruritus, Denies rash Neurological: Reports as per HPI Psychiatric: Reports depression, Denies anxiety Endocrine: Reports fatigue, Reports weight change Past Medical History Past Medical History: Coronary Artery Disease (CAD), Diabetes Mellitus, GERD/Reflux, Hyperlipidemia, Hypertension Additional Past Medical History / Comment(s): NIDDM type II, dyslexia.incon tinence History of Any Multi-Drug Resistant Organisms: ESBL Date of last positivie culture/infection: 08/11/21-ESBL MDRO Source:: URINE Past Surgical History: Adenoidectomy, Section, Tonsillectomy Additional Past Surgical History / Comment(s): Nasal surgery Past Anesthesia/Blood Transfusion Reactions: Postoperative Nausea & Vomiting (PONV) Additional Past Anesthesia/Blood Transfusion Reaction / Comment(s): Pt states she has never received blood. Past Psychological History: Anxiety, Depression, Panic Disorder Additional Psychological History / Comment(s): She is independent. She has dyslexia. She states she has mild comprehension problem. Smoking Status: Current every day smoker, Light tobacco smoker Past Alcohol Use History: None Reported Past Drug Use History: None Reported - Past Family History Mother Family Medical History: Cancer Additional Family Medical History / Comment(s): Mother has lymphoma. Father History Unknown: Yes Additional Family Medical History / Comment(s): Father left when pt was 2 months old. Medications and Allergies Home Medications Medication Instructions Recorded Confirmed Type Ezetimibe [Zetia] 10 mg PO DAILY 03/17/20 03/29/23 History Albuterol Inhaler [Ventolin Hfa 2 puff INHALATION RT-Q4H PRN 01/26/21 03/29/23 History Inhaler] Omeprazole 40 mg PO DAILY 01/26/21 03/29/23 History Cetirizine HCl [Zyrtec] 10 mg PO DAILY 08/04/22 03/29/23 History Mirabegron [Myrbetriq] 50 mg PO DAILY 08/04/22 03/29/23 History Escitalopram [Lexapro] 20 mg PO DAILY 30 Days #30 tab 08/22/22 03/29/23 Rx Cholecalciferol [Vitamin D3 (125 125 mcg PO DAILY 11/03/22 03/29/23 History Mcg = 5000 Iu)] Fenofibrate [Lofibra] 160 mg PO DAILY 11/03/22 03/29/23 History Paliperidone IM [Invega Sustenna] 156 mg IM Q28D 11/03/22 03/29/23 History Valproic Acid Oral Soln [Depakene 1,000 mg PO BID 11/03/22 03/29/23 History Syrup] Acetaminophen Tab [Tylenol] 650 mg PO Q6HR PRN tab 11/07/22 03/29/23 Rx Ibuprofen [Motrin] 400 mg PO Q6HR PRN tab 11/07/22 03/29/23 Rx Insulin Aspart [NovoLOG Flexpen] 10 units SQ TID-W/MEALS 03/29/23 03/29/23 History Insulin Aspart [NovoLOG Flexpen] See Protocol SQ TID-W/MEALS PRN 03/29/23 03/29/23 History Allergies Allergy/AdvReac Type Severity Reaction Status Date / Time Penicillins Allergy Severe Anaphylaxis Verified 03/29/23 18:54 cephalexin monohydrate Allergy Anaphylaxis Verified 03/29/23 18:54 [From Keflex] iodine Allergy Unknown Verified 03/29/23 18:54 Mushroom AdvReac Unknown Verified 03/29/23 18:54 Physical Examination - Vital Signs Vital Signs: Vital Signs Temp Pulse Pulse Resp BP BP Pulse Ox 03/30/23 09:10 92 L 03/30/23 07:28 97.6 F 80 16 125/82 92 L 03/30/23 02:00 97.7 F 70 16 132/80 91 L 03/30/23 00:03 97.7 F 81 16 144/89 93 L 03/29/23 22:12 97.9 F 90 16 140/86 95 03/29/23 17:08 97.8 F 92 16 118/80 94 L Intake and Output 03/29/23 03/30/23 03/30/23 22:59 06:59 14:59 Intake Total 590 Balance 590 Intake: Oral 590 Other: Voiding Method Toilet Toilet Diaper Diaper Incontinent Incontinent # Voids 2 Weight 95.254 kg 91 kg 91 kg Patient is a middle-aged female, in no acute distress. Her skin is slightly dry. Patient is alert awake oriented to time place and person. Patient knows it is March and the year is 2023 and that she is in [facility] in [facility]. She knows name of the current president Mr. Gallagher. Speech and language functions are normal. Patient can name and repeat very well. No aphasia or dysarthria. Attention, concentration and fund of knowledge is adequate. Patient has slow mentation, delayed response and prolonged time to answer questions. On cranial nerve examination, pupils are equal, round and reacting to light, visual wharton are full on confrontation, with no neglect on double simultaneous stimulation. Extraocular muscles are intact with no nystagmus. Face is symmetric, tongue protrudes to the midline. Palatal elevation and sensation normal, hearing and shoulder shrug normal, facial sensation normal. Patient does have mild tardive dyskinesia, with lipsmacking chewing movement frequently seen. On muscle strength testing, there is no pronator drift and the strength is normal in arms and legs distally and proximally. Deep tendon reflexes are symmetric to 2 over, and plantars downgoing bilaterally. Sensory to touch is equal with no neglect on double simultaneous stimulation. Cerebellar function showed no ataxia for [id number] testing. No dysdiadochokinesia. No ataxia for ixsx-cu-boda testing on either side. Tone is mildly increased with evidence of cogwheeling bilaterally and bulk of muscles normal. She has bradykinesia. Gait deferred.. On general examination, there is no carotid bruit or murmur, S1-S2 audible. Chest is clear on consultation. Abdomen is soft nontender. No organomegaly, bowel sounds present. Peripheral pulses are present. No peripheral edema. Results - Laboratory Findings CBC and BMP: 03/31/23 05:59 03/31/23 05:59 Abnormal Lab Findings: Abnormal Labs 03/29/23 03/29/23 03/29/23 17:27 17:36 17:36 WBC RBC Hgb Hct Neutrophils # APTT 20.8 L Sodium 136 L BUN Creatinine 0.47 L BUN/Creatinine Ratio Glucose 359 H POC Glucose (mg/dL) 387 H Magnesium 1.4 L AST 61 H ALT 49 H Total Protein Albumin Urine Glucose (UA) 03/29/23 03/30/23 03/30/23 17:47 00:19 06:48 WBC 3.60 L RBC 4.03 L Hgb 11.7 L Hct 35.7 L Neutrophils # 1.67 L APTT Sodium BUN Creatinine BUN/Creatinine Ratio Glucose POC Glucose (mg/dL) 236 H Magnesium AST ALT Total Protein Albumin Urine Glucose (UA) 4+ H 03/30/23 03/30/23 03/30/23 06:48 07:34 12:01 WBC RBC Hgb Hct Neutrophils # APTT Sodium BUN 5.7 L Creatinine 0.5 L BUN/Creatinine Ratio 11.40 L Glucose 277 H POC Glucose (mg/dL) 292 H 334 H Magnesium AST 47 H ALT 45 H Total Protein 5.5 L Albumin 3.7 L Urine Glucose (UA) Assessment and Plan Assessment: * Altered mental status, likely due to metabolic encephalopathy. * Diabetes, uncontrolled * Psychiatric disorder * Parkinsonian symptoms, likely side effects of psychoactive medication * Elevated liver enzymes Plan: * Patient has mild metabolic encephalopathy, likely due to uncontrolled diabetes. * Patient's neurological examination is nonfocal. Patient has mild ex traparametal features, likely side effect of Invega. Consider adding Cogentin. I did inform patient to discuss with the psychiatrist about this possible side effect of Invega. * Patient is otherwise fully alert and oriented. No other neurological workup indicated. * Medical management as per IM. Thank you for the consult.
[2023-03-30 17:19] LABS: Glucose,Whole Blood 274 mg/dL (70-110)
[2023-03-30 20:17] LABS: Glucose,Whole Blood 297 mg/dL (70-110)
[2023-03-31 07:44] LABS: Glucose,Whole Blood 306 mg/dL (70-110)
[2023-03-31 08:39] LABS: Basophils # (A) 0.02 X 10*3/uL (0.00-0.10); Basophils % (A) 0.6 %; Eosinophils # (A) 0.06 X 10*3/uL (0.04-0.35); Eosinophils % (A) 1.9 %; HCT 36.5 % (37.2-46.3); HGB 12.1 g/dL (12.0-15.0); Lymphocytes # (A) 1.56 X 10*3/uL (0.90-5.00); Lymphocytes % (A) 48.1 %; MCH 29.1 pg (27.0-32.0); MCHC 33.2 g/dL (32.0-37.0); MCV 87.7 FL (80.0-97.0); Monocytes # (A) 0.27 X 10*3/uL (0.20-1.00); Monocytes % (A) 8.3 %; NRBC Per 100 WBC 0 X 10*3/uL (0.00-0.01); Neutrophils # (A) 1.32 X 10*3/uL (1.80-7.70); Neutrophils % (A) 40.8 %; Platelet Count 186 X 10*3/uL (140-440); RBC 4.16 X 10*6/uL (4.10-5.20); WBC 3.24 X 10*3/uL (4.50-10.00)
[2023-03-31 09:01] LABS: BUN/Creat Ratio 12.33 Ratio (12.00-20.00); Blood Urea Nitrogen 7.4 mg/dL (9.0-27.0); Chloride 106 mmol/L (96-109); Glucose 332 mg/dL (70-110); Sodium 142 mmol/L (135-145)
[2023-03-31 09:02] LABS: Calcium 9.4 mg/dL (8.7-10.3); Carbon Dioxide 25.2 mmol/L (21.6-31.8)
[2023-03-31 09:31] VITALS: PULSE 79
[2023-03-31 12:35] LABS: Glucose,Whole Blood 265 mg/dL (70-110)
[2023-03-31 13:36] VITALS: BP 124/85; RESP 17; TEMP 98.4
--- NOTE | 2023-04-01 06:51 | P.DS ---
Providers Date of admission: 03/29/23 19:09 Expected date of discharge: 03/31/23 Attending physician: Mirella Cook Consults: 03/30/23 10:34 Consult Physician Routine Consulting Provider: Martin Vallejo Consult Reason/Comments: change in mentation Do you want consulting provider notified?: Yes Primary care physician: Nelly Maldonado Hospital Course: Final diagnosis Change in mental status, metabolic encephalopathy secondary to hyperglycemia Hypomagnesemia Elevated liver functions, trending down Coronary artery disease history Diabetes mellitus, type 2 insulin-dependent uncontrolled with hyperglycemia Obesity with a BMI of 31.4 Hypertension Hyperlipidemia GI prophylaxis DVT prophylaxis Full code Discharge disposition Patient is being discharged in a stable condition with guarded prognosis to home. Patient will follow-up with Dr. Nelly Maldonado in the outpatient setting upon discharge. Patient is to continue with sliding scale, Premeal, and long- acting and close outpatient follow-up with endocrine as scheduled. Total time taken is greater than 35 minutes. Hospital course This is a 52-year-old female who was recently admitted increased blood sugars uncontrolled as well as some acute confustion most likely secondary to hyperglycemia. Patient being closely monitored with adjustments to medications and has been started on long-acting. Patient was evaluated by neurology recommending tight glycemic control. Patient to follow-up with primary care provider and will refer to endocrine for further diabetes management. Patient has been cleared and would like to go home. Please refer to consultation note for further HPI. Currently no reports of chest pain, shortness of breath, or palpitations. Patient is afebrile. No reports of nausea or vomiting and patie nt is tolerating diet. Patient will be discharged home today. Guarded prognosis and high risk for readmission Physical exam: Gen: This is a 52-year-old female who is awake, alert and oriented x 2-3, baseline, well-developed, well-nourished, obese HEENT: Head is atraumatic, normocephalic. Pupils equal, round. Sclerae is anicteric. NECK: Supple. No JVD. No lymphadenopathy. No thyromegaly. LUNGS: Clear to auscultation. No wheezes or rhonchi. No intercostal retractions. HEART: Regular rate and rhythm. No murmur. ABDOMEN: Soft. Bowel sounds are present. No masses. No tenderness. EXTREMITIES: No pedal edema. No calf tenderness. NEUROLOGICAL: Patient is awake, alert and oriented x 23. Cranial nerves 2 through 12 are grossly intact. Gait steady Please refer to medication reconciliation sheet for a list of medications. The impression and plan of care has been dictated by Katharina Sorensen, Nurse Practitioner as directed. Dr. Joey MD I have performed a history and examination and MDM of this patient, discussed the same with the dictator, and agree with the dictator's assessment and plan as written ,documented as a scribe. Based on total visit time, I have performed more than 50% of the visit. Patient Condition at Discharge: Fair Plan - Discharge Summary Discharge Rx Participant: Yes New Discharge Prescriptions: New Insulin Detemir (Levemir) [Levemir] 15 unit SQ BID@0700,2100 30 Days #5 each Continue Ezetimibe [Zetia] 10 mg PO DAILY Albuterol Inhaler [Ventolin Hfa Inhaler] 2 puff INHALATION RT-Q4H PRN PRN Reason: Shortness Of Breath Valproic Acid Oral Soln [Depakene Syrup] 1,000 mg PO BID Cholecalciferol [Vitamin D3 (125 Mcg = 5000 Iu)] 125 mcg PO DAILY Insulin Aspart [NovoLOG Flexpen] 10 units SQ TID-W/MEALS Insulin Aspart [NovoLOG Flexpen] See Protocol SQ TID-W/MEALS PRN PRN Reason: high blood sugar Omeprazole 40 mg PO DAILY Mirabegron [Myrbetriq] 50 mg PO DAILY Cetirizine HCl [Zyrtec] 10 mg PO DAILY Escitalopram [Lexapro] 20 mg PO DAILY 30 Days #30 tab Paliperidone IM [Invega Sustenna] 156 mg IM Q28D Fenofibrate [Lofibra] 160 mg PO DAILY Ibuprofen [Motrin] 400 mg PO Q6HR PRN tab PRN Reason: Mild Pain Or Fever > 100.5 Acetaminophen Tab [Tylenol] 650 mg PO Q6HR PRN tab PRN Reason: Mild Pain Or Fever > 100.5 Discharge Medication List Ezetimibe [Zetia] 10 mg PO DAILY 03/17/20 [History] Albuterol Inhaler [Ventolin Hfa Inhaler] 2 puff INHALATION RT-Q4H PRN 01/26/21 [History] Omeprazole 40 mg PO DAILY 01/26/21 [History] Cetirizine HCl [Zyrtec] 10 mg PO DAILY 08/04/22 [History] Mirabegron [Myrbetriq] 50 mg PO DAILY 08/04/22 [History] Escitalopram [Lexapro] 20 mg PO DAILY 30 Days #30 tab 08/22/22 [Rx] Cholecalciferol [Vitamin D3 (125 Mcg = 5000 Iu)] 125 mcg PO DAILY 11/03/22 [History] Fenofibrate [Lofibra] 160 mg PO DAILY 11/03/22 [History] Paliperidone IM [Invega Sustenna] 156 mg IM Q28D 11/03/22 [History] Valproic Acid Oral Soln [Depakene Syrup] 1,000 mg PO BID 11/03/22 [History] Acetaminophen Tab [Tylenol] 650 mg PO Q6HR PRN tab 11/07/22 [Rx] Ibuprofen [Motrin] 400 mg PO Q6HR PRN tab 11/07/22 [Rx] Insulin Aspart [NovoLOG Flexpen] 10 units SQ TID-W/MEALS 03/29/23 [History] Insulin Aspart [NovoLOG Flexpen] See Protocol SQ TID-W/MEALS PRN 03/29/23 [History] Insulin Detemir (Levemir) [Levemir] 15 unit SQ BID@0700,2100 30 Days #5 each 03/31/23 [Rx] Follow up Appointment(s)/Referral(s): Charan Barney MD [REFERRING] - 1 Week (Office is closed today. Call and make appointment Monday. [phone]) Nelly Maldonado MD [Primary Care Provider] - 1-2 days Patient Instructions/Handouts: Insulin Detemir (By injection), Basic Carbohydrate Counting (DC), Diabetic Hyperglycemia (DC) Activity/Diet/Wound Care/Special Instructions: Activity limited until follow-up Follow-up with primary care provider on discharge Follow-up with psychiatry outpatient Follow-up with endocrine outpatient for tighter glycemic control Continue taking medications as prescribed Continue with Accu-Cheks before meals and at bedtime Continue with 10 units plus sliding scale before meals and at bedtime Continue long-acting insulin twice daily NovoLog sliding scale 0-150 equals 0 units 151-200 equals 2 units 201-250 equals 4 units 251-300 equals 6 units 301-350 equals 8 units 351-400 equals 10 units Please notify provider if blood sugar is 400 or above Continue consistent carb diet Discharge Disposition: HOME SELF-CARE
--- NOTE | 2023-04-01 10:20 | P.PN ---
Subjective Progress Note Date: 03/31/23 Patient was seen for a follow-up. Patient is sitting comfortably in recliner. Patient is more alert and awake. Offers no complaints. Objective - Vital Signs Vital signs: Vital Signs Temp 97.6 F 03/31/23 07:44 Pulse 79 03/31/23 07:44 Resp 16 03/31/23 07:44 BP 115/73 03/31/23 07:44 Pulse Ox 94 L 03/31/23 11:01 FiO2 Intake & Output 03/30/23 03/31/23 03/31/23 18:59 06:59 18:59 Intake Total 1560 1200 Balance 1560 1200 Weight 91 kg Intake: Intake, IV Titration 1560 Amount Sodium Chloride 0.9% 1, 1560 000 ml @ 130 mls/hr IV . Q7H42M [facility] Rx#:[id number] Oral 1200 Other: Voiding Method Toilet Toilet Toilet Diaper Diaper Diaper Incontinent Incontinent Incontinent # Voids 3 - Exam Patient is fully alert and awake. Speech and language functions are normal. She knows it is Monday, the year is 2023. Her mental status is normal. Visual wharton are full, face is symmetric. Examination unchanged. Still has at least mildly increased tone with cogwheeling. - Labs CBC & Chem 7: 03/31/23 05:59 03/31/23 05:59 Labs: Abnormal Lab Results - Last 24 Hours (Table) 03/30/23 03/30/23 03/30/23 Range/Units 06:48 17:19 20:16 WBC (4.50-10.00) X 10*3/uL Hct (37.2-46.3) % Neutrophils # (1.80-7.70) X 10*3/uL BUN (9.0-27.0) mg/dL Glucose (70-110) mg/dL POC Glucose (mg/dL) 274 H 297 H (70-110) mg/dL Hemoglobin A1c 9.3 H (<=6.0) % 03/31/23 03/31/23 03/31/23 Range/Units 05:59 05:59 07:42 WBC 3.24 L (4.50-10.00) X 10*3/uL Hct 36.5 L (37.2-46.3) % Neutrophils # 1.32 L (1.80-7.70) X 10*3/uL BUN 7.4 L (9.0-27.0) mg/dL Glucose 332 H (70-110) mg/dL POC Glucose (mg/dL) 306 H (70-110) mg/dL Hemoglobin A1c (<=6.0) % Assessment and Plan Assessment: * Altered mental status, likely due to metabolic encephalopathy. * Diabetes, uncontrolled * Psychiatric disorder * Parkinsonian symptoms, likely side effects of psychoactive medication * Elevated liver enzymes, will defer to IM Plan: * Patient has mild metabolic encephalopathy, likely due to uncontrolled diabetes. This seems to have resolved. Mentation is much more normal. * Patient's neurological examination is nonfocal. Patient has mild extraparametal features, likely side effect of Invega. Consider adding Cogentin. I did inform patient to discuss with the psychiatrist about this possible side effect of Invega. * Patient is otherwise fully alert and oriented. No other neurological workup indicated. * Medical management as per IM. * Neurologically clear for discharge.
== END 2023-03-31 16:20 | disposition home or self-care (01) ==
LOC: EC 17:03 → 6NMEDSUR 19:09 → 5NMEDONC 19:38
PROVIDERS: ADMIT Hospitalist; ATTEND Hospitalist
DX: E11.65 Type 2 diabetes mellitus with hyperglycemia (principal); G93.41 Metabolic encephalopathy; E83.42 Hypomagnesemia; E66.9 Obesity, unspecified; I10 Essential (primary) hypertension; E78.5 Hyperlipidemia, unspecified; I25.10 Atherosclerotic heart disease of native coronary artery without angina pectoris; K21.9 Gastro-esophageal reflux disease without esophagitis; F17.210 Nicotine dependence, cigarettes, uncomplicated; R48.0 Dyslexia and alexia; F20.9 Schizophrenia, unspecified; Z79.899 Other long term (current) drug therapy; Z79.4 Long term (current) use of insulin; Z88.0 Allergy status to penicillin; Z88.1 Allergy status to other antibiotic agents; Z91.048 Other nonmedicinal substance allergy status; Z68.31 Body mass index [BMI] 31.0-31.9, adult; Z91.199 Patient's noncompliance with other medical treatment and regimen due to unspecified reason
CPT/HCPCS: 96376 ×2; 96361 ×3; 96372 ×3; 96374; 99285; 36415; 94760; 93005; 80053 ×2; 80048; 82009; 83605; 83735 ×2; 84100 ×2; 84484; 85025 ×3; 85610; 85730; 81003; 87040; 83036; 70450; G0378 ×3; J1644 ×2; J2405 ×2; 96375

== ENCOUNTER 2023-06-03 15:56 | Emergency (ER) | payer MEDICARE, OTHER ==
[2023-06-03 16:24] VITALS: TEMP 97.8
--- NOTE | 2023-06-03 17:16 | ED ---
General Adult HPI <Andrey Teran - Last Filed: 06/03/23 18:25> - General Source: Caregiver Mode of arrival: ambulatory Limitations: altered mental status <Jethro Silva - Last Filed: 06/03/23 21:24> - General Chief complaint: Psychiatric Symptoms Stated complaint: Mental Health Time Seen by Provider: 06/03/23 16:16 - History of Present Illness Initial comments: 52-year-old female presenting to the ED with a chief complaint of anxiety. Per patient's , had medication change approximately a month ago. Since then, he reports that the patient has been more anxious than usual. Patient reports due to the anxiety, she feels short of breath. Also notes over the past week she feels that this has been getting worse and now has had some suicidal ideations. Denies history of self harm or suicide attempt. However, reports that she has knives in the house and plans on cutting her wrist with thumb. Denies homicidal ideation. Denies auditory or visual hallucinations. Denies abdominal pain, nausea vomiting, denies changes in bladder habits. Notes that she has been having 1 episode of diarrhea over the past 3 days, nonbloody. Denies fever or chills. No other complaints at this time. Of note, on examination patient is smacking her lips. Patient's states that this has been ongoing for the past few months and has not been recently worsening. (Jethro Silva) - Related Data Home Medications Medication Instructions Recorded Confirmed Ezetimibe [Zetia] 10 mg PO DAILY 03/17/20 03/29/23 Albuterol Inhaler [Ventolin Hfa 2 puff INHALATION RT-Q4H PRN 01/26/21 03/29/23 Inhaler] Omeprazole 40 mg PO DAILY 01/26/21 03/29/23 Cetirizine HCl [Zyrtec] 10 mg PO DAILY 08/04/22 03/29/23 Mirabegron [Myrbetriq] 50 mg PO DAILY 08/04/22 03/29/23 Cholecalciferol [Vitamin D3 (125 125 mcg PO DAILY 11/03/22 03/29/23 Mcg = 5000 Iu)] Fenofibrate [Lofibra] 160 mg PO DAILY 11/03/22 03/29/23 Paliperidone IM [Invega Sustenna] 156 mg IM Q28D 11/03/22 03/29/23 Valproic Acid Oral Soln [Depakene 1,000 mg PO BID 11/03/22 03/29/23 Syrup] Insulin Aspart [NovoLOG Flexpen] 10 units SQ TID-W/MEALS 03/29/23 03/29/23 Insulin Aspart [NovoLOG Flexpen] See Protocol SQ TID-W/MEALS PRN 03/29/23 03/29/23 Previous Rx's Medication Instructions Recorded Escitalopram [Lexapro] 20 mg PO DAILY 30 Days #30 tab 08/22/22 Acetaminophen Tab [Tylenol] 650 mg PO Q6HR PRN tab 11/07/22 Ibuprofen [Motrin] 400 mg PO Q6HR PRN tab 11/07/22 Insulin Detemir (Levemir) [Levemir] 15 unit SQ BID@0700,2100 30 Days 03/31/23 #5 each Sulfamethox-Tmp 800-160Mg [Bactrim 1 each PO Q12HR 7 Days #14 tab 06/03/23 Ds] Allergies Allergy/AdvReac Type Severity Reaction Status Date / Time Penicillins Allergy Severe Anaphylaxis Verified 06/03/23 16:11 cephalexin monohydrate Allergy Anaphylaxis Verified 06/03/23 16:11 [From Keflex] iodine Allergy Unknown Verified 06/03/23 16:11 Mushroom AdvReac Unknown Verified 06/03/23 16:11 Review of Systems ROS Other: All systems not noted in ROS Statement are negative. <Andrey Teran - Last Filed: 06/03/23 18:25> ROS Other: All systems not noted in ROS Statement are negative. <Jethro Silva - Last Filed: 06/03/23 21:24> ROS Statement: Those systems with pertinent positive or pertinent negative responses have been documented in the HPI. Past Medical History Past Medical History: Coronary Artery Disease (CAD), Diabetes Mellitus, GERD/Reflux, Hyperlipidemia, Hypertension Additional Past Medical History / Comment(s): NIDDM type II, dyslexia. History of Any Multi-Drug Resistant Organisms: ESBL Date of last positivie culture/infection: 08/11/21-ESBL MDRO Source:: URINE Past Surgical History: Adenoidectomy, Section, Tonsillectomy Additional Past Surgical History / Comment(s): Nasal surgery Past Anesthesia/Blood Transfusion Reactions: Postoperative Nausea & Vomiting (PONV) Additional Past Anesthesia/Blood Transfusion Reaction / Comment(s): Pt states she has never received blood. Past Psychological History: Anxiety, Depression, Panic Disorder Smoking Status: Never smoker, Light tobacco smoker Past Alcohol Use History: None Reported Past Drug Use History: None Reported - Past Family History Mother Family Medical History: Cancer Additional Family Medical History / Comment(s): Mother has lymphoma. Father History Unknown: Yes Additional Family Medical History / Comment(s): Father left when pt was 2 months old. <Jethro Silva - Last Filed: 06/03/23 21:24> General Exam Limitations: altered mental status General appearance: alert, other (Lipsmacking behavior) Eye exam: Present: normal appearance Neck exam: Present: normal inspection Respiratory exam: Present: normal lung sounds bilaterally Cardiovascular Exam: Present: regular rate GI/Abdominal exam: Present: soft, normal bowel sounds, other (No CVA TTP bilaterally). Absent: distended, tenderness, guarding, rebound, rigid Extremities exam: Present: normal inspection Back exam: Present: normal inspection Neurological exam: Present: alert Psychiatric exam: Present: anxious Skin exam: Present: warm, dry <Jethro Silva - Last Filed: 06/03/23 21:24> Course Vital Signs 06/03/23 06/03/23 16:05 20:49 Temperature 97.8 F Pulse Rate 90 84 Respiratory 26 H 18 Rate Blood Pressure 126/81 122/83 O2 Sat by Pulse 96 96 Oximetry EKG Findings - EKG Comments: EKG Findings:: EKG sinus rhythm 76 OH 173 QRS 116 QTc 454 <Andrey Teran - Last Filed: 06/03/23 18:25> Medical Decision Making - Lab Data Result diagrams: 06/03/23 17:24 06/03/23 17:24 <Andrey Teran - Last Filed: 06/03/23 18:25> - Lab Data Result diagrams: 06/03/23 17:24 06/03/23 17:24 <Jethro Silva - Last Filed: 06/03/23 21:24> - Medical Decision Making Was pt. sent in by a medical professional or institution (, PA, SALES SUPPORT COORDINATOR, urgent care, hospital, or fdc...) When possible be specific @ -No Did you speak to anyone other than the patient for history (EMS, parent, family, police, friend...)? What history was obtained from this source @ -No Did you review nursing and triage notes (agree or disagree)? Why? @ -I reviewed and agree with nursing and triage notes Were old charts reviewed (outside hosp., previous admission, EMS record, old EKG, old radiological studies, urgent care reports/EKG's, fdc records)? Report findings @ -No old charts were reviewed Differential Diagnosis (chest pain, altered mental status, abdominal pain women, abdominal pain men, vaginal bleeding, weakness, fever, dyspnea, syncope, headache, dizziness, GI bleed, back pain, seizure, CVA, palpatations, mental health, musculoskeletal)? @ -Differential Mental Health Depression, anxiety, bipolar, psychosis, schizophrenia, borderline personality, situational depression, adjustment disorder, behavioral disorder, brain tumor, malingering, substance abuse, encephalopathy, medication reaction, dementia, hypothyroidism, degenerative neurologic disorder, lupus.... This is not meant to be all-inclusive list EKG interpreted by me (3pts min.). @ -As above X-rays interpreted by me (1pt min.). @ -None done CT interpreted by me (1pt min.). @ -None done U/S interpreted by me (1pt. min.). @ -None done What testing was considered but not performed or refused? (CT, X-rays, U/S, labs)? Why? @ -None What meds were considered but not given or refused? Why? @ -None Did you discuss the management of the patient with other professionals (professionals i.e. , PA, SALES SUPPORT COORDINATOR, lab, RT, psych nurse, social services manager, parts specialist, teacher, antisubmarine weapons officer, rn case management)? Give summary @ -No Was smoking cessation discussed for >3mins.? @ -No Was critical care preformed (if so, how long)? @ -No Were there social determinants of health that impacted care today? How? (Homelessness, low income, unemployed, alcoholism, drug addiction, transportation, low edu. Level, literacy, decrease access to med. care, [facility], rehab)? @ -No Was there de-escalation of care discussed even if they declined (Discuss DNR or withdrawal of care, Hospice)? DNR status @ -No What co-morbidities impacted this encounter? (DM, HTN, Smoking, COPD, CAD, Cancer, CVA, ARF, Chemo, Hep., AIDS, mental health diagnosis, sleep apnea, morbid obesity)? @ -Anxiety Was patient admitted / discharged? Hospital course, mention meds given and [place], prescriptions, significant lab abnormalities, going to OR and other pertinent info. @ -Discharge 52-year-old female presenting to the ED with complaints of anxiety worsening over the past month. Patient was seen by psychiatry. Psychiatric nurse spoke to her attending physician. After discussion, felt at this time not needing inpatient treatment. Caregiver also worried that patient may be having a urinary tract infection. Laboratory studies reviewed. Labs including CBC CMP unremarkable. UA does show evidence of urinary tract infection. Urine culture was obtained. Provided a dose of Bactrim here. Discharged home with prescription for Bactrim. Discussed return precautions with patient who verbalized agreement. Undiagnosed new problem with uncertain prognosis? @ -No Drug Therapy requiring intensive monitoring for toxicity (Heparin, Nitro, Insulin, Cardizem)? @ -No Were any procedures done? @ -No Diagnosis/symptom? @ -Anxiety, urinary tract infection Acute, or Chronic, or Acute on Chronic? @ -Acute Uncomplicated (without systemic symptoms) or Complicated (systemic symptoms)? @ -Uncomplicated Side effects of treatment? @ -No Exacerbation, Progression, or Severe Exacerbation? @ -No Poses a threat to life or bodily function? How? (Chest pain, [place], [place], pneumonia, PE, COPD, DKA, ARF, appy, cholecystitis, CVA, Diverticulitis, Homicidal, Suicidal, threat to staff... and all critical care pts) @ -No (Jethro Silva) - Lab Data Lab Results 06/03/23 06/03/23 06/03/23 Range/Units 17:24 17:24 18:15 WBC 4.8 (3.8-10.6) k/uL RBC 4.83 (3.80-5.40) m/uL Hgb 14.1 (11.4-16.0) gm/dL Hct 43.1 (34.0-46.0) % MCV 89.3 (80.0-100.0) fL MCH 29.1 (25.0-35.0) pg MCHC 32.6 (31.0-37.0) g/dL RDW 12.8 (11.5-15.5) % Plt Count 189 (150-450) k/uL MPV 9.3 Neutrophils % 42 % Lymphocytes % 48 % Monocytes % 5 % Eosinophils % 3 % Basophils % 1 % Neutrophils # 2.0 (1.3-7.7) k/uL Lymphocytes # 2.3 (1.0-4.8) k/uL Monocytes # 0.2 (0-1.0) k/uL Eosinophils # 0.1 (0-0.7) k/uL Basophils # 0.0 (0-0.2) k/uL Sodium 136 L (137-145) mmol/L Potassium 4.2 (3.5-5.1) mmol/L Chloride 102 (98-107) mmol/L Carbon Dioxide 25 (22-30) mmol/L Anion Gap 9 mmol/L BUN 7 (7-17) mg/dL Creatinine 0.53 (0.52-1.04) mg/dL Est GFR (CKD-EPI)AfAm >90 (>60 ml/min/1.73 sqM) Est GFR (CKD-EPI)NonAf >90 (>60 ml/min/1.73 sqM) Glucose 339 H (74-99) mg/dL POC Glucose (mg/dL) (70-110) mg/dL POC Glu Solar Energy System Installer ID Calcium 9.9 (8.4-10.2) mg/dL Total Bilirubin 0.5 (0.2-1.3) mg/dL AST 31 (14-36) U/L ALT 40 H (4-34) U/L Alkaline Phosphatase 80 (38-126) U/L Total Protein 6.8 (6.3-8.2) g/dL Albumin 4.4 (3.5-5.0) g/dL Urine Color Light Yellow Urine Appearance Cloudy H (Clear) Urine pH 6.0 (5.0-8.0) Ur Specific [place] 1.032 (1.001-1.035) Urine Protein 1+ H (Negative) Urine Glucose (UA) 4+ H (Negative) Urine Ketones Negative (Negative) Urine Blood Small H (Negative) Urine Nitrite Negative (Negative) Urine Bilirubin Negative (Negative) Urine Urobilinogen <2.0 (<2.0) mg/dL Ur Leukocyte Esterase Moderate H (Negative) Urine RBC 42 H (0-5) /hpf Urine WBC 129 H (0-5) /hpf Ur Squamous Epith Cells 7 H (0-4) /hpf Urine Bacteria Many H (None) /hpf Urine Mucus Many H (None) /hpf Urine Opiates Screen Not Detected (NotDetected) Ur Oxycodone Screen Not Detected (NotDetected) Urine Methadone Screen Not Detected (NotDetected) Ur Barbiturates Screen Not Detected (NotDetected) U Tricyclic Antidepress Not Detected (NotDetected) Ur Phencyclidine Scrn Not Detected (NotDetected) Ur Amphetamines Screen Not Detected (NotDetected) U Methamphetamines Scrn Not Detected (NotDetected) U Benzodiazepines Scrn Not Detected (NotDetected) Urine Cocaine Screen Not Detected (NotDetected) U Marijuana (THC) Screen Detected H (NotDetected) 06/03/23 Range/Units 19:33 WBC (3.8-10.6) k/uL RBC (3.80-5.40) m/uL Hgb (11.4-16.0) gm/dL Hct (34.0-46.0) % MCV (80.0-100.0) fL MCH (25.0-35.0) pg MCHC (31.0-37.0) g/dL RDW (11.5-15.5) % Plt Count (150-450) k/uL MPV Neutrophils % % Lymphocytes % % Monocytes % % Eosinophils % % Basophils % % Neutrophils # (1.3-7.7) k/uL Lymphocytes # (1.0-4.8) k/uL Monocytes # (0-1.0) k/uL Eosinophils # (0-0.7) k/uL Basophils # (0-0.2) k/uL Sodium (137-145) mmol/L Potassium (3.5-5.1) mmol/L Chloride (98-107) mmol/L Carbon Dioxide (22-30) mmol/L Anion Gap mmol/L BUN (7-17) mg/dL Creatinine (0.52-1.04) mg/dL Est GFR (CKD-EPI)AfAm (>60 ml/min/1.73 sqM) Est GFR (CKD-EPI)NonAf (>60 ml/min/1.73 sqM) Glucose (74-99) mg/dL POC Glucose (mg/dL) 235 H (70-110) mg/dL POC Glu Solar Energy System Installer Zuleyka Suarez Calcium (8.4-10.2) mg/dL Total Bilirubin (0.2-1.3) mg/dL AST (14-36) U/L ALT (4-34) U/L Alkaline Phosphatase (38-126) U/L Total Protein (6.3-8.2) g/dL Albumin (3.5-5.0) g/dL Urine Color Urine Appearance (Clear) Urine pH (5.0-8.0) Ur Specific [place] (1.001-1.035) Urine Protein (Negative) Urine Glucose (UA) (Negative) Urine Ketones (Negative) Urine Blood (Negative) Urine Nitrite (Negative) Urine Bilirubin (Negative) Urine Urobilinogen (<2.0) mg/dL Ur Leukocyte Esterase (Negative) Urine RBC (0-5) /hpf Urine WBC (0-5) /hpf Ur Squamous Epith Cells (0-4) /hpf Urine Bacteria (None) /hpf Urine Mucus (None) /hpf Urine Opiates Screen (NotDetected) Ur Oxycodone Screen (NotDetected) Urine Methadone Screen (NotDetected) Ur Barbiturates Screen (NotDetected) U Tricyclic Antidepress (NotDetected) Ur Phencyclidine Scrn (NotDetected) Ur Amphetamines Screen (NotDetected) U Methamphetamines Scrn (NotDetected) U Benzodiazepines Scrn (NotDetected) Urine Cocaine Screen (NotDetected) U Marijuana (THC) Screen (NotDetected) Disposition <Andrey Teran - Last Filed: 06/03/23 18:25> Is patient prescribed a controlled substance at d/c from ED?: No Time of Disposition: 21:24 <Jethro Silva - Last Filed: 06/03/23 21:24> Clinical Impression: Anxiety, Urinary tract infection Disposition: HOME SELF-CARE Condition: Good Additional Instructions: Please return to the Emergency Department if symptoms worsen or any other concerns. Please follow-up with your primary care provider. Prescriptions: Sulfamethox-Tmp 800-160Mg [Bactrim Ds] 1 each PO Q12HR 7 Days #14 tab Referrals: Nelly Maldonado MD [Primary Care Provider] - 1-2 days
[2023-06-03 17:39] LABS: Basophils % (A) 1 %; Eosinophils # (A) 0.1 k/uL (0-0.7); Eosinophils % (A) 3 %; HCT 43.1 % (34.0-46.0); HGB 14.1 gm/dL (11.4-16.0); Lymphocytes # (A) 2.3 k/uL (1.0-4.8); Lymphocytes % (A) 48 %; MCH 29.1 pg (25.0-35.0); MCHC 32.6 g/dL (31.0-37.0); MCV 89.3 fL (80.0-100.0); Mean Platelet Volume 9.3; Monocytes # (A) 0.2 k/uL (0-1.0); Monocytes % (A) 5 %; Neutrophils % (A) 42 %; Platelet Count 189 k/uL (150-450); RBC 4.83 m/uL (3.80-5.40); RDW 12.8 % (11.5-15.5); WBC 4.8 k/uL (3.8-10.6)
[2023-06-03] MEDS: SODIUM CHLORIDE 0.9% 1,000 ML IV STA (17:43)
[2023-06-03 17:48] LABS: ALT 40 U/L (4-34); AST 31 U/L (14-36); African American GFR (CKD) >90 (>60 ml/min/1.73 sqM); Albumin 4.4 g/dL (3.5-5.0); Alkaline Phosphatase 80 U/L (38-126); Anion Gap 9 mmol/L; Blood Urea Nitrogen 7 mg/dL (7-17); Calcium 9.9 mg/dL (8.4-10.2); Carbon Dioxide 25 mmol/L (22-30); Chloride 102 mmol/L (98-107); Glucose 339 mg/dL (74-99); Non-African American GFR(CKD) >90 (>60 ml/min/1.73 sqM); Potassium 4.2 mmol/L (3.5-5.1); Sodium 136 mmol/L (137-145); Total Bilirubin 0.5 mg/dL (0.2-1.3); Total Protein 6.8 g/dL (6.3-8.2)
[2023-06-03] MEDS: INSULIN REGULAR 100 UNIT/ML VIAL (IV) IV ONE (18:30)
[2023-06-03 19:06] LABS: Amphetamine Screen,Urine Not Detected (NotDetected); Benzodiazepines Screen,Urine Not Detected (NotDetected); Cocaine Screen,Urine Not Detected (NotDetected); Methadone Screen, Urine Not Detected (NotDetected); Opiate Screen,Urine Not Detected (NotDetected); Phencyclidine Screen,Urine Not Detected (NotDetected); Tricyclic Antidepressant,Urine Not Detected (NotDetected); Urn Cannabinoid Scrn Detected (NotDetected)
[2023-06-03 19:07] LABS: Barbiturate Screen,Urine Not Detected (NotDetected); Oxycodone Screen, Urine Not Detected (NotDetected)
[2023-06-03 19:24] LABS: Appearance,Urine Cloudy (Clear); Bacteria,Urine Many /hpf; Bilirubin,Urine Negative (Negative); Blood,Urine Small (Negative); Color,Urine Light Yellow; Glucose,Urine (UA) 4+ (Negative); Ketones,Urine Negative (Negative); Leukocyte Esterase,Urine Moderate (Negative); Mucus,Urine Many /hpf; Nitrite,Urine Negative (Negative); Protein,Urine 1+ (Negative); RBC,Urine 42 /hpf (0-5); Specific Gravity,Urine 1.032 (1.001-1.035); Squamous Epithelial Cell,Urine 7 /hpf (0-4); Urobilinogen,Urine <2.0 mg/dL (<2.0); WBC,Urine 129 /hpf (0-5)
[2023-06-03 19:36] LABS: Glucose,Whole Blood 235 mg/dL (70-110)
[2023-06-03] MEDS: SULFAMETHOX-TMP 800-160MG 1 EACH TAB PO STA (20:07)
[2023-06-03] MEDS: CIPROFLOXACIN/DEXTROSE PMX 400 MG in DEXTROSE/WATER 1 200ML.BAG IVPB STA (20:11)
[2023-06-03 21:23] VITALS: BP 122/83; PULSE 84; RESP 18
== END 2023-06-03 21:49 | disposition home or self-care (01) ==
LOC: EC 15:56
DX: F41.9 Anxiety disorder, unspecified (principal); N39.0 Urinary tract infection, site not specified; F17.200 Nicotine dependence, unspecified, uncomplicated; Z88.0 Allergy status to penicillin; Z88.1 Allergy status to other antibiotic agents; Z91.018 Allergy to other foods; Z91.041 Radiographic dye allergy status
CPT/HCPCS: 36415; 80053; 80306; 81001; 82075; 85025; 87086; 93005; 96360; 96374; 99284; 99285

== ENCOUNTER 2023-08-18 14:06 | Emergency (ER) | payer MEDICARE, OTHER ==
[2023-08-18 16:15] LABS: Amphetamine Screen,Urine Not Detected (NotDetected); Barbiturate Screen,Urine Not Detected (NotDetected); Benzodiazepines Screen,Urine Not Detected (NotDetected); Cocaine Screen,Urine Not Detected (NotDetected); Methadone Screen, Urine Not Detected (NotDetected); Opiate Screen,Urine Not Detected (NotDetected); Oxycodone Screen, Urine Not Detected (NotDetected); Phencyclidine Screen,Urine Not Detected (NotDetected); Tricyclic Antidepressant,Urine Not Detected (NotDetected); Urn Cannabinoid Scrn Not Detected (NotDetected)
--- NOTE | 2023-08-18 18:20 | ED ---
General Adult HPI <Lisa Sims A - Last Filed: 08/19/23 11:53> <Andrey Teran - Last Filed: 08/19/23 17:15> - General Source: patient, family, RN notes reviewed Mode of arrival: ambulatory Limitations: no limitations <Bhumika Hernandes - Last Filed: 08/21/23 11:41> - General Chief complaint: Psychiatric Symptoms Stated complaint: Suicidal Time Seen by Provider: 08/18/23 14:26 - History of Present Illness Initial comments: 52-year-old female here for psychiatric evaluation. Patient states that she has anxiety and has been worse over the past 2 weeks. She also reports suicidal ideation. She denies any intent or plan. She is currently on medication for her mental health but she is unsure what she is on. She states that she is taking this as prescribed. She denies hallucinations, delusions. (Bhumika Hernandes) - Related Data Home Medications Medication Instructions Recorded Confirmed Ezetimibe [Zetia] 10 mg PO DAILY 03/17/20 08/18/23 Omeprazole 40 mg PO DAILY 01/26/21 08/18/23 Cetirizine HCl [Zyrtec] 10 mg PO DAILY 08/04/22 08/18/23 Mirabegron [Myrbetriq] 50 mg PO DAILY 08/04/22 08/18/23 Fenofibrate [Lofibra] 160 mg PO DAILY 11/03/22 08/18/23 Valproic Acid Oral Soln [Depakene 1,000 mg PO BID 11/03/22 08/18/23 Syrup] Insulin Aspart [NovoLOG Flexpen] 10 units SQ AC-TID 03/29/23 08/18/23 Insulin Aspart [NovoLOG Flexpen] See Protocol SQ AC-TID PRN 03/29/23 08/18/23 Aspirin EC [Ecotrin Low Dose] 81 mg PO DAILY 08/18/23 08/18/23 Paliperidone IM [Invega Sustenna] 234 mg IM Q28D 08/18/23 08/18/23 metFORMIN HCL 1,000 mg PO BID 08/18/23 08/18/23 Previous Rx's Medication Instructions Recorded Escitalopram [Lexapro] 20 mg PO DAILY 30 Days #30 tab 08/22/22 Allergies Allergy/AdvReac Type Severity Reaction Status Date / Time Penicillins Allergy Severe Anaphylaxis Verified 08/18/23 15:48 cephalexin monohydrate Allergy Anaphylaxis Verified 08/18/23 15:48 [From Keflex] iodine Allergy Rash/Hives Verified 08/18/23 15:48 Mushroom AdvReac Unknown Verified 08/18/23 15:48 Review of Systems ROS Other: All systems not noted in ROS Statement are negative. <JeremiahjackieDellLisa Sony - Last Filed: 08/19/23 11:53> ROS Other: All systems not noted in ROS Statement are negative. <Andrey Tearn - Last Filed: 08/19/23 17:15> ROS Other: All systems not noted in ROS Statement are negative. <Bhumika Hernandes - Last Filed: 08/21/23 11:41> ROS Statement: Those systems with pertinent positive or pertinent negative responses have been documented in the HPI. Past Medical History Past Medical History: Coronary Artery Disease (CAD), Diabetes Mellitus, GERD/Reflux, Hyperlipidemia, Hypertension Additional Past Medical History / Comment(s): NIDDM type II, dyslexia. History of Any Multi-Drug Resistant Organisms: ESBL Date of last positivie culture/infection: 08/11/21-ESBL MDRO Source:: URINE Past Surgical History: Adenoidectomy, Section, Tonsillectomy Additional Past Surgical History / Comment(s): Nasal surgery Past Anesthesia/Blood Transfusion Reactions: Postoperative Nausea & Vomiting (PONV) Additional Past Anesthesia/Blood Transfusion Reaction / Comment(s): Pt states she has never received blood. Past Psychological History: Anxiety, Depression, Panic Disorder Smoking Status: Never smoker, Light tobacco smoker Past Alcohol Use History: None Reported Past Drug Use History: None Reported - Past Family History Mother Family Medical History: Cancer Additional Family Medical History / Comment(s): Mother has lymphoma. Father History Unknown: Yes Additional Family Medical History / Comment(s): Father left when pt was 2 months old. <Bhumika Hernandes - Last Filed: 08/21/23 11:41> General Exam Limitations: no limitations General appearance: alert, in no apparent distress Head exam: Present: atraumatic, normocephalic, normal inspection Eye exam: Present: normal appearance, PERRL, EOMI. Absent: scleral icterus, conjunctival injection, periorbital swelling ENT exam: Present: normal exam, mucous membranes moist Neck exam: Present: normal inspection. Absent: tenderness, meningismus, lymphadenopathy Respiratory exam: Present: normal lung sounds bilaterally. Absent: respiratory distress, wheezes, rales, rhonchi, stridor Cardiovascular Exam: Present: regular rate, normal rhythm, normal heart sounds. Absent: systolic murmur, diastolic murmur, rubs, gallop, clicks Extremities exam: Present: normal inspection, full ROM, normal capillary refill. Absent: tenderness, pedal edema, joint swelling, calf tenderness Neurological exam: Present: alert, oriented X3 Psychiatric exam: Present: normal affect, normal mood Skin exam: Present: warm, dry, intact, normal color. Absent: rash <Bhumika Hernandes - Last Filed: 08/21/23 11:41> Course Vital Signs 08/18/23 08/18/23 08/18/23 14:10 14:35 15:13 Temperature 98.0 F 98.7 F Pulse Rate 86 75 Respiratory 18 16 Rate Blood Pressure 111/75 120/65 O2 Sat by Pulse 96 98 Oximetry 08/18/23 08/19/23 08/19/23 18:22 04:24 07:35 Temperature 97.9 F Pulse Rate 63 99 Respiratory 18 18 18 Rate Blood Pressure 105/71 104/69 121/82 O2 Sat by Pulse 93 L 95 96 Oximetry 08/19/23 17:56 Temperature Pulse Rate 76 Respiratory 18 Rate Blood Pressure 128/71 O2 Sat by Pulse 98 Oximetry Medical Decision Making - Lab Data Result diagrams: 08/19/23 09:46 08/19/23 09:46 <Lisa Sims - Last Filed: 08/19/23 11:53> - Lab Data Result diagrams: 08/19/23 09:46 08/19/23 09:46 <Andrey Teran - Last Filed: 08/19/23 17:15> - Lab Data Result diagrams: 08/19/23 09:46 08/19/23 09:46 <Bhumika Hernandes - Last Filed: 08/21/23 11:41> - Medical Decision Making EKG was performed which demonstrates sinus rhythm with a rate of 73. ID interval 183. QRS 102. QTc of 433. No acute ST segment elevations or depressions (Lisa Sims) Was pt. sent in by a medical professional or institution (JOSLYN Alvarez, CLINICAL DIETETIC TECHNICIAN, urgent care, hospital, or residential...) When possible be specific @ -[No] Did you speak to anyone other than the patient for history (EMS, parent, family, police, friend...)? What history was obtained from this source @ -[No] Did you review nursing and triage notes (agree or disagree)? Why? @ -[I reviewed and agree with nursing and triage notes] Were old charts reviewed (outside hosp., previous admission, EMS record, old EKG, old radiological studies, urgent care reports/EKG's, residential records)? Report findings @ -[No old charts were reviewed] Differential Diagnosis (chest pain, altered mental status, abdominal pain women, abdominal pain men, vaginal bleeding, weakness, fever, dyspnea, syncope, headache, dizziness, GI bleed, back pain, seizure, CVA, palpatations, mental health, musculoskeletal)? @ -[Differential Mental Health Depression, anxiety, bipolar, psychosis, schizophrenia, borderline personality, situational depression, adjustment disorder, behavioral disorder, brain tumor, malingering, substance abuse, encephalopathy, medication reaction, dementia, hypothyroidism, degenerative neurologic disorder, lupus.... This is not meant to be all-inclusive list] EKG interpreted by me (3pts min.). @ -[none] X-rays interpreted by me (1pt min.). @ -[None done] CT interpreted by me (1pt min.). @ -[None done] U/S interpreted by me (1pt. min.). @ -[None done] What testing was considered but not performed or refused? (CT, X-rays, U/S, labs)? Why? @ -[None] What meds were considered but not given or refused? Why? @ -[None] Did you discuss the management of the patient with other professionals (professionals i.e. JOSLYN Alvarez, CLINICAL DIETETIC TECHNICIAN, lab, RT, psych nurse, social research assistant, set designer, teacher, community liaison officer, hospice case manager)? Give summary @ -[No] Was smoking cessation discussed for >3mins.? @ -[No] Was critical care preformed (if so, how long)? @ -[No] Were there social determinants of health that impacted care today? How? (Homelessness, low income, unemployed, alcoholism, drug addiction, transportation, low edu. Level, literacy, decrease access to med. care, fci, rehab)? @ -[No] Was there de-escalation of care discussed even if they declined (Discuss DNR or withdrawal of care, Hospice)? DNR status @ -[No] What co-morbidities impacted this encounter? (DM, HTN, Smoking, COPD, CAD, Cancer, CVA, ARF, Chemo, Hep., AIDS, mental health diagnosis, sleep apnea, morbid obesity)? @ -[None] Was patient admitted / discharged? Hospital course, mention meds given and route, prescriptions, significant lab abnormalities, going to OR and other pertinent info. @ -[Patient presented to the emergency department for mental health evaluation. Reports suicidal ideation without intent or plan. Patient medically cleared, pending EPS evaluation. Delayed disposition due to EPS not being available. Patient discharged with care plan] Undiagnosed new problem with uncertain prognosis? @ -[No] Drug Therapy requiring intensive monitoring for toxicity (Heparin, Nitro, Insulin, Cardizem)? @ -[No] Were any procedures done? @ -[No] Diagnosis/symptom? @ -[default] Acute, or Chronic, or Acute on Chronic? @ -[default] Uncomplicated (without systemic symptoms) or Complicated (systemic symptoms)? @ -[default] Side effects of treatment? @ -[No] Exacerbation, Progression, or Severe Exacerbation? @ -[No] Poses a threat to life or bodily function? How? (Chest pain, [place], AL, pneumonia, PE, COPD, DKA, ARF, appy, cholecystitis, CVA, Diverticulitis, Homicidal, Suicidal, threat to staff... and all critical care pts) @ -[No] (Bhumika Hernandes) - Lab Data Lab Results 08/18/23 08/19/23 08/19/23 Range/Units 15:30 04:06 04:06 WBC (3.8-10.6) k/uL RBC (3.80-5.40) m/uL Hgb (11.4-16.0) gm/dL Hct (34.0-46.0) % MCV (80.0-100.0) fL MCH (25.0-35.0) pg MCHC (31.0-37.0) g/dL RDW (11.5-15.5) % Plt Count (150-450) k/uL MPV Neutrophils % % Lymphocytes % % Monocytes % % Eosinophils % % Basophils % % Neutrophils # (1.3-7.7) k/uL Lymphocytes # (1.0-4.8) k/uL Monocytes # (0-1.0) k/uL Eosinophils # (0-0.7) k/uL Basophils # (0-0.2) k/uL Sodium (137-145) mmol/L Potassium (3.5-5.1) mmol/L Chloride (98-107) mmol/L Carbon Dioxide (22-30) mmol/L Anion Gap mmol/L BUN (7-17) mg/dL Creatinine (0.52-1.04) mg/dL Est GFR (CKD-EPI)AfAm (>60 ml/min/1.73 sqM) Est GFR (CKD-EPI)NonAf (>60 ml/min/1.73 sqM) Glucose (74-99) mg/dL POC Glucose (mg/dL) (70-110) mg/dL POC Glu Equipment Cleaner ID Calcium (8.4-10.2) mg/dL Total Bilirubin (0.2-1.3) mg/dL AST (14-36) U/L ALT (4-34) U/L Alkaline Phosphatase (38-126) U/L Ammonia 47 H (<30) umol/L Troponin I (0.000-0.034) ng/mL Total Protein (6.3-8.2) g/dL Albumin (3.5-5.0) g/dL Urine Color Urine Appearance (Clear) Urine pH (5.0-8.0) Ur Specific [place] (1.001-1.035) Urine Protein (Negative) Urine Glucose (UA) (Negative) Urine Ketones (Negative) Urine Blood (Negative) Urine Nitrite (Negative) Urine Bilirubin (Negative) Urine Urobilinogen (<2.0) mg/dL Ur Leukocyte Esterase (Negative) Urine RBC (0-5) /hpf Urine WBC (0-5) /hpf Urine Opiates Screen Not Detected (NotDetected) Ur Oxycodone Screen Not Detected (NotDetected) Urine Methadone Screen Not Detected (NotDetected) Ur Barbiturates Screen Not Detected (NotDetected) Valproic Acid 28.6 ug/mL U Tricyclic Antidepress Not Detected (NotDetected) Ur Phencyclidine Scrn Not Detected (NotDetected) Ur Amphetamines Screen Not Detected (NotDetected) U Methamphetamines Scrn Not Detected (NotDetected) U Benzodiazepines Scrn Not Detected (NotDetected) Urine Cocaine Screen Not Detected (NotDetected) U Marijuana (THC) Screen Not Detected (NotDetected) 08/19/23 08/19/23 08/19/23 Range/Units 09:46 09:46 09:46 WBC 3.4 L (3.8-10.6) k/uL RBC 4.20 (3.80-5.40) m/uL Hgb 12.5 (11.4-16.0) gm/dL Hct 37.7 (34.0-46.0) % MCV 89.7 (80.0-100.0) fL MCH 29.8 (25.0-35.0) pg MCHC 33.3 (31.0-37.0) g/dL RDW 12.6 (11.5-15.5) % Plt Count 162 (150-450) k/uL MPV 9.3 Neutrophils % 51 % Lymphocytes % 38 % Monocytes % 6 % Eosinophils % 2 % Basophils % 1 % Neutrophils # 1.7 (1.3-7.7) k/uL Lymphocytes # 1.3 (1.0-4.8) k/uL Monocytes # 0.2 (0-1.0) k/uL Eosinophils # 0.1 (0-0.7) k/uL Basophils # 0.0 (0-0.2) k/uL Sodium 138 (137-145) mmol/L Potassium 3.7 (3.5-5.1) mmol/L Chloride 104 (98-107) mmol/L Carbon Dioxide 28 (22-30) mmol/L Anion Gap 6 mmol/L BUN 8 (7-17) mg/dL Creatinine 0.52 (0.52-1.04) mg/dL Est GFR (CKD-EPI)AfAm >90 (>60 ml/min/1.73 sqM) Est GFR (CKD-EPI)NonAf >90 (>60 ml/min/1.73 sqM) Glucose 372 H (74-99) mg/dL POC Glucose (mg/dL) (70-110) mg/dL POC Glu Equipment Cleaner ID Calcium 9.5 (8.4-10.2) mg/dL Total Bilirubin 0.5 (0.2-1.3) mg/dL AST 29 (14-36) U/L ALT 29 (4-34) U/L Alkaline Phosphatase 60 (38-126) U/L Ammonia (<30) umol/L Troponin I (0.000-0.034) ng/mL Total Protein 6.1 L (6.3-8.2) g/dL Albumin 4.0 (3.5-5.0) g/dL Urine Color Colorless Urine Appearance Clear (Clear) Urine pH 6.5 (5.0-8.0) Ur Specific [place] 1.023 (1.001-1.035) Urine Protein Trace H (Negative) Urine Glucose (UA) 4+ H (Negative) Urine Ketones Negative (Negative) Urine Blood Negative (Negative) Urine Nitrite Negative (Negative) Urine Bilirubin Negative (Negative) Urine Urobilinogen <2.0 (<2.0) mg/dL Ur Leukocyte Esterase Small H (Negative) Urine RBC 5 (0-5) /hpf Urine WBC 21 H (0-5) /hpf Urine Opiates Screen (NotDetected) Ur Oxycodone Screen (NotDetected) Urine Methadone Screen (NotDetected) Ur Barbiturates Screen (NotDetected) Valproic Acid ug/mL U Tricyclic Antidepress (NotDetected) Ur Phencyclidine Scrn (NotDetected) Ur Amphetamines Screen (NotDetected) U Methamphetamines Scrn (NotDetected) U Benzodiazepines Scrn (NotDetected) Urine Cocaine Screen (NotDetected) U Marijuana (THC) Screen (NotDetected) 08/19/23 08/19/23 08/19/23 Range/Units 09:46 09:46 14:04 WBC (3.8-10.6) k/uL RBC (3.80-5.40) m/uL Hgb (11.4-16.0) gm/dL Hct (34.0-46.0) % MCV (80.0-100.0) fL MCH (25.0-35.0) pg MCHC (31.0-37.0) g/dL RDW (11.5-15.5) % Plt Count (150-450) k/uL MPV Neutrophils % % Lymphocytes % % Monocytes % % Eosinophils % % Basophils % % Neutrophils # (1.3-7.7) k/uL Lymphocytes # (1.0-4.8) k/uL Monocytes # (0-1.0) k/uL Eosinophils # (0-0.7) k/uL Basophils # (0-0.2) k/uL Sodium (137-145) mmol/L Potassium (3.5-5.1) mmol/L Chloride (98-107) mmol/L Carbon Dioxide (22-30) mmol/L Anion Gap mmol/L BUN (7-17) mg/dL Creatinine (0.52-1.04) mg/dL Est GFR (CKD-EPI)AfAm (>60 ml/min/1.73 sqM) Est GFR (CKD-EPI)NonAf (>60 ml/min/1.73 sqM) Glucose (74-99) mg/dL POC Glucose (mg/dL) 235 H (70-110) mg/dL POC Glu Equipment Cleaner ID Belval, [place] Calcium (8.4-10.2) mg/dL Total Bilirubin (0.2-1.3) mg/dL AST (14-36) U/L ALT (4-34) U/L Alkaline Phosphatase (38-126) U/L Ammonia 25 (<30) umol/L Troponin I <0.012 (0.000-0.034) ng/mL Total Protein (6.3-8.2) g/dL Albumin (3.5-5.0) g/dL Urine Color Urine Appearance (Clear) Urine pH (5.0-8.0) Ur Specific [place] (1.001-1.035) Urine Protein (Negative) Urine Glucose (UA) (Negative) Urine Ketones (Negative) Urine Blood (Negative) Urine Nitrite (Negative) Urine Bilirubin (Negative) Urine Urobilinogen (<2.0) mg/dL Ur Leukocyte Esterase (Negative) Urine RBC (0-5) /hpf Urine WBC (0-5) /hpf Urine Opiates Screen (NotDetected) Ur Oxycodone Screen (NotDetected) Urine Methadone Screen (NotDetected) Ur Barbiturates Screen (NotDetected) Valproic Acid ug/mL U Tricyclic Antidepress (NotDetected) Ur Phencyclidine Scrn (NotDetected) Ur Amphetamines Screen (NotDetected) U Methamphetamines Scrn (NotDetected) U Benzodiazepines Scrn (NotDetected) Urine Cocaine Screen (NotDetected) U Marijuana (THC) Screen (NotDetected) Disposition <Lisa Sims - Last Filed: 08/19/23 11:53> Is patient prescribed a controlled substance at d/c from ED?: No <Andrey Teran - Last Filed: 08/19/23 17:15> Is patient prescribed a controlled substance at d/c from ED?: No <Bhumika Hernandes - Last Filed: 08/21/23 11:41> Clinical Impression: Acute psychosis, Acute anxiety Disposition: HOME SELF-CARE Condition: Fair Instructions (If sedation given, give patient instructions): Anxiety (ED) Referrals: Nelly Maldonado MD [Primary Care Provider] - 1-2 days
[2023-08-18 18:27] VITALS: RESP 18
[2023-08-19 04:24] VITALS: TEMP 97.9
[2023-08-19] MEDS: SODIUM CHLORIDE 0.9% 500 ML 500 ML IV ONE (09:44)
[2023-08-19 09:55] LABS: Basophils % (A) 1 %; Eosinophils # (A) 0.1 k/uL (0-0.7); Eosinophils % (A) 2 %; HCT 37.7 % (34.0-46.0); HGB 12.5 gm/dL (11.4-16.0); Lymphocytes # (A) 1.3 k/uL (1.0-4.8); Lymphocytes % (A) 38 %; MCH 29.8 pg (25.0-35.0); MCHC 33.3 g/dL (31.0-37.0); MCV 89.7 fL (80.0-100.0); Mean Platelet Volume 9.3; Monocytes # (A) 0.2 k/uL (0-1.0); Monocytes % (A) 6 %; Neutrophils # (A) 1.7 k/uL (1.3-7.7); Neutrophils % (A) 51 %; Platelet Count 162 k/uL (150-450); RDW 12.6 % (11.5-15.5); WBC 3.4 k/uL (3.8-10.6)
[2023-08-19 10:11] LABS: ALT 29 U/L (4-34); AST 29 U/L (14-36); African American GFR (CKD) >90 (>60 ml/min/1.73 sqM); Alkaline Phosphatase 60 U/L (38-126); Anion Gap 6 mmol/L; Blood Urea Nitrogen 8 mg/dL (7-17); Calcium 9.5 mg/dL (8.4-10.2); Carbon Dioxide 28 mmol/L (22-30); Chloride 104 mmol/L (98-107); Glucose 372 mg/dL (74-99); Non-African American GFR(CKD) >90 (>60 ml/min/1.73 sqM); Potassium 3.7 mmol/L (3.5-5.1); Sodium 138 mmol/L (137-145); Total Bilirubin 0.5 mg/dL (0.2-1.3); Total Protein 6.1 g/dL (6.3-8.2)
[2023-08-19] MEDS: INSULIN REGULAR 100 UNIT/ML VIAL (IM/SQ) SQ ONE (11:04)
[2023-08-19 12:58] LABS: Appearance,Urine Clear (Clear); Bilirubin,Urine Negative (Negative); Blood,Urine Negative (Negative); Color,Urine Colorless; Glucose,Urine (UA) 4+ (Negative); Ketones,Urine Negative (Negative); Leukocyte Esterase,Urine Small (Negative); Nitrite,Urine Negative (Negative); PH, Urine 6.5 (5.0-8.0); Protein,Urine Trace (Negative); Specific Gravity,Urine 1.023 (1.001-1.035); Urobilinogen,Urine <2.0 mg/dL (<2.0)
[2023-08-19 12:59] LABS: RBC,Urine 5 /hpf (0-5); WBC,Urine 21 /hpf (0-5)
[2023-08-19 14:05] LABS: Glucose,Whole Blood 235 mg/dL (70-110)
[2023-08-19 17:56] VITALS: BP 128/71; PULSE 76
== END 2023-08-19 17:56 | disposition home or self-care (01) ==
LOC: EC 14:06
DX: F23 Brief psychotic disorder (principal); F41.9 Anxiety disorder, unspecified; F17.200 Nicotine dependence, unspecified, uncomplicated; Z88.0 Allergy status to penicillin; Z88.1 Allergy status to other antibiotic agents; Z88.8 Allergy status to other drugs, medicaments and biological substances; Z91.041 Radiographic dye allergy status
CPT/HCPCS: 36415; 80053; 80164; 80306; 81001; 82075; 82140; 84484; 85025; 93005; 96360; 99285

== ENCOUNTER 2023-09-04 04:02 | Inpatient (IN) | payer MEDICARE, MEDICAID ==
--- NOTE | 2023-09-04 05:41 | ED ---
General Adult HPI - General Chief complaint: Psychiatric Symptoms Stated complaint: Depression, Suicidal Time Seen by Provider: 09/04/23 04:31 Source: patient Mode of arrival: ambulatory Limitations: no limitations - History of Present Illness Initial comments: Dictation was produced using adSage dictation software. please excuse any grammatical, word or spelling errors. Chief Complaint: 52-year-old female presents with suicidal homicidal ideation History of Present Illness: Patient is a 52-year-old female she has history of psychiatric illness. Patient states she has been admitted for psychiatric reasons in the past. States that she is here for being acutely anxious and suicidal homicidal. Patient does not have any plan. She was brought here by a friend. Patient is a poor historian. Today visual auditory hallucinations. The ROS documented in this emergency department record has been reviewed and confirmed by me. Those systems with pertinent positive or negative responses have been documented in the HPI. All other systems are other negative and/or noncontributory. - Related Data Home Medications Medication Instructions Recorded Confirmed Ezetimibe [Zetia] 10 mg PO DAILY 03/17/20 09/04/23 Omeprazole 40 mg PO DAILY 01/26/21 09/04/23 Cetirizine HCl [Zyrtec] 10 mg PO DAILY 08/04/22 09/04/23 Mirabegron [Myrbetriq] 50 mg PO DAILY 08/04/22 09/04/23 Fenofibrate [Lofibra] 160 mg PO DAILY 11/03/22 09/04/23 Insulin Aspart [NovoLOG Flexpen] 10 units SQ AC-TID MDD 100 units 03/29/23 09/04/23 Insulin Aspart [NovoLOG Flexpen] See Protocol SQ AC-TID PRN MDD 100 03/29/23 09/04/23 units Aspirin EC [Ecotrin Low Dose] 81 mg PO DAILY 08/18/23 09/04/23 Paliperidone IM [Invega Sustenna] 234 mg IM DIRECTED 08/18/23 09/04/23 metFORMIN HCL 1,000 mg PO BID 08/18/23 09/04/23 Previous Rx's Medication Instructions Recorded Escitalopram [Lexapro] 20 mg PO DAILY 30 Days #30 tab 08/22/22 Allergies Allergy/AdvReac Type Severity Reaction Status Date / Time Penicillins Allergy Severe Anaphylaxis Verified 09/04/23 09:52 cephalexin monohydrate Allergy Anaphylaxis Verified 09/04/23 09:52 [From Keflex] iodine Allergy Rash/Hives Verified 09/04/23 09:52 Mushroom AdvReac Unknown Verified 09/04/23 09:52 Review of Systems ROS Statement: Those systems with pertinent positive or pertinent negative responses have been documented in the HPI. ROS Other: All systems not noted in ROS Statement are negative. Past Medical History Past Medical History: Coronary Artery Disease (CAD), Diabetes Mellitus, GERD/Reflux, Hyperlipidemia, Hypertension Additional Past Medical History / Comment(s): NIDDM type II, dyslexia. History of Any Multi-Drug Resistant Organisms: ESBL Date of last positivie culture/infection: 08/11/21-ESBL MDRO Source:: URINE Past Surgical History: Adenoidectomy, Section, Tonsillectomy Additional Past Surgical History / Comment(s): Nasal surgery Past Anesthesia/Blood Transfusion Reactions: Postoperative Nausea & Vomiting (PONV) Additional Past Anesthesia/Blood Transfusion Reaction / Comment(s): Pt states she has never received blood. Past Psychological History: Anxiety, Depression, Panic Disorder Smoking Status: Never smoker, Light tobacco smoker Past Alcohol Use History: None Reported Past Drug Use History: None Reported - Past Family History Mother Family Medical History: Cancer Additional Family Medical History / Comment(s): Mother has lymphoma. Father History Unknown: Yes Additional Family Medical History / Comment(s): Father left when pt was 2 months old. General Exam - General Exam Comments Initial Comments: General: Well-appearing, nontoxic, no acute distress. Head: Normocephalic, atraumatic Eyes: PERRLA, EOMI ENT: Airway patent Chest: Nonlabored breathing Skin: No visual rash, normal skin tone Neuro: Alert and oriented 3 Musculoskeletal: No gross abnormalities Psych: Flattened affect Limitations: no limitations Course Vital Signs 09/04/23 09/04/23 04:06 17:06 Temperature 98.2 F Pulse Rate 94 85 Respiratory 18 16 Rate Blood Pressure 127/87 132/88 O2 Sat by Pulse 96 96 Oximetry Medical Decision Making - Medical Decision Making Was pt. sent in by a medical professional or institution (, PA, FINISHED CARPET INSPECTOR, urgent care, hospital, or halfway...) When possible be specific @ -No Did you speak to anyone other than the patient for history (EMS, parent, family, police, friend...)? What history was obtained from this source @ -No Did you review nursing and triage notes (agree or disagree)? Why? @ -I reviewed and agree with nursing and triage notes Were old charts reviewed (outside hosp., previous admission, EMS record, old EKG, old radiological studies, urgent care reports/EKG's, halfway records)? Report findings @ -No old charts were reviewed Differential Diagnosis (chest pain, altered mental status, abdominal pain women, abdominal pain men, vaginal bleeding, musculoskeletal, weakness, fever, dyspnea, syncope, headache, dizziness, GI bleed, back pain, seizure, CVA, palpatations, mental health)? @ -Differential Mental Health: Depression, anxiety, bipolar, psychosis, schizophrenia, borderline personality, situational depression, adjustment disorder, behavioral disorder, brain tumor, malingering, substance abuse, encephalopathy, medication reaction, dementia, hypothyroidism, degenerative neurologic disorder, lupus.... This is not meant to be all-inclusive list EKG interpreted by me (3pts min.). @ -None done X-rays interpreted by me (1pt min.). @ -None done CT interpreted by me (1pt min.). @ -None done U/S interpreted by me (1pt. min.). @ -None done What testing was considered but not performed or refused? (CT, X-rays, U/S, labs)? Why? @ -None What meds were considered but not given or refused? Why? @ -None Was smoking cessation discussed for >3mins.? @ -No Were there social determinants of health that impacted care today? How? (Homelessness, low income, unemployed, alcoholism, drug addiction, transportation, low edu. Level, literacy, decrease access to med. care, senior living, rehab)? @ -No Was there de-escalation of care discussed even if they declined (Discuss DNR or withdrawal of care, Hospice)? DNR status @ -No What co-morbidities impacted this encounter? (DM, HTN, Smoking, COPD, CAD, Cancer, CVA, ARF, Chemo, Hep., AIDS, mental health diagnosis, sleep apnea, morbid obesity)? @ -None Was patient admitted / discharged? Hospital course, mention meds given and route, prescriptions, significant lab abnormalities, going to OR and other pertinent info. @ -52-year-old female presents to the emergency department for suicidal, homicidal ideation along with anxiety. She does not appear to be anxious at the bedside. Patient has no medical complaints. Vital signs stable. Physical examination is benign. Patient medically cleared for EPS evaluation. Patient eval by EPS will be admitted to mental health unit Did you discuss the management of the patient with other professionals (professionals i.e. , PA, FINISHED CARPET INSPECTOR, lab, RT, psych nurse, social services coordinator, tree deadener, teacher, sergeant of officers, family service caseworker)? Give summary @ -yes Was critical care preformed (if so, how long)? @ -No Undiagnosed new problem with uncertain prognosis? @ -No Drug Therapy requiring intensive monitoring for toxicity (Heparin, Nitro, Insulin, Cardizem)? @ -No Were any procedures done? @ -No Diagnosis/symptom? Acute, or Chronic, or Acute on Chronic? Uncomplicated (without systemic symptoms) or Complicated (systemic symptoms)? @ -Suicidal/homicidal ideation - Lab Data Result diagrams: 09/07/23 09:28 09/07/23 09:12 Lab Results 09/04/23 09/04/23 09/04/23 Range/Units 06:30 13:11 14:32 POC Glucose (mg/dL) 303 H (70-110) mg/dL POC Glu Shot Coat Tender ID Isabella Bejarano Urine Opiates Screen Not Detected (NotDetected) Ur Oxycodone Screen Not Detected (NotDetected) Urine Methadone Screen Not Detected (NotDetected) Ur Barbiturates Screen Not Detected (NotDetected) U Tricyclic Antidepress Not Detected (NotDetected) Ur Phencyclidine Scrn Not Detected (NotDetected) Ur Amphetamines Screen Not Detected (NotDetected) U Methamphetamines Scrn Not Detected (NotDetected) U Benzodiazepines Scrn Not Detected (NotDetected) Urine Cocaine Screen Not Detected (NotDetected) U Marijuana (THC) Screen Not Detected (NotDetected) SARS-CoV-2 (PCR) Not Detected (Not Detectd) Disposition Clinical Impression: Suicidal ideation Disposition: ADMITTED IP TO THIS HOSP
[2023-09-04 07:45] LABS: Amphetamine Screen,Urine Not Detected (NotDetected); Barbiturate Screen,Urine Not Detected (NotDetected); Benzodiazepines Screen,Urine Not Detected (NotDetected); Cocaine Screen,Urine Not Detected (NotDetected); Methadone Screen, Urine Not Detected (NotDetected); Opiate Screen,Urine Not Detected (NotDetected); Oxycodone Screen, Urine Not Detected (NotDetected); Phencyclidine Screen,Urine Not Detected (NotDetected); Tricyclic Antidepressant,Urine Not Detected (NotDetected); Urn Cannabinoid Scrn Not Detected (NotDetected)
[2023-09-04 14:36] LABS: Glucose,Whole Blood 303 mg/dL (70-110)
[2023-09-04] MEDS: INSULIN REGULAR 100 UNIT/ML VIAL (IM/SQ) SQ ONE (14:44)
[2023-09-04] MEDS ORDERED: IBUPROFEN 600 MG TAB PO PRN (17:04)
[2023-09-04] MEDS ORDERED: LORazepam 2 MG/ML INJ IM PRN (17:04)
[2023-09-04] MEDS ORDERED: MAGNESIUM HYDROXIDE 2,400 MG/30 ML CUP PO PRN (17:04)
[2023-09-04] MEDS ORDERED: ACETAMINOPHEN TAB 325 MG TAB PO PRN (17:04)
[2023-09-04 17:38] LABS: Glucose,Whole Blood 271 mg/dL (70-110)
[2023-09-04] MEDS: INSULIN ASPART (NovoLOG) 100 UNIT/ML VIAL SQ SCH (18:24)
[2023-09-04] MEDS: metFORMIN 500 MG TAB PO SCH (18:24)
[2023-09-04 20:59] LABS: Glucose,Whole Blood 238 mg/dL (70-110)
[2023-09-04] MEDS: traZODone HCL 50 MG TAB PO PRN (21:21)
[2023-09-04] MEDS: LORazepam 1 MG TAB PO PRN (21:46)
[2023-09-05 08:09] LABS: Glucose,Whole Blood 176 mg/dL (70-110)
[2023-09-05] MEDS: LORATADINE 10 MG TAB PO SCH (08:58)
[2023-09-05] MEDS: NICOTINE 14MG/24HR PATCH TRANSDERM SCH (08:58)
[2023-09-05] MEDS: EZETIMIBE 10 MG TAB PO SCH (08:59)
[2023-09-05] MEDS: FENOFIBRATE 160 MG TAB PO SCH (08:59)
[2023-09-05] MEDS: ASPIRIN 81 MG PO SCH (08:59)
[2023-09-05] MEDS: PANTOPRAZOLE 40 MG TABLET PO SCH (08:59)
[2023-09-05] MEDS: ESCITALOPRAM 20 MG TAB PO SCH (08:59)
[2023-09-05 12:32] LABS: Glucose,Whole Blood 161 mg/dL (70-110)
--- NOTE | 2023-09-05 14:21 | P.HP ---
Psychiatric H&P - . H&P Date: 09/05/23 History & Physical: Allergies Allergy/AdvReac Type Severity Reaction Status Date / Time Penicillins Allergy Severe Anaphylaxis Verified 09/04/23 09:52 cephalexin monohydrate Allergy Anaphylaxis Verified 09/04/23 09:52 [From Keflex] iodine Allergy Rash/Hives Verified 09/04/23 09:52 Mushroom AdvReac Unknown Verified 09/04/23 09:52 Vital Signs Temp 97.4 F L 09/05/23 06:45 Pulse 83 09/05/23 06:45 Resp 16 09/05/23 06:45 BP 110/75 09/05/23 06:45 Pulse Ox 96 09/05/23 06:45 FiO2 Intake & Output 09/04/23 09/05/23 09/05/23 18:59 06:59 18:59 Weight 89.63 kg Laboratory Last Values POC Glucose (mg/dL) 161 mg/dL (70-110) H 09/05/23 12:31 POC Glu Cook Helper Fruit Katelin Valadez 09/05/23 12:31 Urine Opiates Screen Not Detected (NotDetected) 09/04/23 06:30 Ur Oxycodone Screen Not Detected (NotDetected) 09/04/23 06:30 Urine Methadone Screen Not Detected (NotDetected) 09/04/23 06:30 Ur Barbiturates Screen Not Detected (NotDetected) 09/04/23 06:30 U Tricyclic Antidepress Not Detected (NotDetected) 09/04/23 06:30 Ur Phencyclidine Scrn Not Detected (NotDetected) 09/04/23 06:30 Ur Amphetamines Screen Not Detected (NotDetected) 09/04/23 06:30 U Methamphetamines Scrn Not Detected (NotDetected) 09/04/23 06:30 U Benzodiazepines Scrn Not Detected (NotDetected) 09/04/23 06:30 Urine Cocaine Screen Not Detected (NotDetected) 09/04/23 06:30 U Marijuana (THC) Screen Not Detected (NotDetected) 09/04/23 06:30 SARS-CoV-2 (PCR) Not Detected (Not Detectd) 09/04/23 13:11 09/05/23 14:20 Psychiatric Evaluation Identifying Data: Ms. Chavez is a 52-year-old , white female, who lives in [place], [place]. She lives with her caregiver and two children. Chief Complaint: Depression, acute anxiety and suicidal thoughts. History of Psychiatric Illness- The patient noted that she has been noticing symptoms of depression, which progressively got worse, irritability, loss of motivation, loss of interest, social withdrawal, loss of sleep, increased appetite, lack of confidence, worthlessness, hopelessness, and suicidal thoughts. She rated her depression at 2 on VAS of 0 being worst and 10 being best mood. The patient noted that she was doing fine after being discharged from the [facility] last year but started getting depressed after few months and progressively got worse. As per patient, she goes to [facility] for out-pt follow-up. She saw her psychiatrist 3 weeks ago. The patient does not the names of medications she is currently taking. Leading questions: The patient admitted to Depression and Anxiety. Admitted to passive suicidal wish of not living anymore. She denied any active suicidal t houghts or plans. Denied HI. Denied symptoms consistent with psychosis Past Psychiatric History: The patient noted that she first got psychiatric treatment in her thirties. As per patient, she lost touch with reality and was admitted to the hospital. She has had 6-8 admissions since then. Her last admission was in July, and was given regimen of risperidone perseris and lithium. She reports no prior attempts at suicide. She is compliant with medications. Alcohol and Drug History: The patient reports no alcohol, marijuana, or illicit drug use. Tobacco use: The patient smokes 20 cigarettes a day. Past Medical History: CDH, IDDM, HTN, Dyslipidemia, GERD Family History: Mother has psychiatric history, details not known. Social History: Patient was born and raised in [place], [place]. She was the only child. She finished [employer]. Her longest job was at [employer] for one year. She was 4 years. Her last marriage ended 5 years ago. She has 9 years old twins living at home OTC: None. Allergies: PNC, Keflex, Iodine. Objective: MSE: Alert and attentive. Orientation times three Dressed and Groomed: Appropriately. Pleasant and cooperative. Psychomotor Activity: Reduced. Speech: Normal in tone, quality, and underproductive with slight delay is response. Mood: Depressed and anxious. Affect: Consistent with mood. SI or HI: None. Has passive wish of not living anymore. Perceptual disturbance: None. Thought Content: No paranoia or other delusional thinking noted. Thought Process: Normal. Cognition: Intact Judgment and Insight: Poor. AIMS: Normal Labs: Available labs reviewed. Diagnosis: Schizoaffective disorder. Bipolar type. Plan and Recommendations: Continue current Medications. Monitor MS and side effects of medications and adjust medications accordingly. Provide supportive psychotherapy and psychoeducation. The patient provided psychoeducation. Smoke cessation therapy. The patient to attend [facility]. Medication Consent with explanation of risk/benefits and side effects: Explained and obtained.
[2023-09-05 17:05] LABS: Glucose,Whole Blood 195 mg/dL (70-110)
[2023-09-05 18:19] LABS: Appearance,Urine Cloudy (Clear); Bacteria,Urine Many /hpf; Bilirubin,Urine Negative (Negative); Blood,Urine Moderate (Negative); Calcium Oxalate Crystals,Urine Occasional /hpf; Color,Urine Yellow; Glucose,Urine (UA) Trace (Negative); Ketones,Urine Negative (Negative); Leukocyte Esterase,Urine Large (Negative); Mucus,Urine Moderate /hpf; Nitrite,Urine Negative (Negative); Protein,Urine 2+ (Negative); RBC,Urine 51 /hpf (0-5); Specific Gravity,Urine 1.025 (1.001-1.035); Squamous Epithelial Cell,Urine 1 /hpf (0-4); Urobilinogen,Urine <2.0 mg/dL (<2.0); WBC,Urine 80 /hpf (0-5)
[2023-09-05 19:39] LABS: Glucose,Whole Blood 270 mg/dL (70-110)
[2023-09-06] MEDS: MAG HYDROX/AL HYDROX/SIMETH 355 ML BOTTLE PO PRN (00:06)
[2023-09-06 07:56] LABS: Glucose,Whole Blood 194 mg/dL (70-110)
--- NOTE | 2023-09-06 10:19 | P.MDCNMH ---
History of Present Illness H&P Date: 09/05/23 This is a 52-year-old female who presented to the emergency department with family with increased suicidal ideation and depression per family sent to the psychiatric unit for further psychiatric care. Patient follows with Dr. Nelly Maldonado in the outpatient setting with a past medical history of coronary artery disease, diabetes mellitus, GERD, hyperlipidemia, hypertension, anxiety/depression, panic disorder, dyslexia with mild comprehension problems, reports to continued ongoing nicotine dependence denies alcohol or drug use. On exam patient is lethargic although arousable in her room sits up and walks independently with a slow and steady gait reports to feeling tired although denies any chest pain or shortness of breath. Patient is afebrile and COVID testing was negative. Patient's blood sugars are mildly elevated and patient is a diabetic, [id number] that is uncontrolled in the outpatient setting. Patient has had previous hospitalizations regarding uncontrolled diabetes. Patient reports to eating and drinking with no difficulties and denies any nausea or vomiting. Patient denies any pain or burning with frequency and denies any recent diarrhea. Labs are ordered and pending at this time. Patient reports she was feeling increasingly depressed and had been rancho harleen about suicidal ideations with no plan. REVIEW OF SYSTEMS: CONSTITUTIONAL: No fever, no malaise, reports of fatigue. HEENT: No recent visual problems or hearing problems. Denied any sore throat. CARDIOVASCULAR: No chest pain, orthopnea, PND, no palpitations, no syncope. PULMONARY: No shortness of breath, no cough, no hemoptysis. GASTROINTESTINAL: No diarrhea, no nausea, no vomiting, no abdominal pain. NEUROLOGICAL: No headaches, no weakness, no numbness. HEMATOLOGICAL: Denies any bleeding or petechiae. GENITOURINARY: Denies any burning micturition, frequency, or urgency. MUSCULOSKELETAL/RHEUMATOLOGICAL: Denies any joint pain, swelling, or any muscle pain. Reports of generalized weakness ENDOCRINE: Denies any polyuria or polydipsia. The rest of the 14-point review of systems is negative. PHYSICAL EXAMINATION: GENERAL: The patient is lethargic although easily arousable, alert and oriented x3, not in any acute distress. Well developed, well nourished. Obese, delayed HEENT: Pupils are round and equally reacting to light. EOMI. No scleral icterus. No conjunctival pallor. Normocephalic, atraumatic. No pharyngeal erythema. No thyromegaly. CARDIOVASCULAR: S1 and S2 present. No murmurs, rubs, or gallops. PULMONARY: Chest is clear to auscultation, no wheezing or crackles. ABDOMEN: Soft, nontender, nondistended, normoactive bowel sounds. No palpable organomegaly. MUSCULOSKELETAL: No joint swelling or deformity. EXTREMITIES: No cyanosis, clubbing, or pedal edema. NEUROLOGICAL: Gross neurological examination did not reveal any focal deficits. SKIN: No rashes. Assessment: Suicidal ideation with depression History of coronary artery disease History of diabetes mellitus, type II, [id number], uncontrolled with hyperglycemia History of hypertension History of hyperlipidemia Abnormal urine from the ER, likely asymptomatic bacteriuria as patient is denying any pain, burning, or frequency with urination History of GERD History of anxiety/depression with panic disorder History of dyslexia and mild comprehension problems GI prophylaxis Obesity with a BMI of 31.9 Full code Plan: Patient has been admitted voluntarily to the 3 [address]. psychiatric unit for further psychiatric evaluation regarding suicidal ideation with depression Encouraged compliance with medications and group therapy sessions Continue consistent carb heart healthy diet Continue monitoring Accu-Cheks before meals and at bedtime and will continue with sliding scale and adjust insulins accordingly A urinalysis was performed as routine protocol in the ER showing some large lilly kocyte Estrace and blood although nitrates were negative, likely asymptomatic bacteriuria as patient is denying any pain, burning, or frequency with urination. Patient does have history of ESBL in the urine and will obtain a culture. Encouraged outpatient follow-up with [facility] as well as primary care provider on discharge Thank you kindly for this consultation The impression and plan of care has been dictated by Katharina Sorensen, Nurse Practitioner as directed. Dr. Bia MD I have performed a history and examination and MDM of this patient, discussed the same with the dictator, and agree with the dictator's assessment and plan as written ,documented as a scribe. Based on total visit time, I have performed more than 50% of the visit. Past Medical History Past Medical History: Coronary Artery Disease (CAD), Diabetes Mellitus, GERD/Reflux, Hyperlipidemia, Hypertension Additional Past Medical History / Comment(s): NIDDM type II, dyslexia. History of Any Multi-Drug Resistant Organisms: ESBL Date of last positivie culture/infection: 08/11/21-ESBL MDRO Source:: URINE Past Surgical History: Adenoidectomy, Section, Tonsillectomy Additional Past Surgical History / Comment(s): Nasal surgery Past Anesthesia/Blood Transfusion Reactions: Postoperative Nausea & Vomiting (PONV) Additional Past Anesthesia/Blood Transfusion Reaction / Comment(s): Pt states she has never received blood. Past Psychological History: Anxiety, Depression, Panic Disorder Additional Psychological History / Comment(s): She is independent. She has dyslexia. She states she has mild comprehension problem. Smoking Status: Current every day smoker Past Alcohol Use History: None Reported Past Drug Use History: None Reported - Past Family History Mother Family Medical History: Cancer Additional Family Medical History / Comment(s): Mother has lymphoma. Father History Unknown: Yes Additional Family Medical History / Comment(s): Father left when pt was 2 months old. Medications and Allergies Home Medications Medication Instructions Recorded Confirmed Type Ezetimibe [Zetia] 10 mg PO DAILY 03/17/20 09/04/23 History Omeprazole 40 mg PO DAILY 01/26/21 09/04/23 History Cetirizine HCl [Zyrtec] 10 mg PO DAILY 08/04/22 09/04/23 History Mirabegron [Myrbetriq] 50 mg PO DAILY 08/04/22 09/04/23 History Escitalopram [Lexapro] 20 mg PO DAILY 30 Days #30 tab 08/22/22 09/04/23 Rx Fenofibrate [Lofibra] 160 mg PO DAILY 11/03/22 09/04/23 History Insulin Aspart [NovoLOG Flexpen] 10 units SQ AC-TID MDD 100 units 03/29/23 09/04/23 History Insulin Aspart [NovoLOG Flexpen] See Protocol SQ AC-TID PRN MDD 100 03/29/23 09/04/23 History units Aspirin EC [Ecotrin Low Dose] 81 mg PO DAILY 08/18/23 09/04/23 History Paliperidone IM [Invega Sustenna] 234 mg IM DIRECTED 08/18/23 09/04/23 History metFORMIN HCL 1,000 mg PO BID 08/18/23 09/04/23 History Allergies Allergy/AdvReac Type Severity Reaction Status Date / Time Penicillins Allergy Severe Anaphylaxis Verified 09/04/23 09:52 cephalexin monohydrate Allergy Anaphylaxis Verified 09/04/23 09:52 [From Keflex] iodine Allergy Rash/Hives Verified 09/04/23 09:52 Mushroom AdvReac Unknown Verified 09/04/23 09:52 Physical Exam Vitals: Vital Signs Temp Pulse Pulse Resp BP BP Pulse Ox 09/05/23 06:45 97.4 F L 83 16 110/75 96 09/04/23 17:37 97.2 F L 80 18 133/81 93 L 09/04/23 17:06 85 16 132/88 96 Intake and Output 09/04/23 09/05/23 09/05/23 22:59 06:59 14:59 Other: Weight 89.63 kg Cranial Nerve Examination - Cranial Nerves Cranial Nerve I- Olfactory: Intact Cranial Nerve II- Optic: Intact Cranial Nerve III- Oculomotor: Intact Cranial Nerve IV- Trochlear: Intact Cranial Nerve V- Trigeminal: Intact Cranial Nerve - Abducens: Intact Cranial Nerve VII- Facial: Intact Cranial Nerve VIII- Auditory: Intact Cranial Nerve IX- Glossopharyngeal: Intact Cranial Nerve X- Vagus: Intact Cranial Nerve XI- Accessory: Intact Cranial Nerve XII- Hypoglossal: Intact Results Labs: Abnormal Lab Results - Last 24 Hours (Table) 09/04/23 09/04/23 09/04/23 Range/Units 14:32 17:35 20:57 POC Glucose (mg/dL) 303 H 271 H 238 H (70-110) mg/dL 09/05/23 Range/Units 08:07 POC Glucose (mg/dL) 176 H (70-110) mg/dL Assessment and Plan Time with Patient: Less than 30
[2023-09-06 12:56] LABS: Glucose,Whole Blood 185 mg/dL (70-110)
--- NOTE | 2023-09-06 13:31 | P.PN ---
Progress Note - Text Progress Note Date: 09/06/23 Follow-up Mediation Review Chief Complaint: I am feeling better Subjective: The patient noted that she is feeling better. She thinks her depression is better Her anxiety is still bad. She continues to have suicidal thoughts. She does not have a plan and wont harm her self on the unit. The patient feels safe here. The patient informed that her Invega wont be given to her because it was causing her Prolactin level to go up. She was told that she is being started on Abilify. Risk/benefits and side effects discussed with the patient. The patient understood and consented. The patient has not been attending the groups. She spends most of the time in her room. The interaction with staff and peers is limited. The patient is compliant with treatment recommendations. Leading questions: The patient admitted to Depression and Anxiety. Admitted to SI without plan. Denied HI. Denied symptoms consistent with psychosis Sleep and Appetite: Fair Change in family/ living/job/financial/daily routine: No change. Change in medical condition: No change. Change in medications: Abilify 5 mg daily added to the treatment. Side effects from Medications: None. Objective- MSE: Alert and attentive. Orientation times three. Dressed and Groomed: Appropriately. Pleasant and cooperative. Psychomotor Activity: Normal. Speech: Normal in tone, quality, and quantity. Mood: Depressed and anxious Affect: Flat SI or HI: admitted to suicidal ideations with plan. Perceptual disturbance: None. Thought Content: No paranoia or other delusional thinking noted. Thought Process: Normal. Cognition: Intact Judgment and Insight: Fair. AIMS: Normal. Labs: No new labs. Diagnosis: No change Plan and Recommendations: Continue current Medications. Monitor MS and side effects of medications and adjust medications accordingly. Provide supportive psychotherapy. The patient provided psychoeducation and advised The patient provided Substance abuse counseling. Smoke cessation therapy. The patient to attend [facility] activities. Medication Consent with explanation of risk/benefits and side effects: Explained and obtained.
[2023-09-06 17:42] LABS: Glucose,Whole Blood 173 mg/dL (70-110)
[2023-09-06 19:38] LABS: Glucose,Whole Blood 193 mg/dL (70-110)
[2023-09-07 07:57] LABS: Glucose,Whole Blood 146 mg/dL (70-110)
[2023-09-07] MEDS: ARIPiprazole 5 MG TAB PO SCH (08:00)
[2023-09-07 09:40] LABS: Basophils % (A) 1 %; Eosinophils # (A) 0.1 k/uL (0-0.7); Eosinophils % (A) 2 %; HCT 39.7 % (34.0-46.0); Lymphocytes # (A) 1.8 k/uL (1.0-4.8); Lymphocytes % (A) 42 %; MCH 29.3 pg (25.0-35.0); MCHC 32.7 g/dL (31.0-37.0); MCV 89.5 fL (80.0-100.0); Mean Platelet Volume 8.4; Monocytes # (A) 0.2 k/uL (0-1.0); Monocytes % (A) 5 %; Neutrophils # (A) 2.1 k/uL (1.3-7.7); Neutrophils % (A) 48 %; Platelet Count 205 k/uL (150-450); RBC 4.44 m/uL (3.80-5.40); RDW 12.6 % (11.5-15.5); WBC 4.3 k/uL (3.8-10.6)
[2023-09-07 09:55] LABS: ALT 35 U/L (4-34); AST 35 U/L (14-36); African American GFR (CKD) >90 (>60 ml/min/1.73 sqM); Albumin 4.2 g/dL (3.5-5.0); Alkaline Phosphatase 56 U/L (38-126); Anion Gap 9 mmol/L; Blood Urea Nitrogen 11 mg/dL (7-17); Calcium 9.8 mg/dL (8.4-10.2); Carbon Dioxide 24 mmol/L (22-30); Chloride 106 mmol/L (98-107); Glucose 188 mg/dL (74-99); Non-African American GFR(CKD) >90 (>60 ml/min/1.73 sqM); Potassium 4.2 mmol/L (3.5-5.1); Sodium 139 mmol/L (137-145); Total Bilirubin 0.9 mg/dL (0.2-1.3); Total Protein 6.2 g/dL (6.3-8.2)
[2023-09-07 12:39] LABS: Glucose,Whole Blood 177 mg/dL (70-110)
[2023-09-07 15:18] LABS: Chol/HDL Ratio 4.72 Ratio; LDL Cholesterol,Calculated 101.1 mg/dL (0.0-131.0)
--- NOTE | 2023-09-07 17:09 | P.PN ---
Progress Note - Text Progress Note Date: 09/07/23 Follow-up Mediation Review Chief Complaint: I am alright Subjective: The patient noted that she is feeling fine. She stated that her depression improving and her suicidal thoughts have subsided. Her anxiety is still bad. The patient is eager to be discharged. She did not report any complaints. No side effects reported. The patient is staying out of her room and has been going to the groups. The patient has started going to the group. The interaction with staff and peers is limited. The patient is compliant with treatment recommendations. Leading questions: The patient admitted to Depression and Anxiety. Denied SI or HI. Denied symptoms consistent with psychosis Sleep and Appetite: Fair Change in family/ living/job/financial/daily routine: No change. Change in medical condition: No change. Change in medications: Abilify 10 mg daily. Side effects from Medications: None. Objective- MSE: Alert and attentive. Orientation times three. Dressed and Groomed: Appropriately. Pleasant and cooperative. Psychomotor Activity: Normal. Speech: Normal in tone, quality, and quantity. Mood: Depressed and anxious Affect: Flat SI or HI: None. Perceptual disturbance: None. Thought Content: No paranoia or other delusional thinking noted. Thought Process: Normal. Cognition: Intact Judgment and Insight: Fair. AIMS: Normal. Labs: No new labs. Diagnosis: No change Plan and Recommendations: Continue current Medications. Monitor MS and side effects of medications and adjust medications accordingly. Provide supportive psychotherapy. The patient provided psychoeducation and advised The patient provided Substance abuse counseling. Smoke cessation therapy. The patient to attend overton activities. Medication Consent with explanation of risk/benefits and side effects: Explained and obtained.
[2023-09-07 17:42] LABS: Glucose,Whole Blood 139 mg/dL (70-110)
[2023-09-07 19:32] LABS: Glucose,Whole Blood 186 mg/dL (70-110)
[2023-09-08 07:05] VITALS: RESP 17
[2023-09-08 07:44] LABS: Glucose,Whole Blood 181 mg/dL (70-110)
[2023-09-08] MEDS: ARIPiprazole 10 MG TAB PO SCH (08:19)
[2023-09-08 09:27] VITALS: BMI 31.8
[2023-09-08 13:10] LABS: Glucose,Whole Blood 144 mg/dL (70-110)
--- NOTE | 2023-09-08 17:01 | P.PN ---
Progress Note - Text Progress Note Date: 09/08/23 Follow-up Mediation Review Chief Complaint: I am alright Subjective: The patient noted that she is feeling fine. She stated that her depression improving and her suicidal thoughts have subsided. Her anxiety is still bad. She described her anxiety as confusing thoughts in the brain causing stress. She said it is difficult to describe her anxiety. She denied hearing voices or feeling paranoid. The explained that Dr Ceja wants to her to get her shot, which can be given once a month. She was explained the process for it. The patient is fine with it. The patient is eager to be discharged. She did not report any other complaints except anxiety. No side effects reported. The patient is staying out of her room and has been going to the groups. The patient has started going to the group. The interaction with staff and peers is limited. The patient is compliant with treatment recommendations. Leading questions: The patient admitted to Depression and Anxiety. Denied SI or HI. Denied symptoms consistent with psychosis Sleep and Appetite: Fair Change in family/ living/job/financial/daily routine: No change. Change in medical condition: No change. Change in medications: Abilify 15 mg daily. Side effects from Medications: None. Objective- MSE: Alert and attentive. Orientation times three. Dressed and Groomed: Appropriately. Pleasant and cooperative. Psychomotor Activity: Normal. Speech: Normal in tone, quality, and quantity. Mood: Depressed and anxious Affect: Flat SI or HI: None. Perceptual disturbance: None. Thought Content: No paranoia or other delusional thinking noted. Thought Process: Normal. Cognition: Intact Judgment and Insight: Fair. AIMS: Normal. Labs: No new labs. Diagnosis: No change Plan and Recommendations: Continue current Medications. Abilify increased to 15 mg daily. Monitor MS and side effects of medications and adjust medications accordingly. Provide supportive psychotherapy. The patient provided psychoeducation and advised The patient provided Substance abuse counseling. Smoke cessation therapy. The patient to attend overton activities. Medication Consent with explanation of risk/benefits and side effects: Explained and obtained.
[2023-09-08 17:40] LABS: Glucose,Whole Blood 175 mg/dL (70-110)
[2023-09-08 19:43] LABS: Glucose,Whole Blood 159 mg/dL (70-110)
[2023-09-09 06:06] VITALS: TEMP 96.1
[2023-09-09 08:00] LABS: Glucose,Whole Blood 176 mg/dL (70-110)
[2023-09-09] MEDS: ARIPiprazole 15 MG TAB PO SCH (08:56)
[2023-09-09 12:55] LABS: Glucose,Whole Blood 140 mg/dL (70-110)
--- NOTE | 2023-09-09 16:14 | P.PN ---
Progress Note - Text Subjective: Doing well. Denies SI, HI, AVH, med side effects Objective- MSE: Alert and attentive. Orientation times three. Dressed and Groomed: Appropriately. Pleasant and cooperative. Psychomotor Activity: Normal. Speech: Normal in tone, quality, and quantity. Mood: Depressed and anxious Affect: constricted SI or HI: None. Perceptual disturbance: None. Thought Content: No paranoia or other delusional thinking noted. Thought Process: Normal. Cognition: Intact Judgment and Insight: Fair. Diagnosis: No change Plan and Recommendations: no change
[2023-09-09 17:42] LABS: Glucose,Whole Blood 184 mg/dL (70-110)
[2023-09-09 19:30] LABS: Glucose,Whole Blood 220 mg/dL (70-110)
[2023-09-10 07:55] LABS: Glucose,Whole Blood 156 mg/dL (70-110)
[2023-09-10 12:49] LABS: Glucose,Whole Blood 124 mg/dL (70-110)
--- NOTE | 2023-09-10 14:41 | P.PN ---
Progress Note - Text Interval history: At this time patient denies any suicidal or homicidal ideations intent or plan. Denies any Auditory or visual hallucinations. Patient denies any side effects from the medications and has been compliant with meds. Mental status exam: General Appearance: [Patient appears to be older than stated age is alert, d irectable, and cooperative.] Behavior: [No agitated behavior. Patient is calm and directable] Speech: Patient's speech is fluent and nonpressured. Mood/Affect: Mood is improving mildly, affect is congruent and constricted. Suicidality/Homicidality: Patient denies having any suicidal or homicidal ideation intent or plan. Perceptions: Patient denies any auditory or visual hallucinations. Though content/process: [There is no evidence of any delusional thought content and thought process is linear and goal-directed.] Memory and concentration: AOX3, grossly intact for the purposes of this session Judgment and insight: improving mildly Assessment/Plan: Continue with current diagnosis. Patient continues to meet criteria for inpatient psychiatric admission for symptom stabilization and s afety.[Patient will be maintained on current psychotropic medication regimen.] Monitor for medication compliance and for any psychotropic medication side effects. Will continue to monitor ongoing response to treatment. Encouraged participation in milieu.
[2023-09-10 17:37] LABS: Glucose,Whole Blood 154 mg/dL (70-110)
[2023-09-10 19:45] LABS: Glucose,Whole Blood 178 mg/dL (70-110)
[2023-09-11 06:56] VITALS: BP 107/71; PULSE 71
[2023-09-11 07:45] LABS: Glucose,Whole Blood 157 mg/dL (70-110)
[2023-09-11 12:41] LABS: Glucose,Whole Blood 164 mg/dL (70-110)
--- NOTE | 2023-09-11 21:40 | P.DS ---
Providers Date of admission: 09/04/23 16:31 Expected date of discharge: 09/11/23 Attending physician: Luis Mckeon MD Consults: 09/04/23 17:04 Consult Physician Routine Consulting Provider: Mirella Cook Consult Reason/Comments: H&P and medical Do you want consulting provider notified?: Yes Primary care physician: Nelly Maldonado - Discharge Diagnosis(es) (1) Schizoaffective disorder, bipolar type Status: Acute Priority: High Hospital Course: Discharge Summary HPI: Identifying Data: Ms. Chavez is a 52-year-old , white female, who lives in [place], [place]. She lives with her caregiver and two children. Chief Complaint: Depression, acute anxiety and suicidal thoughts. History of Psychiatric Illness- The patient noted that she has been noticing symptoms of depression, which progressively got worse, irritability, loss of motivation, loss of interest, social withdrawal, loss of sleep, increased appetite, lack of confidence, worthlessness, hopelessness, and suicidal thoughts. She rated her depression at 2 on VAS of 0 being worst and 10 being best mood. The patient noted that she was doing fine after being discharged from the [facility] last year but started getting depressed after few months and progressively got worse. As per patient, she goes to [facility] for out-pt follow-up. She saw her psychiatrist 3 weeks ago. The patient does not the names of medications she is currently taking. Leading questions: The patient admitted to Depression and Anxiety. Admitted to passive suicidal wish of not living anymore. She denied any active suicidal thoughts or plans. Denied HI. Denied symptoms consistent with psychosis Past Psychiatric History: The patient noted that she first got psychiatric treatment in her thirties. As per patient, she lost touch with reality and was admitted to the hospital. She has had 6-8 admissions since then. Her last admission was in July, and was given regimen of risperidone perseris and lithium. She reports no prior attempts at suicide. She is compliant with medications. Alcohol and Drug History: The patient reports no alcohol, marijuana, or illicit drug use. Tobacco use: The patient smokes 20 cigarettes a day. Past Medical History: CDH, IDDM, HTN, Dyslipidemia, GERD Hospital Course: After admission, the patient was involved in pharmacotherapy, overton milieu, and individual psychodynamic psychotherapy. The patient was started on her home medications. Her Invega sustenna was stopped because of increased Prolactin. She was started on Abilify. The dose was titrated to obtain the desire effects. The patient tolerated medications well without any side effects. The patient was also involved in overton activities. The patient attended the groups and participated well. The patient interacted with peers and staff well. The patient slowly started showing improvement. The hospital course was uneventful. The patient symptoms of depression, suicidal and homicidal ideations abated. The psychosis improved. The patient was stable to be discharged to out-patient care. The patient did not have any guns or weapons in possession at home. She was discharged back to give the long acting Abilify Maintena after 14 days being on oral medication. MSE: Alert and attentive. Orientation times three Dressed and Groomed: Appropriately. Pleasant and cooperative. Psychomotor Activity: Reduced. Speech: Normal in tone, quality, and underproductive with slight delay is response. Mood: Depressed and anxious. Affect: Consistent with mood. SI or HI: None. Has passive wish of not living anymore. Perceptual disturbance: None. Thought Content: No paranoia or other delusional thinking noted. Thought Process: Normal. Cognition: Intact Judgment and Insight: Poor. AIMS: Normal Diagnosis: Schizoaffective disorder. Bipolar type. Plan: The patient to be discharged today. The patient has attained good improvement since admission. He is stable to be followed as an outpatient. The patient is not suicidal or Homicidal. He does not pose any harm to self or others. The patient remains at a greater risk of self-harm or harm to others than general population on a chronic basis due to psychiatric illness and substance abuse. The patient will continue taking following medication post discharge. The importance of medication compliance and maintaining regular appointments at psychiatric out-pt and PCP clinic was explained and encouraged. The patient was also advised to seek alcohol counseling and attend AA/NA meetings. The understood and agreed with the recommendations. social group worker to arrange for and conduct family meeting to ensure safety upon discharge and answer any questions. The social work associate to arrange for patients follow-up appointments at [facility] for psychiatric care along with follow-up with PCP. The patient provided psychoeducation. Advised to call 911 or go to nearest ED or call this hospital in case of acute worsening of symptomatology, severe side effects or having suicidal, homicidal thoughts and feeling unsafe at home. Patient Condition at Discharge: Stable Plan - Discharge Summary Discharge Rx Participant: Yes New Discharge Prescriptions: New ARIPiprazole [Abilify] 15 mg PO DAILY 15 Days #15 tab Continue Ezetimibe [Zetia] 10 mg PO DAILY Insulin Aspart [NovoLOG Flexpen] 10 units SQ AC-TID MDD 100 units Insulin Aspart [NovoLOG Flexpen] See Protocol SQ AC-TID PRN MDD 100 units PRN Reason: high blood sugar Omeprazole 40 mg PO DAILY Mirabegron [Myrbetriq] 50 mg PO DAILY Cetirizine HCl [Zyrtec] 10 mg PO DAILY Escitalopram [Lexapro] 20 mg PO DAILY 30 Days #30 tab Fenofibrate [Lofibra] 160 mg PO DAILY metFORMIN HCL 1,000 mg PO BID Aspirin EC [Ecotrin Low Dose] 81 mg PO DAILY Discontinued Paliperidone IM [Invega Sustenna] 234 mg IM DIRECTED Discharge Medication List Ezetimibe [Zetia] 10 mg PO DAILY 03/17/20 [History] Omeprazole 40 mg PO DAILY 01/26/21 [History] Cetirizine HCl [Zyrtec] 10 mg PO DAILY 08/04/22 [History] Mirabegron [Myrbetriq] 50 mg PO DAILY 08/04/22 [History] Escitalopram [Lexapro] 20 mg PO DAILY 30 Days #30 tab 08/22/22 [Rx] Fenofibrate [Lofibra] 160 mg PO DAILY 11/03/22 [History] Insulin Aspart [NovoLOG Flexpen] 10 units SQ AC-TID MDD 100 units 03/29/23 [History] Insulin Aspart [NovoLOG Flexpen] See Protocol SQ AC-TID PRN MDD 100 units 03/29/23 [History] Aspirin EC [Ecotrin Low Dose] 81 mg PO DAILY 08/18/23 [History] metFORMIN HCL 1,000 mg PO BID 08/18/23 [History] ARIPiprazole [Abilify] 15 mg PO DAILY 15 Days #15 tab 09/11/23 [Rx] Follow up Appointment(s)/Referral(s): [facility] [Outside] - 09/13/23 9:30 am (09/13/2023 9:30AM - 10:30AM KE TORRES 09/20/2023 1:00PM - 1:30PM Nelly Younger MD [Primary Care Provider] - 1-2 days Patient Instructions/Handouts: Schizoaffective Disorder (DC) Activity/Diet/Wound Care/Special Instructions: Avoid the use of street drugs and alcohol. Take all medications as prescribed. When you are in need of refills on your medications, please contact your outpatient medical provider and/or outpatient psychiatrist. Please go to your scheduled outpatient appointments for aftercare treatment. If symptoms return or become worse, call the crisis line at or and/or visit the nearest emergency room for assistance. National Suicide and Crisis Lifeline - call or text 125. Discharge Disposition: HOME SELF-CARE
== END 2023-09-11 16:57 | disposition home or self-care (01) | DRG 885 ==
LOC: EC 04:02 → 3MHU 16:31
PROVIDERS: ADMIT Psychiatry & Neurology Psychiatry; ATTEND Psychiatry & Neurology Psychiatry
DX: F25.0 Schizoaffective disorder, bipolar type (principal); R45.851 Suicidal ideations; E11.9 Type 2 diabetes mellitus without complications; E66.9 Obesity, unspecified; E78.5 Hyperlipidemia, unspecified; F17.210 Nicotine dependence, cigarettes, uncomplicated; F41.9 Anxiety disorder, unspecified; I10 Essential (primary) hypertension; I25.10 Atherosclerotic heart disease of native coronary artery without angina pectoris; R45.850 Homicidal ideations; R48.0 Dyslexia and alexia; Z68.31 Body mass index [BMI] 31.0-31.9, adult; Z79.4 Long term (current) use of insulin; Z79.82 Long term (current) use of aspirin; Z79.84 Long term (current) use of oral hypoglycemic drugs; Z79.899 Other long term (current) drug therapy; Z88.0 Allergy status to penicillin; Z11.52 Encounter for screening for COVID-19; Z71.51 Drug abuse counseling and surveillance of drug abuser
CPT/HCPCS: 36415; 80053; 80061; 80306; 81001; 82075; 83036; 84443; 85025; 87086; 87635; 99285

== ENCOUNTER 2023-09-13 15:47 | Emergency (ER) | payer MEDICARE, MEDICAID ==
--- NOTE | 2023-09-13 16:58 | ED ---
Psych HPI - General Source: patient Mode of arrival: EMS <Lisa Sims - Last Filed: 09/13/23 21:00> - General Source: RN notes reviewed, old records reviewed - History of Present Illness MD Complaint: suicidal ideation, feels depressed, altered mental status Associated Psychiatric Symptoms: racing thoughts, delusions Quality: constant Improves With: none Worsens With: none Associated Symptoms: denies other symptoms Treatments Prior to Arrival: none, placed on mental health hold If Self Harm: admits thoughts of self harm <Andrey Teran - Last Filed: 09/13/23 22:40> - General Chief Complaint: Psychiatric Symptoms Stated Complaint: mental health Time Seen by Provider: 09/13/23 16:08 - History of Present Illness Initial Comments: 50-year-old female presents emergency department reporting suicidal ideations. Patient states he has felt like this for a couple of days. Patient has been seen in the emergency department previously several times for the same complaint and was just discharged on the . Patient denies a plan to harm herself. Denies any attempts. No homicidal ideations. No drug use. Patient admits to taking her medications as directed however continues to feel depressed. (Lisa Sims) - Related Data Home Medications Medication Instructions Recorded Confirmed Ezetimibe [Zetia] 10 mg PO DAILY 03/17/20 09/13/23 Omeprazole 40 mg PO DAILY 01/26/21 09/13/23 Cetirizine HCl [Zyrtec] 10 mg PO DAILY 08/04/22 09/13/23 Mirabegron [Myrbetriq] 50 mg PO DAILY 08/04/22 09/13/23 Fenofibrate [Lofibra] 160 mg PO DAILY 11/03/22 09/13/23 Insulin Aspart [NovoLOG Flexpen] 10 units SQ AC-TID MDD 100 units 03/29/23 09/13/23 Insulin Aspart [NovoLOG Flexpen] See Protocol SQ AC-TID PRN MDD 100 03/29/23 09/13/23 units Aspirin EC [Ecotrin Low Dose] 81 mg PO DAILY 08/18/23 09/13/23 metFORMIN HCL 1,000 mg PO BID 08/18/23 09/13/23 Previous Rx's Medication Instructions Recorded Escitalopram [Lexapro] 20 mg PO DAILY 30 Days #30 tab 08/22/22 ARIPiprazole [Abilify] 15 mg PO DAILY 15 Days #15 tab 09/11/23 Allergies Allergy/AdvReac Type Severity Reaction Status Date / Time Penicillins Allergy Severe Anaphylaxis Verified 09/13/23 20:24 cephalexin monohydrate Allergy Anaphylaxis Verified 09/13/23 20:24 [From Keflex] iodine Allergy Rash/Hives Verified 09/13/23 20:24 Mushroom AdvReac Unknown Verified 09/13/23 20:24 Review of Systems ROS Other: All systems not noted in ROS Statement are negative. <Lisa Sims - Last Filed: 09/13/23 21:00> ROS Other: All systems not noted in ROS Statement are negative. <Andrey Teran - Last Filed: 09/13/23 22:40> ROS Statement: Those systems with pertinent positive or pertinent negative responses have been documented in the HPI. Past Medical History Past Medical History: Coronary Artery Disease (CAD), Diabetes Mellitus, GERD/Reflux, Hyperlipidemia, Hypertension Additional Past Medical History / Comment(s): NIDDM type II, dyslexia. History of Any Multi-Drug Resistant Organisms: ESBL Date of last positivie culture/infection: 08/11/21-ESBL MDRO Source:: URINE Past Surgical History: Adenoidectomy, Section, Tonsillectomy Additional Past Surgical History / Comment(s): Nasal surgery Past Anesthesia/Blood Transfusion Reactions: Postoperative Nausea & Vomiting (PONV) Additional Past Anesthesia/Blood Transfusion Reaction / Comment(s): Pt states she has never received blood. Past Psychological History: Anxiety, Depression, Panic Disorder Smoking Status: Never smoker, Light tobacco smoker Past Alcohol Use History: None Reported Past Drug Use History: None Reported - Past Family History Mother Family Medical History: Cancer Additional Family Medical History / Comment(s): Mother has lymphoma. Father History Unknown: Yes Additional Family Medical History / Comment(s): Father left when pt was 2 months old. <Lisa Sims - Last Filed: 09/13/23 21:00> General Exam General appearance: alert Head exam: Present: atraumatic, normocephalic, normal inspection Eye exam: Present: normal appearance, PERRL, EOMI. Absent: scleral icterus, conjunctival injection, periorbital swelling Respiratory exam: Present: normal lung sounds bilaterally. Absent: respiratory distress, wheezes, rales, rhonchi, stridor Cardiovascular Exam: Present: regular rate, normal rhythm, normal heart sounds. Absent: systolic murmur, diastolic murmur, rubs, gallop, clicks GI/Abdominal exam: Present: soft, normal bowel sounds. Absent: distended, tenderness, guarding, rebound, rigid Psychiatric exam: Present: flat affect, suicidal ideation <Lisa Sims - Last Filed: 09/13/23 21:00> Course <Andrey Teran - Last Filed: 09/13/23 22:40> Vital Signs 09/13/23 09/13/23 15:54 17:58 Temperature 98.2 F 98.4 F Pulse Rate 92 94 Respiratory 20 18 Rate Blood Pressure 125/82 124/81 O2 Sat by Pulse 93 L 97 Oximetry - Reevaluation(s) Reevaluation #1: 09/13/23 22:40 Medical records reviewed medically clear for psychiatric evaluation (Andrey Teran) Medical Decision Making <Lisa Sims - Last Filed: 09/13/23 21:00> <Andrey Teran - Last Filed: 09/13/23 22:40> - Medical Decision Making Was pt. sent in by a medical professional or institution (JOSLYN Alvarez, UNIVERSITY RELATIONS RECRUITER, urgent care, hospital, or shelter...) When possible be specific @ -No Did you speak to anyone other than the patient for history (EMS, parent, family, police, friend...)? What history was obtained from this source @ -Spoke with EMS for history Did you review nursing and triage notes (agree or disagree)? Why? @ -I reviewed and agree with nursing and triage notes Were old charts reviewed (outside hosp., previous admission, EMS record, old EKG, old radiological studies, urgent care reports/EKG's, shelter records)? Report findings @ -I reviewed discharge summary from September 10 Differential Diagnosis (chest pain, altered mental status, abdominal pain women, abdominal pain men, vaginal bleeding, weakness, fever, dyspnea, syncope, headache, dizziness, GI bleed, back pain, seizure, CVA, palpatations, mental health, musculoskeletal)? @ -Differential Mental Health Depression, anxiety, bipolar, psychosis, schizophrenia, borderline personality, situational depression, adjustment disorder, behavioral disorder, brain tumor, malingering, substance abuse, encephalopathy, medication reaction, dementia, hypothyroidism, degenerative neurologic disorder, lupus.... This is not meant to be all-inclusive list EKG interpreted by me (3pts min.). @ -Not done X-rays interpreted by me (1pt min.). @ -None done CT interpreted by me (1pt min.). @ -None done U/S interpreted by me (1pt. min.). @ -None done What testing was considered but not performed or refused? (CT, X-rays, U/S, labs)? Why? @ -None What meds were considered but not given or refused? Why? @ -None Did you discuss the management of the patient with other professionals (professionals i.e. , PA, UNIVERSITY RELATIONS RECRUITER, lab, RT, psych nurse, socially responsible investment adviser, plate shop helper, teacher, staff air defense officer, geriatric case manager)? Give summary @ -Spoke with the EPS who will evaluate patient Was smoking cessation discussed for >3mins.? @ -No Was critical care preformed (if so, how long)? @ -No Were there social determinants of health that impacted care today? How? (Homelessness, low income, unemployed, alcoholism, drug addiction, transportation, low edu. Level, literacy, decrease access to med. care, [place] [facility], rehab)? @ -No Was there de-escalation of care discussed even if they declined (Discuss DNR or withdrawal of care, Hospice)? DNR status @ -No What co-morbidities impacted this encounter? (DM, HTN, Smoking, COPD, CAD, Cancer, CVA, ARF, Chemo, Hep., AIDS, mental health diagnosis, sleep apnea, morbid obesity)? @ -Depression Was patient admitted / discharged? Hospital course, mention meds given and route, prescriptions, significant lab abnormalities, going to OR and other pertinent info. @ -Upon arrival patient seen and evaluated in room 12. Thorough history and physical exam was performed. Patient reports to suicidal ideations. Patient is not petitioned at this time. EPS is evaluated. She is currently awaiting their recommendations Undiagnosed new problem with uncertain prognosis? @ -No Drug Therapy requiring intensive monitoring for toxicity (Heparin, Nitro, Insulin, Cardizem)? @ -No Were any procedures done? @ -No Diagnosis/symptom? @ -Acute depression, suicidal ideations Acute, or Chronic, or Acute on Chronic? @ -Acute Uncomplicated (without systemic symptoms) or Complicated (systemic symptoms)? @ -Complicated Side effects of treatment? @ -No Exacerbation, Progression, or Severe Exacerbation? @ -No Poses a threat to life or bodily function? How? (Chest pain, [place], [place], pneumonia, PE, COPD, DKA, ARF, appy, cholecystitis, CVA, Diverticulitis, Homicidal, Suicidal, threat to staff... and all critical care pts) @ -Yes as patient is suicidal (Lisa Sims) 52 Female seen and evaluated by psychiatry and is okay for discharge home (Andrey Teran) - Lab Data Lab Results 09/13/23 Range/Units 19:16 Urine Color Light Yellow Urine Appearance Cloudy H (Clear) Urine pH 6.5 (5.0-8.0) Ur Specific [place] 1.017 (1.001-1.035) Urine Protein 1+ H (Negative) Urine Glucose (UA) Negative (Negative) Urine Ketones Negative (Negative) Urine Blood Small H (Negative) Urine Nitrite Negative (Negative) Urine Bilirubin Negative (Negative) Urine Urobilinogen <2.0 (<2.0) mg/dL Ur Leukocyte Esterase Large H (Negative) Urine RBC 51 H (0-5) /hpf Urine WBC 125 H (0-5) /hpf Ur Squamous Epith Cells 1 (0-4) /hpf Urine Bacteria Many H (None) /hpf Urine Mucus Many H (None) /hpf Urine Opiates Screen Not Detected (NotDetected) Ur Oxycodone Screen Not Detected (NotDetected) Urine Methadone Screen Not Detected (NotDetected) Ur Barbiturates Screen Not Detected (NotDetected) U Tricyclic Antidepress Not Detected (NotDetected) Ur Phencyclidine Scrn Not Detected (NotDetected) Ur Amphetamines Screen Not Detected (NotDetected) U Methamphetamines Scrn Not Detected (NotDetected) U Benzodiazepines Scrn Detected H (NotDetected) Urine Cocaine Screen Not Detected (NotDetected) U Marijuana (THC) Screen Not Detected (NotDetected) Disposition <Lisa Sims - Last Filed: 09/13/23 21:00> Is patient prescribed a controlled substance at d/c from ED?: No <Andrey Teran - Last Filed: 09/13/23 22:40> Clinical Impression: Acute psychosis, Acute anxiety, Insomnia Disposition: HOME SELF-CARE Condition: Fair Instructions (If sedation given, give patient instructions): Insomnia (ED) Referrals: Nelly Maldonado MD [Primary Care Provider] - 1-2 days
[2023-09-13 19:36] LABS: Appearance,Urine Cloudy (Clear); Bacteria,Urine Many /hpf; Bilirubin,Urine Negative (Negative); Blood,Urine Small (Negative); Color,Urine Light Yellow; Glucose,Urine (UA) Negative (Negative); Ketones,Urine Negative (Negative); Leukocyte Esterase,Urine Large (Negative); Mucus,Urine Many /hpf; Nitrite,Urine Negative (Negative); PH, Urine 6.5 (5.0-8.0); Protein,Urine 1+ (Negative); RBC,Urine 51 /hpf (0-5); Specific Gravity,Urine 1.017 (1.001-1.035); Squamous Epithelial Cell,Urine 1 /hpf (0-4); Urobilinogen,Urine <2.0 mg/dL (<2.0); WBC,Urine 125 /hpf (0-5)
[2023-09-13 19:38] LABS: Amphetamine Screen,Urine Not Detected (NotDetected); Barbiturate Screen,Urine Not Detected (NotDetected); Benzodiazepines Screen,Urine Detected (NotDetected); Cocaine Screen,Urine Not Detected (NotDetected); Methadone Screen, Urine Not Detected (NotDetected); Opiate Screen,Urine Not Detected (NotDetected); Oxycodone Screen, Urine Not Detected (NotDetected); Phencyclidine Screen,Urine Not Detected (NotDetected); Tricyclic Antidepressant,Urine Not Detected (NotDetected); Urn Cannabinoid Scrn Not Detected (NotDetected)
[2023-09-13] MEDS: traZODone HCL 50 MG TAB PO STA (23:18)
[2023-09-13 23:24] VITALS: BP 124/82; PULSE 96; RESP 16; TEMP 98.7
== END 2023-09-13 23:22 | disposition home or self-care (01) ==
LOC: EC 15:47
DX: F23 Brief psychotic disorder (principal); F41.9 Anxiety disorder, unspecified; G47.00 Insomnia, unspecified; F32.A Depression, unspecified; R45.851 Suicidal ideations; F17.200 Nicotine dependence, unspecified, uncomplicated; Z91.018 Allergy to other foods; Z88.0 Allergy status to penicillin; Z88.8 Allergy status to other drugs, medicaments and biological substances; Z88.1 Allergy status to other antibiotic agents
CPT/HCPCS: 80306; 81001; 82075; 99285

== ENCOUNTER 2023-09-15 17:21 | Emergency (ER) | payer MEDICARE, MEDICAID ==
[2023-09-15 17:36] VITALS: TEMP 98.3
--- NOTE | 2023-09-15 20:11 | ED ---
General Adult HPI - General Chief complaint: Psychiatric Symptoms Stated complaint: Mental Health Time Seen by Provider: 09/15/23 19:00 Source: patient, RN notes reviewed, old records reviewed Mode of arrival: ambulatory Limitations: no limitations - History of Present Illness Initial comments: Patient is a 52-year-old female presents emergency department complaining of psychiatric complaints. However apparently the patient was sent from her crisis bed as she will not be accepted to [facility] without her medications. She already has acceptance to [facility]. She was sent here only for refills on her prescriptions. Requesting paper refills. Has a chronic history of suicidal ideation without any plan. Presents for further evaluation. Hallucinations. Cooperative. - Related Data Home Medications Medication Instructions Recorded Confirmed Ezetimibe [Zetia] 10 mg PO DAILY 03/17/20 09/15/23 Omeprazole 40 mg PO DAILY 01/26/21 09/15/23 Cetirizine HCl [Zyrtec] 10 mg PO DAILY 08/04/22 09/15/23 Mirabegron [Myrbetriq] 50 mg PO DAILY 08/04/22 09/15/23 Fenofibrate [Lofibra] 160 mg PO DAILY 11/03/22 09/15/23 Insulin Aspart [NovoLOG Flexpen] 10 units SQ AC-TID MDD 100 units 03/29/23 09/15/23 Insulin Aspart [NovoLOG Flexpen] See Protocol SQ AC-TID PRN MDD 100 03/29/23 09/15/23 units Aspirin EC [Ecotrin Low Dose] 81 mg PO DAILY 08/18/23 09/15/23 metFORMIN HCL 1,000 mg PO BID 08/18/23 09/15/23 Previous Rx's Medication Instructions Recorded Escitalopram [Lexapro] 20 mg PO DAILY 30 Days #30 tab 08/22/22 ARIPiprazole [Abilify] 15 mg PO DAILY 15 Days #15 tab 09/11/23 traZODone HCL 100 mg PO HS #30 tablet 09/13/23 ARIPiprazole [Abilify] 15 mg PO DAILY 30 Days #30 tablet 09/15/23 Insulin Aspart [NovoLOG Flexpen] 10 units SQ TID #3 each 09/15/23 metFORMIN HCL 1,000 mg PO BID 30 Days #60 tab 09/15/23 Allergies Allergy/AdvReac Type Severity Reaction Status Date / Time Penicillins Allergy Severe Anaphylaxis Verified 09/15/23 17:35 cephalexin monohydrate Allergy Anaphylaxis Verified 09/15/23 17:35 [From Keflex] iodine Allergy Rash/Hives Verified 09/15/23 17:35 Mushroom AdvReac Unknown Verified 09/15/23 17:35 Review of Systems ROS Statement: Those systems with pertinent positive or pertinent negative responses have been documented in the HPI. Review of Systems: CONST: Denies fever EYES: Denies blurry vision ENT: Denies nasal congestion C/V: Denies Chest pain RESP: Denies shortness of breath GI: Denies abdominal pain : Denies dysuria SKIN: Denies rash. MSK: Denies joint pain. NEURO: Denies headache ROS Other: All systems not noted in ROS Statement are negative. Past Medical History Past Medical History: Coronary Artery Disease (CAD), Diabetes Mellitus, GERD/Reflux, Hyperlipidemia, Hypertension Additional Past Medical History / Comment(s): NIDDM type II, dyslexia. History of Any Multi-Drug Resistant Organisms: ESBL Date of last positivie culture/infection: 08/11/21-ESBL MDRO Source:: URINE Past Surgical History: Adenoidectomy, Section, Tonsillectomy Additional Past Surgical History / Comment(s): Nasal surgery Past Anesthesia/Blood Transfusion Reactions: Postoperative Nausea & Vomiting (PONV) Additional Past Anesthesia/Blood Transfusion Reaction / Comment(s): Pt states she has never received blood. Past Psychological History: Anxiety, Depression, Panic Disorder Smoking Status: Never smoker, Light tobacco smoker Past Alcohol Use History: None Reported Past Drug Use History: None Reported - Past Family History Mother Family Medical History: Cancer Additional Family Medical History / Comment(s): Mother has lymphoma. Father History Unknown: Yes Additional Family Medical History / Comment(s): Father left when pt was 2 months old. General Exam - General Exam Comments Initial Comments: General: Appears in no acute distress. HEAD: Normal with no signs of head trauma. EYES: EOMI. ENT: Hearing grossly intact. RESPIRATORY: No respiratory distress. C/V: Regular rate and rhythm. ABD: Abdomen is nondistended. EXT: No obvious deformity. SKIN: No rashes or lesions observed on exposed skin. NEURO: Alert and oriented. Limitations: no limitations Course Vital Signs 09/15/23 17:33 Temperature 98.3 F Pulse Rate 96 Respiratory 18 Rate Blood Pressure 109/74 O2 Sat by Pulse 94 L Oximetry Medical Decision Making - Medical Decision Making Was pt. sent in by a medical professional or institution (, JOSLYN, FIREPROOF DOOR MAKER, urgent care, hospital, or [facility]...) When possible be specific @ -No Did you speak to anyone other than the patient for history (EMS, parent, family, police, friend...)? What history was obtained from this source @ -No Did you review nursing and triage notes (agree or disagree)? Why? @ -I reviewed and agree with nursing and triage notes Were old charts reviewed (outside hosp., previous admission, EMS record, old EKG, old radiological studies, urgent care reports/EKG's, [facility] records)? Report findings @ -No old charts were reviewed Differential Diagnosis (chest pain, altered mental status, abdominal pain women, abdominal pain men, vaginal bleeding, weakness, fever, dyspnea, syncope, headache, dizziness, GI bleed, back pain, seizure, CVA, palpatations, mental health, musculoskeletal)? @ -Differential Mental Health Depression, anxiety, bipolar, psychosis, schizophrenia, borderline personality, situational depression, adjustment disorder, behavioral disorder, brain tumor, malingering, substance abuse, encephalopathy, medication reaction, dementia, hypothyroidism, degenerative neurologic disorder, lupus.... This is not meant to be all-inclusive list EKG interpreted by me (3pts min.). @ -As above X-rays interpreted by me (1pt min.). @ -None done CT interpreted by me (1pt min.). @ -None done U/S interpreted by me (1pt. min.). @ -None done What testing was considered but not performed or refused? (CT, X-rays, U/S, labs)? Why? @ -None What meds were considered but not given or refused? Why? @ -None Did you discuss the management of the patient with other professionals (professionals i.e. JOSLYN Alvarez, FIREPROOF DOOR MAKER, lab, RT, psych nurse, pediatric social worker, test boring crew chief, teacher, information management officer, dependency case manager)? Give summary @ -Spoke with PRISCILLA Roberts who spoke with [facility] who sent patient here for medication refill only as she does have a bed waiting for her at [facility]. They will arrange for transport to her back to [facility]. Does not meet inpatient psychiatric criteria at our facility. Was smoking cessation discussed for >3mins.? @ -No Was critical care preformed (if so, how long)? @ -No Were there social determinants of health that impacted care today? How? (Homelessness, low income, unemployed, alcoholism, drug addiction, transportation, low edu. Level, literacy, decrease access to med. care, residential, rehab)? @ -No Was there de-escalation of care discussed even if they declined (Discuss DNR or withdrawal of care, Hospice)? DNR status @ -No What co-morbidities impacted this encounter? (DM, HTN, Smoking, COPD, CAD, Cancer, CVA, ARF, Chemo, Hep., AIDS, mental health diagnosis, sleep apnea, morbid obesity)? @ -None Was patient admitted / discharged? Hospital course, mention meds given and route, prescriptions, significant lab abnormalities, going to OR and other pertinent info. @ -Patient essentially presents for medication refill so that she can go to inpatient psychiatric facility at [facility]. BAT is 0. UDS is pending. We will obtain an Accu-Chek. Patient will have refills of her Abilify, metformin, insulin. Patient in agreement this plan. I discussed the case with Alejandra MARTEL who confirmed with [facility] that this is the plan. Patient will be transported to [facility]. Is medically cleared for discharge. Medically cleared for EPS evaluation I will provide the patient with a prescription for insulin, metformin, Abilify. I instructed the patient to follow up with their PCP in the next 1-3 days. Believe. I explained that the patient should return to the emergency department if they experience any worsening symptoms. Strict return precautions were discussed with the patient. The patient expressed understanding of these instructions. I answered all questions that the patient had. The patient was discharged home in good condition with their prescriptions and follow up information. Undiagnosed new problem with uncertain prognosis? @ -No Drug Therapy requiring intensive monitoring for toxicity (Heparin, Nitro, Insulin, Cardizem)? @ -No Were any procedures done? @ -No Diagnosis/symptom? @ -Medication refill Acute, or Chronic, or Acute on Chronic? @ -Acute Uncomplicated (without systemic symptoms) or Complicated (systemic symptoms)? @ -Uncomplicated Side effects of treatment? @ -No Exacerbation, Progression, or Severe Exacerbation? @ -No Poses a threat to life or bodily function? How? (Chest pain, [place], [place], pneumonia, PE, COPD, DKA, ARF, appy, cholecystitis, CVA, Diverticulitis, Homicidal, Suicidal, threat to staff... and all critical care pts) @ -No - Lab Data Lab Results 09/15/23 Range/Units 20:31 POC Glucose (mg/dL) 172 H (70-110) mg/dL POC Glu Financial Administrative Assistant ID Ashley Alex Disposition Clinical Impression: Medication refill Disposition: TRANSFER TO PSYCH HOSP/UNIT Condition: Fair Prescriptions: ARIPiprazole [Abilify] 15 mg PO DAILY 30 Days #30 tablet metFORMIN HCL 1,000 mg PO BID 30 Days #60 tab Insulin Aspart [NovoLOG Flexpen] 10 units SQ TID #3 each Referrals: Nelly Maldonado MD [Primary Care Provider] - 1-2 days Time of Disposition: 20:00
[2023-09-15 20:32] LABS: Glucose,Whole Blood 172 mg/dL (70-110)
[2023-09-15 21:29] VITALS: BP 110/68; PULSE 72; RESP 16
== END 2023-09-15 21:30 ==
LOC: EC 17:21
DX: Z76.0 Encounter for issue of repeat prescription (principal); F17.200 Nicotine dependence, unspecified, uncomplicated; Z88.0 Allergy status to penicillin; Z91.041 Radiographic dye allergy status; Z91.018 Allergy to other foods; Z88.1 Allergy status to other antibiotic agents
CPT/HCPCS: 36415; 82075; 99282; 99285

== ENCOUNTER 2023-09-17 16:04 | Observation (INO) | payer MEDICARE, OTHER ==
[2023-09-17] MEDS: SODIUM CHLORIDE 0.9% 1,000 ML IV ONE (16:51)
[2023-09-17 16:56] LABS: Basophils % (A) 1 %; Eosinophils # (A) 0.2 k/uL (0-0.7); Eosinophils % (A) 4 %; HCT 36.7 % (34.0-46.0); HGB 12.5 gm/dL (11.4-16.0); Lymphocytes # (A) 1.5 k/uL (1.0-4.8); Lymphocytes % (A) 33 %; MCH 30.2 pg (25.0-35.0); MCV 89.1 fL (80.0-100.0); Monocytes # (A) 0.2 k/uL (0-1.0); Monocytes % (A) 5 %; Neutrophils # (A) 2.6 k/uL (1.3-7.7); Neutrophils % (A) 56 %; Platelet Count 209 k/uL (150-450); RBC 4.12 m/uL (3.80-5.40); RDW 12.6 % (11.5-15.5); WBC 4.7 k/uL (3.8-10.6)
[2023-09-17 17:05] LABS: INR 1.1 (<1.2); Prothrombin Time 11.4 sec (10.0-12.5)
[2023-09-17 17:09] LABS: ALT 44 U/L (4-34); AST 33 U/L (14-36); African American GFR (CKD) >90 (>60 ml/min/1.73 sqM); Albumin 4.1 g/dL (3.5-5.0); Alcohol <10 mg/dL; Alkaline Phosphatase 50 U/L (38-126); Anion Gap 7 mmol/L; Blood Urea Nitrogen 12 mg/dL (7-17); Calcium 9.3 mg/dL (8.4-10.2); Carbon Dioxide 26 mmol/L (22-30); Chloride 108 mmol/L (98-107); Glucose 138 mg/dL (74-99); Non-African American GFR(CKD) >90 (>60 ml/min/1.73 sqM); Potassium 3.7 mmol/L (3.5-5.1); Sodium 141 mmol/L (137-145); Total Bilirubin 0.5 mg/dL (0.2-1.3); Total Protein 6.2 g/dL (6.3-8.2)
[2023-09-17 17:12] LABS: Partial Thromboplastin Time 20.5 sec (22.0-30.0)
--- NOTE | 2023-09-17 17:56 | CT ---
EXAMINATION TYPE: CT brain wo con CT DLP: 1170.4 mGycm, Automated exposure control for dose reduction was used. DATE OF EXAM: 09/17/2023 5:38 PM COMPARISON: 03/30/2023. CLINICAL INDICATION:Female, 52 years old with history of Altered mental status, AMS TECHNIQUE: Brain: Axial CT images of the brain were obtained with coronal and sagittal reformats created and rev iewed. Contrast used: None. Oral contrast used: None. FINDINGS: Brain: Extra-axial spaces: No abnormal extra-axial fluid collections. Ventricular system: Within normal limits Cerebral parenchyma: No acute intraparenchymal hemorrhage or mass effect. The salgado-white junction is well differentiated. Cerebellum: Unremarkable. Mass effect: No evidence of midline shift. Intracranial vasculature: unremarkable Soft tissues: Normal. Calvarium/osseous structures: No depressed skull fracture. Paranasal sinuses and mastoid air cells: Mild scattered paranasal sinus disease. Visualized orbits: Orbital contents are intact. IMPRESSION: No acute intracranial process.
--- NOTE | 2023-09-17 18:56 | ED ---
Altered Mental Status HPI - General Chief Complaint: Altered Mental Status Stated Complaint: Altered Mental Status Time Seen by Provider: 09/17/23 16:19 Source: patient Mode of arrival: EMS Limitations: no limitations - History of Present Illness Initial Comments: 52-year-old female with past medical history of bipolar, hypertension, hyperlipi demia who presents emergency department with altered mental status. History is obtained from her manufacturing laborer. I did speak with the manufacturing laborer as to why he called EMS. He states that he took the patient out shopping and when they came home she was very shaky. He thought that she was going to pass out. He reports that her lips were blue and he had to catch her from falling. Upon arrival patient a dmits to me that she took a THC gummy. He does admit that she occasionally utilizes these however against his better judgment. He feels as if her mental status has been declining for some time. She is not suicidal or homicidal. He was last told that she currently did not have a urinary tract infection. He is concerned that something neurologic is going on. He has scheduled an appointment at [facility] however this is not until the end of September. Denies any fevers. No head trauma. Patient cannot provide much history due to her sedated state. In the last ED report on the , the patient was supposed to be at [facility]. Help Desk Assistant states that she was supposed to be hospitalized there for 2 weeks however because they did not have the correct copies of her medication list and that they had to have him come pick her up on Monday night. He states that she has been home since then. - Related Data Home Medications Medication Instructions Recorded Confirmed Ezetimibe [Zetia] 10 mg PO DAILY 03/17/20 09/17/23 Omeprazole 40 mg PO DAILY 01/26/21 09/17/23 Cetirizine HCl [Zyrtec] 10 mg PO DAILY 08/04/22 09/17/23 Mirabegron [Myrbetriq] 50 mg PO DAILY 08/04/22 09/17/23 Fenofibrate [Lofibra] 160 mg PO DAILY 11/03/22 09/17/23 Insulin Aspart [NovoLOG Flexpen] 10 units SQ AC-TID MDD 100 units 03/29/23 09/17/23 Insulin Aspart [NovoLOG Flexpen] See Protocol SQ AC-TID PRN MDD 100 03/29/23 09/17/23 units Aspirin EC [Ecotrin Low Dose] 81 mg PO DAILY 08/18/23 09/17/23 Previous Rx's Medication Instructions Recorded Escitalopram [Lexapro] 20 mg PO DAILY 30 Days #30 tab 08/22/22 traZODone HCL 100 mg PO HS #30 tablet 09/13/23 ARIPiprazole [Abilify] 15 mg PO DAILY 30 Days #30 tablet 09/15/23 metFORMIN HCL 1,000 mg PO BID 30 Days #60 tab 09/15/23 Allergies Allergy/AdvReac Type Severity Reaction Status Date / Time Penicillins Allergy Severe Anaphylaxis Verified 09/15/23 17:35 cephalexin monohydrate Allergy Anaphylaxis Verified 09/15/23 17:35 [From Keflex] iodine Allergy Rash/Hives Verified 09/15/23 17:35 Mushroom AdvReac Unknown Verified 09/15/23 17:35 Review of Systems ROS Statement: Those systems with pertinent positive or pertinent negative responses have been documented in the HPI. ROS Other: All systems not noted in ROS Statement are negative. Past Medical History Past Medical History: Coronary Artery Disease (CAD), Diabetes Mellitus, GERD/Reflux, Hyperlipidemia, Hypertension Additional Past Medical History / Comment(s): NIDDM type II, dyslexia. History of Any Multi-Drug Resistant Organisms: ESBL Date of last positivie culture/infection: 08/11/21-ESBL MDRO Source:: URINE Past Surgical History: Adenoidectomy, Section, Tonsillectomy Additional Past Surgical History / Comment(s): Nasal surgery Past Anesthesia/Blood Transfusion Reactions: Postoperative Nausea & Vomiting (PONV) Additional Past Anesthesia/Blood Transfusion Reaction / Comment(s): Pt states she has never received blood. Past Psychological History: Anxiety, Depression, Panic Disorder Smoking Status: Never smoker, Light tobacco smoker Past Alcohol Use History: None Reported Past Drug Use History: None Reported - Past Family History Mother Family Medical History: Cancer Additional Family Medical History / Comment(s): Mother has lymphoma. Father History Unknown: Yes Additional Family Medical History / Comment(s): Father left when pt was 2 months old. General Exam Limitations: altered mental status General appearance: lethargic Head exam: Present: atraumatic, normocephalic, normal inspection Eye exam: Present: normal appearance, PERRL, EOMI. Absent: scleral icterus, conjunctival injection, periorbital swelling ENT exam: Present: mucous membranes dry Respiratory exam: Present: normal lung sounds bilaterally. Absent: respiratory distress, wheezes, rales, rhonchi, stridor Cardiovascular Exam: Present: regular rate, normal rhythm, normal heart sounds. Absent: systolic murmur, diastolic murmur, rubs, gallop, clicks GI/Abdominal exam: Present: soft, normal bowel sounds. Absent: distended, tenderness, guarding, rebound, rigid Back exam: Present: normal inspection Neurological exam: Present: altered Psychiatric exam: Present: flat affect Course Vital Signs 09/17/23 09/17/23 09/17/23 16:16 16:30 17:00 Temperature 98.3 F Pulse Rate 82 82 93 Respiratory 20 16 17 Rate Blood Pressure 126/87 125/73 121/83 O2 Sat by Pulse 97 94 L 96 Oximetry 09/17/23 09/17/23 09/17/23 18:40 19:30 20:00 Temperature Pulse Rate 92 89 89 Respiratory 17 18 16 Rate Blood Pressure 123/76 132/92 128/87 O2 Sat by Pulse 94 L 95 96 Oximetry 09/17/23 09/17/23 09/17/23 21:09 21:30 22:00 Temperature Pulse Rate 65 75 78 Respiratory 14 16 17 Rate Blood Pressure 118/83 142/87 126/95 O2 Sat by Pulse 93 L 95 94 L Oximetry 09/17/23 09/17/23 22:30 23:00 Temperature Pulse Rate 72 74 Respiratory 16 Rate Blood Pressure 106/84 153/89 O2 Sat by Pulse 95 93 L Oximetry Medical Decision Making - Medical Decision Making Was pt. sent in by a medical professional or institution (, PA, WEB SITE DEVELOPER, urgent care, hospital, or senior living...) When possible be specific @ -No Did you speak to anyone other than the patient for history (EMS, parent, family, police, friend...)? What history was obtained from this source @ -I spoke with the manufacturing laborer Zhen who was the one who called EMS Did you review nursing and triage notes (agree or disagree)? Why? @ -I reviewed and agree with nursing and triage notes Were old charts reviewed (outside hosp., previous admission, EMS record, old EKG, old radiological studies, urgent care reports/EKG's, senior living records)? Report findings @ -I reviewed the emergency note from the Differential Diagnosis (chest pain, altered mental status, abdominal pain women, abdominal pain men, vaginal bleeding, weakness, fever, dyspnea, syncope, headache, dizziness, GI bleed, back pain, seizure, CVA, palpatations, mental health, musculoskeletal)? @ -Differential Altered Mental Status: Hypoglycemia, DKA, hypercapnia, ETOH, overdose, CO poisoning, trauma, myxedema coma, HTN encephalopathy, infection, encephalitis, psychosis, intercranial hemorrhage, hepatic encephalopathy, meningitis, CVA, this is not meant to be an all-inclusive list EKG interpreted by me (3pts min.). @ -Yes and demonstrates sinus rhythm with a rate of 76. WI interval 148. QRS 109. QTc of 456. No acute ST segment elevations or depressions X-rays interpreted by me (1pt min.). @ -None done CT interpreted by me (1pt min.). @ -Yes and demonstrates no acute intracranial process U/S interpreted by me (1pt. min.). @ -None done What testing was considered but not performed or refused? (CT, X-rays, U/S, labs)? Why? @ -None What meds were considered but not given or refused? Why? @ -None Did you discuss the management of the patient with other professionals (professionals i.e. , PA, WEB SITE DEVELOPER, lab, RT, psych nurse, sr. social media & mobile manager, ore mixer, teacher, banking services officer, shelter case manager)? Give summary @ -I spoke with Estefani who will admit the patient Was smoking cessation discussed for >3mins.? @ -No Was critical care preformed (if so, how long)? @ -No Were there social determinants of health that impacted care today? How? (Homelessness, low income, unemployed, alcoholism, drug addiction, transportation, low edu. Level, literacy, decrease access to med. care, shelter, rehab)? @ -No Was there de-escalation of care discussed even if they declined (Discuss DNR or withdrawal of care, Hospice)? DNR status @ -No What co-morbidities impacted this encounter? (DM, HTN, Smoking, COPD, CAD, Canc er, CVA, ARF, Chemo, Hep., AIDS, mental health diagnosis, sleep apnea, morbid obesity)? @ -Bipolar disorder Was patient admitted / discharged? Hospital course, mention meds given and route, prescriptions, significant lab abnormalities, going to OR and other pertinent info. @ -Upon arrival patient seen and evaluated in room 11. Thorough history and physical exam was performed. I did call the patient's manufacturing laborer to obtain more of a history. He reports a near syncopal event at home. Reports to change in her mental status and requesting neurology consultation. Patient is not suicidal or homicidal. She is extremely lethargic in the room. Admits to taking a THC gummy. IV was established laboratory studies were conducted. CT was performed of the head. I did discuss the case with [facility] who will admit the patient. I do feel that she needs neurology consultation for her Parkinson-like symptoms. I also recommended a social work consult as the manufacturing laborer is unaware of the recent changes in her home medications. Patient is supposed to be at [facility] right now however was unable to go due to medication list. Patient is administered antibiotics. Help Desk Assistant was agreeable to this and patient was admitted in stable condition Undiagnosed new problem with uncertain prognosis? @ -No Drug Therapy requiring intensive monitoring for toxicity (Heparin, Nitro, Insulin, Cardizem)? @ -No Were any procedures done? @ -No Diagnosis/symptom? @ -Acute encephalopathy, UTI, THC use Acute, or Chronic, or Acute on Chronic? @ -Acute on chronic Uncomplicated (without systemic symptoms) or Complicated (systemic symptoms)? @ -Complicated Side effects of treatment? @ -No Exacerbation, Progression, or Severe Exacerbation? @ -No Poses a threat to life or bodily function? How? (Chest pain, USA, CO, pneumonia, PE, COPD, DKA, ARF, appy, cholecystitis, CVA, Diverticulitis, Homicidal, [place] icidal, threat to staff... and all critical care pts) @ -No - Lab Data Result diagrams: 09/17/23 16:46 09/17/23 16:46 Lab Results 09/17/23 09/17/23 09/17/23 Range/Units 16:46 16:46 16:46 WBC 4.7 (3.8-10.6) k/uL RBC 4.12 (3.80-5.40) m/uL Hgb 12.5 (11.4-16.0) gm/dL Hct 36.7 (34.0-46.0) % MCV 89.1 (80.0-100.0) fL MCH 30.2 (25.0-35.0) pg MCHC 34.0 (31.0-37.0) g/dL RDW 12.6 (11.5-15.5) % Plt Count 209 (150-450) k/uL MPV 8.0 Neutrophils % 56 % Lymphocytes % 33 % Monocytes % 5 % Eosinophils % 4 % Basophils % 1 % Neutrophils # 2.6 (1.3-7.7) k/uL Lymphocytes # 1.5 (1.0-4.8) k/uL Monocytes # 0.2 (0-1.0) k/uL Eosinophils # 0.2 (0-0.7) k/uL Basophils # 0.0 (0-0.2) k/uL PT 11.4 (10.0-12.5) sec INR 1.1 (<1.2) APTT 20.5 L (22.0-30.0) sec Sodium 141 (137-145) mmol/L Potassium 3.7 (3.5-5.1) mmol/L Chloride 108 H (98-107) mmol/L Carbon Dioxide 26 (22-30) mmol/L Anion Gap 7 mmol/L BUN 12 (7-17) mg/dL Creatinine 0.55 (0.52-1.04) mg/dL Est GFR (CKD-EPI)AfAm >90 (>60 ml/min/1.73 sqM) Est GFR (CKD-EPI)NonAf >90 (>60 ml/min/1.73 sqM) Glucose 138 H (74-99) mg/dL Calcium 9.3 (8.4-10.2) mg/dL Total Bilirubin 0.5 (0.2-1.3) mg/dL AST 33 (14-36) U/L ALT 44 H (4-34) U/L Alkaline Phosphatase 50 (38-126) U/L Ammonia (<30) umol/L Troponin I (0.000-0.034) ng/mL Total Protein 6.2 L (6.3-8.2) g/dL Albumin 4.1 (3.5-5.0) g/dL Urine Color Urine Appearance (Clear) Urine pH (5.0-8.0) Ur Specific [place] (1.001-1.035) Urine Protein (Negative) Urine Glucose (UA) (Negative) Urine Ketones (Negative) Urine Blood (Negative) Urine Nitrite (Negative) Urine Bilirubin (Negative) Urine Urobilinogen (<2.0) mg/dL Ur Leukocyte Esterase (Negative) Urine RBC (0-5) /hpf Urine WBC (0-5) /hpf Urine WBC Clumps (None) /hpf Ur Squamous Epith Cells (0-4) /hpf Calcium Oxalate Crystal (None) /hpf Amorphous Sediment (None) /hpf Urine Bacteria (None) /hpf Urine Mucus (None) /hpf Urine Opiates Screen (NotDetected) Ur Oxycodone Screen (NotDetected) Urine Methadone Screen (NotDetected) Ur Barbiturates Screen (NotDetected) U Tricyclic Antidepress (NotDetected) Ur Phencyclidine Scrn (NotDetected) Ur Amphetamines Screen (NotDetected) U Methamphetamines Scrn (NotDetected) U Benzodiazepines Scrn (NotDetected) Urine Cocaine Screen (NotDetected) U Marijuana (THC) Screen (NotDetected) Serum Alcohol <10 mg/dL 09/17/23 09/17/23 09/17/23 Range/Units 16:46 16:46 19:14 WBC (3.8-10.6) k/uL RBC (3.80-5.40) m/uL Hgb (11.4-16.0) gm/dL Hct (34.0-46.0) % MCV (80.0-100.0) fL MCH (25.0-35.0) pg MCHC (31.0-37.0) g/dL RDW (11.5-15.5) % Plt Count (150-450) k/uL MPV Neutrophils % % Lymphocytes % % Monocytes % % Eosinophils % % Basophils % % Neutrophils # (1.3-7.7) k/uL Lymphocytes # (1.0-4.8) k/uL Monocytes # (0-1.0) k/uL Eosinophils # (0-0.7) k/uL Basophils # (0-0.2) k/uL PT (10.0-12.5) sec INR (<1.2) APTT (22.0-30.0) sec Sodium (137-145) mmol/L Potassium (3.5-5.1) mmol/L Chloride (98-107) mmol/L Carbon Dioxide (22-30) mmol/L Anion Gap mmol/L BUN (7-17) mg/dL Creatinine (0.52-1.04) mg/dL Est GFR (CKD-EPI)AfAm (>60 ml/min/1.73 sqM) Est GFR (CKD-EPI)NonAf (>60 ml/min/1.73 sqM) Glucose (74-99) mg/dL Calcium (8.4-10.2) mg/dL Total Bilirubin (0.2-1.3) mg/dL AST (14-36) U/L ALT (4-34) U/L Alkaline Phosphatase (38-126) U/L Ammonia 21 (<30) umol/L Troponin I <0.012 (0.000-0.034) ng/mL Total Protein (6.3-8.2) g/dL Albumin (3.5-5.0) g/dL Urine Color Yellow Urine Appearance Turbid H (Clear) Urine pH 6.0 (5.0-8.0) Ur Specific [place] 1.023 (1.001-1.035) Urine Protein 2+ H (Negative) Urine Glucose (UA) Negative (Negative) Urine Ketones Negative (Negative) Urine Blood Small H (Negative) Urine Nitrite Negative (Negative) Urine Bilirubin Negative (Negative) Urine Urobilinogen <2.0 (<2.0) mg/dL Ur Leukocyte Esterase Large H (Negative) Urine RBC 70 H (0-5) /hpf Urine WBC >182 H (0-5) /hpf Urine WBC Clumps Occasional H (None) /hpf Ur Squamous Epith Cells 12 H (0-4) /hpf Calcium Oxalate Crystal Many H (None) /hpf Amorphous Sediment Rare H (None) /hpf Urine Bacteria Many H (None) /hpf Urine Mucus Many H (None) /hpf Urine Opiates Screen Not Detected (NotDetected) Ur Oxycodone Screen Not Detected (NotDetected) Urine Methadone Screen Not Detected (NotDetected) Ur Barbiturates Screen Not Detected (NotDetected) U Tricyclic Antidepress Not Detected (NotDetected) Ur Phencyclidine Scrn Not Detected (NotDetected) Ur Amphetamines Screen Not Detected (NotDetected) U Methamphetamines Scrn Not Detected (NotDetected) U Benzodiazepines Scrn Not Detected (NotDetected) Urine Cocaine Screen Not Detected (NotDetected) U Marijuana (THC) Screen Detected H (NotDetected) Serum Alcohol mg/dL Disposition Clinical Impression: Acute encephalopathy, UTI (urinary tract infection), Tetrahydrocannabinol (THC) use disorder, mild, abuse Disposition: ADMITTED IP TO THIS [facility] Condition: Stable Is patient prescribed a controlled substance at d/c from ED?: No Time of Disposition: 21:14 Decision to Admit Reason: Admit from EC Decision Date: 09/17/23 Decision Time: 21:14
[2023-09-17 20:04] LABS: Amphetamine Screen,Urine Not Detected (NotDetected); Barbiturate Screen,Urine Not Detected (NotDetected); Benzodiazepines Screen,Urine Not Detected (NotDetected); Cocaine Screen,Urine Not Detected (NotDetected); Methadone Screen, Urine Not Detected (NotDetected); Opiate Screen,Urine Not Detected (NotDetected); Oxycodone Screen, Urine Not Detected (NotDetected); Phencyclidine Screen,Urine Not Detected (NotDetected); Tricyclic Antidepressant,Urine Not Detected (NotDetected); Urn Cannabinoid Scrn Detected (NotDetected)
[2023-09-17 20:08] LABS: Amorphous Sediment,Urine Rare /hpf; Appearance,Urine Turbid (Clear); Bacteria,Urine Many /hpf; Bilirubin,Urine Negative (Negative); Blood,Urine Small (Negative); Calcium Oxalate Crystals,Urine Many /hpf; Color,Urine Yellow; Glucose,Urine (UA) Negative (Negative); Ketones,Urine Negative (Negative); Leukocyte Esterase,Urine Large (Negative); Mucus,Urine Many /hpf; Nitrite,Urine Negative (Negative); Protein,Urine 2+ (Negative); RBC,Urine 70 /hpf (0-5); Specific Gravity,Urine 1.023 (1.001-1.035); Squamous Epithelial Cell,Urine 12 /hpf (0-4); Urobilinogen,Urine <2.0 mg/dL (<2.0); WBC,Urine >182 /hpf (0-5)
[2023-09-17] MEDS: LEVOFLOXACIN 750MG-D5W PMX 750 MG in DEXTROSE/WATER 1 150ML.BAG IVPB STA (21:06)
[2023-09-17] MEDS ORDERED: NALOXONE 0.4 MG/ML 1 ML VIAL IV PRN (21:14)
[2023-09-17] MEDS: SODIUM CHLORIDE 0.9% 1,000 ML IV SCH (22:01)
[2023-09-18] MEDS: traZODone HCL 100 MG TAB PO STA (03:00)
[2023-09-18 07:05] LABS: Basophils % (A) 0 %; Eosinophils # (A) 0.2 k/uL (0-0.7); Eosinophils % (A) 3 %; HCT 35.2 % (34.0-46.0); HGB 12.1 gm/dL (11.4-16.0); Lymphocytes # (A) 1.4 k/uL (1.0-4.8); Lymphocytes % (A) 28 %; MCH 30.7 pg (25.0-35.0); MCHC 34.5 g/dL (31.0-37.0); MCV 89.1 fL (80.0-100.0); Mean Platelet Volume 8.8; Monocytes # (A) 0.3 k/uL (0-1.0); Monocytes % (A) 5 %; Neutrophils # (A) 3.2 k/uL (1.3-7.7); Neutrophils % (A) 63 %; Platelet Count 184 k/uL (150-450); RBC 3.95 m/uL (3.80-5.40); RDW 12.7 % (11.5-15.5)
[2023-09-18 07:22] LABS: African American GFR (CKD) >90 (>60 ml/min/1.73 sqM); Anion Gap 5 mmol/L; Blood Urea Nitrogen 6 mg/dL (7-17); Calcium 9.5 mg/dL (8.4-10.2); Carbon Dioxide 25 mmol/L (22-30); Chloride 110 mmol/L (98-107); Glucose 165 mg/dL (74-99); Non-African American GFR(CKD) >90 (>60 ml/min/1.73 sqM); Potassium 3.4 mmol/L (3.5-5.1); Sodium 140 mmol/L (137-145)
[2023-09-18 07:34] LABS: Glucose,Whole Blood 154 mg/dL (70-110)
[2023-09-18] MEDS: EZETIMIBE 10 MG TAB PO SCH (07:40)
[2023-09-18] MEDS: metFORMIN 500 MG TAB PO SCH (07:40)
[2023-09-18] MEDS: FENOFIBRATE 160 MG TAB PO SCH (07:40)
[2023-09-18] MEDS: ESCITALOPRAM 20 MG TAB PO SCH (07:41)
[2023-09-18] MEDS: PANTOPRAZOLE 40 MG TABLET PO SCH (07:41)
[2023-09-18] MEDS: LORATADINE 10 MG TAB PO SCH (07:41)
[2023-09-18] MEDS: ASPIRIN 81 MG PO SCH (07:41)
[2023-09-18] MEDS: INSULIN ASPART (NovoLOG) 100 UNIT/ML VIAL SQ SCH ×2 (07:53→11:57)
[2023-09-18] MEDS: ARIPiprazole 15 MG TAB PO SCH (09:04)
[2023-09-18] MEDS: NON FORMULARY DRUG (Mirabegron [Myrbetriq] 50 MG Tab.Er.24h) PO SCH (09:06)
[2023-09-18] MEDS ORDERED: DEXTROSE 50% SYRINGE 50 ML IVP PRN ×2 (11:21)
[2023-09-18 11:57] LABS: Glucose,Whole Blood 105 mg/dL (70-110)
[2023-09-18] MEDS: POTASSIUM CHLORIDE 10 MEQ in WATER FOR INJECTION 1 100ML.BAG IVPB SCH (12:03)
--- NOTE | 2023-09-18 13:54 | P.CNNES ---
History of Present Illness Consult date: 09/18/23 Requesting physician: Lisa Sims Reason for Consult: acute encephalopathy, parkinson like feature History of Present Illness: This is a 52-year-old woman with history of bipolar, Parkinsonian features likely side effects of cycle active medication, diabetes, hypertension, hyperlipidemia presented emergency department for because of altered mental status. History is obtained from medical record. Patient is unable to provide the history. The ED physician who spoke to the caregiver who contacted EMS it seems that the patient out shopping with the caregiver and when she came home she became shaky and almost about passout and seems to the patient lips or blue and he had to catch her from falling. Seems that her mental status has been declining for some time. It seems that she is scheduled to follow-up with the [facility] team in September [address] Vallejo, neurohospitalist seen the patient last on 04/01/2023 for altered mental status and he felt likely metabolic encephalopathy. He felt the patient has parkinsonian symptoms likely side effects of psychoactive medication. Please refer to his note for further details. Some of the workup during this hospital visit consisted of: CBC with differential is unremarkable Ammonia level is 21 Sodium is normal Initial serum glucose is 138 Calcium is 9.3 AST 33 ALT is 44 Urinalysis seems suggestive of likely acute urinary tract infection and Urine drug screen is positive for THC CT of the head is reported as no acute intracranial process. I personally reviewed the CT of the head and agree with the report. Review of Systems Limited but the positive and negative as per HPI. Past Medical History Past Medical History: Coronary Artery Disease (CAD), Diabetes Mellitus, GERD/Reflux, Hyperlipidemia, Hypertension Additional Past Medical History / Comment(s): NIDDM type II, dyslexia. History of Any Multi-Drug Resistant Organisms: ESBL Date of last positivie culture/infection: 08/11/21-ESBL MDRO Source:: URINE Past Surgical History: Adenoidectomy, Section, Tonsillectomy Additional Past Surgical History / Comment(s): Nasal surgery Past Anesthesia/Blood Transfusion Reactions: Postoperative Nausea & Vomiting (PONV) Additional Past Anesthesia/Blood Transfusion Reaction / Comment(s): Pt states she has never received blood. Past Psychological History: Anxiety, Depression, Panic Disorder Smoking Status: Never smoker, Light tobacco smoker Past Alcohol Use History: None Reported Past Drug Use History: None Reported - Past Family History Mother Family Medical History: Cancer Additional Family Medical History / Comment(s): Mother has lymphoma. Father History Unknown: Yes Additional Family Medical History / Comment(s): Father left when pt was 2 months old. Medications and Allergies Home Medications Medication Instructions Recorded Confirmed Type Ezetimibe [Zetia] 10 mg PO DAILY 03/17/20 09/17/23 History Omeprazole 40 mg PO DAILY 01/26/21 09/17/23 History Cetirizine HCl [Zyrtec] 10 mg PO DAILY 08/04/22 09/17/23 History Mirabegron [Myrbetriq] 50 mg PO DAILY 08/04/22 09/17/23 History Escitalopram [Lexapro] 20 mg PO DAILY 30 Days #30 tab 08/22/22 09/17/23 Rx Fenofibrate [Lofibra] 160 mg PO DAILY 11/03/22 09/17/23 History Insulin Aspart [NovoLOG Flexpen] 10 units SQ AC-TID MDD 100 units 03/29/23 09/17/23 History Insulin Aspart [NovoLOG Flexpen] See Protocol SQ AC-TID PRN MDD 100 03/29/23 09/17/23 History units Aspirin EC [Ecotrin Low Dose] 81 mg PO DAILY 08/18/23 09/17/23 History traZODone HCL 100 mg PO HS #30 tablet 09/13/23 09/17/23 Rx ARIPiprazole [Abilify] 15 mg PO DAILY 30 Days #30 tablet 09/15/23 09/17/23 Rx metFORMIN HCL 1,000 mg PO BID 30 Days #60 tab 09/15/23 09/17/23 Rx Allergies Allergy/AdvReac Type Severity Reaction Status Date / Time Penicillins Allergy Severe Anaphylaxis Verified 09/15/23 17:35 cephalexin monohydrate Allergy Anaphylaxis Verified 09/15/23 17:35 [From Keflex] iodine Allergy Rash/Hives Verified 09/15/23 17:35 Mushroom AdvReac Unknown Verified 09/15/23 17:35 Physical Examination - Vital Signs Vital Signs: Vital Signs Temp Pulse Resp BP Pulse Ox 09/18/23 12:51 78 16 127/90 96 09/18/23 07:43 88 16 140/80 94 L 09/18/23 05:19 70 18 140/81 99 09/18/23 04:00 96 128/87 09/18/23 02:00 86 18 128/87 95 09/18/23 00:30 69 17 129/89 95 09/18/23 00:00 78 17 126/67 96 09/17/23 23:00 74 153/89 93 L 09/17/23 22:30 72 16 106/84 95 09/17/23 22:00 78 17 126/95 94 L 09/17/23 21:30 75 16 142/87 95 09/17/23 21:09 65 14 118/83 93 L 09/17/23 20:00 89 16 128/87 96 09/17/23 19:30 89 18 132/92 95 09/17/23 18:40 92 17 123/76 94 L 09/17/23 17:00 93 17 121/83 96 09/17/23 16:30 82 16 125/73 94 L 09/17/23 16:16 98.3 F 82 20 126/87 97 Intake and Output 09/17/23 09/18/23 09/18/23 22:59 06:59 14:59 Other: Weight 90.718 kg General: lying in bed and does not appear in acute distress. HENT: Supple neck. Neuro: Limited. Patient is awake but is slow to respond. Is oriented to self place and time. Is following simple commands. Able to name objects correctly such as pen and watch glasses. No aphasia from limited language. Pupils are round equal reactive to light. Visual wharton are full. Extraocular movement and is intact no nystagmus. No facial weakness but the patient appears to have like a facial mask. Tongue is midline and moves [id number] without any difficulty Motor: 4 to assess individual muscle strength but she is able to lift up all extremities above gravity equally. Normal tone and bulk. No resting tremor Cerebellar normal [id number] bilaterally. Reflexes is 2 positive throughout Plantars are mute bilaterally Results - Laboratory Findings CBC and BMP: 09/18/23 06:42 09/18/23 06:42 Abnormal Lab Findings: Abnormal Labs 09/17/23 09/17/23 09/17/23 16:46 16:46 19:14 APTT 20.5 L Potassium Chloride 108 H BUN Creatinine Glucose 138 H POC Glucose (mg/dL) ALT 44 H Total Protein 6.2 L Urine Appearance Turbid H Urine Protein 2+ H Urine Blood Small H Ur Leukocyte Esterase Large H Urine RBC 70 H Urine WBC >182 H Urine WBC Clumps Occasional H Ur Squamous Epith Cells 12 H Calcium Oxalate Crystal Many H Amorphous Sediment Rare H Urine Bacteria Many H Urine Mucus Many H U Marijuana (THC) Screen Detected H 09/18/23 09/18/23 06:42 07:28 APTT Potassium 3.4 L Chloride 110 H BUN 6 L Creatinine 0.44 L Glucose 165 H POC Glucose (mg/dL) 154 H ALT Total Protein Urine Appearance Urine Protein Urine Blood Ur Leukocyte Esterase Urine RBC Urine WBC Urine WBC Clumps Ur Squamous Epith Cells Calcium Oxalate Crystal Amorphous Sediment Urine Bacteria Urine Mucus U Marijuana (THC) Screen Assessment and Plan Assessment: This is a 52-year-old woman who present emergency department since the patient enterprise cloud architect by the ED team that the patient was very shaky after coming home from shopping and she was close to passing out and her lips were blue and had to catch her from falling. She has been having declining in mentation. She was found to have acute UTI. Altered mental status seems due to acute urinary tract infection/metabolic encephalopathy Acute urinary tract infect Parkinsonian symptoms likely side effects of psychoactive medication Diabetes mellitus and is uncontrolled hemoglobin A1c is 10.4 on 09/07/2023 Hypertension History of coronary artery disease Hyperlipidemia Underlying history of anxiety Underlying history of depression Underlying history of panic disorder Plan: I ordered a routine EEG as well as MRI of the brain I ordered vitamin B12 and folate level. Patient had a recent TSH and mid August which was normal and no need for feet from neurology perspective. As stated earlier seems that Dr. Vallejo evaluated the patient and in March 2023 and he felt her parkinsonian symptoms are due to psychoactive medication Seems to the patient has an appointment with [facility] in September 2023 for evaluation. Will defer the rest of the medical management the primary team and other specialist Thank you for the consultation.
--- NOTE | 2023-09-18 14:05 | XR ---
EXAMINATION TYPE: XR chest 1V DATE OF EXAM: 09/18/2023 11:55 AM CLINICAL INDICATION:Female, 52 years old with history of Altered Metal status; COMPARISON: None TECHNIQUE: XR chest 1V Frontal view of the chest. FINDINGS: Lungs/Pleura: Bibasilar atelectasis. No evidence for pneumothorax, pleural effusion or focal consolid ation. Pulmonary vascularity: Unremarkable. Heart/mediastinum: Cardiomediastinal silhouette is unremarkable. Musculoskeletal: No acute osseous pathology. IMPRESSION: No acute cardiopulmonary disease/process.
[2023-09-18] MEDS: PERMETHRIN 1% CREME RINSE 59 ML LIQUID TOPICAL ONE ×2 (14:10→17:34)
--- NOTE | 2023-09-18 15:06 | P.HPIM ---
History of Present Illness H&P Date: 09/18/23 History of present illness; 52-year-old female presents to the emergency department, after episode of "shakiness" was noted by her transport tech. He noticed this and called EMS because he thought she was going to pass out. He states that her lips were blue and he had to catch her from falling. He states he has noticed that her mental status has been declining for some time now. Patient states that she took a THC gummy, which she does on occasion. Past medical history is significant for bipolar, hypertension, hyperlipidemia, mvv-jrlwlmf-oksuwqnid diabetes mellitus type 2, GERD. Building Trades Teacher states that he believes she does not have a urinary tract infection, however he is concerned that something neurologic is going on. The patient has an appointment at [facility] scheduled for the end of September. Denies any fevers, denies head trauma. Building Trades Teacher provided most of the history in the emergency department because of the patient's sedated state. CT brain done in the ER showed no acute intra cranial process, EKG showed some left axis deviation and a pattern consistent with pulmonary disease labs as of this morning show potassium 3.4, chloride 110, BUN of 6, creatinine 0.44, serum glucose 165, POC glucose of 154. Patient's urine in the emergency department is a turbid appearance, 2+ protein, small amount blood, large amount of leukocyte esterase, 70 urine RBCs, greater than 182 urine WBCs, occasional WBC clumps, many bacteria. She was given one-time IV levofloxacin in the emergency department. When seen later in the morning patient had become a bit less lethargic like, however still difficult to communicate and raymundo much history from. Initial lab work done in the ER showed CBC within normal limits, chloride 108, serum glucose 138, PTT 20.5, ALT 44, total protein 6.2, ammonia 21, positive urinalysis with many bacteria, large amounts of leukocyte esterase, greater than 182 WBCs. Urine THC screen also positive. EKG done in the ER showed heart rate of 76, with left axis deviation, pattern consistent with pulmonary disease. CT brain showed no acute intracranial process Chest x-ray showed no acute cardiopulmonary disease/process Patient admitted to internal medicine service REVIEW OF SYSTEMS: CONSTITUTIONAL: No fever, no malaise, no fatigue. HEENT: No recent visual problems or hearing problems. Denied any sore throat. CARDIOVASCULAR: No chest pain, orthopnea, PND, no palpitations, no syncope. PULMONARY: No shortness of breath, no cough, no hemoptysis. GASTROINTESTINAL: No diarrhea, no nausea, no vomiting, no abdominal pain. NEUROLOGICAL: No headaches, no weakness, no numbness. HEMATOLOGICAL: Denies any bleeding or petechiae. GENITOURINARY: Denies any burning micturition, frequency, or urgency. MUSCULOSKELETAL/RHEUMATOLOGICAL: Denies any joint pain, swelling, or any muscle pain. ENDOCRINE: Denies any polyuria or polydipsia. The rest of the 14-point review of systems is negative. PHYSICAL EXAMINATION: GENERAL: Patient has altered mental status and appears lethargic. HEENT: Pupils are round and equally reacting to light. EOMI. No scleral icterus. No conjunctival pallor. Normocephalic, atraumatic. No pharyngeal erythema. No thyromegaly. CARDIOVASCULAR: S1 and S2 present. No murmurs, rubs, or gallops. PULMONARY: Chest is clear to auscultation, no wheezing or crackles. ABDOMEN: Soft, nontender, nondistended, normoactive bowel sounds. No palpable organomegaly. BACK: MUSCULOSKELETAL: No joint swelling or deformity. EXTREMITIES: No cyanosis, clubbing, or pedal edema. NEUROLOGICAL: Gross neurological examination did not reveal any focal deficits. SKIN: No rashes. Assessment and plan #Acute encephalopathy secondary to urinary tract infection Patient presented with altered mental status Patient's urinalysis indicated signs of urinary tract infection Neurology consulted, EEG and brain MRI ordered Urine culture ordered Patient was given levofloxacin 750 mg IV once while in the emergency department, will continue on 500 mg levofloxacin IV for 2 more days until Monday, 09/19 There is moderate tenderness to palpation over bilateral costovertebral angles Ultrasound kidneys/bladder ordered #Hypertension Not on any medications currently Majority of patient's blood pressures since arrival have been in the 120s/80s #Hyperlipidemia Takes 160 mg p.o. daily of fenofibrate, 10 mg p.o. daily ezetimibe, 81 mg aspirin p.o. daily at home #Sjy-uixilqg-ejbfhofsz diabetes mellitus type 2 Takes metformin 1000 mg p.o. 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 daily and aripiprazole, 20 mg daily citalopram at home #Gastroesophageal reflux disease Takes omeprazole at home On 40 mg Protonix #Head lice While in the emergency department patient was found to have head lice Patient was given permethrin 1% creme rinse Continue to monitor vital signs, monitor CBC, monitor CMP, monitor telemetry. Monitor vitamin B12 and folate levels. Monitor hemoglobin A1c. Monitor TSH. Labs and medication were reviewed. Continue with symptomatic treatment. Resume home medication. Monitor labs and vitals. DVT and GI prophylaxis. Further recommendations as per clinical course of the patient Dictation was produced using [employer] dictation software. please excuse any gramm atical, word or spelling errors. Past Medical History Past Medical History: Coronary Artery Disease (CAD), Diabetes Mellitus, GERD/Reflux, Hyperlipidemia, Hypertension Additional Past Medical History / Comment(s): NIDDM type II, dyslexia. History of Any Multi-Drug Resistant Organisms: ESBL Date of last positivie culture/infection: 08/11/21-ESBL MDRO Source:: URINE Past Surgical History: Adenoidectomy, Section, Tonsillectomy Additional Past Surgical History / Comment(s): Nasal surgery Past Anesthesia/Blood Transfusion Reactions: Postoperative Nausea & Vomiting (PONV) Additional Past Anesthesia/Blood Transfusion Reaction / Comment(s): Pt states she has never received blood. Past Psychological History: Anxiety, Depression, Panic Disorder Smoking Status: Never smoker, Light tobacco smoker Past Alcohol Use History: None Reported Past Drug Use History: None Reported - Past Family History Mother Family Medical History: Cancer Additional Family Medical History / Comment(s): Mother has lymphoma. Father History Unknown: Yes Additional Family Medical History / Comment(s): Father left when pt was 2 months old. Medications and Allergies Home Medications Medication Instructions Recorded Confirmed Type Ezetimibe [Zetia] 10 mg PO DAILY 03/17/20 09/17/23 History Omeprazole 40 mg PO DAILY 01/26/21 09/17/23 History Cetirizine HCl [Zyrtec] 10 mg PO DAILY 08/04/22 09/17/23 History Mirabegron [Myrbetriq] 50 mg PO DAILY 08/04/22 09/17/23 History Escitalopram [Lexapro] 20 mg PO DAILY 30 Days #30 tab 07/03/23 07/28/24 Rx Fenofibrate [Lofibra] 160 mg PO DAILY 11/03/22 09/17/23 History Insulin Aspart [NovoLOG Flexpen] 10 units SQ AC-TID MDD 100 units 03/29/23 09/17/23 History Insulin Aspart [NovoLOG Flexpen] See Protocol SQ AC-TID PRN MDD 100 03/29/23 09/17/23 History units Aspirin EC [Ecotrin Low Dose] 81 mg PO DAILY 08/18/23 09/17/23 History traZODone HCL 100 mg PO HS #30 tablet 09/13/23 09/17/23 Rx ARIPiprazole [Abilify] 15 mg PO DAILY 30 Days #30 tablet 09/15/23 09/17/23 Rx metFORMIN HCL 1,000 mg PO BID 30 Days #60 tab 09/15/23 09/17/23 Rx Allergies Allergy/AdvReac Type Severity Reaction Status Date / Time Penicillins Allergy Severe Anaphylaxis Verified 09/15/23 17:35 cephalexin monohydrate Allergy Anaphylaxis Verified 09/15/23 17:35 [From Keflex] iodine Allergy Rash/Hives Verified 09/15/23 17:35 Mushroom AdvReac Unknown Verified 09/15/23 17:35 Physical Exam Vitals: Vital Signs Temp Pulse Resp BP Pulse Ox 09/18/23 07:43 88 16 140/80 94 L 09/18/23 05:19 70 18 140/81 99 09/18/23 04:00 96 128/87 09/18/23 02:00 86 18 128/87 95 09/18/23 00:30 69 17 129/89 95 09/18/23 00:00 78 17 126/67 96 09/17/23 23:00 74 153/89 93 L 09/17/23 22:30 72 16 106/84 95 09/17/23 22:00 78 17 126/95 94 L 09/17/23 21:30 75 16 142/87 95 09/17/23 21:09 65 14 118/83 93 L 09/17/23 20:00 89 16 128/87 96 09/17/23 19:30 89 18 132/92 95 09/17/23 18:40 92 17 123/76 94 L 09/17/23 17:00 93 17 121/83 96 09/17/23 16:30 82 16 125/73 94 L 09/17/23 16:16 98.3 F 82 20 126/87 97 Intake and Output 09/17/23 09/18/23 09/18/23 22:59 06:59 14:59 Other: Weight 90.718 kg Results CBC & Chem 7: 09/18/23 06:42 09/18/23 06:42 Labs: Abnormal Lab Results - Last 24 Hours (Table) 09/17/23 09/17/23 09/17/23 Range/Units 16:46 16:46 19:14 APTT 20.5 L (22.0-30.0) sec Potassium (3.5-5.1) mmol/L Chloride 108 H (98-107) mmol/L BUN (7-17) mg/dL Creatinine (0.52-1.04) mg/dL Glucose 138 H (74-99) mg/dL POC Glucose (mg/dL) (70-110) mg/dL ALT 44 H (4-34) U/L Total Protein 6.2 L (6.3-8.2) g/dL Urine Appearance Turbid H (Clear) Urine Protein 2+ H (Negative) Urine Blood Small H (Negative) Ur Leukocyte Esterase Large H (Negative) Urine RBC 70 H (0-5) /hpf Urine WBC >182 H (0-5) /hpf Urine WBC Clumps Occasional H (None) /hpf Ur Squamous Epith Cells 12 H (0-4) /hpf Calcium Oxalate Crystal Many H (None) /hpf Amorphous Sediment Rare H (None) /hpf Urine Bacteria Many H (None) /hpf Urine Mucus Many H (None) /hpf U Marijuana (THC) Screen Detected H (NotDetected) 09/18/23 09/18/23 Range/Units 06:42 07:28 APTT (22.0-30.0) sec Potassium 3.4 L (3.5-5.1) mmol/L Chloride 110 H (98-107) mmol/L BUN 6 L (7-17) mg/dL Creatinine 0.44 L (0.52-1.04) mg/dL Glucose 165 H (74-99) mg/dL POC Glucose (mg/dL) 154 H (70-110) mg/dL ALT (4-34) U/L Total Protein (6.3-8.2) g/dL Urine Appearance (Clear) Urine Protein (Negative) Urine Blood (Negative) Ur Leukocyte Esterase (Negative) Urine RBC (0-5) /hpf Urine WBC (0-5) /hpf Urine WBC Clumps (None) /hpf Ur Squamous Epith Cells (0-4) /hpf Calcium Oxalate Crystal (None) /hpf Amorphous Sediment (None) /hpf Urine Bacteria (None) /hpf Urine Mucus (None) /hpf U Marijuana (THC) Screen (NotDetected)
[2023-09-18] MEDS: LEVOFLOXACIN 500MG-D5W PMX 500 MG in DEXTROSE/WATER 1 100ML.BAG IVPB SCH (16:12)
--- NOTE | 2023-09-18 16:55 | US ---
EXAMINATION TYPE: US kidneys/renal and bladder DATE OF EXAM: 09/18/2023 COMPARISON: 11/03/22, 9016 CLINICAL INDICATION: Female, 52 years old with history of Sondra; SONDRA EXAM MEASUREMENTS: Right Kidney: 13.1 x 7.0 x 6.0 cm Left Kidney: 11.8 x 6.0 x 5.4 cm Right Kidney: echogenic focus seen mid pole with post shadowing measuring 2.4cm Left Kidney: hypoechoic area seen at mid pole, possible dromedary hump vs other etiology Bladder: wnl Bilateral Jets seen: No There is no evidence for hydronephrosis at this point in time. No nephrolithiasis is seen. No gregoria s are identified. The urinary bladder is anechoic. Bilateral ureteral jets are seen. IMPRESSION: 1. No evidence for obstructive uropathy. 2. No suspicious masses. 3. Left kidney masslike area considers CT mass protocol to rule out underlying lesion. Findings may alternatively represent dromedary hump.
[2023-09-18 17:32] LABS: Glucose,Whole Blood 161 mg/dL (70-110)
[2023-09-18 19:38] LABS: Glucose,Whole Blood 166 mg/dL (70-110)
--- NOTE | 2023-09-18 23:36 | EEG ---
ELECTROENCEPHALOGRAM REPORT CLINICAL HISTORY: This is a 52-year-old woman with altered mental status. The video EEG is obtained to evaluate for seizure epileptiform activity. RELEVANT MEDICATIONS: 1. Lexapro. 2. Abilify. 3. Trazodone. DESCRIPTION: Wakefulness is obtained. During awake state, the posterior-dominant rhythm consists of [id number] voltage of 8.5 hertz activity that is well modulated and well sustained. There is no physiological stage 2 sleep architecture. There is no focal slowing. Interictal and ictal is none. ACTIVATION PROCEDURE: Photic stimulation and hyperventilation are not performed. CLINICAL INTERPRETATION: This is a normal routine EEG. There is no focal slowing, epileptiform discharge, or seizure on the EEG. A normal routine EEG does not rule out underlying epilepsy. Clinical correlation is recommended. MMODL / IJN: [id number] /
[2023-09-19 06:19] LABS: Glucose,Whole Blood 165 mg/dL (70-110)
[2023-09-19 08:12] LABS: African American GFR (CKD) >90 (>60 ml/min/1.73 sqM); Anion Gap 9 mmol/L; Blood Urea Nitrogen 7 mg/dL (7-17); Calcium 9.6 mg/dL (8.4-10.2); Carbon Dioxide 21 mmol/L (22-30); Chloride 111 mmol/L (98-107); Glucose 147 mg/dL (74-99); Non-African American GFR(CKD) >90 (>60 ml/min/1.73 sqM); Potassium 3.5 mmol/L (3.5-5.1); Sodium 141 mmol/L (137-145)
[2023-09-19 11:03] LABS: Glucose,Whole Blood 133 mg/dL (70-110)
--- NOTE | 2023-09-19 13:05 | P.PN ---
Subjective Progress Note Date: 09/19/23 I am following-up with patient and she feels she is doing better today. Denies any new neurological issues. Pending MRI Brain. Objective - Vital Signs Vital signs: Vital Signs Temp 97.5 F L 09/19/23 07:10 Pulse 58 L 09/19/23 08:00 Resp 18 09/19/23 08:00 BP 138/94 09/19/23 07:10 Pulse Ox 97 09/19/23 07:10 FiO2 Intake & Output 09/18/23 09/19/23 09/19/23 18:59 06:59 18:59 Intake Total 118 Balance 118 Weight 90.718 kg Intake: Oral 118 Other: Voiding Method Toilet Toilet # Voids 2 - Exam General: lying in bed and does not appear in acute distress. HENT: Supple neck. Neuro: Limited. Patient is awake but is mildly slow to respond. Is oriented to self place and time. Is following simple commands. No aphasia from limited language. Pupils are round equal reactive to light. Visual wharton are full. Extraocular movement and is intact no nystagmus. No facial weakness but the patient appears to have like a facial mask. Tongue is midline and moves [id number] without any difficulty Motor: Gait is normal. Strength is 5/5 throughout. Normal tone and bulk. No resting tremor Cerebellar normal yjarnk-ta-[id number] bilaterally. Reflexes is 2 positive throughout Plantars are mute bilaterally Some of the workup during this hospital visit consisted of: Ammonia level is 21 Calcium is 9.3 AST 33 ALT is 44 TSH: 2.140 HbA1c: 9.2 Urinalysis seems suggestive of likely acute urinary tract infection and Urine drug screen is positive for THC CT of the head is reported as no acute intracranial process. I personally reviewed the CT of the head and agree with the report. Routine EEG: Normal. - Labs CBC & Chem 7: 09/18/23 06:42 09/19/23 06:35 Labs: Abnormal Lab Results - Last 24 Hours (Table) 09/18/23 09/18/23 09/19/23 Range/Units 17:25 19:37 06:18 Chloride (98-107) mmol/L Carbon Dioxide (22-30) mmol/L Creatinine (0.52-1.04) mg/dL Glucose (74-99) mg/dL POC Glucose (mg/dL) 161 H 166 H 165 H (70-110) mg/dL Hemoglobin A1c (<=6.0) % 09/19/23 09/19/23 09/19/23 Range/Units 06:35 06:35 11:01 Chloride 111 H (98-107) mmol/L Carbon Dioxide 21 L (22-30) mmol/L Creatinine 0.47 L (0.52-1.04) mg/dL Glucose 147 H (74-99) mg/dL POC Glucose (mg/dL) 133 H (70-110) mg/dL Hemoglobin A1c 9.2 H (<=6.0) % Assessment and Plan Assessment: This is a 52-year-old woman who present emergency department since the patient women's studies professor by the ED team that the patient was very shaky after coming home from shopping and she was close to passing out and her lips were blue and had to catch her from falling. She has been having declining in mentation. She was found to have acute UTI. Altered mental status seems due to acute urinary tract infection/metabolic encephalopathy--EEG is normal. Acute urinary tract infect Parkinsonian symptoms likely side effects of psychoactive medication Diabetes mellitus and is uncontrolled hemoglobin A1c is 10.4 on 09/07/2023 Hypertension History of coronary artery disease Hyperlipidemia Underlying history of anxiety Underlying history of depression Underlying history of panic disorder Plan: Pending MRI of the brain Pending vitamin B12 and folate level. As stated earlier seems that Dr. Vallejo evaluated the patient and in March 2023 and he felt her parkinsonian symptoms are due to psychoactive medication Seems to the patient has an appointment with Gus Cantu in September 2023 for evaluation. Will defer the rest of the medical management the primary team and other specialist Upon discharge, recommend the patient to follow-up with neurologist as outpatient within 2-3 weeks. The plan is discussed with nurse. If MRI Brain is negative and labs are normal then no further neurological work- up. Time with Patient: Less than 30
[2023-09-19 15:59] LABS: Glucose,Whole Blood 135 mg/dL (70-110)
--- NOTE | 2023-09-19 16:41 | P.PN ---
Subjective Progress Note Date: 09/19/23 52-year-old female presents to the emergency department, after episode of "shakiness" was noted by her boiler shop mechanic. He noticed this and called EMS because he thought she was going to pass out. He states that her lips were blue and he had to catch her from falling. He states he has noticed that her mental status has been declining for some time now. Patient states that she took a THC gummy, which she does on occasion. Past medical history is significant for bipolar, hypertension, hyperlipidemia, [id number]-udlmxtcqk diabetes mellitus type 2, GERD. Supervisor Sample states that he believes she does not have a urinary tract infection, however he is concerned that something neurologic is going on. The patient has an appointment at [facility] scheduled for the end of September. Denies any fevers, denies head trauma. Supervisor Sample provided most of the history in the emergency department because of the patient's sedated state. CT brain done in the ER showed no acute intracranial process, EKG showed some left axis deviation and a pattern consistent with pulmonary disease labs as of this morning show potassium 3.4, chloride 110, BUN of 6, creatinine 0.44, serum glucose 165, POC glucose of 154. Patient's urine in the emergency department is a turbid appearance, 2+ protein, small amount blood, large amount of leukocyte esterase, 70 urine RBCs, greater than 182 urine WBCs, occasional WBC clumps, many bacteria. She was given one-time IV levofloxacin in the emergency department. When seen later in the morning patient had become a bit less lethargic like, however still difficult to communicate and raymundo much history from. Initial lab work done in the ER showed CBC within normal limits, chloride 108, serum glucose 138, PTT 20.5, ALT 44, total protein 6.2, ammonia 21, positive urinalysis with many bacteria, large amounts of leukocyte esterase, greater than 182 WBCs. Urine THC screen also positive. EKG done in the ER showed heart rate of 76, with left axis deviation, pattern consistent with pulmonary disease. CT brain showed no acute intracranial process Chest x-ray showed no acute cardiopulmonary disease/process 09/18 - Patient seen the bedside today. Patient presents last sedated, with more ability to communicate today than yesterday. Per neurology's recommendation an EEG was performed yesterday which showed no focal slowing, epileptiform discharge, or seizure on the EEG. Stating a normal routine EEG does not rule out underlying epilepsy. Additionally, chest x-ray completed yesterday showed no acute cardiopulmonary disease process. Abdominal/bladder ultrasound showed no evidence for obstructive uropathy, no suspicious masses, left kidney masslike area consider CT mass protocol to rule out underlying disease findings may alternatively represent dromedary hump. Overnight the patient's blood pressure remained controlled, most readings consisting of 120s/80s the patient continues to saturate in the mid/upper 90s while on room air. Discussion with the nurse, her boiler shop mechanic discussed possibility of polypharmacy playing a role in the patient's condition. Brain MRI scheduled to be completed today however due to scheduling will not be completed until tomorrow. Labs done today -sodium 141, potassium 3.5, chloride 111, bicarb 201, creatinine 0.47, glucose 147, calcium 9.6 Chest x-ray completed on 09/17 - showed no acute cardiopulmonary disease process. Abdominal/bladder ultrasound - no evidence of obstructive uropathy. No suspicious masses. Left kidney masslike area - consider CT mass protocol to rule out underlying lesion - findings may alternatively represent dromedary hump. EEG -showed no focal slowing, epileptiform discharge, or seizures on the EEG. Normal routine EEG does not rule out underlying epilepsy. Clinical correlation is recommended. REVIEW OF SYSTEMS: CONSTITUTIONAL: No fever, no malaise, no fatigue. HEENT: No recent visual problems or hearing problems. Denied any sore throat. CARDIOVASCULAR: No chest pain, orthopnea, PND, no palpitations, no syncope. PULMONARY: No shortness of breath, no cough, no hemoptysis. GASTROINTESTINAL: No diarrhea, no nausea, no vomiting, no abdominal pain. NEUROLOGICAL: No headaches, no weakness, no numbness. HEMATOLOGICAL: Denies any bleeding or petechiae. GENITOURINARY: Denies any burning micturition, frequency, or urgency. MUSCULOSKELETAL/RHEUMATOLOGICAL: Denies any joint pain, swelling, or any muscle pain. ENDOCRINE: Denies any polyuria or polydipsia. The rest of the 14-point review of systems is negative. PHYSICAL EXAMINATION: GENERAL: Patient has altered mental status and appears lethargic. HEENT: Pupils are round and equally reacting to light. EOMI. No scleral icterus. No conjunctival pallor. Normocephalic, atraumatic. No pharyngeal erythema. No thyromegaly. CARDIOVASCULAR: S1 and S2 present. No murmurs, rubs, or gallops. PULMONARY: Chest is clear to auscultation, no wheezing or crackles. ABDOMEN: Soft, nontender, nondistended, normoactive bowel sounds. No palpable organomegaly. BACK: MUSCULOSKELETAL: No joint swelling or deformity. EXTREMITIES: No cyanosis, clubbing, or pedal edema. NEUROLOGICAL: Gross neurological examination did not reveal any focal deficits. SKIN: No rashes. Assessment and plan #Acute encephalopathy secondary to urinary tract infection Patient presented with altered mental status Patient's urinalysis indicated signs of urinary tract infection Neurology consulted, EEG and brain MRI ordered Urine culture ordered Patient was given levofloxacin 750 mg IV once while in the emergency department, will continue on 500 mg levofloxacin IV for 2 more days until Monday, 09/19 There is moderate tenderness to palpation over bilateral costovertebral angles Ultrasound kidneys/bladder showed no suspicious masses. No evidence of obstructive uropathy. Left kidney masslike area, where CT mass protocol should be considered to rule out underlying lesion. Brain MRI to be completed today #Hypertension Not on any medications currently Majority of patient's blood pressures since arrival have been in the 120s/80s #Hyperlipidemia Takes 160 mg p.o. daily of fenofibrate, 10 mg p.o. daily ezetimibe, 81 mg aspirin p.o. daily at home #Mvi-hatmimd-lceilfyzb diabetes mellitus type 2 Takes metformin 1000 mg p.o. 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 daily and aripiprazole, 20 mg daily citalopram at home #Gastroesophageal reflux disease Takes omeprazole at home On 40 mg Protonix #Head lice While in the emergency department patient was found to have head lice Patient was given permethrin 1% creme rinse Continue to monitor vital signs, monitor CBC, monitor CMP, monitor telemetry. Monitor vitamin B12 and folate levels. Monitor hemoglobin A1c. Monitor TSH. Labs and medication were reviewed. Continue with symptomatic treatment. Resume home medication. Monitor labs and vitals. DVT and GI prophylaxis. Further recommendations as per clinical course of the patient Dictation was produced using dragon dictation software. please excuse any grammatical, word or spelling errors. Objective - Vital Signs Vital signs: Vital Signs Temp 98.3 F 09/17/23 16:16 Pulse 97 09/19/23 02:00 Resp 16 09/19/23 03:54 BP 127/80 09/19/23 02:00 Pulse Ox 94 L 09/19/23 03:54 FiO2 Intake & Output 09/18/23 09/19/23 09/19/23 18:59 06:59 18:59 Weight 90.718 kg Other: Voiding Method Toilet # Voids 2 - Labs CBC & Chem 7: 09/18/23 06:42 09/19/23 06:35 Labs: Abnormal Lab Results - Last 24 Hours (Table) 09/18/23 09/18/23 09/18/23 Range/Units 06:42 07:28 17:25 Potassium 3.4 L (3.5-5.1) mmol/L Chloride 110 H (98-107) mmol/L BUN 6 L (7-17) mg/dL Creatinine 0.44 L (0.52-1.04) mg/dL Glucose 165 H (74-99) mg/dL POC Glucose (mg/dL) 154 H 161 H (70-110) mg/dL 09/18/23 09/19/23 Range/Units 19:37 06:18 Potassium (3.5-5.1) mmol/L Chloride (98-107) mmol/L BUN (7-17) mg/dL Creatinine (0.52-1.04) mg/dL Glucose (74-99) mg/dL POC Glucose (mg/dL) 166 H 165 H (70-110) mg/dL
[2023-09-19] MEDS: ONDANSETRON 4 MG/2 ML VIAL IVP PRN (18:42)
[2023-09-19 19:51] LABS: Glucose,Whole Blood 108 mg/dL (70-110)
[2023-09-20 05:30] LABS: Glucose,Whole Blood 163 mg/dL (70-110)
[2023-09-20 07:51] VITALS: BMI 32.3
[2023-09-20] MEDS: PANTOPRAZOLE 40 MG/10 ML VIAL IVP SCH (09:36)
[2023-09-20 11:42] LABS: Glucose,Whole Blood 138 mg/dL (70-110)
--- NOTE | 2023-09-20 15:27 | P.PN ---
Subjective Progress Note Date: 09/20/23 52-year-old female presents to the emergency department, after episode of "shakiness" was noted by her office machine service supervisor. He noticed this and called EMS because he thought she was going to pass out. He states that her lips were blue and he had to catch her from falling. He states he has noticed that her mental status has been declining for some time now. Patient states that she took a THC gummy, which she does on occasion. Past medical history is significant for bipolar, hypertension, hyperlipidemia, slh-rrynfkd-lclgaloei diabetes mellitus type 2, GERD. Case Checker states that he believes she does not have a urinary tract infection, however he is concerned that something neurologic is going on. The patient has an appointment at [facility] scheduled for the end of September. Denies any fevers, denies head trauma. Case Checker provided most of the history in the emergency department because of the patient's sedated state. CT brain done in the ER showed no acute intracranial process, EKG showed some left axis deviation and a pattern consistent with pulmonary disease labs as of this morning show potassium 3.4, chloride 110, BUN of 6, creatinine 0.44, serum glucose 165, POC glucose of 154. Patient's urine in the emergency department is a turbid appearance, 2+ protein, small amount blood, large amount of leukocyte esterase, 70 urine RBCs, greater than 182 urine WBCs, occasional WBC clumps, many bacteria. She was given one-time IV levofloxacin in the emergency department. When seen later in the morning patient had become a bit less lethargic like, however still difficult to communicate and raymundo much history from. Initial lab work done in the ER showed CBC within normal limits, chloride 108, serum glucose 138, PTT 20.5, ALT 44, total protein 6.2, ammonia 21, positive urinalysis with many bacteria, large amounts of leukocyte esterase, greater than 182 WBCs. Urine THC screen also positive. EKG done in the ER showed heart rate of 76, with left axis deviation, pattern consistent with pulmonary disease. CT brain showed no acute intracranial process Chest x-ray showed no acute cardiopulmonary disease/process 09/18 - Patient seen the bedside today. Patient presents last sedated, with more ability to communicate today than yesterday. Per neurology's recommendation an EEG was performed yesterday which showed no focal slowing, epileptiform discharge, or seizure on the EEG. Stating a normal routine EEG does not rule out underlying epilepsy. Additionally, chest x-ray completed yesterday showed no acute cardiopulmonary disease process. Abdominal/bladder ultrasound showed no evidence for obstructive uropathy, no suspicious masses, left kidney masslike area consider CT mass protocol to rule out underlying disease findings may alternatively represent dromedary hump. Overnight the patient's blood pressure remained controlled, most readings consisting of 120s/80s the patient continues to saturate in the mid/upper 90s while on room air. Discussion with the nurse, her office machine service supervisor discussed possibility of polypharmacy playing a role in the patient's condition. Brain MRI scheduled to be completed today however due to scheduling will not be completed until tomorrow. Labs done today -sodium 141, potassium 3.5, chloride 111, bicarb 201, creatinine 0.47, glucose 147, calcium 9.6 Chest x-ray completed on 09/17 - showed no acute cardiopulmonary disease process. Abdominal/bladder ultrasound - no evidence of obstructive uropathy. No suspicious masses. Left kidney masslike area - consider CT mass protocol to rule out underlying lesion - findings may alternatively represent dromedary hump. EEG -showed no focal slowing, epileptiform discharge, or seizures on the EEG. Normal routine EEG does not rule out underlying epilepsy. Clinical correlation is recommended. 09/19 - Patient seen at bedside. Patient mentation and functioning status remains at her baseline. Brain MRI is pending. Medication between the case management manager and the patient's office machine service supervisor regarding what steps to take upon discharge are ongoing currently. Urine culture showed greater than 100,000 patient CFU/mL. Skin and/or genital ochoa. Today's last day of patient being on 500 mg levofloxacin. Patient was scheduled to undergo brain MRI today, however nurse states that patient became agitated and unsettled when attempting to get the MRI and refused to try going into it again even with medications. Labs done today -hemoglobin A1c is 09/18 9.2, serum glucose on 09/18 147, most recent POC glucose 138 Imaging none today - none. REVIEW OF SYSTEMS: CONSTITUTIONAL: No fever, no malaise, no fatigue. HEENT: No recent visual problems or hearing problems. Denied any sore throat. CARDIOVASCULAR: No chest pain, orthopnea, PND, no palpitations, no syncope. PULMONARY: No shortness of breath, no cough, no hemoptysis. GASTROINTESTINAL: No diarrhea, no nausea, no vomiting, no abdominal pain. NEUROLOGICAL: No headaches, no weakness, no numbness. HEMATOLOGICAL: Denies any bleeding or petechiae. GENITOURINARY: Denies any burning micturition, frequency, or urgency. MUSCULOSKELETAL/RHEUMATOLOGICAL: Denies any joint pain, swelling, or any muscle pain. ENDOCRINE: Denies any polyuria or polydipsia. The rest of the 14-point review of systems is negative. PHYSICAL EXAMINATION: GENERAL: Patient has altered mental status and appears lethargic. HEENT: Pupils are round and equally reacting to light. EOMI. No scleral icterus. No conjunctival pallor. Normocephalic, atraumatic. No pharyngeal erythema. No thyromegaly. CARDIOVASCULAR: S1 and S2 present. No murmurs, rubs, or gallops. PULMONARY: Chest is clear to auscultation, no wheezing or crackles. ABDOMEN: Soft, nontender, nondistended, normoactive bowel sounds. No palpable organomegaly. BACK: Moderate CVA tenderness. MUSCULOSKELETAL: No joint swelling or deformity. EXTREMITIES: No cyanosis, clubbing, or pedal edema. NEUROLOGICAL: Gross neurological examination did not reveal any focal deficits. SKIN: No rashes. Assessment and plan #Acute encephalopathy secondary to urinary tract infection Patient presented with altered mental status Patient's urinalysis indicated signs of urinary tract infection Neurology consulted, EEG and brain MRI ordered Urine culture ordered Patient was given levofloxacin 750 mg IV once while in the emergency department, will continue on 500 mg levofloxacin IV for 2 more days until Monday, 09/19 There is moderate tenderness to palpation over bilateral costovertebral angles Ultrasound kidneys/bladder showed no suspicious masses. No evidence of obstructive uropathy. Left kidney masslike area, where CT mass protocol should be considered to rule out underlying lesion. Brain MRI to be completed today; patient was unwilling to cooperate to set through the brain MRI today. #Hypertension Not on any medications currently Majority of patient's blood pressures since arrival have been in the 120s/80s #Hyperlipidemia Takes 160 mg p.o. daily of fenofibrate, 10 mg p.o. daily ezetimibe, 81 mg aspirin p.o. daily at home #Gxs-qpqcsvu-hvexybavo diabetes mellitus type 2 Takes metformin 1000 mg p.o. 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 daily and aripiprazole, 20 mg daily citalopram at home #Gastroesophageal reflux disease Takes omeprazole at home On 40 mg Protonix #Head lice While in the emergency department patient was found to have head lice Patient was given permethrin 1% creme rinse Continue to monitor vital signs, monitor CBC, monitor CMP, monitor telemetry. Monitor vitamin B12 and folate levels. Monitor hemoglobin A1c. Monitor TSH. Labs and medication were reviewed. Continue with symptomatic treatment. Resume home medication. Monitor labs and vitals. DVT and GI prophylaxis. Further recommendations as per clinical course of the patient Dictation was produced using [employer] dictation software. please excuse any grammatical, word or spelling errors. Objective - Vital Signs Vital signs: Vital Signs Temp 97.9 F 09/20/23 01:37 Pulse 80 09/20/23 01:37 Resp 18 09/20/23 01:37 BP 120/72 09/20/23 01:37 Pulse Ox 96 09/20/23 01:37 FiO2 Intake & Output 09/19/23 09/19/23 09/20/23 06:59 18:59 06:59 Intake Total 236 480 Balance 236 480 Weight 90.718 kg Intake: Oral 236 480 Other: Voiding Method Toilet Toilet Toilet # Voids 2 3 1 - Labs CBC & Chem 7: 09/18/23 06:42 09/19/23 06:35 Labs: Abnormal Lab Results - Last 24 Hours (Table) 09/19/23 09/19/23 09/19/23 Range/Units 06:35 06:35 11:01 Chloride 111 H (98-107) mmol/L Carbon Dioxide 21 L (22-30) mmol/L Creatinine 0.47 L (0.52-1.04) mg/dL Glucose 147 H (74-99) mg/dL POC Glucose (mg/dL) 133 H (70-110) mg/dL Hemoglobin A1c 9.2 H (<=6.0) % 09/19/23 09/20/23 Range/Units 15:57 05:29 Chloride (98-107) mmol/L Carbon Dioxide (22-30) mmol/L Creatinine (0.52-1.04) mg/dL Glucose (74-99) mg/dL POC Glucose (mg/dL) 135 H 163 H (70-110) mg/dL Hemoglobin A1c (<=6.0) % Microbiology - Last 24 Hours (Table) 09/17/23 19:14 Urine Culture - Final Urine,Voided
[2023-09-20 16:48] LABS: Glucose,Whole Blood 141 mg/dL (70-110)
--- NOTE | 2023-09-20 17:09 | P.PN ---
Subjective Progress Note Date: 09/20/23 I am following up with the patient and no new neurological issues. Per the nurse patient could not tolerate MRI. Objective - Vital Signs Vital signs: Vital Signs Temp 98.3 F 09/20/23 07:44 Pulse 81 09/20/23 07:44 Resp 17 09/20/23 07:44 BP 112/74 09/20/23 07:44 Pulse Ox 96 09/20/23 07:44 FiO2 Intake & Output 09/19/23 09/20/23 09/20/23 18:59 06:59 18:59 Intake Total 236 480 Balance 236 480 Weight 90.718 kg Intake: Oral 236 480 Other: Voiding Method Toilet Toilet # Voids 3 1 - Exam General: lying in bed and does not appear in acute distress. HENT: Supple neck. Neuro: Limited. Patient is awake but is mildly slow to respond. Is oriented to self place and time. Is following simple commands. No aphasia from limited language. Pupils are round equal reactive to light. Visual wharton are full. Extraocular movement and is intact no nystagmus. No facial weakness but the patient appears to have like a facial mask. Tongue is midline and moves [id number] without any difficulty Motor: Gait is normal. Strength is 5/5 throughout. Normal tone and bulk. No resting tremor Cerebellar normal [id number] bilaterally. Reflexes is 2 positive throughout Plantars are mute bilaterally Some of the workup during this hospital visit consisted of: Ammonia level is 21 Calcium is 9.3 AST 33 ALT is 44 TSH: 2.140 HbA1c: 9.2 B12: 330 Serum Folate level: 12.90 Urinalysis seems suggestive of likely acute urinary tract infection and Urine drug screen is positive for THC CT of the head is reported as no acute intracranial process. I personally reviewed the CT of the head and agree with the report. Routine EEG: Normal. - Labs CBC & Chem 7: 09/18/23 06:42 09/19/23 06:35 Labs: Abnormal Lab Results - Last 24 Hours (Table) 09/20/23 09/20/23 09/20/23 Range/Units 05:29 11:40 16:47 POC Glucose (mg/dL) 163 H 138 H 141 H (70-110) mg/dL Microbiology - Last 24 Hours (Table) 09/17/23 19:14 Urine Culture - Final Urine,Voided Assessment and Plan Assessment: This is a 52-year-old woman who present emergency department since the patient admitting clerk by the ED team that the patient was very shaky after coming home from shopping and she was close to passing out and her lips were blue and had to catch her from falling. She has been having declining in mentation. She was found to have acute UTI. Altered mental status seems due to acute urinary tract infection/metabolic encephalopathy--EEG is normal. Acute urinary tract infect Parkinsonian symptoms likely side effects of psychoactive medication Diabetes mellitus and is uncontrolled hemoglobin A1c is 10.4 on 09/07/2023 Hypertension History of coronary artery disease Hyperlipidemia Underlying history of anxiety Underlying history of depression Underlying history of panic disorder Plan: She could not tolerate MRI of the brain As stated earlier seems that Dr. Vallejo evaluated the patient and in March 2023 and he felt her parkinsonian symptoms are due to psychoactive medication Seems to the patient has an appointment with Gus Cantu in September 2023 for evaluation. Will defer the rest of the medical management the primary team and other specialist Upon discharge, recommend the patient to follow-up with neurologist as outpatient within 2-3 weeks. The plan is discussed with nurse. Otherwise, no additional neurological work-up. Time with Patient: Less than 30
[2023-09-20 20:09] LABS: Glucose,Whole Blood 106 mg/dL (70-110)
[2023-09-20] MEDS: MELATONIN 5 MG TABLET PO SCH (22:47)
[2023-09-21 05:39] LABS: Glucose,Whole Blood 168 mg/dL (70-110)
[2023-09-21 07:46] VITALS: BP 130/80; PULSE 88; RESP 17; TEMP 97.9
[2023-09-21 12:04] LABS: Glucose,Whole Blood 209 mg/dL (70-110)
--- NOTE | 2023-09-21 15:13 | P.DS ---
Providers Date of admission: 09/17/23 21:14 Attending physician: Mirella Cook Consults: 09/17/23 21:14 Consult Physician Urgent Consulting Provider: Martin Vallejo Consult Reason/Comments: acute encephalopathy, parkinson like features Do you want consulting provider notified?: Yes Primary care physician: Nelly Maldonado [facility] Course: Discharge diagnoses; #Acute encephalopathy secondary to urinary tract infection Patient presented with altered mental status Patient's urinalysis indicated signs of urinary tract infection Neurology consulted, EEG and brain MRI ordered Urine culture ordered Patient was given levofloxacin 750 mg IV once while in the emergency department, will continue on 500 mg levofloxacin IV for 2 more days until Monday, 09/19 There is moderate tenderness to palpation over bilateral costovertebral angles Ultrasound kidneys/bladder showed no suspicious masses. No evidence of obstructive uropathy. Left kidney masslike area, where CT mass protocol should be considered to rule out underlying lesion. Brain MRI to be completed today; patient was unwilling to cooperate to set through the brain MRI today. #Hypertension Not on any medications currently Majority of patient's blood pressures since arrival have been in the 120s/80s #Hyperlipidemia Takes 160 mg p.o. daily of fenofibrate, 10 mg p.o. daily ezetimibe, 81 mg aspirin p.o. daily at home #Uwm-jqbmewb-tpahdnywd diabetes mellitus type 2 Takes metformin 1000 mg p.o. 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 daily and aripiprazole, 20 mg daily citalopram at home #Gastroesophageal reflux disease Takes omeprazole at home On 40 mg Protonix #Head lice While in the emergency department patient was found to have head lice Patient was given permethrin 1% creme rinse Hospital course; 52-year-old female presents to the emergency department, after episode of "shakiness" was noted by her paraprofessional education assistant. He noticed this and called EMS because he thought she was going to pass out. He states that her lips were blue and he had to catch her from falling. He states he has noticed that her mental status has been declining for some time now. Patient states that she took a THC gummy, which she does on occasion. Past medical history is significant for bipolar, hypertension, hyperlipidemia, fgu-hapoxwq-scjhwbtdp diabetes mellitus type 2, GERD. Sink Cutter states that he believes she does not have a urinary tract infection, however he is concerned that something neurologic is going on. The patient has an appointment at [facility] scheduled for the end of September. Denies any fevers, denies head trauma. Sink Cutter provided most of the history in the emergency department because of the patient's sedated state. CT brain done in the ER showed no acute intracranial process, EKG showed some left axis deviation and a pattern consistent with pulmonary disease labs as of this morning show potassium 3.4, chloride 110, BUN of 6, creatinine 0.44, serum glucose 165, POC glucose of 154. Patient's urine in the emergency department is a turbid appearance, 2+ protein, small amount blood, large amount of leukocyte esterase, 70 urine RBCs, greater than 182 urine WBCs, occasional WBC clumps, many bacteria. She was given one-time IV levofloxacin in the emergency department. When seen later in the morning patient had become a bit less lethargic like, however still difficult to communicate and raymundo much history from. Initial lab work done in the ER showed CBC within normal limits, chloride 108, serum glucose 138, PTT 20.5, ALT 44, total protein 6.2, ammonia 21, positive urinalysis with many bacteria, large amounts of leukocyte esterase, greater than 182 WBCs. Urine THC screen also positive. EKG done in the ER showed heart rate of 76, with left axis deviation, pattern consistent with pulmonary disease. CT brain showed no acute intracranial process Chest x-ray showed no acute cardiopulmonary disease/process 09/18 - Patient seen the bedside today. Patient presents last sedated, with more ability to communicate today than yesterday. Per neurology's recommendation an EEG was performed yesterday which showed no focal slowing, epileptiform discharge, or seizure on the EEG. Stating a normal routine EEG does not rule out underlying epilepsy. Additionally, chest x-ray completed yesterday showed no acute cardiopulmonary disease process. Abdominal/bladder ultrasound showed no evidence for obstructive uropathy, no suspicious masses, left kidney masslike area consider CT mass protocol to rule out underlying disease findings may alternatively represent dromedary hump. Overnight the patient's blood pressure remained controlled, most readings consisting of 120s/80s the patient continues to saturate in the mid/upper 90s while on room air. Discussion with the nurse, her paraprofessional education assistant discussed possibility of polypharmacy playing a role in the patient's condition. Brain MRI scheduled to be completed today however due to scheduling will not be completed until tomorrow. Labs done today -sodium 141, potassium 3.5, chloride 111, bicarb 201, creatinine 0.47, glucose 147, calcium 9.6 Chest x-ray completed on 09/17 - showed no acute cardiopulmonary disease process. Abdominal/bladder ultrasound - no evidence of obstructive uropathy. No suspicious masses. Left kidney masslike area - consider CT mass protocol to rule out underlying lesion - findings may alternatively represent dromedary hump. EEG -showed no focal slowing, epileptiform discharge, or seizures on the EEG. Normal routine EEG does not rule out underlying epilepsy. Clinical correlation is recommended. 09/19 - Patient seen at bedside. Patient mentation and functioning status remains at her baseline. Brain MRI is pending. Medication between the telephonic case manager and the patient's paraprofessional education assistant regarding what steps to take upon discharge are ongoing currently. Urine culture showed greater than 100,000 patient CFU/mL. Skin and/or genital ochoa. Today's last day of patient being on 500 mg levofloxacin. Patient was scheduled to undergo brain MRI today, however nurse states that patient became agitated and unsettled when attempting to get the MRI and refused to try going into it again even with medications. Labs done today - Hemoglobin A1c is 09/18 9.2, serum glucose on 09/18 147, most recent POC glucose 138 Imaging done today - Patient unable to tolerate brain MRI 09/20 - Patient seen at bedside today. Patient was scheduled for brain MRI yesterday, however was unable to tolerate it. Patient remains the same as she was yesterday. Per neurology's recommendation, patient should follow-up with an outpatient neurology in 2-3 weeks, no additional neurologic workup from their end. Per patient's paraprofessional education assistant, she has multiple appointments tomorrow which he needs to attend. He is okay with her being discharged home for tomorrow, and then following her appointments she will be taken to extended-care facility. Neurology cleared the patient for discharge, stating patient should follow-up with neurologist outpatient within 2-3 weeks. PHYSICAL EXAMINATION: GENERAL: Patient has altered mental status and appears lethargic. HEENT: Pupils are round and equally reacting to light. EOMI. No scleral icterus. No conjunctival pallor. Normocephalic, atraumatic. No pharyngeal erythema. No thyromegaly. CARDIOVASCULAR: S1 and S2 present. No murmurs, rubs, or gallops. PULMONARY: Chest is clear to auscultation, no wheezing or crackles. ABDOMEN: Soft, nontender, nondistended, normoactive bowel sounds. No palpable organomegaly. BACK: Moderate CVA tenderness. MUSCULOSKELETAL: No joint swelling or deformity. EXTREMITIES: No cyanosis, clubbing, or pedal edema. NEUROLOGICAL: Gross neurological examination did not reveal any focal deficits. SKIN: No rashes. Dictation was produced using [employer] dictation software. please excuse any grammatical, word or spelling errors. Patient Condition at Discharge: Stable Plan - Discharge Summary New Discharge Prescriptions: Continue Ezetimibe [Zetia] 10 mg PO DAILY Insulin Aspart [NovoLOG Flexpen] 10 units SQ AC-TID MDD 100 units Insulin Aspart [NovoLOG Flexpen] See Protocol SQ AC-TID PRN MDD 100 units PRN Reason: high blood sugar traZODone HCL 100 mg PO HS #30 tablet metFORMIN HCL 1,000 mg PO BID 30 Days #60 tab Omeprazole 40 mg PO DAILY Mirabegron [Myrbetriq] 50 mg PO DAILY Cetirizine HCl [Zyrtec] 10 mg PO DAILY Escitalopram [Lexapro] 20 mg PO DAILY 30 Days #30 tab Fenofibrate [Lofibra] 160 mg PO DAILY Aspirin EC [Ecotrin Low Dose] 81 mg PO DAILY ARIPiprazole [Abilify] 15 mg PO DAILY 30 Days #30 tablet Discharge Medication List Ezetimibe [Zetia] 10 mg PO DAILY 03/17/20 [History] Omeprazole 40 mg PO DAILY 01/26/21 [History] Cetirizine HCl [Zyrtec] 10 mg PO DAILY 08/04/22 [History] Mirabegron [Myrbetriq] 50 mg PO DAILY 08/04/22 [History] Escitalopram [Lexapro] 20 mg PO DAILY 30 Days #30 tab 08/22/22 [Rx] Fenofibrate [Lofibra] 160 mg PO DAILY 11/03/22 [History] Insulin Aspart [NovoLOG Flexpen] 10 units SQ AC-TID MDD 100 units 03/29/23 [History] Insulin Aspart [NovoLOG Flexpen] See Protocol SQ AC-TID PRN MDD 100 units 03/29/23 [History] Aspirin EC [Ecotrin Low Dose] 81 mg PO DAILY 08/18/23 [History] traZODone HCL 100 mg PO HS #30 tablet 09/13/23 [Rx] ARIPiprazole [Abilify] 15 mg PO DAILY 30 Days #30 tablet 09/15/23 [Rx] metFORMIN HCL 1,000 mg PO BID 30 Days #60 tab 09/15/23 [Rx] Follow up Appointment(s)/Referral(s): Nelly Maldonado MD [Primary Care Provider] - 1-2 days
== END 2023-09-21 16:44 ==
LOC: EC 16:04 → 5NMEDONC 21:14 → 1SOBS 09-18 15:14
PROVIDERS: ADMIT Hospitalist; ATTEND Hospitalist
DX: G93.49 Other encephalopathy (principal); N39.0 Urinary tract infection, site not specified; F31.9 Bipolar disorder, unspecified; I10 Essential (primary) hypertension; E78.5 Hyperlipidemia, unspecified; I25.10 Atherosclerotic heart disease of native coronary artery without angina pectoris; E11.9 Type 2 diabetes mellitus without complications; K21.9 Gastro-esophageal reflux disease without esophagitis; F41.0 Panic disorder [episodic paroxysmal anxiety]; F12.10 Cannabis abuse, uncomplicated; B85.0 Pediculosis due to Pediculus humanus capitis; Z79.4 Long term (current) use of insulin; Z79.82 Long term (current) use of aspirin; Z79.84 Long term (current) use of oral hypoglycemic drugs; Z79.899 Other long term (current) drug therapy; Z88.0 Allergy status to penicillin; Z88.1 Allergy status to other antibiotic agents
CPT/HCPCS: 96361 ×4; 96366 ×5; 96375 ×2; 96376; 96365; 96367; 99285; 36415; 95816; 93005; 80053; 80048 ×2; 84443; 82607; 82140; 82746 ×2; 84484; 85025 ×2; 85610; 85730; 81001; 80306; 87086; 83036; 71045; 76770; 70450; G0378 ×6; G0480; J2405 ×2; J1956 ×4; J3480; J2470 ×2; 80320

== ENCOUNTER 2023-09-30 15:30 | Inpatient (IN) | payer MEDICARE, OTHER ==
[~2023-09-30 15:30] MED LIST changes: -LEVOFLOXACIN 500MG-D5W PMX 500 MG in DEXTROSE/WATER 1 100ML.BAG IVPB PRN; +MAGNESIUM SULFATE-D5W PMX 100 ML IVPB ONE; +POTASSIUM CHLORIDE ER 20 MEQ TAB.ER PO ONE
[2023-10-01] MEDS ORDERED: LORazepam 1 MG TAB ONE (14:52)
[2023-10-01] MEDS ORDERED: INSULIN ASPART (NovoLOG) 100 UNIT/ML VIAL SQ ONE (17:30)
[2023-10-01] MEDS ORDERED: traZODone HCL 100 MG TAB ONE (21:32)
[2023-10-01] MEDS ORDERED: ESCITALOPRAM 20 MG TAB ONE (23:59)
[2023-10-02] MEDS ORDERED: LORazepam 2 MG/ML INJ ONE (02:48)
[2023-10-02] MEDS ORDERED: ASPIRIN 81 MG ONE (08:38)
[2023-10-02] MEDS ORDERED: EZETIMIBE 10 MG TAB ONE (08:55)
[2023-10-02] MEDS ORDERED: POTASSIUM CHLORIDE ER 20 MEQ TAB.ER PO ONE (12:06)
[2023-10-02] MEDS ORDERED: INSULIN ASPART (NovoLOG) 100 UNIT/ML VIAL SQ ONE ×2 (13:02→21:27)
[2023-10-02] MEDS ORDERED: traZODone HCL 100 MG TAB ONE (21:27)
[2023-10-02] MEDS ORDERED: BENZTROPINE MESYLATE 0.5 MG TAB ONE (23:59)
[2023-10-02] MEDS ORDERED: ESCITALOPRAM 20 MG TAB ONE (23:59)
[2023-10-02] MEDS ORDERED: FENOFIBRATE 160 MG TAB ONE (23:59)
[2023-10-02] MEDS ORDERED: KCL IV ONE (23:59)
[2023-10-02] MEDS ORDERED: NACL IV ONE (23:59)
[2023-10-02] MEDS ORDERED: SODIUM CHLORIDE 0.9% 1,000 ML BAG ONE (23:59)
[2023-10-03] MEDS ORDERED: LORazepam 2 MG/ML INJ ONE (00:36)
[2023-10-03] MEDS ORDERED: ASPIRIN 81 MG ONE (10:36)
[2023-10-03] MEDS ORDERED: EZETIMIBE 10 MG TAB ONE (10:36)
[2023-10-03] MEDS ORDERED: traZODone HCL 100 MG TAB ONE (23:16)
[2023-10-03] MEDS ORDERED: INSULIN ASPART (NovoLOG) 100 UNIT/ML VIAL SQ ONE (23:17)
[2023-10-03] MEDS ORDERED: NACL IV ONE (23:59)
[2023-10-03] MEDS ORDERED: ESCITALOPRAM 20 MG TAB ONE (23:59)
[2023-10-03] MEDS ORDERED: KCL IV ONE (23:59)
[2023-10-03] MEDS ORDERED: BENZTROPINE MESYLATE 0.5 MG TAB ONE (23:59)
[2023-10-03] MEDS ORDERED: FENOFIBRATE 160 MG TAB ONE (23:59)
[2023-10-04] MEDS ORDERED: LORazepam 2 MG/ML INJ ONE (01:58)
[2023-10-04] MEDS ORDERED: ASPIRIN 81 MG ONE (09:41)
[2023-10-04] MEDS ORDERED: EZETIMIBE 10 MG TAB ONE (10:11)
[2023-10-04] MEDS ORDERED: POTASSIUM CHLORIDE ER 20 MEQ TAB.ER PO ONE ×2 (11:13→12:04)
[2023-10-04] MEDS ORDERED: INSULIN ASPART (NovoLOG) 100 UNIT/ML VIAL SQ ONE ×2 (13:01→22:13)
[2023-10-04] MEDS ORDERED: traZODone HCL 100 MG TAB ONE (22:14)
[2023-10-04] MEDS ORDERED: ESCITALOPRAM 20 MG TAB ONE (23:59)
[2023-10-04] MEDS ORDERED: BENZTROPINE MESYLATE 0.5 MG TAB ONE (23:59)
[2023-10-04] MEDS ORDERED: FENOFIBRATE 160 MG TAB ONE (23:59)
[2023-10-04] MEDS ORDERED: NACL IV ONE (23:59)
[2023-10-04] MEDS ORDERED: PERMETHRIN 1% CREME RINSE 59 ML LIQUID TOPICAL ONE (23:59)
[2023-10-04] MEDS ORDERED: KCL IV ONE (23:59)
[2023-10-05] MEDS ORDERED: LORazepam 2 MG/ML INJ ONE ×2 (00:48→04:34)
[2023-10-05] MEDS ORDERED: EZETIMIBE 10 MG TAB ONE (10:09)
[2023-10-05] MEDS ORDERED: ASPIRIN 81 MG ONE (10:09)
[2023-10-05] MEDS ORDERED: ESCITALOPRAM 20 MG TAB ONE (16:00)
[2023-10-05] MEDS ORDERED: FENOFIBRATE 160 MG TAB ONE (16:00)
[2023-10-05] MEDS ORDERED: BENZTROPINE MESYLATE 0.5 MG TAB ONE (16:00)
[2023-10-06] MEDS ORDERED: PANTOPRAZOLE 40 MG/10 ML VIAL ONE (09:10)
[2023-10-06] MEDS ORDERED: METOPROLOL TARTRATE 25 MG TAB ONE (09:10)
[2023-10-06] MEDS ORDERED: busPIRone HCl 5 MG TAB ONE (09:10)
--- NOTE | 2023-10-27 11:44 | XR ---
EXAMINATION TYPE: XR chest 2V DATE OF EXAM: 09/30/2023 COMPARISON: Chest radiographs from 09/18/2023 TECHNIQUE: XR chest 2V Frontal and lateral views of the chest. CLINICAL INDICATION:Female, 52 years old with history of AMS; FINDINGS: Lungs/Pleura: There is no evidence of pleural effusion, focal consolidation, or pneumothorax. Pulmonary vascularity: Unremarkable. Heart/mediastinum: Cardiomediastinal silhouette is unremarkable. Musculoskeletal: No acute osseous pathology. IMPRESSION: No acute cardiopulmonary disease/process.
--- NOTE | 2023-11-07 14:05 | CT ---
Site ID [id number] Janeth Garcia ID [id number] EXAMINATION TYPE: CT brain wo con CT DLP: 1141.3 mGycm, Automated exposure control for dose reduction was used. DATE OF EXAM: 09/30/2023 4:04 PM COMPARISON: THIS EXAM WAS READ DURING PACS DOWNTIME, NO PRIORS AVAILABLE. CLINICAL INDICATION: Fall, AMS TECHNIQUE: Brain: Multiple axial CT images of the brain were obtained without IV contrast. FINDINGS: Brain: Extra-axial spaces: No abnormal extra-axial fluid collections. Ventricular system: Within normal limits Cerebral parenchyma: No acute intraparenchymal hemorrhage or mass effect. The salgado-white junction is well differentiated. Cerebellum: Unremarkable. Mass effect: No evidence of midline shift. Intracranial vasculature: unremarkable Soft tissues: Normal. Calvarium/osseous structures: No depressed skull fracture.Nasal bone deformity on the right. Paranasal sinuses and mastoid air cells: Clear. Visualized orbits: Orbital contents are intact. IMPRESSION: 1. No acute intracranial process. 2. Right nasal bone cortical buckling correlate with pain for acute fracture.
== END 2023-10-05 16:02 | disposition home or self-care (01) | DRG 92 ==
LOC: 6NMEDSUR 15:30
PROVIDERS: ADMIT Hospitalist; ATTEND Hospitalist
DX: G92.8 Other toxic encephalopathy (principal); F05 Delirium due to known physiological condition; G21.19 Other drug induced secondary parkinsonism; F06.1 Catatonic disorder due to known physiological condition; F32.A Depression, unspecified; K21.9 Gastro-esophageal reflux disease without esophagitis; E11.9 Type 2 diabetes mellitus without complications; E78.5 Hyperlipidemia, unspecified; Z88.0 Allergy status to penicillin; Z88.1 Allergy status to other antibiotic agents; Z91.041 Radiographic dye allergy status
CPT/HCPCS: 70450; 71046; 87086; 96361; 96374; 99285

== ENCOUNTER 2023-10-19 10:06 | Emergency (ER) | payer MEDICARE, MEDICAID ==
--- NOTE | 2023-10-19 10:27 | ED ---
General Adult HPI - General Stated complaint: AMS/mental health Time Seen by Provider: 10/19/23 10:09 Source: patient, EMS, RN notes reviewed Mode of arrival: EMS Limitations: no limitations - History of Present Illness Initial comments: 52-year-old female presents to the emergency department with chief complaint of needing evaluation. Patient was checked in by guardian sent in for evaluation. Patient has a long psychiatric history she reports that she is taking her medication she has no physical plaints denies any drug or alcohol use. Patient does not offer any other significant information EMS states that she just slow to respond but reportedly is her baseline. - Related Data Home Medications Medication Instructions Recorded Confirmed Ezetimibe [Zetia] 10 mg PO DAILY 03/17/20 09/17/23 Omeprazole 40 mg PO DAILY 01/26/21 09/17/23 Cetirizine HCl [Zyrtec] 10 mg PO DAILY 08/04/22 09/17/23 Mirabegron [Myrbetriq] 50 mg PO DAILY 08/04/22 09/17/23 Fenofibrate [Lofibra] 160 mg PO DAILY 11/03/22 09/17/23 Insulin Aspart [NovoLOG Flexpen] 10 units SQ AC-TID MDD 100 units 03/29/23 09/17/23 Insulin Aspart [NovoLOG Flexpen] See Protocol SQ AC-TID PRN MDD 100 03/29/23 09/17/23 units Aspirin EC [Ecotrin Low Dose] 81 mg PO DAILY 08/18/23 09/17/23 Previous Rx's Medication Instructions Recorded Escitalopram [Lexapro] 20 mg PO DAILY 30 Days #30 tab 08/22/22 traZODone HCL 100 mg PO HS #30 tablet 09/13/23 ARIPiprazole [Abilify] 15 mg PO DAILY 30 Days #30 tablet 09/15/23 metFORMIN HCL 1,000 mg PO BID 30 Days #60 tab 09/15/23 Allergies Allergy/AdvReac Type Severity Reaction Status Date / Time Penicillins Allergy Severe Anaphylaxis Verified 10/19/23 10:09 cephalexin monohydrate Allergy Anaphylaxis Verified 10/19/23 10:09 [From Keflex] iodine Allergy Rash/Hives Verified 10/19/23 10:09 Mushroom AdvReac Unknown Verified 10/19/23 10:09 Review of Systems ROS Statement: Those systems with pertinent positive or pertinent negative responses have been documented in the HPI. ROS Other: All systems not noted in ROS Statement are negative. Past Medical History Past Medical History: Coronary Artery Disease (CAD), Diabetes Mellitus, GERD/Reflux, Hyperlipidemia, Hypertension Additional Past Medical History / Comment(s): NIDDM type II, dyslexia. History of Any Multi-Drug Resistant Organisms: ESBL Date of last positivie culture/infection: 08/11/21-ESBL MDRO Source:: URINE Past Surgical History: Adenoidectomy, Section, Tonsillectomy Additional Past Surgical History / Comment(s): Nasal surgery Past Anesthesia/Blood Transfusion Reactions: Postoperative Nausea & Vomiting (PONV) Additional Past Anesthesia/Blood Transfusion Reaction / Comment(s): Pt states she has never received blood. Past Psychological History: Anxiety, Depression, Panic Disorder Additional Psychological History / Comment(s): She is independent. She has dyslexia. She states she has mild comprehension problem. Smoking Status: Current every day smoker Past Alcohol Use History: None Reported Past Drug Use History: None Reported - Past Family History Mother Family Medical History: Cancer Additional Family Medical History / Comment(s): Mother has lymphoma. Father History Unknown: Yes Additional Family Medical History / Comment(s): Father left when pt was 2 months old. General Exam Limitations: no limitations General appearance: alert, in no apparent distress Head exam: Present: atraumatic, normocephalic, normal inspection Eye exam: Present: normal appearance, PERRL, EOMI. Absent: scleral icterus, conjunctival injection, periorbital swelling ENT exam: Present: normal exam, normal oropharynx, mucous membranes moist Neck exam: Present: normal inspection, full ROM. Absent: tenderness, meningismus, lymphadenopathy Respiratory exam: Present: normal lung sounds bilaterally. Absent: respiratory distress, wheezes, rales, rhonchi, stridor Cardiovascular Exam: Present: regular rate, normal rhythm, normal heart sounds. Absent: systolic murmur, diastolic murmur, rubs, gallop, clicks Neurological exam: Present: alert, oriented X3, CN II-XII intact, reflexes normal. Absent: motor sensory deficit Psychiatric exam: Present: flat affect Skin exam: Present: warm, dry, intact, normal color. Absent: rash Course Vital Signs 10/19/23 10/19/23 10/19/23 10:10 11:21 11:37 Temperature 99.0 F Pulse Rate 104 H 98 110 H Respiratory 18 18 18 Rate Blood Pressure 137/84 174/97 166/96 O2 Sat by Pulse 95 99 98 Oximetry 10/19/23 12:27 Temperature Pulse Rate 98 Respiratory 18 Rate Blood Pressure 155/98 O2 Sat by Pulse 97 Oximetry Medical Decision Making - Medical Decision Making Was pt. sent in by a medical professional or institution (, [facility], [facility], urgent care, hospital, or penitentiary...) When possible be specific @ -No Did you speak to anyone other than the patient for history (EMS, parent, family, police, friend...)? What history was obtained from this source @ -Significant other in the room who states patient is at baseline Did you review nursing and triage notes (agree or disagree)? Why? @ -I reviewed and agree with nursing and triage notes Were old charts reviewed (outside hosp., previous admission, EMS record, old EKG, old radiological studies, urgent care reports/EKG's, penitentiary records)? Report findings @ -No old charts were reviewed Differential Diagnosis (chest pain, altered mental status, abdominal pain women, abdominal pain men, vaginal bleeding, weakness, fever, dyspnea, syncope, headache, dizziness, GI bleed, back pain, seizure, CVA, palpatations, mental health, musculoskeletal)? @ -Differential Mental Health Depression, anxiety, bipolar, psychosis, schizophrenia, borderline personality, situational depression, adjustment disorder, behavioral disorder, brain tumor, malingering, substance abuse, encephalopathy, medication reaction, dementia, hypothyroidism, degenerative neurologic disorder, lupus.... This is not meant to be all-inclusive list EKG interpreted by me (3pts min.). @ -None X-rays interpreted by me (1pt min.). @ -None done CT interpreted by me (1pt min.). @ -None done U/S interpreted by me (1pt. min.). @ -None done What testing was considered but not performed or refused? (CT, X-rays, U/S, labs)? Why? @ -None What meds were considered but not given or refused? Why? @ -None Did you discuss the management of the patient with other professionals (professionals i.e. , [facility], [employer], lab, RT, psych nurse, renal social worker, hvac controls technician, teacher, principal gifts officer, caseworker)? Give summary @ -EPS evaluated patient Was smoking cessation discussed for >3mins.? @ -No Was critical care preformed (if so, how long)? @ -No Were there social determinants of health that impacted care today? How? (Homelessness, low income, unemployed, alcoholism, drug addiction, transportation, low edu. Level, literacy, decrease access to med. care, fdc, rehab)? @ -No Was there de-escalation of care discussed even if they declined (Discuss DNR or withdrawal of care, Hospice)? DNR status @ -No What co-morbidities impacted this encounter? (DM, HTN, Smoking, COPD, CAD, Cancer, CVA, ARF, Chemo, Hep., AIDS, mental health diagnosis, sleep apnea, morbid obesity)? @ -None Was patient admitted / discharged? Hospital course, mention meds given and route, prescriptions, significant lab abnormalities, going to OR and other pertinent info. @ -Discharge patient laboratory studies unremarkable. Patient has no complaints and significant other in room states that she is at her baseline she has an appointment with [facility] tomorrow patient denies being suicidal be discharged Undiagnosed new problem with uncertain prognosis? @ -No Drug Therapy requiring intensive monitoring for toxicity (Heparin, Nitro, Insulin, Cardizem)? @ -No Were any procedures done? @ -No Diagnosis/symptom? @ -[Bipolar disorder Acute, or Chronic, or Acute on Chronic? @ -Acute Uncomplicated (without systemic symptoms) or Complicated (systemic symptoms)? @ -Uncomplicated Side effects of treatment? @ -No Exacerbation, Progression, or Severe Exacerbation? @ -No Poses a threat to life or bodily function? How? (Chest pain, USA, PA, pneumonia, PE, COPD, DKA, ARF, appy, cholecystitis, CVA, Diverticulitis, Homicidal, Suicidal, threat to staff... and all critical care pts) @ -No - Lab Data Result diagrams: 10/19/23 10:35 10/19/23 10:35 Lab Results 10/19/23 10/19/23 Range/Units 10:35 10:35 WBC 5.1 (3.8-10.6) k/uL RBC 4.25 (3.80-5.40) m/uL Hgb 12.6 (11.4-16.0) gm/dL Hct 37.6 (34.0-46.0) % MCV 88.5 (80.0-100.0) fL MCH 29.7 (25.0-35.0) pg MCHC 33.6 (31.0-37.0) g/dL RDW 12.9 (11.5-15.5) % Plt Count 207 (150-450) k/uL MPV 8.6 Neutrophils % 73 % Lymphocytes % 20 % Monocytes % 5 % Eosinophils % 1 % Basophils % 0 % Neutrophils # 3.7 (1.3-7.7) k/uL Lymphocytes # 1.1 (1.0-4.8) k/uL Monocytes # 0.3 (0-1.0) k/uL Eosinophils # 0.0 (0-0.7) k/uL Basophils # 0.0 (0-0.2) k/uL Sodium 143 (137-145) mmol/L Potassium 3.5 (3.5-5.1) mmol/L Chloride 111 H (98-107) mmol/L Carbon Dioxide 27 (22-30) mmol/L Anion Gap 5 mmol/L BUN 7 (7-17) mg/dL Creatinine 0.47 L (0.52-1.04) mg/dL Est GFR (CKD-EPI)AfAm >90 (>60 ml/min/1.73 sqM) Est GFR (CKD-EPI)NonAf >90 (>60 ml/min/1.73 sqM) Glucose 154 H (74-99) mg/dL Calcium 9.6 (8.4-10.2) mg/dL Total Bilirubin 0.6 (0.2-1.3) mg/dL AST 34 (14-36) U/L ALT 42 H (4-34) U/L Alkaline Phosphatase 70 (38-126) U/L Total Protein 6.2 L (6.3-8.2) g/dL Albumin 4.1 (3.5-5.0) g/dL Serum Alcohol <10 mg/dL Disposition Clinical Impression: Bipolar 1 disorder Disposition: HOME SELF-CARE Condition: Stable Additional Instructions: Please return to the Emergency Department if symptoms worsen or any other c oncerns. Is patient prescribed a controlled substance at d/c from ED?: No Referrals: None,Stated [Primary Care Provider] - 1-2 days Time of Disposition: 15:09
[2023-10-19 10:30] VITALS: RESP 18; TEMP 99
[2023-10-19] MEDS: SODIUM CHLORIDE 0.9% 1,000 ML IV ONE (10:56)
[2023-10-19 11:00] LABS: Basophils % (A) 0 %; Eosinophils % (A) 1 %; HCT 37.6 % (34.0-46.0); HGB 12.6 gm/dL (11.4-16.0); Lymphocytes # (A) 1.1 k/uL (1.0-4.8); Lymphocytes % (A) 20 %; MCH 29.7 pg (25.0-35.0); MCHC 33.6 g/dL (31.0-37.0); MCV 88.5 fL (80.0-100.0); Mean Platelet Volume 8.6; Monocytes # (A) 0.3 k/uL (0-1.0); Monocytes % (A) 5 %; Neutrophils # (A) 3.7 k/uL (1.3-7.7); Neutrophils % (A) 73 %; Platelet Count 207 k/uL (150-450); RBC 4.25 m/uL (3.80-5.40); RDW 12.9 % (11.5-15.5); WBC 5.1 k/uL (3.8-10.6)
[2023-10-19 11:11] LABS: ALT 42 U/L (4-34); AST 34 U/L (14-36); African American GFR (CKD) >90 (>60 ml/min/1.73 sqM); Albumin 4.1 g/dL (3.5-5.0); Alcohol <10 mg/dL; Alkaline Phosphatase 70 U/L (38-126); Anion Gap 5 mmol/L; Blood Urea Nitrogen 7 mg/dL (7-17); Calcium 9.6 mg/dL (8.4-10.2); Carbon Dioxide 27 mmol/L (22-30); Chloride 111 mmol/L (98-107); Glucose 154 mg/dL (74-99); Non-African American GFR(CKD) >90 (>60 ml/min/1.73 sqM); Potassium 3.5 mmol/L (3.5-5.1); Sodium 143 mmol/L (137-145); Total Bilirubin 0.6 mg/dL (0.2-1.3); Total Protein 6.2 g/dL (6.3-8.2)
[2023-10-19] MEDS: PERMETHRIN 1% CREME RINSE 59 ML LIQUID TOPICAL ONE (13:50)
[2023-10-30 02:21] VITALS: BP 152/79; PULSE 94
== END 2023-10-19 16:40 | disposition home or self-care (01) ==
LOC: EC 10:06
CPT/HCPCS: 36415; 80053; 80320; 85025; 96360; 99285